=== PATIENT | female | born 1945 | race Caucasian/White ===

== ENCOUNTER 2021-03-09 03:18 | Outpatient (CLI) | payer MEDICARE, SELFPAY ==
[2021-03-09 13:32] LABS: Anion Gap 11.3 mmol/L (3-11); BUN 24 mg/dL (7-18); CO2 25.7 mmol/L (21.0-32.0); CREATININE 0.9 mg/dL (0.55-1.02); Calcium 9.3 mg/dL (8.5-10.1); Calculated LDL 80 mg/dL (<100); Chloride 107 mmol/L (98-107); Cholesterol 152 mg/dL (<200); Glucose 101 mg/dL (74-106); HDL Cholesterol 59 mg/dL (40-60); Potassium 4.2 mmol/L (3.5-5.1); Sodium 144 mmol/L (136-145); Triglyceride 65 mg/dL (<150)
[2021-03-09 14:51] LABS: Hemoglobin A1C 6.1 % (<5.7)
== END 2021-03-09 03:19 | disposition home or self-care (01) ==
PROVIDERS: PCP Nurse Practitioner; Visit Provider Nurse Practitioner
DX: R73.03 Prediabetes (principal); E78.5 Hyperlipidemia, unspecified; Z13.6 Encounter for screening for cardiovascular disorders
CPT/HCPCS: 36415; 80048; 80061; 83036

== ENCOUNTER 2021-05-20 02:17 | Outpatient (CLI) | payer MEDICARE, SELFPAY ==
[2021-05-22 15:24] LABS: 1,25-Dihydroxyvitamin D 37 pg/mL (18-78)
== END 2021-05-20 02:18 | disposition home or self-care (01) ==
PROVIDERS: PCP Nurse Practitioner; Visit Provider Nurse Practitioner
DX: E55.9 Vitamin D deficiency, unspecified (principal)
CPT/HCPCS: 36415; 82652

== ENCOUNTER 2021-09-22 00:16 | Outpatient (CLI) | payer MEDICARE, SELFPAY ==
--- NOTE | 2021-09-22 07:15 | DI.RAD_ITS ---
Exam(s) XR HIP LT COMPLETE AP PELVIS EXAM: XR HIP LT COMPLETE AP PELVIS INDICATION: left hip and groin and llq pain,r10.32. COMPARISON: No exams were available for comparison TECHNIQUE: 2D digital imaging was performed. Two views FINDINGS: Mild bilateral hip joint space narrowing, symmetric. Prominent acetabular spurring and spurring at t he margins of the femoral heads. Moderate spurring at the SI joints and pubic symphysis. IMPRESSION: Moderate degenerative changes of both hips. DATA REPOSITORY: RADIATION DOSE DELIVERED:
== END 2021-09-22 00:36 ==
PROVIDERS: PCP Nurse Practitioner; Visit Provider Nurse Practitioner
DX: M25.552 Pain in left hip (principal); M53.3 Sacrococcygeal disorders, not elsewhere classified; R10.32 Left lower quadrant pain
CPT/HCPCS: 73502

== ENCOUNTER 2021-10-13 01:52 | Outpatient (CLI) | payer MEDICARE, SELFPAY ==
--- NOTE | 2021-10-13 07:30 | DI.MAMMO_ITS ---
Exam(s) MAMMO SCREENING EXAM: MAMMO SCREENING CLINICAL HISTORY: screening,z12.39 TECHNIQUE: Mammograms were interpreted according to the usual protocol including computer analysis w [employer] CAD system, tomosynthesis and C-view imaging. COMPARISON: FINDINGS: The breasts are of moderate density with fairly symmetrical distribution of fibroglandular tissue. N o dominant mass or clumped microcalcification is identified in either breast. No prior examinations available for comparison. There is a focal area of asymmetric density projected in the central portion of the right breast on C C view. Additional mammographic views of this area are requested to include a CC spot compression vi ew to exclude a small mass. IMPRESSION: Additional mammographic views of the right breast requested as described above. Breast ultrasound ma y be indicated as well depending on the results additional mammographic views. BI-RADS Category 0 - Assessment Incomplete: Need additional imaging evaluation Breast Density - Category B - Scattered areas of fibroglandular density
== END 2021-10-13 02:12 ==
PROVIDERS: PCP Nurse Practitioner; Visit Provider Nurse Practitioner
DX: Z12.31 Encounter for screening mammogram for malignant neoplasm of breast (principal); R92.8 Other abnormal and inconclusive findings on diagnostic imaging of breast
CPT/HCPCS: 77063; 77067

== ENCOUNTER → 2021-11-26 08:34 | Outpatient (BNVA) | payer MEDICARE, SELFPAY | PROVIDERS: PCP Nurse Practitioner; Referring Provider Nurse Practitioner; Visit Provider Student in an Organized Health Care Education/Training Program | DX: M16.12 Unilateral primary osteoarthritis, left hip (principal); M16.11 Unilateral primary osteoarthritis, right hip | CPT/HCPCS: 99203 ==

== ENCOUNTER 2021-12-16 13:44 | Outpatient (CLI) | payer MEDICARE, SELFPAY ==
--- NOTE | 2021-12-16 13:30 | DI.RAD_ITS ---
Exam(s) XR PELVIS AP EXAM: XR PELVIS AP CLINICAL HISTORY: LEFT HIP F/U. TECHNIQUE: 2D digital imaging was performed. COMPARISON: CR XR HIP LT COMPLETE AP PELVIS from 09/22/2021 FINDINGS: Single view No evidence of pelvic nor hip fracture. Significant degenerative changes both hips again noted, guille lar to previous. There is mild joint space narrowing bilaterally as well as marginal osteophytes bot h femoral heads and degenerative subarticular cysts bilaterally. IMPRESSION: Degenerative bilateral hip changes. Minimal change from 09/22/2021. DATA REPOSITORY: RADIATION DOSE DELIVERED:
== END 2021-12-16 13:45 | disposition home or self-care (01) ==
LOC: DIORS 13:45
PROVIDERS: PCP Nurse Practitioner; Referring Provider Nurse Practitioner; Visit Provider Physician Assistant
DX: M16.12 Unilateral primary osteoarthritis, left hip (principal)
CPT/HCPCS: 72170

== ENCOUNTER 2021-12-21 03:52 | Outpatient (CLI) | payer MEDICARE, SELFPAY | END 2021-12-21 03:53 | disposition home or self-care (01) | PROVIDERS: PCP Nurse Practitioner; Visit Provider Student in an Organized Health Care Education/Training Program ==

== ENCOUNTER 2021-12-21 04:01 | Outpatient (CLI) | payer MEDICARE, SELFPAY ==
[2021-12-21 09:09] LABS: HCT 39.6 % (36.0-46.0); HGB 13.4 g/dL (11.2-15.7); MCHC 33.8 % (32.0-36.0); MCV 92 fL (80-95); MPV 9.2 fL (8.0-11.0); Platelet Count 232 10^3/uL (130-400); RBC 4.32 10^6/uL (3.93-5.22); RDW 12.3 % (11.7-14.6); RDW-SD 41.4 fL; WBC 5.11 10^3/uL (4.4-10.8)
[2021-12-21 10:07] LABS: Anion Gap 11.2 mmol/L (3-11); BUN 28 mg/dL (7-18); CO2 24.8 mmol/L (21.0-32.0); Calcium 9.3 mg/dL (8.5-10.1); Chloride 105 mmol/L (98-107); Estimated GFR 53.76 (mL/min/1.73m2); Glucose 152 mg/dL (74-106); Potassium 3.7 mmol/L (3.5-5.1); Sodium 141 mmol/L (136-145)
[2021-12-21 11:58] LABS: Source Nasal/Nares
[2021-12-21 16:19] LABS: COVID-19 PCR Negative (Negative)
== END 2021-12-21 04:02 | disposition home or self-care (01) ==
LOC: LBO 04:01
PROVIDERS: PCP Nurse Practitioner; Visit Provider Student in an Organized Health Care Education/Training Program
DX: M25.552 Pain in left hip (principal); M16.12 Unilateral primary osteoarthritis, left hip; Z20.822 Contact with and (suspected) exposure to COVID-19; Z01.818 Encounter for other preprocedural examination; Z01.812 Encounter for preprocedural laboratory examination
CPT/HCPCS: 36415; 80048; 85027; 87635

== ENCOUNTER 2021-12-22 06:04 | Day surgery (SDC) | payer MEDICARE, SELFPAY ==
[2021-12-22] VITALS (10 sets, daily range): BP systolic 92–141; BP diastolic 29–90; PULSE 50–69; RESP 15–21; TEMP 36.2–36.6; O2SAT 94–100; BMI 28.8
--- NOTE | 2021-12-22 06:26 | W.ANESPRE ---
General Info Date of Service Date Performed: 12/22/21 Height: 5 ft 3 in Weight: 73.7 kg Body Mass Index (BMI): 28.8 Surgical Procedure: Operation Date: 12/22/21 07:50 Proposed Procedure Side Surgeon p Hip Total Hip Anterior Left Reyes Lo MD Meds Allergies and Home Medications Allergies Allergy/AdvReac Type Severity Reaction Status Date / Time meperidine [From Demerol] AdvReac Unknown Nausea, Verified 12/22/21 06:12 vomiting Home Medication Medication Instructions Recorded calcium carbonate 600 mg calcium 600 mg PO DAILY 12/29/20 (1,500 mg) tablet cholecalciferol (vitamin D3) 25 25 mcg PO DAILY 12/29/20 mcg (1,000 unit) tablet melatonin 3 mg tablet 3 mg PO HS PRN 12/29/20 rosuvastatin 20 mg tablet 20 mg PO DAILY 12/29/20 ljpldznslcpr-emhdvrck-pkbezfn-folic 1 tab PO DAILY 01/20/21 acid 400 mcg-vit K1 20 mcg tablet (One-A-Day Women's 50 Plus) pramipexole 0.125 mg tablet 0.125 mg PO QHS 01/20/21 Current Visit Medications: Current Medications Generic Name Dose Route Start Last Admin Trade Name Freq PRN Reason Stop Dose Admin Acetaminophen 1,000 mg 12/22/21 06:00 Acetaminophen 500 Mg Tab PO 12/22/21 16:00 PREOP LUISA Celecoxib 400 mg 12/22/21 06:00 Celecoxib 200 Mg Cap PO 12/22/21 16:00 PREOP LUISA Tranexamic Acid 1,000 mg/ 60 mls @ 360 mls/hr 12/22/21 06:00 Sodium Chloride IV 12/22/21 16:00 PREOP LUISA Ringer's Solution 1,000 mls @ 80 mls/hr 12/22/21 06:00 IV 01/20/22 23:59 INFUSION LUISA Cefazolin Sodium/Dextrose 2 gm in 50 mls @ 100 mls/hr 12/22/21 06:00 Ancef Duplex IVPB 12/22/21 16:00 PREOP LUISA IV Miscellaneous Supplies 1 each 12/22/21 06:00 Iv Access IV 01/20/22 23:59 DIRECTED LUISA Sodium Chloride 0 ml 12/22/21 06:00 Normal Saline Flush 10 Ml Syr IV 01/20/22 23:59 PRN PRN Sodium Chloride 0 ml 12/22/21 06:00 Normal Saline 10 Ml Vial IJ 01/20/22 23:59 DIRECTED PRN Sterile Water 0 ml 12/22/21 06:00 Water,Injection,Sterile 10 Ml Vial IJ 01/20/22 23:59 DIRECTED PRN PFSH Active Problems Active Problems: Problem Status Onset Code Vitamin D deficiency E55.9 Osteopenia M85.80 Low back pain M54.5 Pre-diabetes R73.03 Hyperlipidemia E78.5 Restless leg G25.81 Left groin pain R10.32 Osteoarthritis M19.90 Nocturia R35.1 Snoring R06.83 Osteoarthritis of right hip M16.11 Degenerative joint disease of left hip M16.12 Medical History Medical History COVID-19 11/11/21 Knee fracture, left Left anterior fascicular block Reactive depression 2017 Uterine polyp Medical History Comments:: Pt. states she is a light weight with anesthesia Surgical History Surgical History H/O dilation and curettage uterus History of carpal tunnel repair (~1996) B/L History of hammertoe correction (~2010) left foot History of phacoemulsification of cataract of right eye with intraocular lens implantation S/P breast biopsy, right (~1972) BENIGN S/P lumpectomy, right breast (~1972) Status post bilateral cataract extraction Status post tonsillectomy and adenoidectomy (~1947) Status post trigger finger release right 3rd Tobacco Smoking/Tobacco Use Status: Never Passive smoking exposure: Yes Second hand exposure: Yes Alcohol Alcohol Intake: current Alcohol intake frequency: holidays/special occasions only Alcohol type: wine Substance Use Substance use: Never Substance use type: does not use Vital Signs and Lab Results Vital Signs Most Recent Vital Signs in EMR: Most Recent Vital Signs Temp Pulse Resp BP Pulse Ox 36.6 C 69 16 141/70 H 97 12/22/21 06:15 12/22/21 06:15 12/22/21 06:15 12/22/21 06:15 12/22/21 06:15 Lab Results Blood Type / Crossmatch: No Data to Display Complete Blood Count: White Blood Count 5.11 10^3/uL (4.4-10.8) 12/21/21 08:52 Red Blood Count 4.32 10^6/uL (3.93-5.22) 12/21/21 08:52 Hemoglobin 13.4 g/dL (11.2-15.7) 12/21/21 08:52 Hematocrit 39.6 % (36.0-46.0) 12/21/21 08:52 Platelet Count 232 10^3/uL (130-400) 12/21/21 08:52 Complete Metabolic Panel: Sodium Level 141 mmol/L (136-145) 12/21/21 08:52 Potassium Level 3.7 mmol/L (3.5-5.1) 12/21/21 08:52 Chloride Level 105 mmol/L (98-107) 12/21/21 08:52 Carbon Dioxide Level 24.8 mmol/L (21.0-32.0) 12/21/21 08:52 Blood Urea Nitrogen 28 mg/dL (7-18) H 12/21/21 08:52 Creatinine 1.0 mg/dL (0.55-1.02) 12/21/21 08:52 Estimated GFR/1.73 m2 53.76 (mL/min/1.73m2) 12/21/21 08:52 Calcium Level 9.3 mg/dL (8.5-10.1) 12/21/21 08:52 Glucose Level 152 mg/dL (74-106) H 12/21/21 08:52 Liver Function Panel: No Data to Display Coagulation Panel: No Data to Display Cardiac Panel: No Data to Display Arterial Blood Gas: No Data to Display Venous Blood Gas: No Data to Display Pancreas Panel: No Data to Display Thyroid Panel: No Data to Display Infectious Disease: Coronavirus (COVID-19)(PCR) Negative (Negative) 12/21/21 09:06 Coronavirus 2019 Source Nasal/Nares 12/21/21 09:06 Blood Cultures: No Data to Display Toxicology Panel: No Data to Display Anesthesia Assessment and Plan Anesthesia History Personal History: No History of Anesthesia Complications Family History: No Family History of Anesthesia Complications Exercise Tolerance Exercise Tolerance: Metabolic Equivalents>4 Cardiac & Pulmonary Exam Cardiac Exam: Normal S1/S2 Heart Sounds Pulmonary Exam: Clear Bilateral Breath Sounds Implantable Cardiac Device Does patient have a Pacemaker or an ICD?: No Airway Exam Known Difficult Airway: No Mallampati Class: 3 Mouth Opening: Normal (> 3cm) Thyromental Distance: Greater than 3 cm Neck Range of Motion: Full ROM Neck Circumference: Normal Teeth Condition: Normal Dentition ASA Classification ASA Score: ASA 2 Emergency Case?: No NPO Status NPO Status: NPO Clears >2 hours, Solids >8 hours Anesthesia Plan Resuscitation Status: Full Code Anesthesia Technique: General Anesthesia Airway Planned: Endotracheal Tube Monitors Used: Standard Monitors Preoperative Comments:: 76 yo female for left hip arthroplasty. Requesting GA. Sig PMHx: RLS, snoring, DJD, pre DM (last a1c 6.1). recent COVID ~ 5 weeks ago, no issues.
[2021-12-22] MEDS: Acetaminophen 500 MG TAB 1000 MG PO (06:57)
[2021-12-22] MEDS: Lactated Ringers 1,000 ML 80 ML IV (06:57)
[2021-12-22] MEDS: Celecoxib 200 MG CAP 400 MG PO (06:57)
[2021-12-22] MEDS: ceFAZolin 2 GM/50 ML BAG IVPB (07:42)
--- NOTE | 2021-12-22 08:45 | DI.RAD_ITS ---
Exam(s) XR HIP LT IN OR EXAM: XR HIP LT IN OR CLINICAL HISTORY: Degenerative joint disease of left hip. TECHNIQUE: 2D digital imaging was performed. COMPARISON: No exams were available for comparison FINDINGS: Fluoroscopy was provided during left hip arthroplasty. See procedure report for details. Total fluoroscopy time 27 seconds Cumulative dose 3.8093mGy IMPRESSION: DATA REPOSITORY: RADIATION DOSE DELIVERED:
--- NOTE | 2021-12-22 09:11 | ROE_ITS ---
Date of service: 12/22/21 Time of Service: 09:11 Operative Note Operative Note DATE OF PROCEDURE: 12/22/21 PRE-OP DIAGNOSIS: Left Hip Osteoarthritis POST-OP DIAGNOSIS: same PROCEDURE: Left Anterior Total Hip Arthroplasty with Intraoperative Navigation SURGEON: Reyes Lo ANESTHESIA TYPE: Spinal Refer to Anesthesia Record PATHOLOGY: none sent TOURNIQUET TIME: 0 COMPLICATIONS: None Patient was transported to: PACU Patient's condition: stable Implants: 1. Depuy Bimentum Acetabular Component, 47mm 2. Depuy Bimentum Liner, [id number] 3. Depuy Corail Coxa Vara Collared Femoral Stem, Size 9 4. Depuy Altrx Ceramic Femoral Head, Size 28+1mm Indications: I have seen Fidelina in clinic for symptoms of hip arthritis, confirmed with radiographic findings. She has exhausted nonoperative methods and was having significant limitations in daily function and desired better function and less pain. I discussed the technical details of a hip replacement. I explained the risks of the procedure to include, but not limited to, bleeding, infection, pain, stiffness, fracture, damage to nerves and vessels, damage to muscles and tendons, loosening, instability, leg length inequality, need for repeat procedure, blood clot and cardiopulmonary demise. Despite these risks, Fidelina elected to proceed. Findings: There was significant signs of arthritis throughout the hip with complete loss of cartilage from the superior femoral head. A dual mobility acetabular component was utilized given her long-standing spinal history. Procedure Description: Fidelina was greeted in the preoperative holding area where the correct side was identified and marked. The consent was reviewed with the patient and signed. The history and physical was updated. All questions were answered. SHe was taken back to the operating room. A general anesthetic was administered. The feet were wrapped with cast padding and Coban and then placed into the boot liners and then into the boots. Care was taken to protect the skin and make sure the heels were fully down and the boots were stable. The patient was then positioned onto the HANA table. Both legs were held in a neutral position. SCDs were applied. The patient was then slid down onto a peroneal post. Prophylactic antibiotics in the form of Cefazolin were administered. 1g of Tranxemic Acid was given intravenously within 30 minutes of incision. The left leg was then prepped with Chloraprep and draped in a standard fashion. A second prep with Chloraprep was performed prior to placement of a shower-curtain type drape with Iodine impregnated skin protection . A timeout to confirm correct identity, side and site, procedure, allergies, anesthesia, and medical concerns was performed. An obliquely oriented incision was made starting lateral to the ASIS and running distal over the Tensor Fascia Dipti (TFL) muscle belly toward the fibular head, approximately 10cm. The skin and soft tissue was dissected sharply, through Dylan?s fascia, and to the fascia of the TFL. With the fascia and superior border of the IT band identified, the fascia was incised with a new knife just above any perforators from the IT band. The TFL muscle belly was bluntly disse cted away from the fascia and moved laterally. The fat between TFL and rectus was identified to ensure the dissection was not within the TFL. Blunt dissection created space between abductors and the capsule and retractor was placed over the lateral femoral neck. The fibers of the rectus femoris tendon were identified and these were freed from the anterior capsule. A second cobra retractor was placed around the medial femoral neck. The TFL was further retracted laterally to show the deep fascia. Careful dissection through this layer identified three main crossing vessels of the lateral femoral circumflex. These were cauterized in multiple locations and then cut without any noticeable bleeding. The TFL was further released bluntly from the deep fascia to expose anterior hip capsule and fat The Kwame orthopaedic retractor was then placed beneath the TFL and against sartorius and medial soft tissues to protect and retract the soft tissues. A T-capsulotomy was then performed starting at the superior lateral acetabulum and moving distally to the intertrochanteric ridge. These capsular flaps were tagged with a No. 1 Ethibond and elevated from within. The capsular flaps were released to the shoulder of the lateral neck and to the lesser trochanter to give excellent visualization of the proximal femur. A neck osteotomy was performed using an oscillating saw based on preoperative templates. This cut started in the shoulder and of the lateral neck and exited medially. The saw was at all times directed medially to avoid injury to the greater trochanter. Gross traction was applied to the leg and the osteotomy opened. The femoral head was removed with a corkscrew, making sure to protect the TFL on its exit. Traction was released after head removal. This was matthieu ured on the back table to determine the starting reamer size. Portions of the rectus obscuring visualization were minimally elevated off the superior acetabulum. An anterior retractor was placed over the anterior wall between capsule and labrum and attached to the Gripper retraction system. The femur was rotated to 90 degrees and medial capsule was fully released until the lesser trochanter was palpable and visible; the femur was returned to 30 degrees. A posterior retractor was placed similarly between capsule and labrum. This provided excellent visualization. The contents of the cotyloid fossa were removed with electrocautery and the labrum was removed with a knife. There was significant chondromalacia of the superior acetabulum. Acetabular reaming began with a 43mm reamer. This first reaming was directed anterior to posterior and medial to get down to the true floor. This was inspected and reamed until the true floor was reached. The anterior retractor was then released and entry and exit was provided by traction on the capsular flaps. I then reamed sequentially up to a 47mm reamer where good fit was obtained. The larger reamers were oriented based on anatomical reference of the anterior and lateral perea to ensure proper abduction and anteversion. Positioning and size was confirmed with the fluoroscopy. A 47mm Bimentum acetabular component was selected. The deep tissues were irrigated. The acetabular component was then impacted in a position of about 40-45 degrees of abduction and 15-20 degrees of anteversion, using the patient?s anatomy as the ultimate landmark. Fluoroscopy was used to confirm this. There was excellent vending machine filler of the acetabular component and the inserting handle was removed. A portion of the rodrick-articular cocktail was then injected around the acetabulum into the capsule and periosteum. This cocktail consisted of 123mg of Ropivacaine, 0.25mg of Epinephrine, 0.04mg of Clonidine, and 15mg of Ketorolac, diluted to 50cc. The leg was rotated to 120 degrees. Any remaining medial capsule was released until the lesser trochanter was easily palpable. A retractor was placed medially. The lateral capsule was further released into the shoulder to allow access to the greater trochanter. A Tong retractor was placed over the greater trochanter which allowed the trochanter to flip in front of the capsule for excellent exposure. The leg was brought down into maximal extension and 20 degrees of adduction while ensuring there was no impingement on the acetabulum. Any remnant capsule within the trochanter was released. Piriformis and obturator externis were identified and protected. There was excellent access to the proximal femur. The lateral neck remnant was removed with a rongeur. A blunt canal probe was used to identify the canal and trajectory for later broaching. A box osteotome initiated the broach course. A small curved rasp and a curved curette were used to work laterally. Broaching then began with a size 8 Corail broach. This was inserted manually around the trochanter and into the canal before mallet blows. The broach was seated to a few millimeters below the cut level based on the neck cut and the preoperative template. Sequential broaching was continued with the [employer] pneumatic broaching device until a tight fit was obtained with good rotational control of the femur. A trial coxa vara neck was inserted along with a +1 trial head. The leg was brought out of extension and adduction and then reduced with traction and internal rotation. The leg was stable anteriorly in a position of 30 degrees of extension and 90 degrees of external rotation. Fluoroscopy was used to ensure there was no fracture and the stem was seated well. Leg lengths were checked with an AP pelvis and pelvic reference points. Azima navigation system was used to confirm appropriate positioning and leg length and offset. This over-corrected the leg length and thus I would advance the broach 4-5mm. Once content with the desired offset and leg lengths, the leg was brought back into extension, external rotation and adduction. The periosteum and surrounding tissue was injected with remaining portion of the rodrick-articular cocktail. The proximal femur was irrigated as well as the deep tissues. The Depuy Corail Coxa Vara collared stem, size 9, was then manually inserted into the proximal femur making sure to control rotation. It was then malleted into position with light blows, giving breaks to allow bone expansion and decrease risk of fracture. The selected Depuy Altrx Ceramic Head, size 28+1mm, was inserted into the Bimentum liner ([id number]). This was then placed onto the clean and dry trunnion and secured with impaction onto the tapered fit. The leg was brought back out of extension and adduction and reduced with traction and internal rotation. Stability was confirmed with no shuck at 90 degrees of external rotation and 30 degrees of extension. No impingement thro [facility] range of motion arc. Final x-ray images were obtained with fluoroscopy to confirm adequate positioning and no unstable intraoperative fracture. There was asome mild comminution of the proximal edge of the posterior femoral neck at the junction of the trochanter which was not full thickness and not associated with any fracture line. The deep tissues were thoroughly irrigated with Surgiphor, betadine solution. This was allowed to sit in the wound for 3 minutes before being thoroughly irrigated out with normal saline. The capsule was then reapproximated with the previously placed Ethibond sutures. The TFL fascia was finally closed with a No. 2 Stratafix, barbed suture. Deep tissues were then reapproximated with 0 Vicryl and a running 2-0 Vicryl. The skin was closed with a running 4-0 Monocryl in a subcuticular fashion. This was reinforced with skin glue. A Mepilex silver dressing was applied. At the end of the case, all counts were correct. Fidelina was transferred [facility] the [facility] bed without difficulty and suffering no apparent complication. Fidelina has a good prognosis. Physical therapy will start today and without restrictions, weight-bearing as tolerated. Aspirin 81mg BID will be used for DVT prophylaxis.
[2021-12-22] MEDS: fentaNYL 100 MCG/2 ML VIAL IVP ×2 (09:46→10:00)
[2021-12-22] MEDS: ePHEDrine 25 MG/5 ML Syringe IVP ×2 (10:20→10:25)
[2021-12-22] MEDS: traMADol 50 MG TAB PO (10:58)
--- NOTE | 2021-12-22 12:36 | W.ANESPOSTOP ---
Postoperative Evaluation Date, Time and Location Date Performed: 12/22/21 Time Performed: 12:36 Patient Location: Day Surgery Unit Vital Signs Most Recent Imported Vital Signs: Most Recent Vital Signs Temp Pulse Resp BP Pulse Ox 36.4 C L 55 L 16 129/51 L 100 12/22/21 11:06 12/22/21 11:06 12/22/21 11:06 12/22/21 11:06 12/22/21 11:06 Pain Score Most Recent Pain Score: Most Recent Pain Score Pain Level 8 12/22/21 10:41 Assessment Mental Status: Awake (Alert & Oriented to Patient Baseline) Airway and Respiratory Function: Patent airway with normal (patient baseline) respiratory exam Cardiovascular Function: Hemodynamically Stable Hydration Status: Adequately Hydrated Nausea & Vomiting: No Nausea or Vomiting Pain: Pain is tolerable per patient Peripheral Nerve Block: Patient did not receive a nerve block
--- NOTE | 2021-12-22 13:24 | W.PM.DSUDISC ---
Discharge Plan Disposition Patient Disposition: HOME Condition: Good Discharge Details Reason For Visit: Left Hip DJD Attending Provider: Reyes Lo Primary Care Provider: Crystal Benavides Home Meds and New Rx's Prescriptions: New celecoxib 200 mg capsule 200 mg PO BID PRN (Reason: pain) Qty: 60 1RF aspirin 81 mg tablet,delayed release (DR/EC) 81 mg PO BID Qty: 60 0RF acetaminophen 500 mg tablet 1,000 mg PO Q8H PRN (Reason: pain) Qty: 90 3RF tramadol 50 mg tablet 50 mg PO Q4H PRN PRNQty: 14 0RF pantoprazole 40 mg tablet,delayed release (DR/EC) 40 mg PO DAILY Qty: 30 0RF Continued pramipexole 0.125 mg tablet 0.125 mg PO QHS One-A-Day Women's 50 Plus 400-20 mcg tablet 1 tab PO DAILY calcium carbonate 600 mg calcium (1,500 mg) tablet 600 mg PO DAILY cholecalciferol (vitamin D3) 25 mcg (1,000 unit) tablet 25 mcg PO DAILY rosuvastatin 20 mg tablet 20 mg PO DAILY melatonin 3 mg tablet 3 mg PO HS PRN Discharge Instructions Additional Instructions: Total Hip Discharge Instructions Activity: The most important activity is to walk. You should try to take short walks a few times a day. You have no restrictions on movement or positioning, but do not try to force what you do. You will find some stiffness and weakness with hip flexion (lifting your knee). Do not try to strengthen this too early, continue to practice walking and stairs and this will come. - Outpatient physical therapy can be helpful to help return you to a normal gait and improve your flexibility and strength. This can start around 2 weeks. For some patients, it?s not necessary. Usually this is determined at the time of discharge or at the first post-operative visit. - You should wear the RAJANI hose on both legs for 2 weeks. Dressing: Keep the surgical dressing in place for at least one week. After the first week it may be removed and replace with light gauze and tape or nothing. It may get wet after 3 days but avoid soaking the dressing. If it gets wet, just lightly pat dry. It is important to always keep some gauze between skin folds, especially when you are sitting. Spend some time with the wound exposed when you are lying flat as the incision does wrinkle onto itself. Medications: - You should take Tylenol and an anti-inflammatory Celebrex as your primary pain control medications. If the Celebrex is too expensive or not covered, please call the office for another alternative (Advil/Ibuprofen or Naproxen/Aleve). - You have been prescribed a stronger pain medication Tramadol for breakthrough pain, take as needed as prescribed. - You have also been prescribed a stomach acid reduction agent Pantoprozole to help reduce stomach acid and reflux. - You will be taking Aspirin 81mg twice a day for DVT prevention unless instructed otherwise. - If you have constipation you should take Colace or Miralax (both [id number]). It takes most people 3-4 days to have a bowel movement. Follow-up: 2 weeks If you have any acute concerns or questions, please do not hesitate to contact the office at [phone]. You may contact Dr. Lo with any questions after hours through the hospital at [phone] or on his cell phone at [phone]. Stand Alone Forms: Anesthesia Discharge Inst., Yoshi Thrasher (DSU) Equipment/Supplies: Walker Activity:: Activity as Tolerated Remove Dressings/Wound Care:: Do Not Remove Shower/Bathe:: 72 hours Diet:: As Tolerated Discharge Orders Discharge Orders: Discharge Order (Routine); Ordered 12/22/21 Ordered By: Reyes Lo
== END 2021-12-22 13:50 | disposition home or self-care (01) ==
PROVIDERS: PCP Nurse Practitioner; Visit Provider Student in an Organized Health Care Education/Training Program
PROC: (CPT 27130; principal; 2021-12-22 07:30)
DX: M16.12 Unilateral primary osteoarthritis, left hip (principal); E55.9 Vitamin D deficiency, unspecified; R73.03 Prediabetes; Z86.16 Personal history of COVID-19; E78.5 Hyperlipidemia, unspecified
CPT/HCPCS: 20985; 27130; C1776; 97161; 73501; J0690; J1100; J2405; J2704; J3010

== ENCOUNTER 2021-12-31 18:26 | Outpatient (REF) | payer MEDICARE, SELFPAY ==
[2021-12-31 22:13] LABS: Bilirubin Negative (Negative); Blood Small (Negative); Clarity Clear (Clear); Glucose Negative (Negative); Ketones Negative (Negative); Leukocyte Esterase Moderate (Negative); Nitrite Negative (Negative); Specific Gravity 1.015 (1.005-1.025); Urobilinogen 0.2 EU/dL (Up TO 0.2)
[2021-12-31 22:19] LABS: Bacteria Moderate HPF (Negative); C & S Indicated? Yes; Casts Negative LPF (Negative); Crystals Negative HPF (Negative); Epithelial Cells Negative HPF (Negative); Mucus Negative (Negative); WBC 20-50 HPF (0-5)
== END 2021-12-31 18:27 | disposition home or self-care (01) ==
LOC: LBN 18:26
PROVIDERS: PCP Nurse Practitioner; Visit Provider Physician Assistant
DX: R39.89 Other symptoms and signs involving the genitourinary system (principal)
CPT/HCPCS: 87077; 81003; 81015; 87086; 87186

== ENCOUNTER 2022-01-04 15:06 | Outpatient (CLI) | payer MEDICARE, SELFPAY ==
--- NOTE | 2022-01-04 11:45 | DI.RAD_ITS ---
Exam(s) XR HIP LT COMPLETE AP PELVIS EXAM: XR HIP LT COMPLETE AP PELVIS CLINICAL HISTORY: 1ST POST OP L MAIRA. TECHNIQUE: 2D digital imaging was performed. COMPARISON: CR XR PELVIS AP from 12/16/2021 FINDINGS: Two views There has been interval placement of a left hip prosthesis. Components are in satisfactory position alignment. No fracture or loosening evident. Moderate degenerative changes are noted in the opposit e-right hip, unchanged. IMPRESSION: DATA REPOSITORY: RADIATION DOSE DELIVERED:
--- OUTSIDE RECORDS SUMMARY | 2022-01-04 15:07 | XMS_ITS | Encounter Summary ---
:1945 Author Organization [facility] Address [address] [place] [id number] Care Team Providers Name Role Phone Chino Hargrove MD Primary Care Provider Encounter Details Date Type Department Care Team Description 11/14/2020 Audio Visit Internal Medicine - Chino Hargrove Enc ounter for annual Lara Hernandez MD wellness exam in [address] Medicare patient Building 2 [facility] 2 (Primary Dx) [facility] [address] [phone] [place] [address] (Wo rk) Social History Tobacco Use Types Packs/Day Years Used Date Never Smoker Smokeless Tobacco: Never Used Alcohol Use Standard Drinks/Week Comments Yes 0 (1 standard drink = 0.6 oz pure alcoho l) Rarely Alcohol Habits Answer Date Recorded How often do you have a drink containing alcohol? Not asked How many drinks containing alcohol do you have on a typical Not asked day when you are drinking? How often do you have six or more drinks on one occasion? No t asked Comment: Rarely 09/13/2016 Sex Assigned at Date Recorded Female 03/28/2019 8:22 AM EDT Job Start Date Occupation Industry Not on file Not on file Not on file COVID-19 Exposure Response Date Recorded In the last month, have you been in contact with No / Unsure 11/14/2020 9:09 AM EDT someone who was confirmed or suspected to have Coronavirus / COVID-19? documented as of this encounter Progress Notes Chino Hargrove MD - 11/14/2020 9:00 AM EDT MEDICARE ANNUAL WELLNESS VISIT Fidelina Hanson is a 75 y.o. female who presents today for her Annual Wellness Visit. Allergies Allergen Reactions ??? Demerol [Meperidine] Nausea And Vomiting and Rash Current Outpatient Medications Medication Sig Dispense Refill ??? aspirin EC 81 MG tablet Take 81 mg by mouth daily. ??? Calcium Carbonate (CALCIUM 600 PO) Take by mouth. ??? cholecalciferol (VITAMIN D3) 1000 UNITS tablet Take 1,000 Units by mouth daily. ??? Flaxseed, Linseed, (FLAXSEED OIL PO) Take by mouth. ??? melatonin 3 MG TABS tablet melatonin 3 mg tablet TAKE BY ORAL ROUTE ??? Multiple Vitamin (MULTI VITAMIN DAILY PO) Take by mouth. ??? pramipexole (Mirapex) 0.125 MG tablet Take 1 tablet (0.125 mg total) by mouth every night at bedtime. 90 tablet 3 ??? rosuvastatin (CRESTOR) tablet 20 mg Take 1 tablet (20 mg total) by mouth daily. 90 tablet 3 No current facility-administered medications for this visit. Past Medical History: Diagnosis Date ??? High cholesterol ??? Left anterior fascicular block ??? Low back pain ??? Metabolic syndrome X ??? Osteopenia ??? Vitamin D deficiency Past Surgical History: Procedure Laterality Date ??? BREAST BIOPSY Right 1973 ??? BREAST LUMPECTOMY Right 1973 ??? CORRECTION HAMMER TOE Both feet ??? DILATION AND CURETTAGE OF UTERUS ??? OTHER SURGICAL HISTORY Uterine polyp ??? TRIGGER FINGER RELEASE Right Family History Problem Relation Age of Onset ??? Dementia Mother ??? Hypertension Mother ??? Cancer Father colon ??? Hypertension Father ??? Cancer Sister skin ??? Migraines Daughter Social History Tobacco Use ??? Smoking status: Never Smoker ??? Smokeless tobacco: Never Used Substance Use Topics ??? Alcohol use: Yes Comment: Rarely CURRENT PROVIDER(s) Patient Care Team: Chino Hargrove MD as PCP - General (Internal Medicine) OTHER PROVIDER(s) None DURABLE MEDICAL EQUIPMENT DME includes: none AWV SCREENING FALL RISK SCREENING Medicare Screening Date: 11/14/20 Has the patient fallen in the last 6 months?: No Does patient have difficulty with walking or balance?: No Does the patient use any assistive devices with ambulation?: No Future fall risk status: negative DEPRESSION SCREEN Does the patient have a clinical diagnosis of depression?: No Medicare Screening Date: 11/14/20 Depression screening performed today?: yes Little interest or pleasure in doing things: 0 Feeling down, depressed or hopeless: 0 Initial Depression Screening Score: 0 Trouble falling or staying asleep, or sleeping too much: 1 Feeling tired or having little energy: 0 Poor appetite or overeatin Feeling bad about yourself - or that you are a failure or have let yourself or your family down: 0 Trouble concentrating on things, such as reading the newspaper or watching television: 0 Thoughts that you would be better off , or of hurting yourself in some way: 0 Total Score Depression Severity: 1 If you checked off any problems, how difficult have these problems made it for you to do your work, take care of things at home, or get along with other people?: Not difficult at all Total Score Depression Severity: 1 ADL ASSESSMENT Medicare Screening Date: 11/14/20 Bathin Dressin Toiletin Transferrin Continence: 1 Feedin ADL Total Score: 6 IADL ASSESSMENT Medicare Screening Date: 11/14/20 Ability to Use Telephone : 1 Shoppin Food Preparation: 1 Housekeepin Laundry: 1 Mode of Transportation: 1 Responsibility for Own Medications: 1 Ability to Handle Finances: 1 IADL Total Score:: 8 HOME SAFETY ASSESSMENT Medicare Screening Date: 11/14/20 When you walk through a room, do you have to walk around furniture?: No Do you have throw rugs on the floor?: (!) Yes Do you have to walk over or around cords or wires (like cords from lamps, telephones or extension cords)?: No Are papers, shoes, books or other objects on the stairs or are some steps broken or uneven?: No Are you missing a light over the stairway or is it burned out?: No If you have handrails, are the handrails loose or broken?: No If the steps are carpeted, is the carpet loose or torn?: No In your kitchen, are the things you use often on high shelves?: No If you have a step stool, is your step stool unsteady?: No In the bedroom, is the light near the bed hard to reach?: No Is the path from your bed to the bathroom dark?: No In the bathroom, is the tub or floor slippery?: No Do you need some support when you get in and out of the tub or up from the toilet (grab bars, etc.)?: No Do you have working smoke detectors in your home or apartment?: Yes Do you regularly change batteries in your smoke detectors?: Yes If you have space heaters, are they far away from flammable objects?: Yes Is there a phone in your bedroom?: Yes Is there a fire exit plan?: Yes HEALTH RISK ASSESSMENT Medicare Screening Date: 11/14/20 During the past 4 weeks has your physical/emotional health limited your social activities?: No During the past 4 weeks was someone available to help you if you needed/wanted help?: Yes During the past 4 weeks, how would you rate your health in general?: Very Good Do you always fasten your seatbelt when you are in the car?: Yes Do you exercise for about 20 minutes three or more days per week?: (!) No Have you been given any information to help you to keep track of your medications?: Yes Are you confident that you can control/manage most of your health problems?: Yes PAIN ASSESSMENT Medicare Screening Date: 11/14/20 Pain Assessment: 0 - No Pain - I have no pain. MEMORY IMPAIRMENT SCREENING Medicare Screening Date: 11/14/20 5-8 - No cognitive impairment 4 or less - Possible cognitive impairment MINI-COG ASSESSMENT Medicare Screening Date: 11/14/20 MiniCog Completed?: Yes Patient recalls:: 3 VITALS / PAIN ASSESSMENT/ BMI There were no vitals filed for this visit. There is no height or weight on file to calculate BMI. HEARING: normal VISUAL ACUITY: normal Review of Systems Physical Exam PERSONALIZED PREVENTION PLAN During the course of the visit the patient was educated and counseled about appropriate screening and preventive services including: Health Maintenance Topic Date Due ??? Influenza Vaccine (Season Ended) 2021 ??? Depression Screening 11/14/2021 ??? Fall Risk Assessment 11/14/2021 ??? Preventative Health Evaluation 11/14/2021 ??? Osteoporosis Screening (DEXA Scan) 09/26/2022 ??? DTap / TDap / Td (2 - Td) 05/10/2027 ??? Hepatitis C Screening Completed ??? Shingrix-Zoster Vaccine Completed ??? COVID-19 Vaccine Completed ??? Pneumococcal Vaccine Addressed ??? Hepatitis B Vaccines Aged Out BMI SCREENING REVIEWED: BMI Screening: patient's BMI was abnormal. Follow up plan includes: counseled on proper nutrition. DEPRESSION SCREENING REVIEWED: Clinical Depression Screening was performed and patient is negative for depression. FUNCTIONAL ASSESSMENT (ADL/I-ADL) SCREENING REVIEWED: Functional Assessment: functional ability has remained stable. FALL RISK SCREENING REVIEWED: Future Fall Risk Screening: patient is NEGATIVE for future fall risk (no falls in the past 6 months) HOME SAFETY REVIEWED: Home Safety screen unremarkable. COGNITIVE SCREENING REVIEWED: No evidence of significant cognitive impairment PAIN ASSESSMENT REVIEWED: No reported pain. ADVANCE DIRECTIVES REVIEWED: discussion with patient PATIENT INSTRUCTIONS: continue current health lifestyle patterns Chino Hargrove MD documented in this encounter Plan of Treatment Not on filedocumented as of this encounter Visit Diagnoses Diagnosis Encounter for annual wellness exam in [facility] patient - Primary documented in this encounter Care Teams Clinical Biochemist Relationship Specialty Start Date End Date Chino Hargrove MD PCP - General Internal Medicine 05/04/16 11/18/21 2 Monica Felipe [address] [address] documented as of this encounter
--- OUTSIDE RECORDS SUMMARY | 2022-01-04 15:07 | XMS_ITS | Encounter Summary ---
:1945 Author Organization [facility] Address [address] [place] [id number] Care Team Providers Name Role Phone Chino Hargrove MD Primary Care Provider Encounter Details Date Type Department Care Team Description 11/14/2020 Travel Social History Tobacco Use Types Packs/Day Years [...] / COVID-19? documented as of this encounter Plan of Treatment Not on filedocumented as of this encounter Visit Diagnoses Not on filedocumented in this encounter Care Teams Telephoto Engineer Relationship Specialty Start Date End Date Chino Hargrove MD PCP - General Internal Medicine 05/04/16 11/18/21 2 Monica Felipe [facility] [address] [place] [address] documented as of this encounter
--- OUTSIDE RECORDS SUMMARY | 2022-01-04 15:08 | XMS_ITS | Encounter Summary ---
:1945 Author Organization [facility] Address [address] [place] [address] Care Team Providers Name Role Phone Chino Hargrove MD Primary Care Provider Encounter Details Date Type Department Care Team Description 03/28/2019 Office Visit Internal Medicine - Chino Hargrove, Rickie h cholesterol (Primary Dx); Lara Hernandez MD BMI 27.0-27.9,adult; [address] Hyperglycemia; Building 2 [facility] 2 Osteopenia, unspecified location; Lara Hernandez [facility] Emergency Department Vitamin D deficiency [id number] Medical [facility] [phone] [place] [address] (Wo rk) Social History Tobacco Use Types [...] file Not on file Not on file documented as of this encounter Last Filed Vital Signs Vital Sign Reading Time Taken Comments Blood Pressure 138/80 03/28/2019 8:17 AM EDT Pulse 64 03/28/2019 8:17 AM EDT Temperature 36.6 ??C (97.8 ??F) 03/28/2019 8:17 AM EDT Respiratory Rate 16 03/28/2019 8:17 AM EDT Oxygen Saturation 97% 03/28/2019 8:17 AM EDT Inhaled Oxygen Concentration - - Weight 69.4 kg (153 lb) 03/28/2019 8:17 AM EDT Height 160 cm (5' 3) 03/28/2019 8:17 AM EDT Body Mass Index 27.1 03/28/2019 8:17 AM EDT documented in this encounter Progress Notes Chino Hargrove MD - 03/28/2019 8:20 AM EDT Chief Complaint: No chief complaint on file. Office visit, fasting blood work, 4-month follow-up HPI: Fidelina Hanson is a 73 y.o. female with PMHx of hypercholesterolemia and metabolic syndrome X presents for an office visit. Six month follow up fasting blood work. Previous visit was 08/09/18 for a physical exam. Patient compliant with medications, is not experiencing any side effects. She does not report any new medical issues, recent hospitalizations, medication changes or surgeries. Patient reports recently starting a low carb diet. Health maintenance: Patient received both shingles vaccinations. Patient had venipuncture done in the office. Vitals: Vitals: 03/28/19 0817 BP: 138/80 Pulse: 64 Resp: 16 Temp: 97.8 ??F (36.6 ??C) TempSrc: Tympanic SpO2: 97% Weight: 69.4 kg (153 lb) Height: 5' 3 (1.6 m) Body mass index is 27.1 kg/m??. Body surface area is 1.76 meters squared. Allergies: Allergies Allergen Reactions ??? Demerol [Meperidine] Nausea And Vomiting and Rash Medications: Current Outpatient Prescriptions Medication Sig Dispense Refill ??? aspirin EC [...] VITAMIN DAILY PO) Take by mouth. ??? [place]-3 Fatty Acids (FISH OIL PO) Take by mouth. ??? rosuvastatin (CRESTOR) tablet 20 mg Take 1 tablet (20 mg total) by mouth daily. 90 tablet 3 No current facility-administered medications for this visit. Vaccines: Immunization History Administered Date(s) Administered ??? IIV QUADRIVALENT, STANDARD-DOSE, PRESERVATIVE FREE (SD-IIV4) 05/04/2017 ??? INFLUENZA TRIVALENT INACTIVATED VACCINE, ADJUVANTED (IIV3) 05/01/2018 ??? Influenza TIV (IM) 05/15/2010, 03/26/2011, 04/18/2012 ??? Pneumococcal Conjugate PCV13 08/12/2016 ??? Pneumococcal Conjugate PCV7 06/08/2010 ??? Shingrix Vaccine (Zoster Recombinant) 01/02/2019 ??? TdaP 05/10/2017 Problems: Patient Active Problem List Diagnosis SNOMED CT(R) ??? Vitamin D deficiency VITAMIN D DEFICIENCY ??? High cholesterol HYPERCHOLESTEROLEMIA ??? Metabolic syndrome X METABOLIC SYNDROME X ??? Osteopenia OSTEOPENIA ??? Low back pain LOW BACK PAIN ??? 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 Hyperglycemia HYPERGLYCEMIA ??? Reactive depression REACTIVE DEPRESSION (SITUATIONAL) Past Medical History: Active Ambulatory Problems Diagnosis Date Noted ??? Vitamin D deficiency ??? High cholesterol ??? Metabolic syndrome X ??? Osteopenia ??? Low back pain ??? Left anterior fascicular block ??? Hyperglycemia 09/13/2016 ??? Reactive depression 12/15/2017 Resolved Ambulatory Problems Diagnosis Date Noted ??? No Resolved Ambulatory Problems Past Medical History: Diagnosis Date ??? High cholesterol ??? Left anterior fascicular block ??? Low back pain ??? Metabolic syndrome X ??? Osteopenia ??? Vitamin D deficiency Surgical History: Past Surgical History: Procedure Laterality Date ??? BREAST BIOPSY Right 1973 ??? BREAST LUMPECTOMY Right 1973 ??? CORRECTION HAMMER TOE Both feet ??? DILATION AND CURETTAGE OF UTERUS ??? OTHER SURGICAL HISTORY Uterine polyp ??? TRIGGER FINGER RELEASE Right Family History: Family History Problem Relation Age of Onset ??? Dementia Mother ??? Hypertension Mother ??? Cancer Father colon ??? Hypertension Father ??? Cancer Sister skin ??? Migraines Daughter Social History: Social History Social History ??? Marital status: Spouse name: N/A ??? Number of children: N/A ??? Years of education: N/A Occupational History ??? Not on file. Social History Main Topics ??? Smoking status: Never Smoker ??? Smokeless tobacco: Never Used ??? Alcohol use Yes Comment: Rarely ??? Drug use: No ??? Sexual activity: Not on file Other Topics Concern ??? Not on file Social History Narrative ??? No narrative on file Orders Placed This Encounter: Orders Placed This Encounter Procedures ??? 25-Hydroxy Vitamin D Standing Status: Future Standing Expiration Date: 03/28/2020 ??? Comprehensive Metabolic Panel/Fasting Standing Status: Future Standing Expiration Date: 03/28/2020 ??? Lipid Profile Standing Status: Future Standing Expiration Date: 03/28/2020 ??? Glycohemoglobin A1C Standing Status: Future Standing Expiration Date: 03/28/2020 Screening: The following Quality Measures are up to date for Fidelina Hanson: BMI Screening: patient's BMI was normal. FALL RISK: DEPRESSION SCREENING: No flowsheet data found. ROS: Review of Systems Constitutional: Negative for activity change, appetite change, chills, diaphoresis, fatigue, fever and unexpected weight change. HENT: Negative for congestion, dental problem, drooling, ear discharge, ear pain, facial swelling, hearing loss, mouth sores, nosebleeds, postnasal drip, rhinorrhea, sinus pain, sinus pressure, sneezing, sore throat, tinnitus, trouble swallowing and voice change. Eyes: Negative for photophobia, pain, discharge, redness, itching and visual disturbance. Respiratory: Negative for apnea, cough, choking, chest tightness, shortness of breath, wheezing and stridor. Cardiovascular: Negative for chest pain, palpitations and leg swelling. PMHx: Hypercholesterolemia, left anterior hemiblock Gastrointestinal: Negative for abdominal distention, abdominal pain, anal bleeding, blood in stool, constipation, diarrhea, nausea, rectal pain and vomiting. Endocrine: Negative for cold intolerance, heat intolerance, polydipsia, polyphagia and polyuria. , Vitamin D deficiency PMHx: Metabolic syndrome X, hyperglycemia, hypercholesterolemia Genitourinary: Negative for decreased urine volume, difficulty urinating, dyspareunia, dysuria, enuresis, flank pain, frequency, genital sores, hematuria, menstrual problem, pelvic pain, urgency, vaginal bleeding, vaginal discharge and vaginal pain. Musculoskeletal: Positive for back pain (lower). Negative for arthralgias, gait problem, joint swelling, myalgias, neck pain and neck stiffness. Skin: Negative for color change, pallor, rash and wound. Allergic/Immunologic: Negative for environmental allergies, food allergies and immunocompromised state. Neurological: Negative for dizziness, tremors, seizures, syncope, facial asymmetry, speech difficulty, weakness, light-headedness, numbness and headaches. Hematological: Negative for adenopathy. Does not bruise/bleed easily. Psychiatric/Behavioral: Positive for dysphoric mood. Physical Exam: Physical Exam Constitutional: She is oriented to person, place, and time. She appears well- developed and well-nourished. No distress. HENT: Head: Normocephalic and atraumatic. Right Ear: External ear normal. Left Ear: External ear normal. Nose: Nose normal. Mouth/Throat: Oropharynx is clear and moist. No oropharyngeal exudate. Eyes: Pupils are equal, round, and reactive to light. Conjunctivae and EOM are normal. Right eye exhibits no discharge. Left eye exhibits no discharge. No scleral icterus. Neck: Normal range of motion. Neck supple. No JVD present. Carotid bruit is not present. No trachealdeviation present. No thyromegaly present. Cardiovascular: Normal rate, regular rhythm, normal heart sounds and intact distal pulses. Exam reveals no gallop and no friction rub. No murmur heard. Pulses: Carotid pulses are 2+ on the right side, and 2+ on the left side. Pulmonary/Chest: Effort normal and breath sounds normal. No stridor. No respiratory distress. She has no wheezes. She has no rales. She exhibits no tenderness. Abdominal: Soft. Bowel sounds are normal. She exhibits no distension and no mass. There is no tenderness. There is no rebound and no guarding. Musculoskeletal: Normal range of motion. She exhibits no edema, tenderness or deformity. Lymphadenopathy: She has no cervical adenopathy. Neurological: She is alert and oriented to person, place, and time. She has normal reflexes. She displays normal reflexes. She exhibits normal muscle tone. Coordination normal. Skin: Skin is warm and dry. No rash noted. She is not diaphoretic. No erythema. No pallor. Psychiatric: She has a normal mood and affect. Her behavior is normal. Judgment and thought content normal. Vitals reviewed. Labs: No visits with results within 1 Week(s) from this visit. Latest known visit with results is: Hospital Outpatient Visit on 08/14/2018 Component Date Value Ref Range Status ??? VITAMIN D, 25-HYDROXY 08/14/2018 35 Final Comment: Reference range: 30 to 100 Unit: ng/mL <<NOTE>> Vitamin D deficiency <10 ng/mL Vitamin D insufficiency 10-30 ng/mL Vitamin D sufficiency 30-100 ng/mL Vitamin D toxicity >100 ng/mL Test performed at [facility], [facility] [place] [id number] Boyd Campoverde MD - Government Instructor ? ? Hemoglobin A1C 08/14/2018 6.1* <5.7 % Final Comment: <<NOTE>> The [place] Diabetes Association guidelines indicate that an individual is at increased risk for diabetes when Hemoglobin A1C levels are 5.7-6.4% or fasting glucose is 100-125 mg/dL, and considered diabetic when Hemoglobin A1C is greater than or equal to 6.5% or fasting glucose is greater than or equal to 126 mg/dL[place] [address] Hawk Landeros Jr, MD Director [facility] [id number] [place] [address] ??? TSH, Ultrasensitive 08/14/2018 1.77 0.35 - 5.50 uIU/mL Final Comment: [place] [address] Hawk Landeros Jr, MD Director [facility] [id number] ??? WBC 08/14/2018 5.1 4.0 - 10.5 K/uL Final ??? RBC 08/14/2018 4.83 4.2 - 5.4 M/uL Final ??? Hemoglobin 08/14/2018 15.0 12.5 - 16.0 g/dL Final ??? Hematocrit 08/14/2018 46.0 37 - 47 % Final ??? MCV 08/14/2018 95.2 78 - 100 fL Final ??? MCH 08/14/2018 31.0 25 - 33 pg Final ??? MCHC 08/14/2018 32.5 32 - 36 g/dL Final ??? RDW 08/14/2018 13.2 12.1 - 16.2 % Final ??? Platelets 08/14/2018 242 150 - 450 K/uL Final ??? MPV 08/14/2018 7.9 7.4 - 11.4 fL Final ??? Differential Type 08/14/2018 AUTOMATED Final ??? Neutrophils 08/14/2018 59.4 44 - 74 % Final ??? Lymphocytes 08/14/2018 29.4 20 - 48 % Final ??? Monocytes 08/14/2018 8.3 2 - 12 % Final ??? Eosinophils 08/14/2018 1.9 0 - 6 % Final ??? Basophils 08/14/2018 1.0 0 - 2 % Final ??? Neutrophils, Absolute 08/14/2018 3.1 1.8 - 7.8 K/uL Final ??? Lymphocytes Absolute 08/14/2018 1.5 1.0 - 3.2 K/uL Final ??? Monocytes Absolute 08/14/2018 0.4 0.0 - 0.8 K/uL Final ??? Eosinophils, Absolute 08/14/2018 0.1 0.0 - 0.5 K/uL Final ??? Basophils Absolute 08/14/2018 0.1 0.0 - 0.2 K/uL Final Comment: [place] [address] Hawk Landeros Jr, MD Director [facility] [id number] [place] [address] ? ? Triglycerides 08/14/2018 93 <150 mg/dL Final ??? Cholesterol 08/14/2018 154 0 - 200 mg/dL Final ??? HDL 08/14/2018 56 33 - 92 mg/dL Final ??? LDL (Calculated) 08/14/2018 79 50 - 130 mg/dL Final Comment: [place] [address] Hawk Landeros Jr, MD Director [facility] [id number] [place] [address] ??? BUN 08/14/2018 24* 7 - 17 mg/dL Final ??? Creatinine, Blood 08/14/2018 0.9 0.5 - 1.0 mg/dL Final ? ? Glomerular Filtration Rate, Estima* 08/14/2018 >60.0 >60.0 Final MDRD in mL/min/1.73 sq meters. For Americans, multiply by 1.21. ??? Sodium 08/14/2018 143 135 - 145 mmol/L Final ??? Potassium 08/14/2018 4.3 3.5 - 5.1 mmol/L Final ??? Chloride 08/14/2018 107 98 - 107 mmol/L Final ??? Carbon dioxide 08/14/2018 27 24 - 32 mmol/L Final ??? Glucose, Fasting 08/14/2018 108* 70 - 99 mg/dL Final ??? Calcium 08/14/2018 10.1 8.4 - 10.2 mg/dL Final ??? Total Protein 08/14/2018 7.0 6.4 - 8.5 g/dL Final ??? Albumin 08/14/2018 4.5 3.5 - 5.0 g/dL Final ??? Alkaline Phosphatase 08/14/2018 54 34 - 104 U/L Final ??? AST (SGOT) 08/14/2018 20 5 - 40 U/L Final ??? ALT (SGPT) 08/14/2018 18 7 - 52 U/L Final ??? Total Bilirubin 08/14/2018 0.5 0.3 - 1.0 mg/dL Final Comment: [place] [address] Hawk Landeros Jr, MD Director [facility] [id number] [id number] No results found for this or any previous visit (from the past 336 hour(s)). Assessment/Plan: ICD-10-CM 1. High cholesterol, currently on Crestor 20 mg a day we will check fasting lipid panel as well as liver function test. E78.00 25-Hydroxy Vitamin D Comprehensive Metabolic Panel/Fasting Lipid Profile Glycohemoglobin A1C 2. BMI 27.0-27.9,adult Z68.27 25-Hydroxy Vitamin D Comprehensive Metabolic Panel/Fasting Lipid Profile Glycohemoglobin A1C 3. Hyperglycemia, history of elevated blood sugar in the past patient is advised to continue with diet exercise weight reduction restriction of carbohydrates. Will check fasting blood sugar as well as hemoglobin A1c. R73.9 25-Hydroxy Vitamin D Comprehensive Metabolic Panel/Fasting Lipid Profile Glycohemoglobin A1C 4. Osteopenia, unspecified location, she is on vitamin D and calcium supplementation she is up-to-date with her bone density. She is advised to continue with weightbearing exercises. M85.80 25-Hydroxy Vitamin D Comprehensive Metabolic Panel/Fasting Lipid Profile Glycohemoglobin A1C 5. Vitamin D deficiency, will check a vitamin D level. E55.9 25-Hydroxy Vitamin D Comprehensive Metabolic Panel/Fasting Lipid Profile Glycohemoglobin A1C Deanagurdeep Mcconnell By signing my name below, I, Deana Jayesh, attest that this documentation has been prepared under the direction and in the presence of Chino Hargrove MD. Electronically Signed: Deana Mcconnell. 03/28/2019. 7:55 AM. documented in this encounter Plan of Treatment Not on filedocumented as of this encounter Results (ABNORMAL) Glycohemoglobin A1C (03/28/2019 9:24 PM EDT) Pathologist [facility] Hemoglobin A1C 6.0 (H) <5.7 % [facility] Comment: LABORATORY SERVICES <<NOTE>> The [place] Diabetes Association guidelines indicate that an individual is at increased risk for diabetes when Hemo globin A1C levels are 5.7-6.4% or fasting glucose is 100-125 mg/d L, and considered diabetic when Hemoglobin A1C is greater michelle n or equal to 6.5% or fasting glucose is greater than or equal to 12 6 mg/dL[place] [address] Hawk Landeros Jr, MD Director [facility] [id number] ??CL 0623 Specimen Performing Organization Address City/State/ZIP Code Phon e Number [facility] [address] [place] [address] SERVICES (CLIA #[id number]) ([id number]) Lipid Profile (03/28/2019 9:24 PM EDT) Pathologist [facility] Triglycerides 53 <150 mg/dL [facility] Cholesterol 136 0 - 200 [facility] mg/dL LAB[facility]ORY SERVICES HDL 53 33 - 92 [facility] mg/dL LAB[facility]ORY [facility] LDL (Calculated) 72 50 - 130 [facility] Comment: mg/dL LABORATORY SERVICES [place] [address] Hawk Landeros Jr, MD Director [facility] [id number] ??CL 0623 Specimen Performing Organization Address [facility] Phon e Number [facility] [address] [place] [address] SERVICES (CLIA #[id number]) ([id number]) (ABNORMAL) Comprehensive Metabolic Panel/Fasting (03/28/2019 9:24 PM EDT) Pathologist [facility] BUN 28 (H) 7 - 17 mg/dL [facility] Creatinine, Blood 0.7 0.5 - 1.0 [facility] mg/dL [facility] Glomerular >60.0Comment: MDRD >60.0 [facility] Filtration Rate, in mL/min/1.73 sq LABORATORY SERVICES Estimated meters. For Americans, multiply by 1.21. Sodium 139 135 - 145 [facility] mmol/L [facility] Potassium 4.0 3.5 - 5.1 [facility] mmol/L [facility] Chloride 106 98 - 107 [facility] mmol/L [facility] Carbon dioxide 25 24 - 32 [facility] mmol/L [facility] Glucose, Fasting 106 (H) 70 - 99 [facility] mg/dL [facility] Calcium 9.9 8.4 - 10.2 [facility] mg/dL [facility] Total Protein 7.1 6.4 - 8.5 [facility] g/dL [facility] Albumin 4.5 3.5 - 5.0 [facility] g/dL [facility] Alkaline 47 34 - 104 U/L [facility] Phosphatase LABORATORY [facility] AST (SGOT) 20 5 - 40 U/L [facility] ALT (SGPT) 18 7 - 52 U/L [facility] Total Bilirubin 0.6 0.3 - 1.0 [facility] Comment: mg/dL LABORATORY SERVICES [place] [address] Hawk Landeros Jr, MD Director [place] [id number] ??CL 0623 Specimen Performing Organization Address [facility] Phon e Number [facility] [address] [place] [address] SERVICES (CLIA #[id number]) ([id number]) 25-Hydroxy Vitamin D (03/28/2019 9:24 PM EDT) Pathologist [facility] VITAMIN D, 38 [facility] 25-HYDROXY Comment: LABORATORY SERVICES Reference range: 30 ??to ??100 Unit: ng/mL <<NOTE>> Vitamin D deficiency ?<10 ? ng/mL Vitamin D insufficiency ? 10-30 ?? ng/mL Vitamin D sufficiency ? 30-100 ??ng/mL Vitamin D toxicity ?>100 ?ng/mL Test performed at [facility], [address] [place], [place] ??[address] ? Boyd Campoverde MD ??- Government Instructor Specimen Performing Organization Address City/State/ZIP Code Phon e Number [facility] [address] [place] [address] SERVICES (CLIA #[id number]) ([id number]) documented in this encounter Visit Diagnoses Diagnosis High cholesterol - Primary Pure hypercholesterolemia BMI 27.0-27.9,adult Hyperglycemia Other abnormal glucose Osteopenia, unspecified location Vitamin D deficiency documented in this encounter Care Teams Benzene Worker Relationship Specialty Start Date End Date Chino Hargrove MD PCP - General Internal Medicine 05/04/16 11/18/21 2 Monica Felipe [facility] [address] [place] [address] documented as of this encounter
--- OUTSIDE RECORDS SUMMARY | 2022-01-04 15:08 | XMS_ITS | Encounter Summary ---
:1945 Author Organization [facility] Address [address] [place] [address] Care Team Providers Name Role Phone Chino Hargrove MD Primary Care Provider Reason for Referral Preauthorization (Routine) - Closed Specialty Diagnoses / Procedures Referred By Contact Refer red To Contact Diagnoses Asymptomatic menopausal state Screening for osteoporosis Tianna Mart DO [facility] Procedures Bone Density Study [address] [address] Phone: Referral ID Status Reason Start Date Expiration Date Visits Requ ested Visits Authorized [id number] Closed 06/23/2020 06/23/2021 1 1 Reason for Visit Preauthorization (Routine) - Closed Specialty Diagnoses / Procedures Referred By Contact Refer red To Contact Diagnoses Asymptomatic menopausal state Screening for osteoporosis Tianna Mart DO [facility] Procedures Bone Density Study [address] [address] Phone: Referral ID Status Reason Start Date Expiration Date Visits Requ ested Visits Authorized [id number] Closed 06/23/2020 06/23/2021 1 1 Encounter Details Date Type Department Care Team Description 09/26/2020 Hospital Encounter [facility] Mammogram ENF Asymptomatic menopausal stat e ; [address] [place] [address] Social History Tobacco Use Types Packs/Day Years [...] been in contact with No / Unsure 09/26/2020 10:05 AM EDT someone who was confirmed or suspected to have Coronavirus / COVID-19? documented as of this encounter Medications at Time of Discharge Medication Sig Dispensed Refills Start Date End Date aspirin EC 81 MG tablet Take 81 mg by mouth 0 daily. Calcium Carbonate (CALCIUM Take by mouth. 0 600 PO) cholecalciferol (VITAMIN Take 1,000 Units by 0 D3) 1000 UNITS tablet mouth daily. Flaxseed, Linseed, Take by mouth. 0 (FLAXSEED OIL PO) melatonin 3 MG TABS tablet melatonin 3 mg tablet 0 11/24/2012 TAKE BY ORAL ROUTE Multiple Vitamin (MULTI Take by mouth. 0 VITAMIN DAILY PO) [place]-3 Fatty Acids (FISH Take by mouth. 0 11/14/2020 OIL PO) pramipexole (Mirapex) Take 1 tablet 90 tablet 3 08/14/2020 12/09/2020 0.125 MG tablet (0.125 mg total) by mouth every night at bedtime. rosuvastatin (CRESTOR) TAKE 1 TABLET BY 90 tablet 3 020 09/29/2020 tablet 20 mg MOUTH DAILY documented as of this encounter Plan of Treatment Not on filedocumented as of this encounter Procedures Procedure Name Priority Date/Time Associated Diagnosis Comme nts BONE DENSITY STUDY Routine 09/26/2020 10:39 Asymptomatic Resul ts for this AM EDT menopausal state procedure are in Screening for the results osteoporosis section. documented in this encounter Results Bone Density Study (09/26/2020 10:39 AM EDT) Anatomical Region Laterality Modality Hip, Spine, Pelvis Radiographic Imaging Specimen Narrative ORTIZ ROD - 09/29/2020 8:13 AM EDT Bone density study Indication and risk factors: Postmenopau jojo female. ??Screening for osteoporosis. Study acquired on a [employer] ance densitometer. Imaging of the lumbar spine and hip was completed. FINDINGS: Averaged L1 through L4: Bone density: 1.11 g/cm2 Z score: 0.9 T score: -0.6 Left femoral neck: Bone density: 0.95 g/cm2 Z score: 1.2 T score: -0.6 CONCLUSION: 1. ??Bone density is within normal limit s. FRAX 10 year probability of fracture: Th ere is a 8% chance of a major osteoporotic fracture and a 1% chance of a hip fracture. SESSION: Not applicable World Health Organization Definitions of Osteoporosis: T score -0.9 and above: Normal BMD T score between -1.0 and -2.4: Low BMD ( Osteopenia) T score -2.5 and below: Osteoporosis Report reviewed and signed by : Dr. Soniya Zuniga on 09/29/2020 8:13 AM. Workstation Name - [facility] Procedure Note Soniya Zuniga MD - 09/29/2020 Bone density study Indication and risk factors: [place]men[place] jojo female. Screening for osteoporosis. Study acquired on a [employer] ance densitometer. Imaging of the lumbar spine and hip was completed. FINDINGS: Averaged L1 through L4: Bone density: 1.11 g/cm2 Z score: 0.9 T score: -0.6 Left femoral neck: Bone density: 0.95 g/cm2 Z score: 1.2 T score: -0.6 CONCLUSION: 1. Bone density is within normal limits. FRAX 10 year probability of fracture: Th ere is a 8% chance of a major osteoporotic fracture and a 1% chance of a hip fracture. SESSION: Not applicable World Health Organization Definitions of Osteoporosis: T score -0.9 and above: Normal BMD T score between -1.0 and -2.4: Low BMD ( Osteopenia) T score -2.5 and below: Osteoporosis Report reviewed and signed by : Dr. Soniya Zuniga on 09/29/2020 8:13 AM. Workstation Name - [facility] Performing Organization Address City/State/ZIP Code Phon e Number FUJI SYNAPSE documented in this encounter Visit Diagnoses Diagnosis Asymptomatic menopausal state Screening for osteoporosis Special screening for osteoporosis documented in this encounter Care Teams Silica Dry Press Helper Relationship Specialty Start Date End Date Chino Hargrove MD PCP - General Internal Medicine 05/04/16 11/18/21 2 Monica Felipe [address] [address] documented as of this encounter
--- OUTSIDE RECORDS SUMMARY | 2022-01-04 15:08 | XMS_ITS | Encounter Summary ---
:1945 Author Organization [facility] Address [address] [place] [id number] Care Team Providers Name Role Phone Chino Hargrove MD Primary Care Provider Reason for Referral Preauthorization (Routine) - Closed Specialty Diagnoses / Procedures Referred By Contact Refer red To Contact Diagnoses Osteoporosis screening Claudette Read MD [facility] Procedures Bone Density Study [address] [place] [address] Referral ID Status Reason Start Date Expiration Date Visits Requ ested Visits Authorized [id number] Closed 05/09/2018 11/05/2018 1 1 Reason for Visit Preauthorization (Routine) - Closed Specialty Diagnoses / Procedures Referred By Contact Refer red To Contact Diagnoses Osteoporosis screening Claudette Read MD [facility] Procedures Bone Density Study [address] [place] [address] Referral ID Status Reason Start Date Expiration Date Visits Requ ested Visits Authorized [id number] Closed 05/09/2018 11/05/2018 1 1 Encounter Details Date Type Department Care Team Description 05/16/2018 Hospital Encounter [facility] Mammogram ENF Osteoporosis screening [address] [place] [address] Social History Tobacco Use Types Packs/Day Years [...] on file documented as of this encounter Medications at [...] Take by mouth. 0 VITAMIN DAILY PO) BOOSTRIX 5-2.5-18.5 0 05/10/201703/28 injection [place]-3 Fatty Acids (FISH Take by mouth. 0 11/14/2020 OIL PO) rosuvastatin (CRESTOR) TAKE 1 TABLET DAILY 90 tablet 3 03/1203/23/2019 tablet 20 mg sertraline (ZOLOFT) 25 MG Take 1 tablet (25 90 tablet 2 08/09/2018 tablet mg total) by mouth daily. documented as of this encounter Plan of Treatment Not on filedocumented as of this encounter Procedures Procedure Name Priority Date/Time Associated Diagnosis Comme nts BONE DENSITY STUDY Routine 05/16/2018 10:03 Osteoporosis Resul ts for this AM EST screening procedure are i n the results section. documented in this encounter Results Bone Density Study (05/16/2018 10:03 AM EST) Anatomical Region Laterality Modality Hip, Spine, Pelvis Radiographic Imaging Specimen Narrative BRODYMireya SYNAPSE - 05/17/2018 9:49 AM EST EXAM PERFORMED: Bone density study DEXA EXAM HISTORY: Postmenopausal screening. TECHNIQUE: [employer] system utilized for DEXA images Findings: LUMBAR SPINE: ?? Bone mineral density (BMD) measured from L1-L2 is 0.973 g/cm2. This correlates with a Z-score of -0.1 a nd a T-score of -1.6. LEFT HIP: Bone mineral density (BMD) measured in t he femoral neck is 0.921 g/cm2. This correlates with a Z-score of 0.9 an d a T-score of -0.8. IMPRESSION: 1. ??Lumbar spine: ??Osteopenia. 2. ??Hip: ??Normal bone density. Apparent increase in bone density at the lumbar spine compared to the prior study from 2016 however this may be falsely elevated due to vertebral endplate sclerosis. No change in bone density at the left hip. PLEASE NOTE: ?? 1) ??The World Health Organization defin es low BMD as follows: ?T-score ? Normal ? > -1 Osteopenia ? < -1 and ??> -2.5 Osteoporosis ? < -2.5 without fractures Established osteoporosis ? < -2.5 with fractures 2) ??In general, you may wish to conside r: ? Diagnosis ?Treatment ?Follow-up DEXA ?Normal BMD ?Prevention ?2-3 years ?Osteopenia ?Prevention/therapy ?1-2 years ?Osteoporosis ?Therapy ? Yearly 3) ??Fracture risk estimated from the T- score is more accurate for vertebral fractures (often spontaneous) than for hip fractures. ?? 4) ??The next DEXA scan of this patient should include the following sites: Lumbar spine, hip. Session: Separate Report reviewed and signed by : Dr. David Burkett MD on 05/17/2018 9:49 AM. Workstation Name - [id number] Procedure Note Marilin Burkett MD - 05/17/2018 EXAM PERFORMED: Bone density study DEXA EXAM HISTORY: Postmenopausal screening. TECHNIQUE: [employer] system utilized for DEXA images Findings: LUMBAR SPINE: Bone mineral density (BMD) measured from L1-L2 is 0.973 g/cm2. This correlates with a Z-score of -0.1 a nd a T-score of -1.6. LEFT HIP: Bone mineral density (BMD) measured in t he femoral neck is 0.921 g/cm2. This correlates with a Z-score of 0.9 an d a T-score of -0.8. IMPRESSION: 1. Lumbar spine: Osteopenia. 2. Hip: Normal bone density. Apparent increase in bone density at the lumbar spine compared to the prior study from 2016 however this may be falsely elevated due to vertebral endplate sclerosis. No change in bone density at the left hip. PLEASE NOTE: 1) The World Health Organization defines low BMD as follows: T-score Normal > -1 Osteopenia < -1 and > -2.5 Osteoporosis < -2.5 without fractures Established osteoporosis < -2.5 with fra ctures 2) In general, you may wish to consider: Diagnosis Treatment Follow-up DEXA Normal BMD Prevention 2-3 years Osteopenia Prevention/therapy 1-2 years Osteoporosis Therapy Yearly 3) Fracture risk estimated from the T-sc ore is more accurate for vertebral fractures (often spontaneous) than for hip fractures. 4) The next DEXA scan of this patient sh ould include the following sites: Lumbar spine, hip. Session: Separate Report reviewed and signed by : Dr. David Burkett MD on 05/17/2018 9:49 AM. Workstation Name - [id number] Performing Organization Address City/State/ZIP Code Phon e Number FUJI SYNAPSE documented in this encounter Visit Diagnoses Diagnosis Osteoporosis screening Special screening for osteoporosis documented in this encounter Care Teams Drafting Layout Worker Relationship Specialty Start Date End Date Chino Hargrove MD PCP - General Internal Medicine 05/04/16 11/18/21 2 Monica Felipe [facility] [address] [place] [address] documented as of this encounter
--- OUTSIDE RECORDS SUMMARY | 2022-01-04 15:08 | XMS_ITS | Encounter Summary ---
:1945 Author Organization [facility] Address [address] [place] [id number] Care Team Providers Name Role Phone Chino Hargrove MD Primary Care Provider Reason for Referral Preauthorization (Routine) - Closed Specialty Diagnoses / Procedures Referred By Contact Refer red To Contact Radiology Diagnoses Encounter for screening mammogram for malignant neoplasm of breast Tianna Mart DO [facility] Procedures Mammogram Screening Bilateral 3D Srinivas with CAD [address] [address] Phone: Referral ID Status Reason Start Date Expiration Date Visits Requ ested Visits Authorized [id number] Closed 06/23/2020 06/23/2021 1 1 Reason for Visit Preauthorization (Routine) - Closed Specialty Diagnoses / Procedures Referred By Contact Refer red To Contact Radiology Diagnoses Encounter for screening mammogram for malignant neoplasm of breast Tianna Mart DO [facility] Procedures Mammogram Screening Bilateral 3D Srinivas with CAD [address] [address] Phone: Referral ID Status Reason Start Date Expiration Date Visits Requ ested Visits Authorized [id number] Closed 06/23/2020 06/23/2021 1 1 Encounter Details Date Type Department Care Team Description 09/26/2020 Hospital Encounter [facility] Mammogram ENF Encounter for screening [address] [place] [address] neopl asm of breast Social History Tobacco Use Types Packs/Day Years [...] Take by mouth. 0 VITAMIN DAILY PO) [place]-3 Fatty Acids (FISH Take by mouth. 0 [...] Procedure Name Priority Date/Time Associated Diagnosis Comme [facility] MAMMOGRAM SCREENING Routine 09/26/2020 10:33 AM Encounter for Results for this BILATERAL 3D SRINIVAS EDT screening mammogram pro cedure are in WITH CAD for malignant the results neoplasm of breast section. documented in this encounter Results Mammogram Screening Bilateral 3D Srinivas with CAD (09/26/2020 10:33 AM EDT) Anatomical Region Laterality Modality Breast Bilateral Mammography Specimen Narrative ORTIZ ROD - 09/26/2020 1:44 PM EDT SESSION: Separate. EXAMINATION: Bilateral digital mammogram s with CAD and Tomosynthesis. TECHNIQUE: Bilateral full field digital mammography with synthesized (2D) the and Tomosynthesis (3-D) was performed using standard cc and MLO projections. Mammogram was interpreted in correlation with CAD and Tomosynthesis. INDICATION: Yearly screening. FINDINGS: Compared to 05/17/2019, 2017 and 05/11/2017. There are scattered areas of fibroglandu lar density. (Density B, 25% to less than 50%). There is no significant change in the appearance and distribution of benign fibroglandular as well as fibronodular densities in the both breasts. A few typically benign scattered calcifi cations as well as benign-appearing axillary lymph nodes are stable. No suspicious microcalcifications or masses are seen. ?? CONCLUSION: 1. ??Stable mammographic findings with n o evidence of malignancy. 2. ??Patient should continue with yearly screening mammography. NOTE: Patient has been informed about re sults of this screening mammogram, by a patient letter with 'plain language report'. BI-RADS Category 2: Benign findings. PQRI: [id number]. Report reviewed and signed by : Dr. Monica Marie MD on 09/26/2020 1:44 PM. Workstation Name - [id number] Performing Organization Address City/State/ZIP Code Phon e Number ORTIZ ROD documented in this encounter Visit Diagnoses Diagnosis Encounter for screening mammogram for ma lignant neoplasm of breast documented in this encounter Care Teams Digital Project Coordinator Relationship Specialty Start Date End Date Chino Hargrove MD PCP - General Internal Medicine 05/04/16 11/18/21 2 Monica Felipe [facility] [address] [place] [address] documented as of this encounter
--- OUTSIDE RECORDS SUMMARY | 2022-01-04 15:08 | XMS_ITS | Encounter Summary ---
:1945 Author Organization [facility] Address [address] [place] [id number] Care Team Providers Name Role Phone Chino Hargrove MD Primary Care Provider Reason for Visit Reason Comments Hyperlipidemia Hypertension Encounter Details Date Type Department Care Team Description 08/05/2020 Office Visit Internal Medicine - Chino Hargrove, Akua rubio D deficiency (Primary Dx); Lara Hernandez MD BMI 29.0-29.9,adult; [address] High cholesterol; Building 2 [address] 2 Osteopenia, unspecified location; Lara Hernandez [facility] [place] [address] Medical [address] [phone] [place] [id number] Social History Tobacco Use Types Packs/Day Years [...] been in contact with No / Unsure 08/05/2020 8:08 AM EST someone who was confirmed or suspected to have Coronavirus / COVID-19? documented as of this encounter Last Filed Vital Signs Vital Sign Reading Time Taken Comments Blood Pressure 124/80 08/05/2020 8:12 AM EST Pulse 82 08/05/2020 8:12 AM EST Temperature 35.7 ??C (96.3 ??F) 08/05/2020 8:12 AM EST Respiratory Rate 16 08/05/2020 8:12 AM EST Oxygen Saturation 98% 08/05/2020 8:12 AM EST Inhaled Oxygen Concentration - - Weight 73.5 kg (162 lb 1.6 oz) 08/05/2020 8:12 AM EST Height 158.8 cm (5' 2.5) 08/05/2020 8:12 AM EST Body Mass Index 29.18 08/05/2020 8:12 AM EST documented in this encounter Progress Notes Chino Hargrove MD - 08/05/2020 8:20 AM EST Chief Complaint: Chief Complaint Patient presents with ??? Hyperlipidemia ??? Hypertension HPI: Fidelina Hanson is a 75 y.o. female. Office visit, fasting blood work, 4-month follow-up. Patient generally feeling well no specific complaints. She is compliant with her medication, she is not experiencing any side effects from medications. I have encouraged her to get her COVID-19 vaccination. Vitals: Vitals: 08/05/20 0812 BP: 124/80 Pulse: 82 Resp: 16 Temp: 96.3 ??F (35.7 ??C) TempSrc: Temporal SpO2: 98% Weight: 73.5 kg (162 lb 1.6 oz) Height: 5' 2.5 (1.588 m) Body mass index is 29.18 kg/m??. Body surface area is 1.8 meters squared. Allergies: Allergies Allergen Reactions ??? Demerol [Meperidine] Nausea And Vomiting and Rash Medications: Current Outpatient Medications Medication Sig Dispense Refill [...] DAILY PO) Take by mouth. ??? pramipexole (MIRAPEX) 0.125 MG tablet Take 1 tablet (0.125 mg total) by mouth every night at bedtime. 90 tablet 3 ??? rosuvastatin (CRESTOR) tablet 20 mg TAKE 1 TABLET BY MOUTH DAILY 90 tablet 3 ??? Coronado-3 Fatty Acids (FISH OIL PO) Take by mouth. No current facility-administered medications for this visit. [...] Procedure Laterality Date ??? BREAST BIOPSY Right 1972 ??? BREAST LUMPECTOMY Right 1973 ??? CORRECTION HAMMER TOE Both feet ??? DILATION AND CURETTAGE OF UTERUS ??? OTHER SURGICAL HISTORY Uterine polyp ??? TRIGGER FINGER RELEASE Right Family History: Family History Problem Relation Age of Onset ??? Dementia Mother ??? Hypertension Mother ??? Cancer Father colon ??? Hypertension Father ??? Cancer Sister skin ??? Migraines Daughter Social History: Social History Socioeconomic History ??? Marital status: Spouse name: Not on file ??? Number of children: Not on file ??? Years of education: Not on file ??? Highest education level: Not on file Occupational History ??? Not on file Social Needs ??? Financial resource strain: Not on file ??? Food insecurity: Worry: Not on file Inability: Not on file ??? Transportation needs: Medical: Not on file Non-medical: Not on file Tobacco Use ??? Smoking status: Never Smoker ??? Smokeless tobacco: Never Used Substance and Sexual Activity ??? Alcohol use: Yes Comment: Rarely ??? Drug use: No ??? Sexual activity: Not on file Lifestyle ??? Physical activity: Days per week: Not on file Minutes per session: Not on file ??? Stress: Not on file Relationships ??? Social connections: Talks on phone: Not on file Gets together: Not on file Attends adventist service: Not on file Active member of club or organization: Not on file Attends meetings of clubs or organizations: Not on file Relationship status: Not on file ??? Intimate partner violence: Fear of current or ex partner: Not on file Emotionally abused: Not on file Physically abused: Not on file Forced sexual activity: Not on file Other Topics Concern ??? Not on file Social History Narrative ??? Not on file Orders Placed This Encounter: Orders Placed This Encounter Procedures ??? 25-Hydroxy Vitamin D Standing Status: Future Number of Occurrences: 1 Standing Expiration Date: 08/05/2021 ??? CBC W/Auto Differential Standing Status: Future Number of Occurrences: 1 Standing Expiration Date: 08/05/2021 ??? Lipid Panel with Reflex to Direct LDL Standing Status: Future Number of Occurrences: 1 Standing Expiration Date: 08/05/2021 ??? COMPREHENSIVE METABOLIC PANEL RANDOM/FASTING Standing Status: Future Number of Occurrences: 1 Standing Expiration Date: 08/05/2021 ??? Glycohemoglobin A1C Standing Status: Future Number of Occurrences: 1 Standing Expiration Date: 08/05/2021 Screening: The following Quality Measures are up to date for Fidelina Hanson: BMI Screening: patient's BMI was abnormal. Follow up plan includes: counseled on proper nutrition. FALL RISK: DEPRESSION SCREENING: No flowsheet data found. ROS: Review of Systems Constitutional: Negative for activity change, appetite change, chills, diaphoresis, fatigue, fever and unexpected weight change. HENT: Positive for postnasal drip. Negative for congestion, dental problem, drooling, ear discharge,ear pain, facial swelling, hearing loss, mouth sores, nosebleeds, rhinorrhea, sinus pressure, sneezing, sore throat, tinnitus, trouble swallowing and voice change. Eyes: Negative for photophobia, pain, discharge, redness, itching and visual disturbance. Respiratory: Negative for apnea, cough, choking, chest tightness, shortness of breath, wheezing and stridor. Cardiovascular: Negative for chest pain, palpitations and leg swelling. Hypercholesterolemia, left anterior hemiblock Gastrointestinal: Negative for abdominal distention, abdominal pain, anal bleeding, blood in stool, constipation, diarrhea, nausea, rectal pain and vomiting. Endocrine: Negative for cold intolerance, heat intolerance, polydipsia, polyphagia and polyuria. Vitamin D deficiency, hyperglycemia Genitourinary: Negative for decreased urine volume, difficulty urinating, dyspareunia, dysuria, enuresis, flank pain, frequency, genital sores, hematuria, menstrual problem, pelvic pain, urgency, vaginal bleeding, vaginal discharge and vaginal pain. Musculoskeletal: Negative for arthralgias, back pain, gait problem, joint swelling, myalgias, neck pain and neck stiffness. Skin: Negative for color change, pallor, rash and wound. Allergic/Immunologic: Negative for environmental allergies, food allergies and immunocompromised state. Neurological: Negative for dizziness, tremors, seizures, syncope, facial asymmetry, speech difficulty, weakness, light-headedness, numbness and headaches. Hematological: Negative for adenopathy. Does not bruise/bleed easily. Psychiatric/Behavioral: Positive for dysphoric mood and sleep disturbance. Negative for agitation, behavioral problems, confusion, decreased concentration, hallucinations, self-injury and suicidal ideas. The patient is not nervous/anxious and is not hyperactive. Physical Exam: Physical Exam Constitutional: She is oriented to person, place, and time. She appears well- developed and well-nourished. No distress. HENT: Head: Normocephalic and atraumatic. Right Ear: External ear normal. Left Ear: External ear normal. Nose: Nose normal. Mouth/Throat: Oropharynx is clear and moist. No oropharyngeal exudate. Eyes: Conjunctivae and EOM are normal. Pupils are equal, round, and reactive to light. Right eye exhibits no discharge. Left eye exhibits no discharge. No scleral icterus. Neck: Normal range of motion. Neck supple. No JVD present. No tracheal deviation present. No thyromegaly present. Cardiovascular: Normal rate, regular rhythm, normal heart sounds and intact distal pulses. Exam reveals no gallop and no friction rub. No murmur heard. Pulmonary/Chest: Effort normal and breath sounds normal. No stridor. No respiratory distress. She has no wheezes. She has no rales. She exhibits no tenderness. Abdominal: Soft. Bowel sounds are normal. She exhibits no distension and no mass. There is no tenderness. There is no rebound and no guarding. Musculoskeletal: Normal range of motion. She exhibits edema. She exhibits no tenderness or deformity. Trace peripheral edema Lymphadenopathy: She has no cervical adenopathy. Neurological: She is alert and oriented to person, place, and time. She has normal reflexes. Skin: Skin is warm and dry. No rash noted. She is not diaphoretic. No erythema. No pallor. Nursing note and vitals reviewed. Labs: No visits with results within 1 Week(s) from this visit. Latest known visit with results is: Office Visit on 04/03/2020 Component Date Value Ref Range Status ??? White Blood Cell Count 04/03/2020 5.6 3.8 - 10.8 Thousand/uL Final ??? Red Blood Cell Count 04/03/2020 4.48 3.80 - 5.10 Million/uL Final ??? Hemoglobin 04/03/2020 13.7 11.7 - 15.5 g/dL Final ??? Hematocrit 04/03/2020 42.0 35.0 - 45.0 % Final ??? MCV 04/03/2020 93.8 80.0 - 100.0 fL Final ??? MCH 04/03/2020 30.6 27.0 - 33.0 pg Final ??? MCHC 04/03/2020 32.6 32.0 - 36.0 g/dL Final ??? RDW 04/03/2020 12.3 11.0 - 15.0 % Final ??? Platelet Count 04/03/2020 244 140 - 400 Thousand/uL Final ??? MPV 04/03/2020 9.2 7.5 - 12.5 fL Final ??? Absolute Neutrophils 04/03/2020 2,783 1,500 - 7,800 cells/uL Final ??? Absolute Band Neutrophils 04/03/2020 CANCELED 0 - 750 cells/uL Final Result canceled by the ancillary. ??? Absolute Metamyelocytes 04/03/2020 CANCELED 0 cells/uL Final Result canceled by the ancillary. ??? Absolute Myeloctytes 04/03/2020 CANCELED 0 cells/uL Final Result canceled by the ancillary. ??? Absolute Promyelocytes 04/03/2020 CANCELED 0 cells/uL Final Result canceled by the ancillary. ??? Absolute Lymphocytes 04/03/2020 2,089 850 - 3,900 cells/uL Final ??? Absolute Monocytes 04/03/2020 554 200 - 950 cells/uL Final ??? Absolute Eosinophils 04/03/2020 123 15 - 500 cells/uL Final ??? Absolute Basophils 04/03/2020 50 0 - 200 cells/uL Final ??? Absolute Blasts 04/03/2020 CANCELED 0 cells/uL Final Result canceled by the ancillary. ??? Absolute Nucleated RBC 04/03/2020 CANCELED 0 cells/uL Final Result canceled by the ancillary. ??? Neutrophils 04/03/2020 49.7 % Final ??? Band Neutrophils 04/03/2020 CANCELED % Final Result canceled by the ancillary. ??? Metamyelocytes 04/03/2020 CANCELED % Final Result canceled by the ancillary. ??? Myelocytes 04/03/2020 CANCELED % Final Result canceled by the ancillary. ??? Promyelocytes 04/03/2020 CANCELED % Final Result canceled by the ancillary. ??? Lymphocytes 04/03/2020 37.3 % Final ??? Reactive Lymphocytes 04/03/2020 CANCELED 0 - 10 % Final Result canceled by the ancillary. ??? Monocytes 04/03/2020 9.9 % Final ??? Eosinophils 04/03/2020 2.2 % Final ??? Basophils 04/03/2020 0.9 % Final ??? Blasts 04/03/2020 CANCELED % Final Result canceled by the ancillary. ??? Nucleated RBC 04/03/2020 CANCELED 0 /100 WBC Final Result canceled by the ancillary. ??? Comment(s) 04/03/2020 CANCELED Final Result canceled by the ancillary. ? ? Cholesterol, Total 04/03/2020 150 <200 mg/dL Final ? ? HDL Cholesterol 04/03/2020 58 > OR = 50 mg/dL Final ? ? Triglycerides 04/03/2020 90 <150 mg/dL Final ??? LDL-Cholesterol 04/03/2020 75 mg/dL (calc) Final Comment: Reference range: <100 Desirable range <100 mg/dL for primary prevention; <70 mg/dL for patients with CHD or diabetic patients with > or = 2 CHD risk factors. LDL-C is now calculated using the Efrain-Prince calculation, which is a validated novel method providing better accuracy than the Friedewald equation in the estimation of LDL-C. Efrain NICOLE et al. GEN. 2013;310(19): 7608-5368 (http://education.Kili.InExchange/faq/CIP811) ? ? Chol/HDLC Ratio 04/03/2020 2.6 <5.0 (calc) Final ? ? Non HDL Cholesterol 04/03/2020 92 <130 mg/dL (calc) Final Comment: For patients with diabetes plus 1 major ASCVD risk factor, treating to a non-HDL-C goal of <100 mg/dL (LDL-C of <70 mg/dL) is considered a therapeutic option. ??? Glucose 04/03/2020 96 65 - 99 mg/dL Final Comment: Fasting reference interval ??? Urea Nitrogen (BUN) 04/03/2020 25 7 - 25 mg/dL Final ??? Creatinine, Serum 04/03/2020 0.79 0.60 - 0.93 mg/dL Final Comment: For patients >49 years of age, the reference limit for Creatinine is approximately 13% higher for people identified as -Uzbek. ? ? eGFR Non-Afr. Uzbek 04/03/2020 73 > OR = 60 mL/min/1.73m2 Final ? ? eGFR 04/03/2020 85 > OR = 60 mL/min/1.73m2 Final ??? BUN/Creatinine Ratio 04/03/2020 NOT APPLICABLE 6 - 22 (calc) Final ??? Sodium 04/03/2020 140 135 - 146 mmol/L Final ??? POTASSIUM 04/03/2020 4.7 3.5 - 5.3 mmol/L Final ??? Chloride 04/03/2020 104 98 - 110 mmol/L Final ??? Carbon Dioxide 04/03/2020 26 20 - 32 mmol/L Final ??? Calcium 04/03/2020 10.0 8.6 - 10.4 mg/dL Final ??? PROTEIN, TOTAL 04/03/2020 7.2 6.1 - 8.1 g/dL Final ??? ALBUMIN 04/03/2020 4.3 3.6 - 5.1 g/dL Final ??? GLOBULIN 04/03/2020 2.9 1.9 - 3.7 g/dL (calc) Final ??? Albumin/Globulin Ratio 04/03/2020 1.5 1.0 - 2.5 (calc) Final ??? Bilirubin, Total 04/03/2020 0.6 0.2 - 1.2 mg/dL Final ??? ALKALINE PHOSPHATASE 04/03/2020 52 37 - 153 U/L Final ??? AST 04/03/2020 19 10 - 35 U/L Final ??? ALT 04/03/2020 18 6 - 29 U/L Final ? ? Hemoglobin A1c 04/03/2020 6.2* <5.7 % of total Hgb Final Comment: For someone without known diabetes, a hemoglobin A1c value between 5.7% and 6.4% is consistent with prediabetes and should be confirmed with a follow-up test. For someone with known diabetes, a value <7% indicates that their diabetes is well controlled. A1c targets should be individualized based on duration of diabetes, age, comorbid conditions, and other considerations. This assay result is consistent with an increased risk of diabetes. Currently, no consensus exists regarding use of hemoglobin A1c for diagnosis of diabetes for children. ??? Test Method 04/03/2020 Visual Urine Dipstick Testing Final ??? POCT Color, Urine 04/03/2020 Dark Yellow Final ??? POCT Clarity, Urine 04/03/2020 Clear Final ??? POCT Glucose, Urine 04/03/2020 Negative Negative Final ??? POCT Urine Bilirubin 04/03/2020 Negative Final ??? POCT Ketones, Urine 04/03/2020 Negative Negative Final ??? POCT Specfic Colby, Urine 04/03/2020 1.025 1.005 - 1.030 Final ??? POCT Blood, Urine 04/03/2020 Negative Negative Final ??? POCT Urine pH 04/03/2020 5.0 4.5 - 8.0 Final ? ? POCT Protein, Urine 04/03/2020 Negative Negative, Trace, 15 mg/dL, 30 mg/dL, 100 mg/dL, >=300mg/dL, >=2000 mg/dL Final ??? POCT Urine Urobilinogen 04/03/2020 Normal Final ??? POCT Nitrite, Urine 04/03/2020 Negative Negative, Unable to obtain valid result Final ??? POCT Leukocytes, Urine 04/03/2020 Negative Negative Final No results found for this or any previous visit (from the past 336 hour(s)). Assessment/Plan: ICD-10-CM 1. Vitamin D deficiency, on vitamin D supplementation we will check a vitamin D level. E55.9 25-Hydroxy Vitamin D CBC W/Auto Differential Lipid Panel with Reflex to Direct LDL COMPREHENSIVE METABOLIC PANEL RANDOM/FASTING Glycohemoglobin A1C 25-Hydroxy Vitamin D CBC W/Auto Differential Lipid Panel with Reflex to Direct LDL COMPREHENSIVE METABOLIC PANEL RANDOM/FASTING Glycohemoglobin A1C 2. BMI 29.0-29.9,adult, encouraged to diet exercise and lose weight. She understands increased weight increases blood pressure, blood sugar as well as cholesterol values. This puts her at high risk foratherosclerotic heart disease including heart attack, stroke, vascular disease, type 2 diabetes, cancer and premature . Z68.29 25-Hydroxy Vitamin D CBC W/Auto Differential Lipid Panel with Reflex to Direct LDL COMPREHENSIVE METABOLIC PANEL RANDOM/FASTING Glycohemoglobin A1C 25-Hydroxy Vitamin D CBC W/Auto Differential Lipid Panel with Reflex to Direct LDL COMPREHENSIVE METABOLIC PANEL RANDOM/FASTING Glycohemoglobin A1C 3. High cholesterol will continue on Crestor 20 mg a day we will check fasting lipid panel as well as liver function test. E78.00 25-Hydroxy Vitamin D CBC W/Auto Differential Lipid Panel with Reflex to Direct LDL COMPREHENSIVE METABOLIC PANEL RANDOM/FASTING Glycohemoglobin A1C 25-Hydroxy Vitamin D CBC W/Auto Differential Lipid Panel with Reflex to Direct LDL COMPREHENSIVE METABOLIC PANEL RANDOM/FASTING Glycohemoglobin A1C 4. Osteopenia, unspecified, on vitamin D supplementation we will check a vitamin D level M85.80 25-Hydroxy Vitamin D CBC W/Auto Differential Lipid Panel with Reflex to Direct LDL COMPREHENSIVE METABOLIC PANEL RANDOM/FASTING Glycohemoglobin A1C 25-Hydroxy Vitamin D CBC W/Auto Differential Lipid Panel with Reflex to Direct LDL COMPREHENSIVE METABOLIC PANEL RANDOM/FASTING Glycohemoglobin A1C 5. Hyperglycemia, encouraged to diet exercise lose weight restrict carbohydrates. Will check fastingblood sugar as well as hemoglobin A1c. R73.9 25-Hydroxy Vitamin D CBC W/Auto Differential Lipid Panel with Reflex to Direct LDL COMPREHENSIVE METABOLIC PANEL RANDOM/FASTING Glycohemoglobin A1C 25-Hydroxy Vitamin D CBC W/Auto Differential Lipid Panel with Reflex to Direct LDL COMPREHENSIVE METABOLIC PANEL RANDOM/FASTING Glycohemoglobin A1C Chino Hargrove MD documented in this encounter Plan of Treatment Not on filedocumented as of this encounter Procedures Procedure Name Priority Date/Time Associated Comments Diagnosis COMPREHENSIVE METABOLIC Routine 08/05/2020 8:39 Vitamin D R esults for this PANEL RANDOM/FASTING AM EST deficiency procedure are in BMI 29.0-29.9,ad ult the results High cholesterol section. Osteopenia, unspecified location Hyperglycemia CBC W/AUTO DIFFERENTIAL Routine 08/05/2020 8:39 Vitamin D R esults for this AM EST deficiency procedure are in BMI 29.0-29.9,ad ult the results High cholesterol section. Osteopenia, unspecified location Hyperglycemia GLYCOHEMOGLOBIN A1C Routine 08/05/2020 8:39 Vitamin D Resul ts for this AM EST deficiency procedure are in BMI 29.0-29.9,ad ult the results High cholesterol section. Osteopenia, unspecified location Hyperglycemia 25-HYDROXY VITAMIN D Routine 08/05/2020 8:39 Vitamin D Resu lts for this AM EST deficiency procedure are in BMI 29.0-29.9,ad ult the results High cholesterol section. Osteopenia, unspecified location Hyperglycemia LIPID PANEL WITH REFLEX Routine 08/05/2020 8:39 Vitamin D R esults for this TO DIRECT LDL AM EST deficiency procedure are in BMI 29.0-29.9,ad ult the results High cholesterol section. Osteopenia, unspecified location Hyperglycemia documented in this encounter Results (ABNORMAL) Glycohemoglobin A1C (08/05/2020 8:39 AM EST) Hemoglobin A1c 5.8 (H) <5.7 % of [email or web address] Comment: total Hgb [facility] For someone without known diabetes, a hemoglobin A1c value between 5.7% and 6.4% is consistent with prediabetes and should be confirmed with a follow-up test. For someone with known diabetes, a value <7% indicates that their diabetes is well controlled. A1c targets should be individualized based on duration of diabetes, age, comorbid conditions, and other considerations. This assay result is consistent with an increased risk of diabetes. Currently, no consensus exists regarding use of hemoglobin A1c for diagnosis of diabetes for children. Specimen Resulting Agency Comment Performing Organization Information: ?Site ID: [id number] ?Name: [facility] ?Address: [address] [place] [address], [place] [address] ?Director: Colin Belcher Performing Organization Address City/State/ZIP Code Phon e Number [facility] (ABNORMAL) COMPREHENSIVE METABOLIC PANEL RANDOM/FASTING (08/05/2020 8:39 AM EST) Glucose 100 (H) 65 - 99 [facility] Comment: mg/dL [facility] ? Fasting reference interval For someone without known diabetes, a glucose value between 100 and 125 mg/dL is consistent with prediabetes and should be confirmed with a follow-up test. Urea Nitrogen 27 (H) 7 - 25 mg/dL [email or web address] (BUN) [facility] Creatinine, Serum 0.79 0.60 - 0.93 [facility] Comment: mg/dL [facility] For patients >49 years of age, the reference limit for Creatinine is approximately 13% higher for people identified as -Uzbek. eGFR Non-Afr. 73 > OR = 60 [facility] [place] mL/min/1.73m [facility] 2 eGFR 84 > OR = 60 [facility] [place]bek mL/min/1.73m [facility] 2 BUN/Creatinine 34 (H) 6 - 22 [facility] Ratio (calc) [facility] Sodium 139 135 - 146 [facility] mmol/L [facility] POTASSIUM 4.1 3.5 - 5.3 [facility] mmol/L [facility] Chloride 104 98 - 110 [facility] mmol/L [facility] Carbon Dioxide 25 20 - 32 [facility] mmol/L [facility] Calcium 9.6 8.6 - 10.4 [facility] mg/dL [facility] PROTEIN, TOTAL 7.3 6.1 - 8.1 [facility] g/dL [facility] ALBUMIN 4.4 3.6 - 5.1 [facility] g/dL [facility] GLOBULIN 2.9 1.9 - 3.7 [facility] g/dL (calc) [facility] Albumin/Globulin 1.5 1.0 - 2.5 [facility] Ratio (calc) [facility] Bilirubin, Total 0.5 0.2 - 1.2 [facility] mg/dL [facility] ALKALINE 53 37 - 153 U/L [facility] PHOSPHATASE [facility] AST 20 10 - 35 U/L [facility] ALT 18 6 - 29 U/L [email or web address] Specimen Resulting Agency Comment Performing Organization Information: ?Site ID: [id number] ?Name: [facility] ?Address: [address] [place] [address], [place] [address] ?Director: Colin Belcher Performing Organization Address City/State/ZIP Code Phon e Number [facility] Lipid Panel with Reflex to Direct LDL (08/05/2020 8:39 AM EST) Cholesterol, Total 156 <200 mg/dL [facility] HDL Cholesterol 59 > OR = 50 [email or web address] mg/dL [facility] Triglycerides 69 <150 mg/dL [facility] LDL-Cholesterol 82 mg/dL (calc) [facility] Comment: [facility] Reference range: <100 Desirable range <100 mg/dL for primary prevention; ?? <70 mg/dL for patients with CHD or diabetic patients with > or = 2 CHD risk factors. LDL-C is now calculated using the Celestino calculation, which is a validated novel method providi ng better accuracy than the Friedewald equation in the estimation of LDL-C. Efrain NICOLE et al. GEN. 2013;310(19): 4752-9634 (http://education.Kili.InExchange/faq/RKE284) Chol/HDLC Ratio 2.6 <5.0 (calc) [facility] Non HDL Cholesterol 97 <130 mg/dL [facility] Comment: (calc) [facility] For patients with diabetes plus 1 major ASCVD risk factor, treating to a non-HDL-C goal of <100 mg/dL (LDL-C of <70 mg/dL) is considered a therapeutic option. Specimen Resulting Agency Comment Performing Organization Information: ?Site ID: [id number] ?Name: [facility] ?Address: [address] [place] [address], [place] [address] ?Director: Colin Belcher Performing Organization Address City/State/ZIP Code Phon e Number [email or web address] (ABNORMAL) CBC W/Auto Differential (08/05/2020 8:39 AM EST) White Blood Cell Count 4.8 3.8 - 10.8 [facility] Thousand/uL [facility] Red Blood Cell Count 4.34 3.80 - 5.10 [facility] Million/uL [facility] Hemoglobin 14.4 11.7 - 15.5 [facility] g/dL [facility] Hematocrit 40.3 35.0 - 45.0 [facility] % LLC MCV 92.9 80.0 - 100.0 [facility] fL [facility] MCH 33.2 (H) 27.0 - 33.0 [facility] pg [facility] MCHC 35.7 32.0 - 36.0 [facility] g/dL [facility] RDW 12.0 11.0 - 15.0 [facility] % [facility] Platelet Count 225 140 - 400 [facility] Thousand/uL [facility] MPV 9.7 7.5 - 12.5 [facility] fL [facility] Absolute Neutrophils 2,640 1,500 - [facility] 7,800 [facility] cells/uL Absolute Band CANCELEDComment 0 - 750 [facility] Neutrophils : Result cells/uL [facility] canceled by the ancillary. Absolute CANCELEDComment 0 cells/uL [facility] Metamyelocytes : Result LLC canceled by the ancillary. Absolute Myeloctytes CANCELEDComment 0 cells/uL [facility] : Result [facility] canceled by the ancillary. Absolute Promyelocytes CANCELEDComment 0 cells/uL [facility] CS : Result [facility] canceled by the ancillary. Absolute Lymphocytes 1,555 850 - 3,900 [facility] cells/uL [facility] Absolute Monocytes 398 200 - 950 [facility] cells/uL [facility] Absolute Eosinophils 158 15 - 500 [facility] cells/uL [facility] Absolute Basophils 48 0 - 200 [facility] cells/uL [facility] Absolute Blasts CANCELEDComment 0 cells/uL [facility] : [facility] canceled by the ancillary. Absolute Nucleated RBC CANCELEDComment 0 cells/uL [facility] : [facility] canceled by the ancillary. Neutrophils 55 % [facility] Band Neutrophils CANCELEDComment % [facility] : [facility] canceled by the ancillary. Metamyelocytes CANCELEDComment % [facility] : [facility] canceled by the ancillary. Myelocytes CANCELEDComment % [facility] : [facility] canceled by the ancillary. Promyelocytes CANCELEDComment % [facility] : [facility] canceled by the ancillary. Lymphocytes 32.4 % [facility] Reactive Lymphocytes CANCELEDComment 0 - 10 % [facility] : [facility] canceled by the ancillary. Monocytes 8.3 % [facility] Eosinophils 3.3 % [facility] Basophils 1.0 % [facility] Blasts CANCELEDComment % [facility] : [facility] canceled by the ancillary. Nucleated RBC CANCELEDComment 0 /100 WBC [facility] : [facility] canceled by the ancillary. Comment(s) CANCELEDComment [facility] : [facility] canceled by the ancillary. Specimen Resulting Agency Comment Performing Organization Information: ?Site ID: [id number] ?Name: [facility] ?Address: [address] [place] [address], [place] [address] ?Director: Colin Belcher Performing Organization Address City/State/ZIP Code Phon e Number [facility] 25-Hydroxy Vitamin D (08/05/2020 8:39 AM EST) Vitamin D,25-OH, 39 30 - 100 [facility] Total Comment: ng/mL [facility] Vitamin D Status ? 25-OH Vitamin D: Deficiency: ?<20 ng/mL Insufficiency: ? 20 - 29 ng/mL Optimal: ? > or = 30 ng/mL For 25-OH Vitamin D testing on patients on D2-supplementation and patients for whom quantitation of D2 and D3 fractions is required, the [facility](T M) 25-OH VIT D, (D2,D3), LC/MS/MS is recommended: order code 54413 (patients >2yrs). See Note 1 Note 1 For additional information, please refer to http://education.Kili.InExchange/faq/EAZ743 (This link is being provided for informational/ educational purposes only.) Specimen Resulting Agency Comment Performing Organization Information: ?Site ID: [id number] ?Name: [facility] ?Address: [address] [place] [address], [place] [address] ?Director: Colin Belcher Performing Organization Address City/State/ZIP Code Phon e Number [facility] documented in this encounter Visit Diagnoses Diagnosis Vitamin D deficiency - Primary BMI 29.0-29.9,adult High cholesterol Pure hypercholesterolemia Osteopenia, unspecified location Hyperglycemia Other abnormal glucose documented in this encounter Care Teams Manual Qa Tester Relationship Specialty Start Date End Date Chino Hargrove MD PCP - General Internal Medicine 05/04/16 11/18/21 2 Monica Felipe [address] [address] documented as of this encounter
--- OUTSIDE RECORDS SUMMARY | 2022-01-04 15:08 | XMS_ITS | Encounter Summary ---
:1945 Author Organization [facility] Address [address] [place] [id number] Care Team Providers Name Role Phone Chino Hargrove MD Primary Care Provider Reason for Referral Preauthorization (Routine) - Closed Specialty Diagnoses / Procedures Referred By Contact Refer red To Contact Diagnoses Visit for screening mammogram Claudette Read MD [facility] Procedures Mammogram Screening Digital with CAD [facility] [facility] Location [facility] [address] [address] Phone: Referral ID Status Reason Start Date Expiration Date Visits Requ ested Visits Authorized [id number] Closed 04/19/2019 04/18/2020 1 1 Reason for Visit Preauthorization (Routine) - Closed Specialty Diagnoses / Procedures Referred By Contact Refer red To Contact Diagnoses Visit for screening mammogram Claudette Read MD [facility] Procedures Mammogram Screening Digital with CAD [facility] Location [facility] [address] [address] Phone: Referral ID Status Reason Start Date Expiration Date Visits Requ ested Visits Authorized [id number] Closed 04/19/2019 04/18/2020 1 1 Encounter Details Date Type Department Care Team Description 05/17/2019 Hospital Encounter [facility] Mammogram ENF Visit for screening [address] [place] [place] [address] Social History Tobacco Use Types Packs/Day Years [...] Take by mouth. 0 VITAMIN DAILY PO) [place]-3 Fatty Acids (FISH Take by mouth. 0 11/14/2020 OIL PO) rosuvastatin (CRESTOR) Take 1 tablet (20 90 tablet 3 201802/28/2020 tablet 20 mg mg total) by mouth daily. documented as of this encounter Plan of Treatment Not on filedocumented as of this encounter Procedures Procedure Name Priority Date/Time Associated Diagnosis Comme nts MAMMOGRAM SCREENING Routine 05/17/2019 9:53 AM Visit for mayuri ramirez Results for this DIGITAL WITH CAD - EST mammogram procedure are in BILATERAL the results section. documented in this encounter Results Mammogram Screening Digital with CAD (05/17/2019 9:53 AM EST) Anatomical Region Laterality Modality Breast Bilateral Mammography Specimen Narrative ORTIZ ROD - 05/17/2019 9:38 AM EST Bilateral screening mammogram with CAD History: ??yearly screening Comparison: 05/16/2018 and 05/11/2017 Bilateral low-dose mammography was perfo rmed in the craniocaudal and mediolateral oblique projection with CAD There are no dominant mass lesions, skin thickening, or nipple retraction. No cluster of suspicious microcalcifications is seen. ??Several scattered benign- appearing calcifications are seen as before. ? ?Minimal parenchymal asymmetry is also n oted as before. Density: Category A - Almost entirely fa tty (<25%) Impression: No radiographic evidence of malignancy. Followup is recommended in one year. The results of this examination have bee n communicated to the patient through a lay letter in accordance with the Mammography Quality Standards Act BI-RADS Category 2: Benign 3342F Session: not applicable Report reviewed and signed by : Dr. Carlos Owens MD on 05/17/2019 9:38 AM. Workstation Name - [id number] Performing Organization Address City/State/ZIP Code [facility] e Number [facility]NAP[facility] documented in this encounter Visit Diagnoses Diagnosis Visit for screening mammogram documented in this encounter Care Teams [employer] Ramp Supervisor Relationship Specialty Start Date End Date Chino Hargrove MD PCP - General Internal Medicine 05/04/16 11/18/21 2 Monica Felipe [address] [address] documented as of this encounter
--- OUTSIDE RECORDS SUMMARY | 2022-01-04 15:08 | XMS_ITS | Encounter Summary ---
:1945 Author Organization [facility] Address [address] [place] [id number] Care Team Providers Name Role Phone Chino Hargrove MD Primary Care Provider Reason for Visit Reason Comments Hyperlipidemia Encounter Details Date Type Department Care Team Description 04/03/2020 Office Visit Internal Medicine - Chino Hargrove, Hig h cholesterol (Primary Dx); Lara Hernandez MD BMI 28.0-28.9,adult; [address] Hyperglycemia; Building 2 Bldg 2 Left anterior fascicular block; Lara Hernandez, [facility] Osteopeni a, unspecified location; [id number] [address] Vitamin D deficiency; [phone] Lara Hernandez [place] Reactive d epression [id number] (Wo rk) Social History Tobacco Use Types [...] been in contact with No / Unsure 04/03/2020 8:08 AM EDT someone who was confirmed or suspected to have Coronavirus / COVID-19? documented as of this encounter Last Filed Vital Signs Vital Sign Reading Time Taken Comments Blood Pressure 130/80 04/03/2020 8:08 AM EDT Pulse 79 04/03/2020 8:08 AM EDT Temperature 36.3 ??C (97.3 ??F) 04/03/2020 8:08 AM EDT Respiratory Rate 16 04/03/2020 8:08 AM EDT Oxygen Saturation 97% 04/03/2020 8:08 AM EDT Inhaled Oxygen Concentration - - Weight 71.5 kg (157 lb 11.2 oz) 04/03/2020 8:08 AM EDT Height 158.8 cm (5' 2.5) 04/03/2020 8:08 AM EDT Body Mass Index 28.38 04/03/2020 8:08 AM EDT documented in this encounter Progress Notes Chino Hargrove MD - 04/03/2020 8:20 AM EDT Chief Complaint: Chief Complaint Patient presents with ??? Hyperlipidemia HPI: Fidelina Hanson is a 74 y.o. female. Visit, fasting blood work, 4-month follow-up. Patient generally feeling well no specific complaints patient states that the Mirapex is helping her restless leg syndrome. She denies any chest pain shortness of breath or palpitations. She is compliant with her medication, she is not experiencing any side effects from medications. She is currently on Crestor 20 mg a day and tolerating the medication well. Vitals: Vitals: 04/03/20 0808 BP: 130/80 Pulse: 79 Resp: 16 Temp: 97.3 ??F (36.3 ??C) TempSrc: Temporal SpO2: 97% Weight: 71.5 kg (157 lb 11.2 oz) Height: 5' 2.5 (1.588 m) Body mass index is 28.38 kg/m??. Body surface area is 1.78 meters squared. Allergies: Allergies Allergen Reactions ??? [...] BY MOUTH DAILY 90 tablet 3 ??? Garrett-3 Fatty Acids (FISH OIL PO) Take by [...] file Gets together: Not on file Attends baptism service: Not on file Active member of [...] Not on file Orders Placed This Encounter: No orders of the defined types were placed in this encounter. Screening: The following Quality Measures are up [...] mouth sores, nosebleeds, postnasal drip, rhinorrhea, sinus pressure, sinus pain, sneezing, sore throat, tinnitus, trouble swallowing and voice change. Eyes: Negative for photophobia, pain, discharge, redness, itching and visual disturbance. Respiratory: Negative for apnea, cough, choking, chest tightness, shortness of breath, wheezing and stridor. Cardiovascular: Negative for chest pain, palpitations and leg swelling. Left anterior hemiblock, hypercholesterolemia Gastrointestinal: Negative for abdominal distention, abdominal pain, anal bleeding, blood in stool, constipation, diarrhea, nausea, rectal pain and vomiting. Endocrine: Negative for cold intolerance, heat intolerance, polydipsia, polyphagia and polyuria. Vitamin D deficiency, osteopenia, hyperglycemia Genitourinary: Negative for decreased urine volume, [...] speech difficulty, weakness, light-headedness, numbness and headaches. Restless leg syndrome Hematological: Negative for adenopathy. Does not bruise/bleed easily. Psychiatric/Behavioral: Positive for dysphoric mood. Negative for agitation, behavioral problems, confusion, decreased concentration, hallucinations, self- injury, sleep disturbance and suicidal ideas. The patient is not [...] visit with results is: Office Visit on 11/14/2019 Component Date Value Ref Range Status ??? Test Method 11/14/2019 Visual Urine Dipstick Testing Final ??? POCT Color, Urine 11/14/2019 Dark Yellow Final ??? POCT Clarity, Urine 11/14/2019 Clear Final ??? POCT Glucose, Urine 11/14/2019 Negative Negative Final ??? POCT Urine Bilirubin 11/14/2019 Negative Final ??? POCT Ketones, Urine 11/14/2019 Negative Negative Final ??? POCT Specfic [place], Urine 11/14/2019 1.025 1.005 - 1.030 Final ??? POCT Blood, Urine 11/14/2019 Negative Negative Final ??? POCT Urine pH 11/14/2019 5.0 4.5 - 8.0 Final ? ? POCT Protein, Urine 11/14/2019 Negative Negative, Trace, 15 mg/dL, 30 mg/dL, 100 mg/dL, >=300mg/dL, >=2000 mg/dL Final ??? POCT Urine Urobilinogen 11/14/2019 Normal Final ??? POCT Nitrite, Urine 11/14/2019 Negative Negative, Unable to obtain valid result Final ??? POCT Leukocytes, Urine 11/14/2019 Negative Negative Final ??? Vitamin D,25-OH, Total 11/14/2019 36 30 - 100 ng/mL Final Comment: Vitamin D Status 25-OH Vitamin D: Deficiency: <20 ng/mL Insufficiency: 20 - 29 ng/mL Optimal: > or = 30 ng/mL For 25-OH Vitamin D testing on patients on D2-supplementation and patients for whom quantitation of D2 and D3 fractions is required, the QuestAssureD(TM) 25-OH VIT D, (D2,D3), LC/MS/MS is recommended: order code 51876 (patients >2yrs). See Note 1 Note 1 For additional information, please refer to http://education.[employer]/faq/UEL447 (This link is being provided for informational/ educational purposes only.) ??? White Blood Cell Count 11/14/2019 5.3 3.8 - 10.8 Thousand/uL Final ??? Red Blood Cell Count 11/14/2019 4.41 3.80 - 5.10 Million/uL Final ??? Hemoglobin 11/14/2019 13.6 11.7 - 15.5 g/dL Final ??? Hematocrit 11/14/2019 42.1 35.0 - 45.0 % Final ??? MCV 11/14/2019 95.5 80.0 - 100.0 fL Final ??? MCH 11/14/2019 30.8 27.0 - 33.0 pg Final ??? MCHC 11/14/2019 32.3 32.0 - 36.0 g/dL Final ??? RDW 11/14/2019 12.2 11.0 - 15.0 % Final ??? Platelet Count 11/14/2019 257 140 - 400 Thousand/uL Final ??? MPV 11/14/2019 9.8 7.5 - 12.5 fL Final ??? Absolute Neutrophils 11/14/2019 2,544 1,500 - 7,800 cells/uL Final ??? Absolute Band Neutrophils 11/14/2019 CANCELED 0 - 750 cells/uL Final Result canceled by the ancillary. ??? Absolute Metamyelocytes 11/14/2019 CANCELED 0 cells/uL Final Result canceled by the ancillary. ??? Absolute Myeloctytes 11/14/2019 CANCELED 0 cells/uL Final Result canceled by the ancillary. ??? Absolute Promyelocytes 11/14/2019 CANCELED 0 cells/uL Final Result canceled by the ancillary. ??? Absolute Lymphocytes 11/14/2019 2,094 850 - 3,900 cells/uL Final ??? Absolute Monocytes 11/14/2019 509 200 - 950 cells/uL Final ??? Absolute Eosinophils 11/14/2019 111 15 - 500 cells/uL Final ??? Absolute Basophils 11/14/2019 42 0 - 200 cells/uL Final ??? Absolute Blasts 11/14/2019 CANCELED 0 cells/uL Final Result canceled by the ancillary. ??? Absolute Nucleated RBC 11/14/2019 CANCELED 0 cells/uL Final Result canceled by the ancillary. ??? Neutrophils 11/14/2019 48 % Final ??? Band Neutrophils 11/14/2019 CANCELED % Final Result canceled by the ancillary. ??? Metamyelocytes 11/14/2019 CANCELED % Final Result canceled by the ancillary. ??? Myelocytes 11/14/2019 CANCELED % Final Result canceled by the ancillary. ??? Promyelocytes 11/14/2019 CANCELED % Final Result canceled by the ancillary. ??? Lymphocytes 11/14/2019 39.5 % Final ??? Reactive Lymphocytes 11/14/2019 CANCELED 0 - 10 % Final Result canceled by the ancillary. ??? Monocytes 11/14/2019 9.6 % Final ??? Eosinophils 11/14/2019 2.1 % Final ??? Basophils 11/14/2019 0.8 % Final ??? Blasts 11/14/2019 CANCELED % Final Result canceled by the ancillary. ??? Nucleated RBC 11/14/2019 CANCELED 0 /100 WBC Final Result canceled by the ancillary. ??? Comment(s) 11/14/2019 CANCELED Final Result canceled by the ancillary. ? ? HEMOGLOBIN A1c 11/14/2019 5.9* <5.7 % of total Hgb Final Comment: [...] for diagnosis of diabetes for children. ??? Glucose 11/14/2019 97 65 - 99 mg/dL Final Comment: Fasting reference interval ??? Urea Nitrogen (BUN) 11/14/2019 25 7 - 25 mg/dL Final ??? Creatinine, Serum 11/14/2019 0.84 0.60 - 0.93 mg/dL Final Comment: For patients >49 years of age, the reference limit for Creatinine is approximately 13% higher for people identified as -Tunisian. ? ? eGFR Non-Afr. Tunisian 11/14/2019 68 > OR = 60 mL/min/1.73m2 Final ? ? eGFR 11/14/2019 79 > OR = 60 mL/min/1.73m2 Final ??? BUN/Creatinine Ratio 11/14/2019 NOT APPLICABLE 6 - 22 (calc) Final ??? Sodium 11/14/2019 141 135 - 146 mmol/L Final ??? POTASSIUM 11/14/2019 4.2 3.5 - 5.3 mmol/L Final ??? Chloride 11/14/2019 105 98 - 110 mmol/L Final ??? Carbon Dioxide 11/14/2019 26 20 - 32 mmol/L Final ??? Calcium 11/14/2019 9.9 8.6 - 10.4 mg/dL Final ??? PROTEIN, TOTAL 11/14/2019 7.1 6.1 - 8.1 g/dL Final ??? ALBUMIN 11/14/2019 4.4 3.6 - 5.1 g/dL Final ??? GLOBULIN 11/14/2019 2.7 1.9 - 3.7 g/dL (calc) Final ??? Albumin/Globulin Ratio 11/14/2019 1.6 1.0 - 2.5 (calc) Final ??? Bilirubin, Total 11/14/2019 0.6 0.2 - 1.2 mg/dL Final ??? ALKALINE PHOSPHATASE 11/14/2019 48 37 - 153 U/L Final ??? AST 11/14/2019 22 10 - 35 U/L Final ??? ALT 11/14/2019 19 6 - 29 U/L Final ??? TSH 11/14/2019 1.11 0.40 - 4.50 mIU/L Final ? ? Cholesterol, Total 11/14/2019 151 <200 mg/dL Final ? ? HDL Cholesterol 11/14/2019 62 > OR = 50 mg/dL Final ? ? Triglycerides 11/14/2019 82 <150 mg/dL Final ??? LDL-Cholesterol 11/14/2019 73 mg/dL (calc) Final Comment: Reference range: <100 Desirable range <100 mg/dL for primary prevention; <70 mg/dL for patients with CHD or diabetic patients with > or = 2 CHD risk factors. LDL-C is now calculated using the Efrain-Morrison calculation, which is a validated novel method providing better accuracy than the Friedewald equation in the estimation of LDL-C. Efrain NICOLE et al. GEN. 2013;310(19): 0860-8181 (http://education.[employer]/faq/PAY636) ? ? Chol/HDLC Ratio 11/14/2019 2.4 <5.0 (calc) Final ? ? Non HDL Cholesterol 11/14/2019 89 <130 mg/dL (calc) Final Comment: For patients with diabetes plus 1 major ASCVD risk factor, treating to a non-HDL-C goal of <100 mg/dL (LDL-C of <70 mg/dL) is considered a therapeutic option. No results found for this or any previous visit (from the past 336 hour(s)). Assessment/Plan: ICD-10-CM 1. High cholesterol, will continue on Crestor 20 mg a day we will check fasting lipid panel as well as liver function test. She is advised to continue with diet exercise weight reduction. E78.00 2. BMI 28.0-28.9,adult, patient strongly advised to diet exercise and lose weight. Z68.28 3. Hyperglycemia, check fasting blood sugar as well as hemoglobin A1c. R73.9 4. Left anterior fascicular block I44.4 5. Osteopenia, unspecified location, check vitamin D level she is on vitamin D supplementation M85.80 6. Vitamin D deficiency E55.9 7. Reactive depression, doing well off medication. F32.9 Chino Hargrove MD documented in this encounter Miscellaneous Notes Addendum Note - Sam Sullivan MA - 04/03/2020 8:20 AM EDT Addended by: SAM SULLIVAN on: 04/03/2020 08:53 AM Modules accepted: Orders documented in this encounter Plan of Treatment Not on filedocumented as of this encounter Procedures Procedure Name Priority Date/Time Associated Diagnosis Comme nts COMPREHENSIVE METABOLIC Routine 04/03/2020 8:46 High cho lesterol Results for this PANEL RANDOM/FASTING AM EDT BMI 28.0-28 .9,adult procedure are in Hyperglycemia the results Left anterior section. fascicular block Osteopenia, unspecified loca tion Vitamin D defici ency Reactive depression CBC W/AUTO DIFFERENTIAL Routine 04/03/2020 8:46 High cho lesterol Results for this AM EDT BMI 28.0-28.9,ad ult procedure are in Hyperglycemia the results Left anterior section. fascicular block Osteopenia, unspecified loca tion Vitamin D defici ency Reactive depression GLYCOHEMOGLOBIN A1C Routine 04/03/2020 8:46 High cholest alejandro Results for this AM EDT BMI 28.0-28.9,ad ult procedure are in Hyperglycemia the results Left anterior section. fascicular block Osteopenia, unspecified loca tion Vitamin D defici ency Reactive depression LIPID PANEL WITH REFLEX Routine 04/03/2020 8:46 High cho lesterol Results for this TO DIRECT LDL AM EDT BMI 28.0-28.9,ad ult procedure are in Hyperglycemia the results Left anterior section. fascicular block Osteopenia, unspecified loca tion Vitamin D defici ency Reactive depression POCT URINALYSIS (02892) Routine 04/03/2020 Hyperglycemia Res ults for this procedure are i n the results section. documented in this encounter Results (ABNORMAL) Glycohemoglobin A1C (04/03/2020 8:46 AM EDT) Hemoglobin A1c 6.2 (H) <5.7 % of [facility] Comment: total Hgb [facility] For someone [...] Performing Organization Information: ?Site ID: [id number] ?Name: [facility] ?Address: [address] [place] [address], [place] [address] ?Director: Colin Belcher MD Performing Organization Address City/State/ZIP Code Phon e Number [facility] COMPREHENSIVE METABOLIC PANEL RANDOM/FASTING (04/03/2020 8:46 AM EDT) [facility] Glucose 96 65 - 99 [facility] Comment: mg/dL [facility] ? Fasting reference interval Urea Nitrogen 25 7 - 25 mg/dL [facility] (BUN) [facility] Creatinine, Serum 0.79 0.60 - 0.93 [facility] Comment: mg/dL [facility] For patients >49 years of age, the reference limit for Creatinine is approximately 13% higher for people identified as -Tunisian. eGFR Non-Afr. 73 > OR = 60 [facility] Tunisian mL/min/1.73m [facility] 2 eGFR 85 > OR = 60 [facility] Tun[place]ian mL/min/1.73m [facility] 2 BUN/Creatinine NOT APPLICABLE 6 - 22 [facility] Ratio (calc) [facility] Sodium 140 135 - 146 [facility] mmol/L [facility] POTASSIUM 4.7 3.5 - 5.3 [facility] mmol/L [facility] Chloride 104 98 - 110 [facility] mmol/L [facility] Carbon Dioxide 26 20 - 32 [facility] mmol/L [facility] Calcium 10.0 8.6 - 10.4 [facility] mg/dL [facility] PROTEIN, TOTAL 7.2 6.1 - 8.1 [facility] g/dL [facility] ALBUMIN 4.3 3.6 - 5.1 [facility] g/dL [facility] GLOBULIN 2.9 1.9 - 3.7 [facility] g/dL (calc) [facility] Albumin/Globulin 1.5 1.0 - 2.5 [facility] Ratio (calc) [facility] Bilirubin, Total 0.6 0.2 - 1.2 [facility] mg/dL [facility] ALKALINE 52 37 - 153 U/L [facility] AST 19 10 - 35 U/L [facility] ALT 18 6 - 29 U/L [facility] Specimen Resulting Agency Comment Performing Organization Information: ?Site ID: [id number] ?Name: [facility] ?Address: [address] [place] [phone] ?Director: Colin Belcher MD Performing Organization Address City/State/ZIP Code Phon e Number [facility] Lipid Panel with Reflex to Direct LDL (04/03/2020 8:46 AM EDT) Cholesterol, Total 150 <200 mg/dL [facility] HDL Cholesterol 58 > OR = 50 [facility] mg/dL [facility] Triglycerides 90 <150 mg/dL [facility] LDL-Cholesterol 75 mg/dL (calc) [facility] Comment: LLC Reference range: <100 Desirable range <100 mg/dL for primary prevention; ?? <70 mg/dL for patients with CHD or diabetic patients with > or = 2 CHD risk factors. LDL-C is now calculated using the Efrain-Prince calculation, which is a validated novel method providi ng better accuracy than the Friedewald equation in the estimation of LDL-C. Efrain NICOLE et al. GEN. 2013;310(19): 1080-8639 (http://education.[employer]/faq/YHO452) Chol/HDLC Ratio 2.6 <5.0 (calc) [facility] Non HDL Cholesterol 92 <130 mg/dL [facility] Comment: (calc) LLC For patients with diabetes plus 1 major ASCVD risk factor, treating to a non-HDL-C goal of <100 mg/dL (LDL-C of <70 mg/dL) is considered a therapeutic option. Specimen Resulting Agency Comment Performing Organization Information: ?Site ID: [id number] ?Name: [facility] ?Address: [address] [place] [phone] ?Director: Colin Belcher MD Performing Organization Address City/State/ZIP Code Phon e Number [facility] CBC W/Auto Differential (04/03/2020 8:46 AM EDT) White Blood Cell Count 5.6 3.8 - 10.8 [facility] Thousand/uL [facility] Red Blood Cell Count 4.48 3.80 - 5.10 [facility] Million/uL [facility] Hemoglobin 13.7 11.7 - 15.5 [facility] g/dL [facility] Hematocrit 42.0 35.0 - 45.0 [facility] % LLC MCV 93.8 80.0 - 100.0 [facility] fL [facility] MCH 30.6 27.0 - 33.0 [facility] pg [facility] MCHC 32.6 32.0 - 36.0 [facility] g/dL [facility] RDW 12.3 11.0 - 15.0 [facility] % [facility] Platelet Count 244 140 - 400 [facility] Thousand/uL [facility] MPV 9.2 7.5 - 12.5 [facility] fL [facility] Absolute Neutrophils 2,783 1,500 - [facility] 7,800 LLC cells/uL [...] LLC canceled by the ancillary. Absolute Lymphocytes 2,089 850 - 3,900 [facility] cells/uL [facility] Absolute Monocytes 554 200 - 950 [facility] cells/uL [facility] Absolute Eosinophils 123 15 - 500 [facility] cells/uL [facility] Absolute Basophils 50 0 - 200 [facility] cells/uL [facility] Absolute Blasts CANCELEDComment 0 cells/uL [facility] : Result LLC canceled by the ancillary. Absolute Nucleated RBC CANCELEDComment 0 cells/uL [facility] : Result LLC canceled by the ancillary. Neutrophils 49.7 % [facility] LLC Band Neutrophils CANCELEDComment % [facility] : Result [facility] canceled by the ancillary. Metamyelocytes CANCELEDComment % [facility] : Result [facility] canceled by the ancillary. Myelocytes CANCELEDComment % [facility] : Result [facility] canceled by the ancillary. Promyelocytes CANCELEDComment % [facility] : Result [facility] canceled by the ancillary. Lymphocytes 37.3 % [facility] LLC Reactive Lymphocytes CANCELEDComment 0 - 10 % [facility] : Result [facility] canceled by the ancillary. Monocytes 9.9 % [facility] LLC Eosinophils 2.2 % [facility] LLC Basophils 0.9 % [facility] LLC Blasts CANCELEDComment % [facility] : Result LLC canceled by the ancillary. Nucleated RBC CANCELEDComment 0 /100 WBC [facility] : Result [facility] canceled by the ancillary. Comment(s) CANCELEDComment [facility] : Result LLC canceled by the ancillary. Specimen Resulting Agency Comment Performing Organization Information: ?Site ID: [id number] ?Name: [facility] ?Address: [address] [place] [address], [place] [address] ?Director: Colin Belcher MD Performing Organization Address City/State/[facility] Code Phon e Number [facility] POCT Urinalysis (04/03/2020) Visual Urine Dipstick Testing POCT Color, Urine Dark Yellow POCT Clarity, Urine Clear POCT Glucose, Urine Negative Negative POCT Urine Bilirubin Negative POCT Ketones, Urine Negative Negative POCT Specfic [place], 1.025 1.005 - 1.030 Urine POCT Blood, Urine Negative Negative POCT Urine pH 5.0 4.5 - 8.0 POCT Protein, Urine Negative Negative, Trace, 15 mg/dL, 30 mg/dL, 100 mg/dL, >=300 mg/dL, >=2000 mg/dL POCT Urine Normal Urobilinogen POCT Nitrite, Urine Negative Negative, Unable to obtain valid result POCT Leukocytes, Negative Negative Urine QC IN LAST 24H? MULTISTIX 8 SG LOT# MULTISTIX 8 SG EXP DATE Specimen documented in this encounter Visit Diagnoses Diagnosis High cholesterol - Primary Pure hypercholesterolemia BMI 28.0-28.9,adult Hyperglycemia Other abnormal glucose Left anterior fascicular block Left bundle branch hemiblock Osteopenia, unspecified location Vitamin D deficiency Reactive depression documented in this encounter Care Teams Medical Insurance Biller Relationship Specialty Start Date End Date Chino Hargrove MD PCP - General Internal Medicine 05/04/16 11/18/21 [address] [place] [address] documented as of this encounter
--- OUTSIDE RECORDS SUMMARY | 2022-01-04 15:08 | XMS_ITS | Encounter Summary ---
:1945 Author Organization [facility] Address [address] [place] [address] Care Team Providers Name Role Phone Chino Hargrove MD Primary Care Provider Reason for Visit Reason Comments Annual Exam Phy Exam 73 y.o. Female thumb pain 2 mnths possle trigger finge r Encounter Details Date Type Department Care Team Description 08/09/2018 Office Visit Internal Medicine - Chino Hargrove, Mk ferro for annual physical exam (Primary Dx); Lara Hernandez MD BMI 28.0-28.9,adult; [address] Vitamin D deficiency; Building 2 Bld[address] 2 Osteopenia of spine; Lara Hernandez, [place] [facility] emia; [id number] [address] High cholesterol; [phone] [place] Left anter ior fascicular block [address] (Wo rk) Social History Tobacco Use Types [...] Sign Reading Time Taken Comments Blood Pressure 124/84 08/09/2018 8:52 AM EST Pulse 75 08/09/2018 8:52 AM EST Temperature 36.6 ??C (97.9 ??F) 08/09/2018 8:52 AM EST Respiratory Rate 16 08/09/2018 8:52 AM EST Oxygen Saturation 98% 08/09/2018 8:52 AM EST Inhaled Oxygen Concentration - - Weight 72.6 kg (160 lb) 08/09/2018 8:52 AM EST Height 160 cm (5' 3) 08/09/2018 8:52 AM EST Body Mass Index 28.34 08/09/2018 8:52 AM EST documented in this encounter Progress Notes Cihno Hargrove MD - 08/09/2018 9:20 AM EST INTERNAL MEDICINE OFFICE NOTE CHIEF COMPLAINT: Chief Complaint Patient presents with ??? Annual Exam Phy Exam 73 y.o. Female ??? thumb pain 2 mnths possle trigger finger ?? HISTORY OF PRESENT ILLNESS: Fidelina Hanson is a 73 y.o. female here today PAST MEDICAL HISTORY: Past Medical History: Diagnosis Date ??? High cholesterol ??? Left anterior fascicular block ??? Low back pain ??? Metabolic syndrome X ??? Osteopenia ??? Vitamin D deficiency ? SURGICAL HISTORY: Past Surgical History: Procedure Laterality Date ??? BREAST BIOPSY Right 1972 ??? BREAST LUMPECTOMY Right 1972 ??? CORRECTION HAMMER TOE Both feet ??? DILATION AND CURETTAGE OF UTERUS ??? OTHER SURGICAL HISTORY Uterine polyp ??? TRIGGER FINGER RELEASE Right ? SOCIAL HISTORY: Social History Substance Use Topics ??? Smoking status: Never Smoker ??? Smokeless tobacco: Never Used ??? Alcohol use Yes Comment: Rarely ? FAMILY HISTORY: Family History Problem Relation Age of Onset ??? Dementia Mother ??? Hypertension Mother ??? Cancer Father colon ??? Hypertension Father ??? Cancer Sister skin ??? Migraines Daughter ? MEDICATIONS: Current Outpatient Prescriptions Medication Sig Dispense Refill ??? aspirin EC 81 MG tablet Take 81 mg by mouth daily. ??? BOOSTRIX 5-2.5-18.5 injection ??? Calcium Carbonate (CALCIUM 600 PO) Take by mouth. ??? cholecalciferol (VITAMIN D3) 1000 UNITS tablet Take 1,000 Units by mouth daily. ??? Flaxseed, Linseed, (FLAXSEED OIL PO) Take by mouth. ??? melatonin 3 MG TABS tablet melatonin 3 mg tablet TAKE BY ORAL ROUTE ??? Multiple Vitamin (MULTI VITAMIN DAILY PO) Take by mouth. ??? [place]-3 Fatty Acids (FISH OIL PO) Take by mouth. ??? rosuvastatin (CRESTOR) tablet 20 mg TAKE 1 TABLET DAILY 90 tablet 3 No current facility-administered medications for this visit. ? ALLERGIES: Allergies Allergen Reactions ??? Demerol [Meperidine] Nausea And Vomiting and Rash REVIEW OF SYMTOMS: Review of Systems Constitutional: Negative for activity change, appetite change, chills, diaphoresis, fatigue, fever and unexpected weight change. HENT: Positive for postnasal drip. Negative for congestion, dental problem, drooling, ear discharge,ear pain, facial swelling, hearing loss, mouth sores, nosebleeds, rhinorrhea, sinus pain, sinus pressure, sneezing, sore throat, tinnitus, trouble swallowing and voice change. Eyes: Negative for photophobia, pain, discharge, redness, itching and visual disturbance. Wears glasses Respiratory: Negative for apnea, cough, choking, chest tightness, shortness of breath, wheezing and stridor. Cardiovascular: Negative for chest pain, palpitations and leg swelling. Varicose veins both lower extremities Gastrointestinal: Negative for abdominal distention, abdominal pain, anal bleeding, blood in stool, constipation, diarrhea, nausea, rectal pain and vomiting. Endocrine: Negative for cold intolerance, heat intolerance, polydipsia, polyphagia and polyuria. History of hyperglycemia Genitourinary: Negative for decreased urine volume, difficulty urinating, dyspareunia, dysuria, enuresis, flank pain, frequency, genital sores, hematuria, menstrual problem, pelvic pain, urgency, vaginal bleeding, vaginal discharge and vaginal pain. Musculoskeletal: Positive for back pain. Negative for arthralgias, gait problem, joint swelling, myalgias, neck pain and neck stiffness. History of osteopenia Skin: Negative for color change, pallor, rash [...] is not nervous/anxious and is not hyperactive. History of depression, she has had a lot of her friends recently . She was on Zoloft however she is no longer taking this medication. FALL RISK: Fall Risk Assessment Future fall risk screening performed at today's visit?: yes Has patient fallen 2 or more times in the past 12 months?: no Does patient present with acute fall?: no Does patient have difficulty with walking or balance?: yes Future fall risk status: positive DEPRESSION SCREENING: Clinical Depression Screening 08/09/2018 Depression screening performed today? yes Little interest or pleasure in doing things 1 Feeling down, depressed or hopeless 1 Initial Depression Screening Score 2 Positive or Negative for depression? positive Trouble falling or staying asleep, or sleeping too much 1 Feeling tired or having little energy 0 Poor appetite or overeating 0 Feeling bad about yourself - or that you are a failure or have let yourself or your family down 0 Trouble concentrating on things, such as reading the newspaper or watching television 1 Moving or speaking so slowly that other people could have noticed. Or the opposite - being so fidgety or restless that you have been moving around a lot more than usual 0 Thoughts that you would be better off , or of hurting yourself in some way 0 Total Score Depression Severity 4 Depression severity level minimal symptoms of depression If you checked off any problems, how difficult have these problems made it for you to do your work, take care of things at home, or get along with other people? Not difficult at all Attempting or threatening suicide/self harm? No VITALS SIGNS: Vitals: 08/09/18 0852 BP: 124/84 Pulse: 75 Resp: 16 Temp: 97.9 ??F (36.6 ??C) TempSrc: Oral SpO2: 98% Weight: 72.6 kg (160 lb) Height: 5' 3 (1.6 m) Body mass index is 28.34 kg/m??. ? Physical Exam Constitutional: She is oriented to [...] eye exhibits no discharge. No scleral icterus. Wears glasses Neck: Normal range of motion. Neck supple. [...] has no rales. She exhibits no tenderness. Right breast exhibits no inverted nipple,no mass, no nipple discharge, no skin change and no tenderness. Left breast exhibits no inverted nipple, no mass, no nipple discharge, no skin change and no tenderness. Breasts are symmetrical. Abdominal: Soft. Bowel sounds are normal. She exhibits no distension and no mass. There is no tenderness. There is no rebound and no guarding. Musculoskeletal: Normal range of motion. She exhibits no edema, tenderness or deformity. Varicose veins both lower extremities, 1+ edema both lower extremities which is chronic. Osteoarthritis changes both knees. Right thumb with decreased extension most likely tendon rupture. Patient is contemplating going to orthopedic surgery for second opinion. Lymphadenopathy: She has no cervical adenopathy. Neurological: She is alert and oriented to person, place, and time. She has normal reflexes. She displays normal reflexes. No cranial nerve deficit. She exhibits normal muscle tone. Coordination normal. Skin: Skin is warm and dry. No rash noted. She is not diaphoretic. No erythema. No pallor. Psychiatric: She has a normal mood and affect. Her behavior is normal. Judgment and thought content normal. Vitals reviewed. ? LABS: Office Visit on 08/09/2018 Component Date Value Ref Range Status ??? Test Method 08/09/2018 Visual Urine Dipstick Testing Final ??? POCT Color, Urine 08/09/2018 Pale/Straw Color Final ??? POCT Clarity, Urine 08/09/2018 Clear Final ??? POCT Glucose, Urine 08/09/2018 Negative Negative Final ??? POCT Urine Bilirubin 08/09/2018 Negative Final ??? POCT Ketones, Urine 08/09/2018 Negative Negative Final ??? POCT Specfic Ullin, Urine 08/09/2018 1.025 1.005 - 1.030 Final ??? POCT Blood, Urine 08/09/2018 Negative Negative Final ??? POCT Urine pH 08/09/2018 5.0 4.5 - 8.0 Final ? ? POCT Protein, Urine 08/09/2018 Negative Negative, Trace, 15 mg/dL, 30 mg/dL, 100 mg/dL, >=300mg/dL, >=2000 mg/dL Final ??? POCT Urine Urobilinogen 08/09/2018 Normal Final ??? POCT Nitrite, Urine 08/09/2018 Negative Negative Final ??? POCT Leukocytes, Urine 08/09/2018 Negative Negative Final ? ASSESSMENT/PLAN: Encounter Diagnosis: SNOMED CT(R) 1. Encounter for annual physical exam, she will return for fasting blood work we will follow-up onceresults return. She is up-to-date with mammogram and bone density. PATIENT ENCOUNTER STATUS 2. BMI 28.0-28.9,adult BODY MASS INDEX 25-29 - OVERWEIGHT 3. Vitamin D deficiency, she is on vitamin D supplementation we will check a vitamin D level. VITAMIN D DEFICIENCY 4. Osteopenia of spine OSTEOPENIA 5. Hyperglycemia we will check fasting blood sugar as well as a hemoglobin A1c HYPERGLYCEMIA 6. High cholesterol, will check fasting lipid panel as well as liver function test. She will continue on her Crestor 20 mg a day. HYPERCHOLESTEROLEMIA 7. Left anterior fascicular block LEFT ANTERIOR FASCICULAR BLOCK 8. She was advised to have the Shingrix vaccination ?? 9. Left thumb with probable tendon tear. She was given the name of Dr. Warren Plunkett Orders Placed This Encounter Procedures ??? 25-Hydroxy Vitamin D ??? Glycohemoglobin A1C ??? LIPID PANEL WITH REFLEX TO DIRECT LDL ??? TSH, Ultrasensitive ??? Comprehensive Metabolic Panel/Fasting ??? CBC W/Auto Differential ??? POCT Urinalysis ??? ECG 12 lead ? There are no Patient Instructions on file for this visit. ?? I spent 60 minutes with the patient today, greater than 50% counseling. Chino Hargrove MD documented in this encounter Plan of Treatment Not on filedocumented as of this encounter Procedures Procedure Name Priority Date/Time Associated Diagnosis Comme nts POCT URINALYSIS Routine 08/09/2018 Encounter for annual Resu lts for this (04267) physical exam procedure are in the results section . ECG 12-LEAD Routine 08/09/2018 Encounter for annual Results for this physical exam procedure are in the results section . documented in this encounter Results CBC W/Auto Differential (08/14/2018 7:58 PM EST) WBC 5.1 4.0 - 10.5 [facility] RBC 4.83 4.2 - 5.4 [facility] M[facility]uL [facility] Hemoglobin 15.0 12.5 - 16.0 [facility] g/dL [facility] Hematocrit 46.0 37 - 47 % [facility] MCV 95.2 78 - 100 fL [facility] MCH 31.0 25 - 33 pg [facility] MCHC 32.5 32 - 36 g/dL [facility] RDW 13.2 12.1 - 16.2 [facility] % [facility] Platelets 242 150 - 450 [facility] K[facility]uL [facility] MPV 7.9 7.4 - 11.4 [facility] fL [facility] Differential Type AUTOMATED [facility] Neutrophils 59.4 44 - 74 % [facility] Lymphocytes 29.4 20 - 48 % [facility] Monocytes 8.3 2 - 12 % [facility] Eosinophils 1.9 0 - 6 % [facility] Basophils 1.0 0 - 2 % [facility] Neutrophils, 3.1 1.8 - 7.8 [facility] Absolute K/uL [facility] Lymphocytes 1.5 1.0 - 3.2 [facility] Absolute [facility] Monocytes Absolute 0.4 0.0 - 0.8 [facility] Eosinophils, 0.1 0.0 - 0.5 [facility] Absolute K[facility]uL [facility] Basophils Absolute 0.1 0.0 - 0.2 [facility] Comment: K/uL [facility] Performed at [address] [address] Hawk Landeros Jr, MD Director [facility] [id number] ??CL 0623 Specimen Performing Organization Address [facility] Phon e Number [facility] [address] [place] [address] SERVICES (CLIA #[id number]) (CL-0623) (ABNORMAL) Comprehensive Metabolic Panel/Fasting (08/14/2018 7:58 PM EST) Pathologist [facility] BUN 24 (H) 7 - 17 mg/dL [facility] Creatinine, Blood 0.9 0.5 - 1.0 [facility] mg/dL [facility] Glomerular >60.0Comment: MDRD >60.0 [facility] Filtration Rate, in mL/min/1.73 sq [facility] Estimated meters. For Americans, multiply by 1.21. Sodium 143 135 - 145 [facility] mmol/L [facility] Potassium 4.3 3.5 - 5.1 [facility] mmol/L [facility] Chloride 107 98 - 107 [facility] mmol/L [facility] Carbon dioxide 27 24 - 32 [facility] mmol/L [facility] Glucose, Fasting 108 (H) 70 - 99 [facility] mg/dL [facility] Calcium 10.1 8.4 - 10.2 [facility] mg/dL [facility] Total Protein 7.0 6.4 - 8.5 [facility] g/dL [facility] Albumin 4.5 3.5 - 5.0 [facility] g/dL [facility] Alkaline 54 34 - 104 U/L [facility] Phosphatase [facility] AST (SGOT) 20 5 - 40 U/L [facility] ALT (SGPT) 18 7 - 52 U/L [facility] Total Bilirubin 0.5 0.3 - 1.0 [facility] Comment: mg/dL [facility] SERVICES [place] [address] Hawk Landeros Jr, MD Director DASIA [id number] ??CL 0623 Specimen Performing Organization Address [facility] Phon e Number [facility] [address] [place] [address] SERVICES (CLIA #[id number]) (CL-0623) TSH, Ultrasensitive (08/14/2018 7:58 PM EST) Pathologist [facility] TSH, Ultrasensitive 1.77 0.35 - 5.50 [facility] Comment: uIU/mL [facility] SERVICES [place] [address] Hawk Landeros Jr, MD Director CLDASIA [id number] ??CL 0623 Specimen Performing Organization Address [facility] Phon e Number [facility] [address] [place] [address] SERVICES (CLIA #[id number]) (CL-0623) LIPID PANEL WITH REFLEX TO DIRECT LDL (08/14/2018 7:58 PM EST) [facility] Triglycerides 93 <150 mg/dL [facility] Cholesterol 154 0 - 200 [facility] mg/dL [facility] HDL 56 33 - 92 [facility] mg/dL [facility] LDL (Calculated) 79 50 - 130 [facility] Comment: mg/dL [facility] SERVICES [place] [address] Hawk aLnderos Jr, MD Director SULMAIA [id number] ??CL 0623 Specimen Performing Organization Address [facility] Phon e Number [facility] [address] [place] [address] SERVICES (CLIA #[id number]) (CL-0623) (ABNORMAL) Glycohemoglobin A1C (08/14/2018 7:58 PM EST) [facility] Hemoglobin A1C 6.1 (H) <5.7 % [facility] Comment: LABORATORY SERVICES <<NOTE>> [place] Diabetes Association guidelines indicate that an individual is at increased risk for diabetes when Hemo globin A1C levels are 5.7-6.4% or fasting glucose is 100-125 mg/d L, and considered diabetic when Hemoglobin A1C is greater michelle n or equal to 6.5% or fasting glucose is greater than or equal to 12 6 mg/dL[place] [address] Hawk Landeros Jr, MD Director SULMAIA [id number] ??CL 0623 Specimen Performing Organization Address [facility] Phon e Number [facility] [address] [place] [address] SERVICES (CLIA #[id number]) (CL-0623) 25-Hydroxy Vitamin D (08/14/2018 7:58 PM EST) Pathologist [facility] VITAMIN D, 35 [facility] 25-HYDROXY Comment: LABORATORY SERVICES Reference range: 30 ??to ??100 Unit: ng/mL <<NOTE>> Vitamin D deficiency ?<10 ? ng/mL Vitamin D insufficiency ? 10-30 ?? ng/mL Vitamin D sufficiency ? 30-100 ??ng/mL Vitamin D toxicity ?>100 ?ng/mL Test performed at [facility], [address], [place] ??[address] ? Boyd Campoverde MD ??- Plate And Weld Inspector Specimen Performing Organization Address City/State/[facility] Code Phon e Number [facility] [address] [place] [address] SERVICES (CLIA #[id number]) (CL-0623) POCT Urinalysis (08/09/2018) Visual Urine Dipstick Testing POCT Color, Urine Pale/Straw Color POCT Clarity, Urine Clear POCT Glucose, Urine Negative Negative POCT Urine Bilirubin Negative POCT Ketones, Urine Negative Negative POCT Specfic Ullin, 1.025 1.005 - 1.030 Urine POCT Blood, Urine Negative Negative POCT Urine pH 5.0 4.5 - 8.0 POCT Protein, Urine Negative Negative, Trace, 15 mg/dL, 30 mg/dL, 100 mg/dL, >=300 mg/dL, >=2000 mg/dL POCT Urine Normal Urobilinogen POCT Nitrite, Urine Negative Negative POCT Leukocytes, Negative Negative Urine QC IN LAST 24H? MULTISTIX 8 SG LOT# MULTISTIX 8 SG EXP DATE Specimen ECG 12 lead (08/09/2018) Specimen Impressions Chino Hargrove MD - 08/09/2018 9:46 A M EST Sinus rhythm 70 beats a minute, [place] inter sabi 178 ms, QRS 100 ms, QT interval 425 ms, 27 degree axis, left axis deviation, lef t anterior hemiblock. ??No acute changes noted. 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
--- OUTSIDE RECORDS SUMMARY | 2022-01-04 15:08 | XMS_ITS | Encounter Summary ---
:1945 Author Organization [facility] Address [address] [place] [address] Care Team Providers Name Role Phone Chino Hargrove MD Primary Care Provider Reason for Visit Reason Comments Follow-up Fasting Blood Work Encounter Details Date Type Department Care Team Description 05/01/2018 Office Visit Internal Medicine - Chino Hargrove, Vit rubio D deficiency (Primary Dx); Lara Hernandez MD BMI 28.0-28.9,adult; [address] Reactive depression; Building 2 [address]ld[address] 2 Osteopenia of spine; [place] [facility] [facility] emia; [address] High cholesterol; [phone] [place] Need for p rophylactic vaccination and inoculation against influenza 68[address] Social History Tobacco Use Types Packs/Day Years [...] Sign Reading Time Taken Comments Blood Pressure 128/82 05/01/2018 7:55 AM EDT Pulse 67 05/01/2018 7:55 AM EDT Temperature 36.2 ??C (97.2 ??F) 05/01/2018 7:55 AM EDT Respiratory Rate 16 05/01/2018 7:55 AM EDT Oxygen Saturation 98% 05/01/2018 7:55 AM EDT Inhaled Oxygen Concentration - - Weight 72.6 kg (160 lb) 05/01/2018 7:55 AM EDT Height 160 cm (5' 3) 05/01/2018 7:55 AM EDT Body Mass Index 28.34 05/01/2018 7:55 AM EDT documented in this encounter Progress Notes Chino Hargrove MD - 05/01/2018 8:00 AM EDT Chief Complaint: Chief Complaint Patient presents with ??? Follow-up office visit, 4-month follow-up. HPI: Fidelina Hanson is a 72 y.o. female. Office visit, fasting blood work, 4-month follow-up. Patient generally feeling well no specific complaints, she is compliant with her medication, she is not experiencing any side effects from medications. Has occasional nocturnal postnasal drip with cough. She is afeb rile, she is not producing any sputum. Vitals: Vitals: 05/01/18 0755 BP: 128/82 Pulse: 67 Resp: 16 Temp: 97.2 ??F (36.2 ??C) TempSrc: Tympanic SpO2: 98% Weight: 72.6 kg (160 lb) Height: 5' 3 (1.6 m) Body mass index is 28.34 kg/m??. Body surface area is 1.8 meters [...] VITAMIN DAILY PO) Take by mouth. ??? rosuvastatin (CRESTOR) tablet 20 mg TAKE 1 TABLET DAILY 90 tablet 3 ??? sertraline (ZOLOFT) 25 MG tablet Take 1 tablet (25 mg total) by mouth daily. 90 tablet 2 ??? BOOSTRIX 5-2.5-18.5 injection ??? [place]-3 Fatty Acids (FISH OIL PO) Take by mouth. No current facility-administered medications for this visit. Vaccines: Immunization History Administered Date(s) Administered ??? IIV QUADRIVALENT, STANDARD-DOSE, PRESERVATIVE FREE (SD-IIV4) 05/04/2017 ??? Influenza TIV (IM) 05/15/2010, 03/26/2011, 04/18/2012 ??? Pneumococcal Conjugate 06/08/2010 ??? Pneumococcal Conjugate 13-Valent 08/12/2016 ??? TDAP 05/10/2017 Problems: Patient Active Problem List Diagnosis [...] Encounter: Orders Placed This Encounter Procedures ??? CBC W/Auto Differential Standing Status: Future Standing Expiration Date: 05/01/2019 ??? Glycohemoglobin A1C Standing Status: Future Standing Expiration Date: 05/01/2019 ??? LIPID PANEL WITH REFLEX TO DIRECT LDL Standing Status: Future Standing Expiration Date: 05/01/2019 ??? Comprehensive Metabolic Panel/Fasting Standing Status: Future Standing Expiration Date: 05/01/2019 Screening: The following Quality Measures are up to date for Fidelina Hanson: BMI Screening: patient's BMI was normal. FALL RISK: DEPRESSION SCREENING: No flowsheet data found. ROS: Review of Systems Constitutional: Negative. HENT: Positive for postnasal drip. Respiratory: Positive for cough. Negative for apnea, choking, chest tightness, shortness of breath and wheezing. Cardiovascular: Negative for chest pain, palpitations and leg swelling. Gastrointestinal: Negative. Neurological: Negative. Psychiatric/Behavioral: Positive for dysphoric mood. Physical Exam: Physical Exam Constitutional: She is oriented to person, place, and time. She appears well-developed. HENT: Head: Normocephalic and atraumatic. Right Ear: External ear normal. Left Ear: External ear normal. Mouth/Throat: Oropharynx is clear and moist. Eyes: Pupils are equal, round, and reactive to light. Conjunctivae and EOM are normal. Neck: Normal range of motion. Neck supple. Cardiovascular: Normal rate, regular rhythm, normal heart sounds and intact distal pulses. Pulmonary/Chest: Effort normal and breath sounds normal. Abdominal: Soft. Musculoskeletal: Normal range of motion. She exhibits no edema or tenderness. Neurological: She is alert and oriented to person, place, and time. Vitals reviewed. Labs: No visits with results within 1 Week(s) from this visit. Latest known visit with results is: Hospital Outpatient Visit on 12/15/2017 Component Date Value Ref Range Status ??? WBC 12/15/2017 5.0 4.0 - 10.5 K/uL Final ??? RBC 12/15/2017 4.59 4.2 - 5.4 M/uL Final ??? Hemoglobin 12/15/2017 14.7 12.5 - 16.0 g/dL Final ??? Hematocrit 12/15/2017 42.7 37 - 47 % Final ??? MCV 12/15/2017 93.1 78 - 100 fL Final ??? MCH 12/15/2017 31.9 25 - 33 pg Final ??? MCHC 12/15/2017 34.3 32 - 36 g/dL Final ??? RDW 12/15/2017 12.7 12.1 - 16.2 % Final ??? Platelets 12/15/2017 256 150 - 450 K/uL Final ??? MPV 12/15/2017 7.8 7.4 - 11.4 fL Final ??? Differential Type 12/15/2017 AUTOMATED Final ??? Neutrophils 12/15/2017 51.8 44 - 74 % Final ??? Lymphocytes 12/15/2017 34.7 20 - 48 % Final ??? Monocytes 12/15/2017 10.4 2 - 12 % Final ??? Eosinophils 12/15/2017 2.1 0 - 6 % Final ??? Basophils 12/15/2017 1.0 0 - 2 % Final ??? Neutrophils, Absolute 12/15/2017 2.6 1.8 - 7.8 K/uL Final ??? Lymphocytes Absolute 12/15/2017 1.7 1.0 - 3.2 K/uL Final ??? Monocytes Absolute 12/15/2017 0.5 0.0 - 0.8 K/uL Final ??? Eosinophils, Absolute 12/15/2017 0.1 0.0 - 0.5 K/uL Final ??? Basophils Absolute 12/15/2017 0.1 0.0 - 0.2 K/uL Final ??? VITAMIN D, 25-HYDROXY 12/15/2017 37 Final Comment: Reference range: 30 to 100 Unit: ng/mL <<NOTE>> Vitamin D deficiency <10 ng/mL Vitamin D insufficiency 10-30 ng/mL Vitamin D sufficiency 30-100 ng/mL Vitamin D toxicity >100 ng/mL Test performed at [facility], [address], [place] [id number] Boyd Campoverde MD - [employer] ? ? Hemoglobin A1C 12/15/2017 6.0* <5.7 % Final Comment: <<NOTE>> The [place] Diabetes Association guidelines indicate that an individual is at increased risk for diabetes when Hemoglobin A1C levels are 5.7-6.4% or fasting glucose is 100-125 mg/dL, and considered diabetic when Hemoglobin A1C is greater than or equal to 6.5% or fasting glucose is greater than or equal to 126 mg/dL. ? ? Triglycerides 12/15/2017 67 <150 mg/dL Final ??? Cholesterol 12/15/2017 157 0 - 200 mg/dL Final ??? HDL 12/15/2017 66 33 - 92 mg/dL Final ??? LDL (Calculated) 12/15/2017 78 50 - 130 mg/dL Final ??? BUN 12/15/2017 20* 7 - 17 mg/dL Final ??? Creatinine 12/15/2017 0.9 0.5 - 1.0 mg/dL Final ? ? Glomerular Filtration Rate, Estima* 12/15/2017 >60.0 >60.0 Final MDRD in mL/min/1.73 sq meters. For Americans, multiply by 1.21. ??? Sodium 12/15/2017 140 135 - 145 mmol/L Final ??? Potassium 12/15/2017 4.4 3.5 - 5.1 mmol/L Final ??? Chloride 12/15/2017 104 98 - 107 mmol/L Final ??? Carbon dioxide 12/15/2017 28 24 - 32 mmol/L Final ??? Glucose, Fasting 12/15/2017 97 70 - 99 mg/dL Final ??? Calcium 12/15/2017 10.0 8.4 - 10.2 mg/dL Final ??? Total Protein 12/15/2017 7.1 6.4 - 8.5 g/dL Final ??? Albumin 12/15/2017 4.6 3.5 - 5.0 g/dL Final ??? Alkaline Phosphatase 12/15/2017 51 34 - 104 U/L Final ??? AST (SGOT) 12/15/2017 22 5 - 40 U/L Final ??? ALT (SGPT) 12/15/2017 19 7 - 52 U/L Final ??? Total Bilirubin 12/15/2017 0.6 0.3 - 1.0 mg/dL Final No results found for this or any previous visit (from the past 336 hour(s)). Assessment/Plan: ICD-10-CM 1. Vitamin D deficiency, currently on vitamin D supplementation we will check a vitamin D level. E55.9 CBC W/Auto Differential Glycohemoglobin A1C LIPID PANEL WITH REFLEX TO DIRECT LDL Comprehensive Metabolic Panel/Fasting 2. BMI 28.0-28.9,adult, she is advised to continue with diet exercise and weight reduction. Z68.28 CBC W/Auto Differential Glycohemoglobin A1C LIPID PANEL WITH REFLEX TO DIRECT LDL Comprehensive Metabolic Panel/Fasting 3. Reactive depression patient is currently on Zoloft 25 mg at bedtime she would like to stop this medication feels like she is oversedated. We will have a decrease the medication to 25 mg every other day for 3-4 weeks and then discontinue. F32.9 CBC W/Auto Differential Glycohemoglobin A1C LIPID PANEL WITH REFLEX TO DIRECT LDL Comprehensive Metabolic Panel/Fasting 4. Osteopenia of spine M85.88 CBC W/Auto Differential Glycohemoglobin A1C LIPID PANEL WITH REFLEX TO DIRECT LDL Comprehensive Metabolic Panel/Fasting 5. Hyperglycemia we will check fasting blood sugar as well as hemoglobin A1c R73.9 CBC W/Auto Differential Glycohemoglobin A1C LIPID PANEL WITH REFLEX TO DIRECT LDL Comprehensive Metabolic Panel/Fasting 6. High cholesterol, currently on Crestor 20 mg a day we will check fasting lipid panel as well as liver function test. E78.00 CBC W/Auto Differential Glycohemoglobin A1C LIPID PANEL WITH REFLEX TO DIRECT LDL , Influenza vaccination given left deltoid Comprehensive Metabolic Panel/Fasting Chino Hargrove MD documented in this encounter Plan of Treatment Not on filedocumented as of this encounter Results (ABNORMAL) Comprehensive Metabolic Panel/Fasting (05/01/2018 9:27 PM EDT) BUN 29 (H) 7 - 17 mg/dL [facility] Creatinine, Blood 0.8 0.5 - 1.0 [facility] mg/dL [facility] Glomerular >60.0Comment: >60.0 [facility] Filtration Rate, MDRD in [facility] Estimated mL/min/1.73 sq meters. For Americans, multiply by 1.21. Sodium 141 135 - 145 [facility] mmol/L [facility] Potassium 4.2 3.5 - 5.1 [facility] mmol/L [facility] Chloride 106 98 - 107 [facility] mmol/L [facility] Carbon dioxide 27 24 - 32 [facility] mmol/L [facility] Glucose, Fasting 102 (H) 70 - 99 [facility] mg/dL [facility] Calcium 9.6 8.4 - 10.2 [facility] mg/dL [facility] Total Protein 6.7 6.4 - 8.5 [facility] g/dL [facility] Albumin 4.3 3.5 - 5.0 [facility] g/dL [facility] Alkaline 57 34 - 104 U/L [facility] Phosphatase [facility] AST (SGOT) 19 5 - 40 U/L [facility] ALT (SGPT) 19 7 - 52 U/L [facility] Total Bilirubin 0.5 0.3 - 1.0 [facility] mg/dL [facility] Specimen Performing Organization Address [facility] Phon e Number [facility] [address] [place] [address] SERVICES (CLIA #[id number]) ([id number]) LIPID PANEL WITH REFLEX TO DIRECT LDL (05/01/2018 9:27 PM EDT) Pathologist Sig nature Triglycerides 64 <150 mg/dL [facility] Cholesterol 144 0 - 200 mg/dL [facility] HDL 61 33 - 92 mg/dL [facility] LDL (Calculated) 70 50 - 130 mg/dL [facility] RY SERVICES Specimen Performing Organization Address [facility] Phon e Number [facility] [address] [place] [address] SERVICES (CLIA #[id number]) (CL-[id number]) (ABNORMAL) Glycohemoglobin A1C (05/01/2018 9:27 PM EDT) Hemoglobin A1C 6.1 (H) <5.7 % [facility] Comment: [facility] <<NOTE>> The [place] Diabetes Association guidelines indicate that an individual is at increased risk for diabetes when Hemo globin A1C levels are 5.7-6.4% or fasting glucose is 100-125 mg/d L, and considered diabetic when Hemoglobin A1C is greater michelle n or equal to 6.5% or fasting glucose is greater than or equal to 12 6 mg/dL. Specimen Performing Organization Address [facility] Phon e Number [facility] [address] [place] [address] SERVICES (CLIA #[id number]) ([id number]) CBC W/Auto Differential (05/01/2018 9:27 PM EDT) WBC 4.2 4.0 - 10.5 [facility] K/uL [facility] RBC 4.45 4.2 - 5.4 M/uL [facility] Hemoglobin 13.6 12.5 - 16.0 [facility] g/dL [facility] Hematocrit 42.0 37 - 47 % [facility] MCV 94.6 78 - 100 fL [facility] MCH 30.6 25 - 33 pg [facility] MCHC 32.3 32 - 36 g/dL [facility] RDW 13.4 12.1 - 16.2 % [facility] Platelets 260 150 - 450 K/uL [facility] MPV 7.7 7.4 - 11.4 fL [facility] Differential Type AUTOMATED [facility] Neutrophils 54.0 44 - 74 % [facility] Lymphocytes 33.1 20 - 48 % [facility] Monocytes 9.6 2 - 12 % [facility] Eosinophils 2.5 0 - 6 % [facility] Basophils 0.8 0 - 2 % [facility] Neutrophils, Absolute 2.3 1.8 - 7.8 K/uL [facility] Lymphocytes Absolute 1.4 1.0 - 3.2 K/uL [facility] Monocytes Absolute 0.4 0.0 - 0.8 K/uL [facility] Eosinophils, Absolute 0.1 0.0 - 0.5 K/uL [facility] Basophils Absolute 0.0 0.0 - 0.2 K/uL [facility] Specimen Performing Organization Address [facility] Phon e Number [facility] [address] [place] [address] SERVICES (CLIA #[id number]) ([id number]) documented in this encounter Visit Diagnoses Diagnosis Vitamin D deficiency - Primary BMI 28.0-28.9,adult Reactive depression Osteopenia of spine Hyperglycemia Other abnormal glucose High cholesterol Pure hypercholesterolemia Need for prophylactic vaccination and in oculation against influenza documented in this encounter Care Teams Building Maintenance Supervisor Relationship Specialty Start Date End Date Chino Hargrove MD PCP - General Internal Medicine 05/04/16 11/18/21 2 Monica Felipe [facility] [address] [place] [address] documented as of this encounter
--- OUTSIDE RECORDS SUMMARY | 2022-01-04 15:08 | XMS_ITS | Encounter Summary ---
:1945 Author Organization [facility] Address [address] [place] [address] Care Team Providers Name Role Phone Chino Hargrove MD Primary Care Provider Encounter Details Date Type Department Care Team Description 04/03/2020 Travel Social History Tobacco Use Types Packs/Day [...] on filedocumented in this encounter Care Teams Clinical Nursing Professor Relationship Specialty Start Date End Date Chino Hargrove MD PCP - General Internal Medicine 05/04/16 11/18/21 2 Monica Felipe [facility] [address] [place] [address] documented as of this encounter
--- OUTSIDE RECORDS SUMMARY | 2022-01-04 15:08 | XMS_ITS | Encounter Summary ---
:1945 Author Organization [facility] Address [address] [place] [address] Care Team Providers Name Role Phone Chino Hargrove MD Primary Care Provider Encounter Details Date Type Department Care Team Description 03/28/2019 Hospital Encounter Lab Jail Chino Hargrove, High cholesterol; Services BMI 27.0-27.9,adult; [address] [facility] [address] Hyperglycemia; [place] [address] [address] 2 Osteopenia, unspecified location; [phone] [place] [facility] [place] [address] Social History Tobacco Use Types Packs/Day Years [...] Take by mouth. 0 VITAMIN DAILY PO) [place]-3 Fatty Acids (FISH Take by mouth. 0 11/14/2020 OIL PO) rosuvastatin (CRESTOR) Take 1 tablet (20 90 tablet 3 201802/28/2020 tablet 20 mg mg total) by mouth daily. documented as of this encounter Plan of Treatment Not on filedocumented as of this encounter Procedures Procedure Name Priority Date/Time Associated Comments Diagnosis COMPREHENSIVE METABOLIC Routine 03/28/2019 9:24 High cho lesterol Results for this PANEL/FASTING PM EDT BMI 27.0-27.9,ad ult procedure are in Hyperglycemia the results Osteopenia, section. unspecified location Vitamin D deficiency LIPID PROFILE (PREP L2) Routine 03/28/2019 9:24 High cho lesterol Results for this PM EDT BMI 27.0-27.9,ad ult procedure are in Hyperglycemia the results Osteopenia, section. unspecified location Vitamin D deficiency GLYCOHEMOGLOBIN A1C Routine 03/28/2019 9:24 High cholest alejandro Results for this PM EDT BMI 27.0-27.9,ad ult procedure are in Hyperglycemia the results Osteopenia, section. unspecified location Vitamin D deficiency 25-HYDROXY VITAMIN D Routine 03/28/2019 9:24 High choles terol Results for this PM EDT BMI 27.0-27.9,ad ult procedure are in Hyperglycemia the results Osteopenia, section. unspecified location Vitamin D deficiency documented in this encounter Results (ABNORMAL) Glycohemoglobin A1C (03/28/2019 9:24 PM EDT) [facility] Hemoglobin A1C 6.0 (H) <5.7 % [facility] Comment: [facility] <<NOTE>> The [place] Diabetes Association guidelines indicate that an individual is at increased risk for diabetes when Hemo globin A1C levels are 5.7-6.4% or fasting glucose is 100-125 mg/d L, and considered diabetic when Hemoglobin A1C is greater michelle n or equal to 6.5% or fasting glucose is greater than or equal to 12 6 mg/dL. Performed at [address] [address] Hawk Landeros Jr, MD Director [place] [id number] ??CL 0623 Specimen Performing Organization Address City/[facility]/ZIP [facility] Phon e Number [facility] [address] [place] [address] SERVICES (CLIA #[id number]) (CL-[id number]) Lipid Profile (03/28/2019 9:24 PM EDT) Triglycerides 53 <150 mg/dL [facility] Cholesterol 136 0 - 200 [facility] mg/dL [facility] HDL 53 33 - 92 [facility] mg/dL [facility] LDL (Calculated) 72 50 - 130 [facility] Comment: mg/dL [facility] Performed at [facility] [address] [place] [address] Hawk Landeros Jr, MD Director [place] [id number] ??CL 0623 Specimen Performing Organization Address [facility] Phon e Number [facility] [address] [place] [address] SERVICES (CLIA #[id number]) (CL-[id number]) (ABNORMAL) Comprehensive Metabolic Panel/Fasting (03/28/2019 9:24 PM EDT) BUN 28 (H) 7 - 17 mg/dL [...] [facility] Comment: mg/dL [facility] Performed at [facility] [address] [place] [address] Hawk Landeros Jr, MD Director [facility] [id number] ??CL 0623 Specimen Performing Organization Address [facility] Phon e Number [facility] [address] [place] [address] SERVICES (CLIA #[id number]) (CL-[id number]) 25-Hydroxy Vitamin D (03/28/2019 9:24 PM EDT) [facility] VITAMIN D, [address] [place] [address] 25-HYDROXY Comment: LAB[facility]ORY SERVICES Reference range: 30 ??to ??100 Unit: ng/mL <<NOTE>> Vitamin D deficiency ?<10 ? ng/mL Vitamin D insufficiency ? 10-30 ?? ng/mL Vitamin D sufficiency ? 30-100 ??ng/mL Vitamin D toxicity ?>100 ?ng/mL Test performed at [facility], [facility] [place] ??[address] ? Boyd Campoverde MD ??- Trial Examiner Specimen Performing Organization Address [facility] Phon e Number [facility] [address] [place] [id number] SERVICES (CLIA #[id number]) (CL-[id number]) documented in this encounter Visit Diagnoses Diagnosis High cholesterol Pure hypercholesterolemia BMI 27.0-27.9,adult Hyperglycemia Other abnormal glucose Osteopenia, unspecified location Vitamin D deficiency documented in this encounter Care Teams Gear Hobber Operator Relationship Specialty Start Date End Date Chino Hargrove MD PCP - General Internal Medicine 05/04/16 11/18/21 2 Monica [facility] [address] [place] [address] documented as of this encounter
--- OUTSIDE RECORDS SUMMARY | 2022-01-04 15:08 | XMS_ITS | Encounter Summary ---
:1945 Author Organization [facility] Address [address] [place] [address] Care Team Providers Name Role Phone Chino Hargrove MD Primary Care Provider Encounter Details Date Type Department Care Team Description 09/26/2020 Travel Social History Tobacco Use Types Packs/Day [...] on filedocumented in this encounter Care Teams Scallop Cutter Relationship Specialty Start Date End Date Chino Hargrove MD PCP - General Internal Medicine 05/04/16 11/18/21 2 Monica Felipe [facility] [address] [place] [address] documented as of this encounter
--- OUTSIDE RECORDS SUMMARY | 2022-01-04 15:08 | XMS_ITS | Encounter Summary ---
:1945 Author Organization [facility] [employer] [facility] Address [address] [place] [address] Care Team Providers Name Role Phone Chino Hargrove MD Primary Care Provider Encounter Details Date Type Department Care Team Description 05/01/2018 Hospital Encounter [facility] Chino Hargrove, Vitamin D deficiency; Services BMI 28.0-28.9,adult; [address] [facility] [address] Reactive depression; [place] [address] Bldg 2 Osteopenia of spine; [phone] [place] Hyperglycemia; [place] [address] Social History Tobacco Use Types Packs/Day Years [...] DAILY PO) BOOSTRIX 5-2.5-18.5 0 05/10/201703/28 injection Edison-3 Fatty Acids (FISH Take by mouth. 0 [...] Procedure Name Priority Date/Time Associated Comments Diagnosis CBC W/AUTO DIFFERENTIAL Routine 05/01/2018 9:27 Vitamin D R esults for this PM EDT deficiency procedure are in BMI 28.0-28.9,ad ult the results Reactive depress ion section. Osteopenia of sp ine Hyperglycemia High cholesterol COMPREHENSIVE METABOLIC Routine 05/01/2018 9:27 Vitamin D R esults for this PANEL/FASTING PM EDT deficiency procedure are in BMI 28.0-28.9,ad ult the results Reactive depress ion section. Osteopenia of sp ine Hyperglycemia High cholesterol GLYCOHEMOGLOBIN A1C Routine 05/01/2018 9:27 Vitamin D Resul ts for this PM EDT deficiency procedure are in BMI 28.0-28.9,ad ult the results Reactive depress ion section. Osteopenia of sp ine Hyperglycemia High cholesterol LIPID PANEL WITH REFLEX Routine 05/01/2018 9:27 Vitamin D R esults for this TO DIRECT LDL PM EDT deficiency procedure are in BMI 28.0-28.9,ad ult the results Reactive depress ion section. Osteopenia of sp ine Hyperglycemia High cholesterol documented in this encounter Results (ABNORMAL) Glycohemoglobin A1C (05/01/2018 9:27 PM EDT) Hemoglobin A1C 6.1 (H) <5.7 % [facility] Comment: LABORATORY SERVICES <<NOTE>> The [place] [employer] guidelines indicate that an individual is at increased risk for diabetes when Hemo globin A1C levels are 5.7-6.4% or fasting glucose is 100-125 mg/d L, and considered diabetic when Hemoglobin A1C is greater michelle n or equal to 6.5% or fasting glucose is greater than or equal to 12 6 mg/dL. Specimen Performing Organization Address [facility] Phon e Number [facility] [address] [place] [address] SERVICES (CLIA #[id number]) ([id number]) CBC W/Auto Differential (05/01/2018 9:27 PM [...] [facility] Specimen Performing Organization Address City/[facility] Phon e Number [facility] [address] [place] [address] SERVICES (CLIA #[id number]) ([id number]) (ABNORMAL) Comprehensive Metabolic Panel/Fasting (05/01/2018 9:27 PM [...] mg/dL LABORATORY SERVICES Specimen Performing Organization Address City/[facility] Phon e Number [facility] [address] [place] [address] SERVICES (CLIA #[id number]) ([id number]) LIPID PANEL WITH REFLEX TO DIRECT LDL (05/01/2018 9:27 PM EDT) Pathologist Sig nature Triglycerides 64 <150 mg/dL [facility] Cholesterol 144 0 - 200 mg/dL [facility] HDL 61 33 - 92 mg/dL [facility] LDL (Calculated) 70 50 - 130 mg/dL [facility] Specimen Performing Organization Address [facility] Phon e Number [facility] [address] [place] [address] SERVICES (CLIA #[id number]) ([id number]) documented in this encounter Visit Diagnoses Diagnosis Vitamin D deficiency BMI 28.0-28.9,adult Reactive depression Osteopenia of spine Hyperglycemia Other abnormal glucose High cholesterol Pure hypercholesterolemia documented in this encounter Care Teams Professional Services Manager Relationship Specialty Start Date End Date Chino Hargrove MD PCP - General Internal Medicine 05/04/16 11/18/21 2 Monica Felipe [facility] [address] [place] [address] documented as of this encounter
--- OUTSIDE RECORDS SUMMARY | 2022-01-04 15:08 | XMS_ITS | Encounter Summary ---
:1945 Author Organization [facility] Address [address] [place] [id number] Care Team Providers Name Role Phone Chino Hargrove MD Primary Care Provider Reason for Visit Reason Comments Subsequent Preventive Visit Medicare Encounter Details Date Type Department Care Team Description 11/14/2019 Office Visit Internal Medicine - Chino Hargrove, Hyp erglycemia (Primary Dx); Lara Hernandez MD BMI 27.0-27.9,adult; [address] High cholesterol; Building 2 Bldg 2 Left anterior fascicular block; [place] [facility] Vitamin D deficiency; [id number] [address] Nocturnal leg cramps [phone] [place] [address] Social History Tobacco Use Types Packs/Day Years [...] Reading Time Taken Comments Blood Pressure 130/80 11/14/2019 8:36 AM EDT Pulse 71 11/14/2019 8:36 AM EDT Temperature 35.7 ??C (96.2 ??F) 11/14/2019 8:36 AM EDT Respiratory Rate 16 11/14/2019 8:36 AM EDT Oxygen Saturation 98% 11/14/2019 8:36 AM EDT Inhaled Oxygen Concentration - - Weight 70.2 kg (154 lb 12.8 oz) 11/14/2019 8:36 AM EDT Height 158.8 cm (5' 2.5) 11/14/2019 8:36 AM EDT Body Mass Index 27.86 11/14/2019 8:36 AM EDT documented in this encounter Progress Notes Chino Hargrove MD - 11/14/2019 8:40 AM EDT Chief Complaint: Chief Complaint Patient presents with ??? Subsequent Preventive Visit Medicare, office visit, fasting blood work Medicare wellness exam part 2 HPI: Fidelina Hanson is a 74 y.o. female. Office visit, fasting blood work, Medicare exam part 2. Patient generally feeling well, complaining of nocturnal leg cramps.. She is compliant with her medication, she is not experiencing any side effects from medications. She has enough medication ordered. Vitals: Vitals: 11/14/19 0836 BP: 130/80 Pulse: 71 Resp: 16 Temp: 96.2 ??F (35.7 ??C) TempSrc: Tympanic SpO2: 98% Weight: 70.2 kg (154 lb 12.8 oz) Height: 5' 2.5 (1.588 m) Body mass index is 27.86 kg/m??. Body surface area is 1.76 meters [...] total) by mouth daily. 90 tablet 3 ??? [place]-3 Fatty Acids (FISH OIL PO) Take by [...] file Gets together: Not on file Attends judaism service: Not on file Active member of [...] Encounter: Orders Placed This Encounter Procedures ??? POCT Urinalysis ??? ECG 12 lead Screening: The following Quality Measures are up to date for Fidelina Hanson: BMI Screening: patient's BMI was normal. FALL RISK: Fall Risk Assessment Medicare Screening Date: 11/14/19 Has the patient fallen in the last 6 months?: No Does patient have difficulty with walking or balance?: No Does the patient use any assistive devices with ambulation?: No Future fall risk status: negative DEPRESSION SCREENING: No flowsheet data found. ROS: [...] pain, discharge, redness, itching and visual disturbance. Bilateral iridectomies Respiratory: Negative for apnea, cough, choking, chest tightness, shortness of breath, wheezing and stridor. Cardiovascular: Negative for chest pain, palpitations and leg swelling. Hypercholesterolemia, left anterior hemiblock Gastrointestinal: Negative for abdominal distention, abdominal pain, anal bleeding, blood in stool, constipation, diarrhea, nausea, rectal pain and vomiting. Endocrine: Negative for cold intolerance, heat intolerance, polydipsia, polyphagia and polyuria. Hyperglycemia, low vitamin D level Genitourinary: Negative for decreased urine volume, difficulty [...] speech difficulty, weakness, light-headedness, numbness and headaches. Nocturnal leg cramps Hematological: Negative for adenopathy. Does not bruise/bleed easily. Psychiatric/Behavioral: Negative for agitation, behavioral problems, confusion, decreased concentration, dysphoric mood, hallucinations, self-injury, sleep disturbance and suicidal ideas. The patient [...] exudate. Eyes: Conjunctivae and EOM are normal. Right eye exhibits no discharge. Left eye exhibits no discharge. No scleral icterus. Bilateral iridectomies Neck: Normal range of motion. Neck supple. [...] tenderness or deformity. Varicose veins both lower extremities Lymphadenopathy: She has no cervical adenopathy. Neurological: [...] and thought content normal. Vitals reviewed. Labs: Office Visit on 11/14/2019 Component Date Value Ref Range Status ??? Test Method 11/14/2019 Visual Urine Dipstick Testing Final ??? POCT Color, Urine 11/14/2019 Dark Yellow Final ??? POCT Clarity, Urine 11/14/2019 Clear Final ??? POCT Glucose, Urine 11/14/2019 Negative Negative Final ??? POCT Urine Bilirubin 11/14/2019 Negative Final ??? POCT Ketones, Urine 11/14/2019 Negative Negative Final ??? POCT Specfic [place], Urine 11/14/2019 1.025 1.005 - 1.030 Final [...] POCT Leukocytes, Urine 11/14/2019 Negative Negative Final Recent Results (from the past 336 hour(s)) POCT Urinalysis Collection Time: 11/14/19 12:00 AM Result Value Ref Range Test Method Visual Urine Dipstick Testing POCT Color, Urine Dark Yellow POCT Clarity, Urine Clear POCT Glucose, Urine Negative Negative POCT Urine Bilirubin Negative POCT Ketones, Urine Negative Negative POCT Specfic [place], Urine 1.025 1.005 - 1.030 POCT Blood, Urine Negative Negative POCT Urine pH 5.0 4.5 - 8.0 POCT Protein, Urine Negative Negative, Trace, 15 mg/dL, 30 mg/dL, 100 mg/dL, >=300 mg/dL, >=2000 mg/dL POCT Urine Urobilinogen Normal POCT Nitrite, Urine Negative Negative, Unable to obtain valid result POCT Leukocytes, Urine Negative Negative QC IN LAST 24H? MULTISTIX 8 SG LOT# MULTISTIX 8 SG EXP DATE Assessment/Plan: ICD-10-CM 1. Hyperglycemia, will check fasting blood sugar as well as hemoglobin A1c R73.9 POCT Urinalysis 2. BMI 27.0-27.9,adult, advised continue with diet exercise weight reduction Z68.27 3. High cholesterol, to continue with Crestor 20 mg a day we will check fasting lipid panel as well as liver function. E78.00 4. Left anterior fascicular block, asymptomatic I44.4 ECG 12 lead 5. Vitamin D deficiency, on vitamin D supplementation we will check a vitamin D level E55.9 6. Nocturnal leg cramps, we will screen her electrolytes BUN and creatinine as well as TSH level. Charline start her on Mirapex 0.125 mg at at bedtime. She will call back in 10 days to let me know how she is doing. G47.62 7. Currently up-to-date with mammogram scheduled for bone density this year. Chino Hargrove MD Chino frazier MD - 11/14/2019 8:40 AM EDT MEDICARE ANNUAL WELLNESS VISIT Fidelina Hanson is a 74 y.o. female who presents today for her [...] total) by mouth daily. 90 tablet 3 ??? [place]-3 Fatty Acids (FISH OIL PO) Take by [...] SCREENING FALL RISK SCREENING Medicare Screening Date: 11/14/19 Has the patient fallen in the last 6 months?: No Does patient have difficulty with walking or balance?: No Does the patient use any assistive devices with ambulation?: No Future fall risk status: negative DEPRESSION SCREEN Medicare Screening Date: 11/14/19 Depression screening performed today?: yes Little interest or pleasure in doing things: 0 Feeling down, depressed or hopeless: 0 Initial Depression Screening Score: 0 Total Score Depression Severity: 0 ADL ASSESSMENT Medicare Screening Date: 11/14/19 Bathin Dressin Toiletin Transferrin Continence: 1 Feedin ADL Total Score: 6 IADL ASSESSMENT Medicare Screening Date: 11/14/19 Ability to Use Telephone : 1 Shoppin Food Preparation: 1 Housekeepin Laundry: 1 Mode of Transportation: 1 Responsibility for Own Medications: 1 Ability to Handle Finances: 1 IADL Total Score:: 8 HOME SAFETY ASSESSMENT Medicare Screening Date: 11/14/19 When you walk through a room, do [...] Yes HEALTH RISK ASSESSMENT Medicare Screening Date: 11/14/19 During the past 4 weeks has your [...] minutes three or more days per week?: Yes Have you been given any information to help you to keep track of your medications?: Yes Are you confident that you can control/manage most of your health problems?: Yes PAIN ASSESSMENT Medicare Screening Date: 11/14/19 Pain Assessment: 0 - No Pain - I have no pain. MINI-COG ASSESSMENT Medicare Screening Date: 11/14/19 MiniCog Completed?: Yes Patient recalls:: 3 Clock Drawin MiniCog Score: 5 VITALS / PAIN ASSESSMENT/ BMI Vitals: 11/14/19 0836 Pulse: 71 Resp: 16 Temp: 96.2 ??F (35.7 ??C) TempSrc: Tympanic SpO2: 98% Weight: 70.2 kg (154 lb 12.8 oz) Height: 5' 2.5 (1.588 m) Body mass index is 27.86 kg/m??. HEARING: normal VISUAL ACUITY: normal Review of Systems Physical Exam PERSONALIZED PREVENTION PLAN During the course of the visit the patient was educated and counseled about appropriate screening and preventive services including: Health Maintenance Topic Date Due ??? Shingrix-Zoster Vaccine (2 of 2) 02/27/2019 ??? Influenza Vaccine 03/11/2020 ??? Osteoporosis Screening (DEXA Scan) 05/16/2020 ??? Depression Screening 11/13/2020 ??? Fall Risk Assessment 11/13/2020 ??? Preventative Health Evaluation 11/13/2020 ??? Colon Cancer Screening (Colonoscopy) 06/06/2022 ??? DTap / TDap / Td (2 - Td) 05/10/2027 ??? Hepatitis C Screening Completed ??? Pneumococcal Vaccine Completed ??? Hepatitis B Vaccines Aged Out BMI SCREENING REVIEWED: BMI Screening: patient's BMI was normal. DEPRESSION SCREENING REVIEWED: Clinical Depression Screening was [...] documented in this encounter Plan of Treatment Scheduled Orders Name Type Priority Associated Diagnoses Order S chedule ECG 12 lead ECG Routine Left anterior fascicular blo ck Ordered: 11/14/2019 documented as of this encounter Procedures Procedure Name Priority Date/Time Associated Diagnosis Comme nts COMPREHENSIVE METABOLIC Routine 11/14/2019 9:25 Hypergly cemia Results for this PANEL RANDOM/FASTING AM EDT BMI 27.0-27 .9,adult procedure are in High cholesterol the results Left anterior section. fascicular block Vitamin D defici ency Nocturnal leg cramps CBC W/AUTO DIFFERENTIAL Routine 11/14/2019 9:25 Hypergly cemia Results for this AM EDT BMI 27.0-27.9,ad ult procedure are in High cholesterol the results Left anterior section. fascicular block Vitamin D defici ency Nocturnal leg cramps TSH, ULTRASENSITIVE Routine 11/14/2019 9:25 Hyperglycemi a Results for this AM EDT BMI 27.0-27.9,ad ult procedure are in High cholesterol the results Left anterior section. fascicular block Vitamin D defici ency Nocturnal leg cramps GLYCOHEMOGLOBIN A1C Routine 11/14/2019 9:25 Hyperglycemi a Results for this AM EDT BMI 27.0-27.9,ad ult procedure are in High cholesterol the results Left anterior section. fascicular block Vitamin D defici ency Nocturnal leg cramps 25-HYDROXY VITAMIN D Routine 11/14/2019 9:25 Hyperglycem ia Results for this AM EDT BMI 27.0-27.9,ad ult procedure are in High cholesterol the results Left anterior section. fascicular block Vitamin D defici ency Nocturnal leg cramps LIPID PANEL WITH REFLEX Routine 11/14/2019 9:25 Hypergly cemia Results for this TO DIRECT LDL AM EDT BMI 27.0-27.9,ad ult procedure are in High cholesterol the results Left anterior section. fascicular block Vitamin D defici ency Nocturnal leg cramps POCT URINALYSIS (21403) Routine 11/14/2019 Hyperglycemia Res ults for this procedure are i n the results section. documented in this encounter Results Lipid Panel with Reflex to Direct LDL (11/14/2019 9:25 AM EDT) Cholesterol, Total 151 <200 mg/dL [facility] HDL Cholesterol 62 > OR = 50 [facility] mg/dL [facility] Triglycerides 82 <150 mg/dL [facility] LDL-Cholesterol 73 mg/dL (calc) [facility] Comment: LLC Reference range: <100 Desirable range <100 mg/dL for primary prevention; ?? <70 mg/dL for patients with CHD or diabetic patients with > or = 2 CHD risk factors. LDL-C is now calculated using the Celestino calculation, which is a validated novel method providi ng better accuracy than the Friedewald equation in the estimation of LDL-C. Efrain SS et al. GEN. 2013;310(19): 1197-3544 (http://education.Training Intelligence/faq/QZA192) Chol/HDLC Ratio 2.4 <5.0 (calc) [facility] Non HDL Cholesterol 89 <130 mg/dL [facility] Comment: (calc) LLC For patients with diabetes plus 1 major ASCVD risk factor, treating to a non-HDL-C goal of <100 mg/dL (LDL-C of <70 mg/dL) is considered a therapeutic option. Specimen Resulting Agency Comment Performing Organization Information: ?Site ID: [id number] ?Name: [facility] ?Address: [address] [place] [phone] ?Director: Colin Belcher MD Performing Organization Address [facility] Phon e Number [facility] TSH, Ultrasensitive (11/14/2019 9:25 AM EDT) Pathologist Sig nature TSH 1.11 0.40 - 4.50 mIU/L [facility] Specimen Resulting Agency Comment Performing Organization Information: ?Site ID: [id number] ?Name: [employer] ?Address: [address] [place] [phone] ?Director: Colin Belcher MD Performing Organization Address [facility] Phon e Number [facility] COMPREHENSIVE METABOLIC PANEL RANDOM/FASTING (11/14/2019 9:25 AM EDT) Glucose 97 65 - 99 [facility] Comment: mg/dL LLC ? Fasting reference interval Urea Nitrogen 25 7 - 25 mg/dL [facility] (BUN) [facility] Creatinine, Serum 0.84 0.60 - 0.93 [facility] Comment: mg/dL [facility] For patients >49 years of age, the reference limit for Creatinine is approximately 13% higher for people identified as -[place]. eGFR Non-Afr. 68 > OR = 60 [facility] [place] mL/min/1.73m LLC 2 eGFR 79 > OR = 60 [facility] [place] mL/min/1.73m LLC 2 BUN/Creatinine NOT APPLICABLE 6 - 22 [facility] Ratio (calc) LLC Sodium 141 135 - 146 [facility] mmol/L LLC POTASSIUM 4.2 3.5 - 5.3 [facility] mmol/L LLC Chloride 105 98 - 110 [facility] mmol/L LLC Carbon Dioxide 26 20 - 32 [facility] mmol/L LLC Calcium 9.9 8.6 - 10.4 [facility] mg/dL [facility] PROTEIN, TOTAL 7.1 6.1 - 8.1 [facility] g/dL [facility] ALBUMIN 4.4 3.6 - 5.1 [facility] g/dL [facility] GLOBULIN 2.7 1.9 - 3.7 [facility] g/dL (calc) LLC Albumin/Globulin 1.6 1.0 - 2.5 [facility] Ratio (calc) LLC Bilirubin, Total 0.6 0.2 - 1.2 [facility] mg/dL [facility] ALKALINE 48 37 - 153 U/L [facility] PHOSPHATASE [facility] AST 22 10 - 35 U/L [facility] ALT 19 6 - 29 U/L [facility] Specimen Resulting Agency Comment Performing Organization Information: ?Site ID: [id number] ?Name: [facility] [facility] ?Address: [address] [place] [address], [place] [address] ?Director: Colin Belcher MD Performing Organization Address City/State/ZIP Code Phon e Number [facility] (ABNORMAL) Glycohemoglobin A1C (11/14/2019 9:25 AM EDT) Hemoglobin A1c 5.9 (H) <5.7 % of [facility] Comment: [...] Performing Organization Information: ?Site ID: [id number] ?Name: [facility] ?Address: [address] [place] [address], [place] [address] ?Director: Colin Belcher MD Performing Organization Address City/State/ZIP Code Phon e Number [facility] CBC W/Auto Differential (11/14/2019 9:25 AM EDT) White Blood Cell Count 5.3 3.8 - 10.8 [facility] Thousand/uL LLC Red Blood Cell Count 4.41 3.80 - 5.10 [facility] Million/uL LLC Hemoglobin 13.6 11.7 - 15.5 [facility] g/dL [facility] Hematocrit 42.1 35.0 - 45.0 [facility] % LLC MCV 95.5 80.0 - 100.0 [facility] fL LLC MCH 30.8 27.0 - 33.0 [facility] pg LLC MCHC 32.3 32.0 - 36.0 [facility] g/dL LLC RDW 12.2 11.0 - 15.0 [facility] % LLC Platelet Count 257 140 - 400 [facility] Thousand/uL LLC MPV 9.8 7.5 - 12.5 [facility] fL LLC Absolute Neutrophils 2,544 1,500 - [facility] 7,800 LLC cells/uL [...] LLC canceled by the ancillary. Absolute Lymphocytes 2,094 850 - 3,900 [facility] cells/uL LLC Absolute Monocytes 509 200 - 950 [facility] cells/uL LLC Absolute Eosinophils 111 15 - 500 [facility] cells/uL LLC Absolute Basophils 42 0 - 200 [facility] cells/uL LLC Absolute Blasts CANCELEDComment 0 cells/uL [facility] : Result LLC canceled by the ancillary. Absolute Nucleated RBC CANCELEDComment 0 cells/uL [facility] CS : Result LLC canceled by the ancillary. Neutrophils 48 % [facility] LLC Band Neutrophils CANCELEDComment % [facility] : Result LLC canceled by the ancillary. Metamyelocytes CANCELEDComment % [facility] : Result LLC canceled by the ancillary. Myelocytes CANCELEDComment % [facility] : Result LLC canceled by the ancillary. Promyelocytes CANCELEDComment % [facility] : Result LLC canceled by the ancillary. Lymphocytes 39.5 % [facility] LLC Reactive Lymphocytes CANCELEDComment 0 - 10 % [facility] : Result LLC canceled by the ancillary. Monocytes 9.6 % [facility] LLC Eosinophils 2.1 % [facility] LLC Basophils 0.8 % [facility] LLC Blasts CANCELEDComment % [facility] : Result LLC canceled by the ancillary. Nucleated RBC CANCELEDComment 0 /100 WBC [facility] : Result LLC canceled by the ancillary. Comment(s) CANCELEDComment [facility] : Result LLC canceled by the ancillary. Specimen Resulting Agency Comment Performing Organization Information: ?Site ID: [id number] ?Name: [email or web address] ?Address: [address] [place] [address], [place] [address] ?Director: Colin Belcher MD Performing Organization Address City/State/ZIP Code Phon e Number [facility] 25-Hydroxy Vitamin D (11/14/2019 9:25 AM EDT) Vitamin D,25-OH, 36 30 - 100 [facility] Total Comment: [...] D, (D2,D3), LC/MS/MS is recommended: order code 90511 (patients >2yrs). See Note 1 Note 1 For additional information, please refer to http://education.Training Intelligence/faq/HMO049 (This link is being provided for informational/ educational purposes only.) Specimen Resulting Agency Comment Performing Organization Information: ?Site ID: [id number] ?Name: [employer] [facility] ?Address: [address] [place] [address], [place] [address] ?Director: Colin Belcher MD Performing Organization Address City/State/ZIP Code Phon e Number [facility] POCT Urinalysis (11/14/2019) Visual Urine Dipstick Testing POCT Color, Urine Dark Yellow POCT Clarity, Urine Clear POCT Glucose, Urine Negative Negative POCT Urine Bilirubin Negative POCT Ketones, Urine Negative Negative POCT Specfic [place], 1.025 1.005 - 1.030 Urine POCT Blood, [...] documented in this encounter Visit Diagnoses Diagnosis Hyperglycemia - Primary Other abnormal glucose BMI 27.0-27.9,adult High cholesterol Pure hypercholesterolemia Left anterior fascicular block Left bundle branch hemiblock Vitamin D deficiency Nocturnal leg cramps documented in this encounter Care Teams Metal Finish Inspector Relationship Specialty Start Date End Date Chino Hargrove MD PCP - General Internal Medicine 05/04/16 11/18/21 2 Monica Felipe [facility] [address] [place] [address] documented as of this encounter
--- OUTSIDE RECORDS SUMMARY | 2022-01-04 15:08 | XMS_ITS | Encounter Summary ---
:1945 Author Organization [facility] Address [address] [place] [id number] Care Team Providers Name Role Phone Chino Hargrove MD Primary Care Provider Encounter Details Date Type Department Care Team Description 12/15/2017 Hospital Encounter Lab [facility] Chino Hargrove, Osteopenia of spine; Services BMI 27.0-27.9,adult; [address] Vitamin D deficiency; [place] [address] [address] Hyperglycemia; [phone] [facility] [place] [address] Social History Tobacco Use Types Packs/Day Years [...] 0 D3) 1000 UNITS tablet mouth daily. melatonin 3 MG TABS tablet melatonin 3 mg tablet 0 11/24/2012 TAKE BY ORAL ROUTE Multiple Vitamin (MULTI Take by mouth. 0 VITAMIN DAILY PO) BOOSTRIX 5-2.5-18.5 0 05/10/201703/28 injection [place]-3 Fatty Acids (FISH Take by mouth. 0 11/14/2020 OIL PO) rosuvastatin (CRESTOR) TAKE 1 TABLET DAILY 90 tablet 3 03/1203/31/2018 tablet 20 mg documented as of this encounter Plan of Treatment Not on filedocumented as of this encounter Procedures Procedure Name Priority Date/Time Associated Comments Diagnosis CBC W/AUTO DIFFERENTIAL Routine 12/15/2017 7:37 Osteopen ia of spine Results for this PM EDT BMI 27.0-27.9,ad ult procedure are in Vitamin D the results deficiency section. Hyperglycemia High cholesterol COMPREHENSIVE METABOLIC Routine 12/15/2017 7:37 Osteopen ia of spine Results for this PANEL/FASTING PM EDT BMI 27.0-27.9,ad ult procedure are in Vitamin D the results deficiency section. Hyperglycemia High cholesterol GLYCOHEMOGLOBIN A1C Routine 12/15/2017 7:37 Osteopenia o f spine Results for this PM EDT BMI 27.0-27.9,ad ult procedure are in Vitamin D the results deficiency section. Hyperglycemia High cholesterol 25-HYDROXY VITAMIN D Routine 12/15/2017 7:37 Osteopenia of spine Results for this PM EDT BMI 27.0-27.9,ad ult procedure are in Vitamin D the results deficiency section. Hyperglycemia High cholesterol LIPID PANEL WITH REFLEX Routine 12/15/2017 7:37 Osteopen ia of spine Results for this TO DIRECT LDL PM EDT BMI 27.0-27.9,ad ult procedure are in Vitamin D the results deficiency section. Hyperglycemia High cholesterol documented in this encounter Results (ABNORMAL) Comprehensive Metabolic Panel/Fasting (12/15/2017 7:37 PM EDT) BUN 20 (H) 7 - 17 mg/dL [facility] Creatinine, Blood 0.9 0.5 - 1.0 [facility] mg/dL [facility] Glomerular >60.0Comment: >60.0 [facility] Filtration Rate, MDRD in [facility] Estimated mL/min/1.73 sq meters. For Americans, multiply by 1.21. Sodium 140 135 - 145 [facility] mmol/L [facility] Potassium 4.4 3.5 - 5.1 [facility] mmol/L [facility] Chloride 104 98 - 107 [facility] mmol/L [facility] Carbon dioxide 28 24 - 32 [facility] mmol/L [facility] Glucose, Fasting 97 70 - 99 [facility] mg/dL [facility] Calcium 10.0 8.4 - 10.2 [facility] mg/dL [facility] Total Protein 7.1 6.4 - 8.5 [facility] g/dL [facility] Albumin 4.6 3.5 - 5.0 [facility] g/dL [facility] Alkaline 51 34 - 104 U/L [facility] Phosphatase [facility] AST (SGOT) 22 5 - 40 U/L [facility] ALT (SGPT) 19 7 - 52 U/L [facility] Total Bilirubin 0.6 0.3 - 1.0 [facility] mg/dL [facility] Specimen Performing Organization Address [facility] Code Phon e Number [facility] [address] [place] [phone] SERVICES (CLIA #[id number]) ([id number]) LIPID PANEL WITH REFLEX TO DIRECT LDL (12/15/2017 7:37 PM EDT) Pathologist Sig nature Triglycerides 67 <150 mg/dL [facility] Cholesterol 157 0 - 200 mg/dL [facility] HDL 66 33 - 92 mg/dL [facility] LDL (Calculated) 78 50 - 130 mg/dL [facility] Specimen Performing Organization Address [facility] Phon e Number [facility] [address] [place] [phone] SERVICES (CLIA #[id number]) ([id number]) (ABNORMAL) Glycohemoglobin A1C (12/15/2017 7:37 PM EDT) Hemoglobin A1C 6.0 (H) <5.7 % [facility] Comment: [facility] <<NOTE>> The [place] [employer] guidelines indicate that an individual is at increased risk for diabetes when Hemo globin A1C levels are 5.7-6.4% or fasting glucose is 100-125 mg/d L, and considered diabetic when Hemoglobin A1C is greater michelle n or equal to 6.5% or fasting glucose is greater than or equal to 12 6 mg/dL. Specimen Performing Organization Address [facility] Phon e Number [facility] [address] [place] [phone] SERVICES (CLIA #[id number]) ([id number]) 25-Hydroxy Vitamin D (12/15/2017 7:37 PM EDT) Pathologist [facility] VITAMIN D, [address] [facility] 25-HYDROXY Comment: [facility] Reference range: 30 ??to ??100 Unit: ng/mL <<NOTE>> Vitamin D deficiency ?<10 ? ng/mL Vitamin D insufficiency ? 10-30 ?? ng/mL Vitamin D sufficiency ? 30-100 ??ng/mL Vitamin D toxicity ?>100 ?ng/mL Test performed at [facility], [address] [place], [place] ??[address] ? [phone] Boyd Campoverde MD ??- Rig Builder Specimen Performing Organization Address City/State/[facility] Code Phon e Number [facility] [address] [place] [address] SERVICES (CLIA #[id number]) ([id number]) CBC W/Auto Differential (12/15/2017 7:37 PM EDT) Pathologist [facility] WBC 5.0 4.0 - 10.5 [facility] K/uL [facility] RBC 4.59 4.2 - 5.4 M/uL [facility] Hemoglobin 14.7 12.5 - 16.0 [facility] g/dL [facility] Hematocrit 42.7 37 - 47 % [facility] MCV 93.1 78 - 100 fL [facility] MCH 31.9 25 - 33 pg [facility] MCHC 34.3 32 - 36 g/dL [facility] RDW 12.7 12.1 - 16.2 % [facility] Platelets 256 150 - 450 K/uL [facility] MPV 7.8 7.4 - 11.4 fL [facility] Differential Type AUTOMATED [facility] Neutrophils 51.8 44 - 74 % [facility] Lymphocytes 34.7 20 - 48 % [facility] Monocytes 10.4 2 - 12 % [facility] Eosinophils 2.1 0 - 6 % [facility] Basophils 1.0 0 - 2 % [facility] Neutrophils, Absolute 2.6 1.8 - 7.8 K/uL [facility] Lymphocytes Absolute 1.7 1.0 - 3.2 K/uL [facility] Monocytes Absolute 0.5 0.0 - 0.8 K/uL [facility] Eosinophils, Absolute 0.1 0.0 - 0.5 K/uL [facility] Basophils Absolute 0.1 0.0 - 0.2 K/uL [facility] Specimen Performing Organization Address City/State/ZIP Code Phon e Number [facility] [address] [place] [address] SERVICES (CLIA #[id number]) ([id number]) documented in this encounter Visit Diagnoses Diagnosis Osteopenia of spine BMI 27.0-27.9,adult Vitamin D deficiency Hyperglycemia Other abnormal glucose High cholesterol Pure hypercholesterolemia documented in this encounter Care Teams Music Educator Relationship Specialty Start Date End Date Chino Hargrove MD PCP - General Internal Medicine 05/04/16 11/18/21 2 Monica Felipe [address] [address] documented as of this encounter
--- OUTSIDE RECORDS SUMMARY | 2022-01-04 15:08 | XMS_ITS | Encounter Summary ---
:1945 Author Organization [facility] Address [address] [place] [address] Care Team Providers Name Role Phone Chino Hargrove MD Primary Care Provider Reason for Referral Preauthorization (Routine) - Closed Specialty Diagnoses / Procedures Referred By Contact Refer red To Contact Diagnoses Visit for screening mammogram Claudette Read MD [facility] Procedures Mammogram Screening Digital with CAD [address] [address] Referral ID Status Reason Start Date Expiration Date Visits Requ ested Visits Authorized [id number] Closed 05/09/2018 11/05/2018 1 1 Reason for Visit Preauthorization (Routine) - Closed Specialty Diagnoses / Procedures Referred By Contact Refer red To Contact Diagnoses Visit for screening mammogram Claudette Read MD [facility] Procedures Mammogram Screening Digital with CAD [address] [address] Referral ID Status Reason Start Date Expiration Date Visits Requ ested Visits Authorized [id number] Closed 05/09/2018 11/05/2018 1 1 Encounter Details Date Type Department Care Team Description 05/16/2018 Hospital Encounter [facility] Mammogram EN Visit for screening [address] [place] [address] Social History Tobacco Use Types Packs/Day Years [...] DAILY PO) BOOSTRIX 5-2.5-18.5 0 05/10/201703/28 injection [place]-3 Fatty Acids (FISH Take by mouth. 0 [...] Associated Diagnosis Comme nts MAMMOGRAM SCREENING Routine 05/16/2018 10:00 AM Visit for scre ening Results for this DIGITAL WITH CAD - EST mammogram procedure are in BILATERAL the results section. documented in this encounter Results Mammogram Screening Digital with CAD (05/16/2018 10:00 AM EST) Anatomical Region Laterality Modality Breast Bilateral Mammography Specimen Narrative ORTIZ ROD - 05/16/2018 10:11 AM EST EXAM PERFORMED: ??MAMMOGRAM SCREENING DIGITAL WITH CAD - BILATERAL EXAM HISTORY: Screening COMPARISON: 2016, 2015, 2014 TECHNIQUE: Bilateral full field 2-D mamm ography was performed using standard CC and MLO projections. Mammographic interpretation was performed in correlation with computer-aided detection (CAD). BREAST DENSITY: The breast is almost ent irely fat (<25% glandular, A) FINDINGS: No suspicious masses, grouped microcalcifications, or architectural distortion are identified. Stable parenchymal pattern with typically benign asymmetries. No axillary lymphadenopathy. IMPRESSION: 1. No mammographic evidence of malignanc y 2. Fatty breast parenchyma BIRADS category 2: Benign finding [id number] RECOMMENDATION: Routine annual mammograp hy screening. SESSION: Separate The results of this examination have bee n communicated to the patient through a lay letter in accordance with the Mammography Quality Standards Act. Report reviewed and signed by : Dr. Stephon Pond MD on 05/16/2018 10:11 AM. Workstation Name - [id number] Performing Organization Address City/State/ZIP Code Phon e Number [facility] documented in this encounter Visit Diagnoses Diagnosis Visit for screening mammogram documented in this encounter Care Teams Planning And Analysis Manager Relationship Specialty Start Date End Date Chino Hargrove MD PCP - General Internal Medicine 05/04/16 11/18/21 2 Monica Felipe [facility] [address] [place] [address] documented as of this encounter
--- OUTSIDE RECORDS SUMMARY | 2022-01-04 15:08 | XMS_ITS | Encounter Summary ---
:1945 Author Organization [facility] Address [address] [place] [id number] Care Team Providers Name Role Phone Chino Hargrove MD Primary Care Provider Reason for Visit Reason Comments Hyperlipidemia Encounter Details Date Type Department Care Team Description 07/31/2019 Office Visit Internal Medicine - Chino Hargrove, BMI 26.0- 26.9,adult (Primary Dx); Lara Hernandez MD Hyperglycemia; [address] High cholesterol; Building 2 [facility] 2 Osteopenia, unspecified location; Lara Hernandez [facility] Vitamin D deficiency [address] [facility] [phone] [place] [address] (Wo rk) Social History Tobacco Use Types [...] Sign Reading Time Taken Comments Blood Pressure 136/78 07/31/2019 9:08 AM EST Pulse 63 07/31/2019 9:08 AM EST Temperature 36.4 ??C (97.5 ??F) 07/31/2019 9:08 AM EST Respiratory Rate 16 07/31/2019 9:08 AM EST Oxygen Saturation 98% 07/31/2019 9:08 AM EST Inhaled Oxygen Concentration - - Weight 69.6 kg (153 lb 8 oz) 07/31/2019 9:08 AM EST Height 161.3 cm (5' 3.5) 07/31/2019 9:08 AM EST Body Mass Index 26.76 07/31/2019 9:08 AM EST documented in this encounter Progress Notes Chino Hargrove MD - 07/31/2019 8:40 AM EST Chief Complaint: Chief Complaint Patient presents with ??? Hyperlipidemia, hyperglycemia, 4-month follow-up with fasting blood work. HPI: Fidelina Hanson is a 74 y.o. female with PMHx of hypercholesterolemia and hyperglycemia presents for an office visit 4 month follow up fasting blood work. Pt is generally well. She is still having some blurry vision and requires a YAG laser procedure post cataract extraction surgery. Pt is up to date with her flu shot. She is compliant and tolerating medications well, not experiencing any side effects.Pt is concerned about bladder cancer due [facility] where she lived in the past. She stated her partner at the time who lived there was diagnosed with bladder cancer.Patient had venipuncture in the office. Vitals: Vitals: 07/31/19 0908 BP: 136/78 Pulse: 63 Resp: 16 Temp: 97.5 ??F (36.4 ??C) TempSrc: Oral SpO2: 98% Weight: 69.6 kg (153 lb 8 oz) Height: 5' 3.5 (1.613 m) Body mass index is 26.76 kg/m??. Body surface area is 1.77 meters squared. Allergies: Allergies Allergen Reactions ??? [...] by mouth daily. 90 tablet 3 ??? Mead-3 Fatty Acids (FISH OIL PO) Take by [...] file Gets together: Not on file Attends hindu service: Not on file Active member of [...] Measures are up to date for Fidelina Lombardi Valentin: BMI Screening: patient's BMI was abnormal. Follow up plan includes: counseled on proper nutrition, counseled on physical exercise and weight monitoring . FALL RISK: DEPRESSION SCREENING: No flowsheet data found. ROS: Review of Systems Constitutional: Negative for activity change, appetite change, chills, diaphoresis, fatigue, fever and unexpected weight change. PMHx: Vitamin D deficiency HENT: Negative for congestion, dental problem, drooling, [...] and leg swelling. PMHx: Hypercholesterolemia, left anterior fascicular block Gastrointestinal: Negative for abdominal distention, abdominal pain, anal bleeding, blood in stool, constipation, diarrhea, nausea, rectal pain and vomiting. Endocrine: PMhx: Metabolic syndrome X, hyperglycemia Genitourinary: Negative for frequency and urgency. Musculoskeletal: Positive for back pain. PMHx: Osteopenia Skin: Negative for color change, pallor, rash and wound. Neurological: Negative for dizziness, tremors, seizures, syncope, facial asymmetry, speech difficulty, weakness, light-headedness, numbness and headaches. Hematological: Negative for adenopathy. Does not bruise/bleed easily. Psychiatric/Behavioral: PMHx: Reactive depression Physical Exam: Physical Exam Constitutional: She is oriented to person, place, and time. She appears well- developed and well-nourished. No distress. HENT: Head: Normocephalic and atraumatic. Right Ear: Tympanic membrane and external ear normal. Left Ear: Tympanic membrane and external ear normal. Nose: Nose normal. Mouth/Throat: Oropharynx is clear and moist. No oropharyngeal exudate. Eyes: Conjunctivae and EOM are normal. Pupils are equal, round, and reactive to light. Right eye exhibits no discharge. Left eye exhibits no discharge. No scleral icterus. Status post bilateral cataract extractions Neck: Normal range of motion. Neck supple. No JVD present. Carotid bruit is not present. No trachealdeviation present. No thyromegaly present. Cardiovascular: Normal rate, regular rhythm, normal heart sounds and intact distal pulses. Exam reveals no gallop, no S3, no S4 and no friction rub. No murmur heard. Pulses: Carotid pulses are 2+ on the right side, and 2+ on the left side. Radial pulses are 2+ on the right side, and 2+ on the left side. Femoral pulses are 2+ on the right side, and 2+ on the left side. Popliteal pulses are 2+ on the right side, and 2+ on the left side. Dorsalis pedis pulses are 2+ on the right side, and 2+ on the left side. Posterior tibial pulses are 2+ on the right side, and 2+ on the left side. Pulmonary/Chest: Effort normal and breath sounds normal. No stridor. No respiratory distress. She has no wheezes. She has no rales. She exhibits no tenderness. Abdominal: Soft. Bowel sounds are normal. She exhibits no distension and no mass. There is no tenderness. There is no rebound and no guarding. Musculoskeletal: She exhibits no edema, tenderness or deformity. Lymphadenopathy: She has no cervical adenopathy. Neurological: She is alert and oriented to person, place, and time. She has normal reflexes. Skin: Skin is warm and dry. She is not diaphoretic. Nursing note and vitals reviewed. Labs: No visits with results within 1 Week(s) from this visit. Latest known visit with results is: Hospital Outpatient Visit on 03/28/2019 Component Date Value Ref Range Status ??? VITAMIN D, 25-HYDROXY 03/28/2019 38 Final Comment: Reference range: 30 to 100 Unit: ng/mL <<NOTE>> Vitamin D deficiency <10 ng/mL Vitamin D insufficiency 10-30 ng/mL Vitamin D sufficiency 30-100 ng/mL Vitamin D toxicity >100 ng/mL Test performed at [facility], [address] [id number] Boyd Campoverde MD - [employer] ??? BUN 03/28/2019 28* 7 - 17 mg/dL Final ??? Creatinine, Blood 03/28/2019 0.7 0.5 - 1.0 mg/dL Final ? ? Glomerular Filtration Rate, Estima* 03/28/2019 >60.0 >60.0 Final MDRD in mL/min/1.73 sq meters. For Americans, multiply by 1.21. ??? Sodium 03/28/2019 139 135 - 145 mmol/L Final ??? Potassium 03/28/2019 4.0 3.5 - 5.1 mmol/L Final ??? Chloride 03/28/2019 106 98 - 107 mmol/L Final ??? Carbon dioxide 03/28/2019 25 24 - 32 mmol/L Final ??? Glucose, Fasting 03/28/2019 106* 70 - 99 mg/dL Final ??? Calcium 03/28/2019 9.9 8.4 - 10.2 mg/dL Final ??? Total Protein 03/28/2019 7.1 6.4 - 8.5 g/dL Final ??? Albumin 03/28/2019 4.5 3.5 - 5.0 g/dL Final ??? Alkaline Phosphatase 03/28/2019 47 34 - 104 U/L Final ??? AST (SGOT) 03/28/2019 20 5 - 40 U/L Final ??? ALT (SGPT) 03/28/2019 18 7 - 52 U/L Final ??? Total Bilirubin 03/28/2019 0.6 0.3 - 1.0 mg/dL Final Comment: [place] [address] Hawk Landeros Jr, MD Director [facility] [id number] [facility]23 ? ? Triglycerides 03/28/2019 53 <150 mg/dL Final ??? Cholesterol 03/28/2019 136 0 - 200 mg/dL Final ??? HDL 03/28/2019 53 33 - 92 mg/dL Final ??? LDL (Calculated) 03/28/2019 72 50 - 130 mg/dL Final Comment: [place] [address] Hawk Landeros Jr, MD Director [facility] [id number] [facility]23 ? ? Hemoglobin A1C 03/28/2019 6.0* <5.7 % Final Comment: <<NOTE>> The [place] Diabetes Association guidelines indicate that an individual is at increased risk for diabetes when Hemoglobin A1C levels are 5.7-6.4% or fasting glucose is 100-125 mg/dL, and considered diabetic when Hemoglobin A1C is greater than or equal to 6.5% or fasting glucose is greater than or equal to 126 mg/dL[place] [address] Hawk Landeros Jr, MD Director [facility] [id number] [facility]23 No results found for this or any previous visit (from the past 336 hour(s)). Assessment/Plan: ICD-10-CM 1. High cholesterol patient is currently on Crestor 20 mg a day tolerating the medication well. [facility] fasting lipid panel as well as liver function test. E78.00 2. BMI 26.0-26.9,adult Z68.26 3. Hyperglycemia she is advised to diet exercise lose weight restrict carbohydrates. Will check fasting blood sugar as well as a hemoglobin A1c. R73.9 4. Osteopenia, unspecified location M85.80 5. Vitamin D deficiency E55.9 Deana Mcconnell By signing my name below, I, Deana Jayesh, attest that this documentation has been prepared under the direction and in the presence of Chino Hargrove MD. Electronically Signed: Deana Mcconnell. 07/30/2019. 10:43 AM. documented in this encounter Miscellaneous Notes Addendum Note - Sam Sullivan MA - 07/31/2019 8:40 AM EST Addended by: SAM SULLIVAN on: 07/31/2019 09:56 AM Modules accepted: Orders documented in this encounter Plan of Treatment Not on filedocumented as of this encounter Procedures Procedure Name Priority Date/Time Associated Comments Diagnosis COMPREHENSIVE METABOLIC Routine 07/31/2019 9:32 BMI 26.0 -26.9,adult Results for this PANEL RANDOM/FASTING AM EST High choles terol procedure are in Hyperglycemia the results Osteopenia, section. unspecified location Vitamin D deficiency LIPID PROFILE (PREP L2) Routine 07/31/2019 9:32 BMI 26.0 -26.9,adult Results for this AM EST High cholesterol procedure are in Hyperglycemia the results Osteopenia, section. unspecified location Vitamin D deficiency GLYCOHEMOGLOBIN A1C Routine 07/31/2019 9:32 BMI 26.0-26. 9,adult Results for this AM EST High cholesterol procedure are in Hyperglycemia the results Osteopenia, section. unspecified location Vitamin D deficiency POCT URINALYSIS (15163) Routine 07/31/2019 High cholesterol Results for this procedure are i n the results section. documented in this encounter Results (ABNORMAL) Glycohemoglobin A1C (07/31/2019 9:32 AM EST) Hemoglobin A1c 5.9 (H) <5.7 % of [...] Performing Organization Information: ?Site ID: [id number] ?Name: [employer] ?Address: [address] [place] [address], [place] [address] ?Director: Colin Belcher MD Performing Organization Address City/State/ZIP Code Phon e Number [facility] Lipid Profile (07/31/2019 9:32 AM EST) [facility] Cholesterol, Total 158 <200 mg/dL [facility] HDL Cholesterol 58 >50 mg/dL [facility] Triglycerides 103 <150 mg/dL [employer] [facility] LDL-Cholesterol 80 mg/dL (calc) [facility] Comment: LLC Reference range: <100 Desirable range <100 mg/dL for primary prevention; ?? <70 mg/dL for patients with CHD or diabetic patients with > or = 2 CHD risk factors. LDL-C is now calculated using the Efrain-Prince calculation, which is a validated novel method providi ng better accuracy than the Friedewald equation in the estimation of LDL-C. Efrain NICOLE et al. GEN. 2013;310(19): 8021-1425 (http://education.[employer]/faq/YPM518) Chol/HDLC Ratio 2.7 <5.0 (calc) [facility] Non HDL Cholesterol 100 <130 mg/dL [facility] Comment: (calc) [facility] For patients with diabetes plus 1 major ASCVD risk factor, treating to a non-HDL-C goal of <100 mg/dL (LDL-C of <70 mg/dL) is considered a therapeutic option. Specimen Resulting Agency Comment Performing Organization Information: ?Site ID: [id number] ?Name: [employer] ?Address: [address] [place] [address], [place] [address] ?Director: Colin Belcher MD Performing Organization Address [facility] Phon e Number [facility] COMPREHENSIVE METABOLIC PANEL RANDOM/FASTING (07/31/2019 9:32 AM EST) Glucose 93 65 - 99 [facility] Comment: mg/dL [facility] ? Fasting reference interval Urea Nitrogen 22 7 - 25 mg/dL [facility] (BUN) [facility] Creatinine, Serum 0.82 0.60 - 0.93 [facility] Comment: mg/dL [facility] For patients >49 years of age, the reference limit for Creatinine is approximately 13% higher for people identified as -[place]. eGFR Non-Afr. 70 > OR = 60 [facility] Venezuelan mL/min/1.73m [facility] 2 eGFR 81 > OR = 60 [facility] [place]an mL/min/1.73m [facility] 2 BUN/Creatinine NOT APPLICABLE 6 - 22 [facility] Ratio (calc) [facility] Sodium 141 135 - 146 [facility] mmol/L [facility] POTASSIUM 4.7 3.5 - 5.3 [facility] mmol/L [facility] Chloride 106 98 - 110 [facility] mmol/L [facility] Carbon Dioxide 27 20 - 32 [facility] mmol/L [facility] Calcium 9.9 8.6 - 10.4 [facility] mg/dL [facility] PROTEIN, TOTAL 7.1 6.1 - 8.1 [facility] g/dL [facility] ALBUMIN 4.5 3.6 - 5.1 [facility] g/dL [facility] GLOBULIN 2.6 1.9 - 3.7 [facility] g/dL (calc) [facility] Albumin/Globulin 1.7 1.0 - 2.5 [facility] Ratio (calc) [facility] Bilirubin, Total 0.4 0.2 - 1.2 [facility] mg/dL [facility] ALKALINE 52 33 - 130 U/L [facility] PHOSPHATASE [facility] AST 18 10 - 35 U/L [facility] ALT 15 6 - 29 U/L [facility] Specimen Resulting Agency Comment Performing Organization Information: ?Site ID: [id number] ?Name: [facility] ?Address: [address] [place] [address], [place] [address] ?Director: Colin Belcher MD Performing Organization Address City/State/ZIP Code Phon e Number [employer] [facility] POCT Urinalysis (07/31/2019) Visual Urine Dipstick Testing POCT Color, Urine Transparent Yellow POCT Clarity, Urine Clear POCT Glucose, Urine Negative Negative POCT Urine Bilirubin Negative POCT Ketones, Urine Negative Negative POCT Specfic 1.025 1.005 - 1.030 Lisman, Urine POCT Blood, Urine Negative Negative POCT Urine pH 6.5 4.5 - 8.0 POCT Protein, Urine Negative Negative, Trace, 15 mg/dL, 30 mg/dL, 100 mg/dL, >=300 mg/dL, >=2000 mg/dL POCT Urine Normal Urobilinogen POCT Nitrite, Urine Negative Negative, Unable to obtain valid result POCT Leukocytes, Negative Negative Urine QC IN LAST 24H? MULTISTIX 8 SG LOT# MULTISTIX 8 SG EXP DATE Specimen documented in this encounter Visit Diagnoses Diagnosis BMI 26.0-26.9,adult - Primary Hyperglycemia Other abnormal glucose High cholesterol Pure hypercholesterolemia Osteopenia, unspecified location Vitamin D deficiency documented in this encounter Care Teams Rug Cleaner Helper Relationship Specialty Start Date End Date Chino Hargrove MD PCP - General Internal Medicine 05/04/16 11/18/21 2 Monica Felipe [address] [id number] documented as of this encounter
--- OUTSIDE RECORDS SUMMARY | 2022-01-04 15:08 | XMS_ITS | Encounter Summary ---
:1945 Author Organization [facility] Address [address] [place] [address] Care Team Providers Name Role Phone Chino Hargrove MD Primary Care Provider Reason for Visit Reason Comments Follow-up Encounter Details Date Type Department Care Team Description 12/15/2017 Office Visit Internal Medicine - Chino Hargrove, Ost eopenia of spine (Primary Dx); Lara Hernandez MD BMI 27.0-27.9,adult; [address] Vitamin D deficiency; Building 2 Bldg 2 Hyperglycemia; [place] High chol esterol; [address] [facility] Reactive depression [phone] [place] [address] (Wo rk) Social History Tobacco Use Types [...] Sign Reading Time Taken Comments Blood Pressure 120/70 12/15/2017 7:58 AM EDT Pulse 71 12/15/2017 7:58 AM EDT Temperature 36.4 ??C (97.6 ??F) 12/15/2017 7:58 AM EDT Respiratory Rate 16 12/15/2017 7:58 AM EDT Oxygen Saturation 97% 12/15/2017 7:58 AM EDT Inhaled Oxygen Concentration - - Weight 70.8 kg (156 lb) 12/15/2017 7:58 AM EDT Height 160 cm (5' 3) 12/15/2017 7:58 AM EDT Body Mass Index 27.63 12/15/2017 7:58 AM EDT documented in this encounter Progress Notes Chino Hargrove MD - 12/15/2017 8:00 AM EDT Chief Complaint: Chief Complaint Patient presents with ??? Follow-up office visit and fasting blood work. HPI: Jameson Lucas is a 72 y.o. female patient with a history of osteopenia, vitamin D deficiency, hyperglycemia, hypercholesterolemia. Patient states she is having a difficult time she has lost 5 friends in the past 1 year. She is not sleeping well, she feels stressed she is snapping at her .. Vitals: Vitals: 12/15/17 0758 BP: 120/70 Pulse: 71 Resp: 16 Temp: 97.6 ??F (36.4 ??C) TempSrc: Tympanic SpO2: 97% Weight: 70.8 kg (156 lb) Height: 5' 3 (1.6 m) Body mass index is 27.63 kg/m??. Body surface area is 1.77 meters squared. Allergies: Allergies Allergen Reactions ??? Demerol [Meperidine] Nausea And Vomiting and Rash Medications: Current Outpatient Prescriptions Medication Sig Dispense Refill ??? aspirin EC 81 MG tablet Take 81 mg by mouth daily. ??? Calcium Carbonate (CALCIUM 600 PO) Take by mouth. ??? cholecalciferol (VITAMIN D3) 1000 UNITS tablet Take 1,000 Units by mouth daily. ??? melatonin 3 MG TABS tablet melatonin 3 mg tablet TAKE BY ORAL ROUTE ??? Multiple Vitamin (MULTI VITAMIN DAILY PO) Take by mouth. ??? [place]-3 Fatty Acids (FISH OIL PO) Take by mouth. ??? rosuvastatin (CRESTOR) tablet 20 mg TAKE 1 TABLET DAILY 90 tablet 3 ??? BOOSTRIX 5-2.5-18.5 injection No current facility-administered medications for this visit. Vaccines: Immunization History Administered Date(s) Administered ??? IIV QUADRIVALENT, STANDARD-DOSE, PRESERVATIVE FREE (SD-IIV4) 05/04/2017 ??? Influenza TIV (IM) 05/15/2010, 03/26/2011, 04/18/2012 ??? Pneumococcal Conjugate 06/08/2010 ??? Pneumococcal Conjugate 13-Valent 08/12/2016 Problems: Patient Active Problem List Diagnosis SNOMED [...] Differential Standing Status: Future Standing Expiration Date: 12/15/2018 ??? 25-Hydroxy Vitamin D Standing Status: Future Standing Expiration Date: 12/15/2018 ??? Glycohemoglobin A1C Standing Status: Future Standing Expiration Date: 12/15/2018 ??? LIPID PANEL WITH REFLEX TO DIRECT LDL Standing Status: Future Standing Expiration Date: 12/15/2018 ??? Comprehensive Metabolic Panel/Fasting Standing Status: Future Standing Expiration Date: 12/15/2018 Screening: The following Quality Measures are up to date for Jameson Lucas: BMI Screening: patient's BMI was normal. FALL RISK: DEPRESSION SCREENING: No flowsheet data found. ROS: Review of Systems Constitutional: Negative. Eyes: Negative. Respiratory: Negative. Cardiovascular: Negative. Gastrointestinal: Negative. Genitourinary: Negative. Musculoskeletal: Negative. Neurological: Negative. Psychiatric/Behavioral: Positive for dysphoric mood and sleep disturbance. The patient is nervous/anxious. Physical Exam: Physical Exam Constitutional: She is [...] eye exhibits no discharge. No scleral icterus. Glasses Neck: Normal range of motion. Neck supple. [...] with results is: Hospital Outpatient Visit on 08/02/2017 Component Date Value Ref Range Status ??? Pathology Report 08/02/2017 Patient Name: JAMESON LUCAS Final Comment: MR#: [id number] Collected Date: 08/02/2017 Reported Date: 08/04/2017 Specimen #[id number] Final Diagnosis Colon, Transverse Colon Polyp, Biopsy: Fragments of Sessile Serrated Polyp/Adenoma. Source: 1: Colon,polyp Macroscopic Description Received in formalin labeled transverse polyp are five irregular, teixeira soft tissues ranging from less than 0.1 cm to 0.3 x 0.2 x 0.1 cm. The specimen is submitted in its entirety in 1A. FRANCOIS:greg 08/03/17 Microscopic Description Slides reviewed Electronically Signed Out Olya Machado M.D. Test Performed by: [address] [address] Robinson Peter M.D. Director No results found for this or any previous visit (from the past 336 hour(s)). Assessment/Plan: ICD-10-CM 1. Osteopenia of spine currently taking vitamin D supplementation 1000 international units a day we will check a vitamin D level M85.88 CBC W/Auto Differential 25-Hydroxy Vitamin D Glycohemoglobin A1C LIPID PANEL WITH REFLEX TO DIRECT LDL Comprehensive Metabolic Panel/Fasting 2. BMI 27.0-27.9,adult Z68.27 CBC W/Auto Differential 25-Hydroxy Vitamin D Glycohemoglobin A1C LIPID PANEL WITH REFLEX TO DIRECT LDL Comprehensive Metabolic Panel/Fasting 3. Vitamin D deficiency will check a vitamin D level E55.9 CBC W/Auto Differential 25-Hydroxy Vitamin D Glycohemoglobin A1C LIPID PANEL WITH REFLEX TO DIRECT LDL Comprehensive Metabolic Panel/Fasting 4. Hyperglycemia past history of hyperglycemia we will check fasting blood sugar as well as hemoglobin A1c. She is advised to diet exercise lose weight restrict carbohydrates. R73.9 CBC W/Auto Differential 25-Hydroxy Vitamin D Glycohemoglobin A1C LIPID PANEL WITH REFLEX TO DIRECT LDL Comprehensive Metabolic Panel/Fasting 5. High cholesterol, currently taking Crestor 20 mg a day, she is tolerating the medication well we will check a fasting lipid panel as well as liver function test. E78.00 CBC W/Auto Differential 25-Hydroxy Vitamin D Glycohemoglobin A1C Reactive depression, she was given a prescription for Lexapro 10 mg a day #90 with 3 refills she is advised to take 1 pill a day follow-up in 2 weeks let me know how she is doing. LIPID PANEL WITH REFLEX TO DIRECT LDL Comprehensive Metabolic Panel/Fasting Chino Hargrove MD documented [...] mg/dL LABORATORY SERVICES Specimen Performing Organization Address [facility] Phon e Number [facility] [address] [place] [address] SERVICES (CLIA #[id number]) (CL-[id number]) LIPID PANEL WITH REFLEX TO DIRECT LDL (12/15/2017 7:37 PM EDT) Pathologist Sig nature Triglycerides 67 <150 mg/dL [facility] Cholesterol 157 0 - 200 mg/dL [facility] HDL 66 33 - 92 mg/dL [facility] LDL (Calculated) 78 50 - 130 mg/dL [facility] LABORAT[facility] RY SERVICES Specimen Performing Organization Address [facility] Phon e Number [facility] [address] [place] [address] SERVICES (CLIA #[id number]) (CL-[id number]) (ABNORMAL) Glycohemoglobin A1C (12/15/2017 7:37 PM EDT) Hemoglobin A1C 6.0 (H) <5.7 % [facility] Comment: LABORATORY SERVICES <<NOTE>> The [place] Diabetes Association guidelines indicate that an individual is at increased risk for diabetes when Hemo globin A1C levels are 5.7-6.4% or fasting glucose is 100-125 mg/d L, and considered diabetic when Hemoglobin A1C is greater michelle n or equal to 6.5% or fasting glucose is greater than or equal to 12 6 mg/dL. Specimen Performing Organization Address [facility] Phon e Number [facility] [address] [place] [address] SERVICES (CLIA #[id number]) ([id number]) 25-Hydroxy Vitamin D (12/15/2017 7:37 PM EDT) VITAMIN D, 37 [facility] 25-HYDROXY Comment: LABORATORY SERVICES Reference range: 30 ??to ??100 Unit: ng/mL <<NOTE>> Vitamin D deficiency ?<10 ? ng/mL Vitamin D insufficiency ? 10-30 ?? ng/mL Vitamin D sufficiency ? 30-100 ??ng/mL Vitamin D toxicity ?>100 ?ng/mL Test performed at [facility], [address] , [place], [place] ??[address] ? Boyd Campoverde MD ??- Process Plant Operator Specimen Performing Organization Address [facility] Phon e Number [facility] [address] [place] [address] SERVICES (CLIA #[id number]) ([id number]) CBC W/Auto Differential (12/15/2017 7:37 PM EDT) WBC 5.0 4.0 - 10.5 [facility] K/uL [...] [facility] LABORATORY SERVICES Specimen Performing Organization Address [facility] Phon e Number [facility] [address] [place] [address] SERVICES (CLIA #[id number]) (CL-[id number]) documented in this encounter Visit Diagnoses Diagnosis Osteopenia of spine - Primary BMI 27.0-27.9,adult Vitamin D deficiency Hyperglycemia Other abnormal glucose High cholesterol Pure hypercholesterolemia Reactive depression documented in this encounter Care Teams Creative Services Designer Relationship Specialty Start Date End Date Chino Hargrove MD PCP - General Internal Medicine 05/04/16 11/18/21 2 [facility] Fel[facility] [address] [place] [address] documented as of this encounter
--- OUTSIDE RECORDS SUMMARY | 2022-01-04 15:08 | XMS_ITS | Encounter Summary ---
:1945 Author Organization [facility] Address [address] [place] [address] Care Team Providers Name Role Phone Chino Hargrove MD Primary Care Provider Encounter Details Date Type Department Care Team Description 08/14/2018 Hospital Encounter Lab Group Home Chino Hargrove, Encounter for annual physical exam; Services BMI 28.0-28.9,adult; [facility] [address] Vitamin D deficiency; [place] [address] B[address] 2 Osteopenia of spine; [phone] [place] Hyperglycemia; [facility] High cholesterol; [place], [place] Left anter ior fascicular block [id number] Social History Tobacco Use Types Packs/Day Years [...] DAILY PO) BOOSTRIX 5-2.5-18.5 0 05/10/201703/28 injection [place]-3 Fatty Acids (FISH Take by mouth. 0 11/14/2020 OIL PO) rosuvastatin (CRESTOR) TAKE 1 TABLET DAILY 90 tablet 3 03/1203/23/2019 tablet 20 mg documented as of this encounter Plan of Treatment Not on filedocumented as of this encounter Procedures Procedure Name Priority Date/Time Associated Comments Diagnosis CBC W/AUTO DIFFERENTIAL Routine 08/14/2018 7:58 Encounter for Results for this PM EST annual physical procedure ar e in exam the results BMI section. 28.0-28.9,adult Vitamin D deficiency Osteopenia of spine Hyperglycemia High cholesterol Left anterior fascicular block TSH, ULTRASENSITIVE Routine 08/14/2018 7:58 Encounter for Resu lts for this PM EST annual physical procedure ar e in exam the results BMI section. 28.0-28.9,adult Vitamin D deficiency Osteopenia of spine Hyperglycemia High cholesterol Left anterior fascicular block COMPREHENSIVE METABOLIC Routine 08/14/2018 7:58 Encounter for Results for this PANEL/FASTING PM EST annual physical procedure a re in exam the results BMI section. 28.0-28.9,adult Vitamin D deficiency Osteopenia of spine Hyperglycemia High cholesterol Left anterior fascicular block GLYCOHEMOGLOBIN A1C Routine 08/14/2018 7:58 Encounter for Resu lts for this PM EST annual physical procedure ar e in exam the results BMI section. 28.0-28.9,adult Vitamin D deficiency Osteopenia of spine Hyperglycemia High cholesterol Left anterior fascicular block 25-HYDROXY VITAMIN D Routine 08/14/2018 7:58 Encounter for Res ults for this PM EST annual physical procedure ar e in exam the results BMI section. 28.0-28.9,adult Vitamin D deficiency Osteopenia of spine Hyperglycemia High cholesterol Left anterior fascicular block LIPID PANEL WITH REFLEX Routine 08/14/2018 7:58 Encounter for Results for this TO DIRECT LDL PM EST annual physical procedure a re in exam the results BMI section. 28.0-28.9,adult Vitamin D deficiency Osteopenia of spine Hyperglycemia High cholesterol Left anterior fascicular block documented in this encounter Results (ABNORMAL) Comprehensive Metabolic Panel/Fasting (08/14/2018 7:58 PM EST) BUN 24 (H) 7 - 17 mg/dL [...] [facility] Comment: mg/dL LABORATORY SERVICES [place] [address] Hawk Landeros Jr, MD Director AVE [id number] ??CL 0623 Specimen Performing Organization Address City/State/[facility] Code Phon e Number [facility] [address] [place] [address] SERVICES (CLIA #[id number]) (CL-[id number]) LIPID PANEL WITH REFLEX TO DIRECT LDL (08/14/2018 7:58 PM EST) Triglycerides 93 <150 mg/dL [facility] Cholesterol 154 0 - 200 [facility] mg/dL LABORATORY SERVICES HDL 56 33 - 92 [facility] mg/dL LABORATORY SERVICES LDL (Calculated) 79 50 - 130 [facility] Comment: mg/dL LABORATORY SERVICES [place] [address] Hawk Landeros Jr, MD Director AVE [id number] ??CL 0623 Specimen Performing Organization Address City/[facility] Phon e Number [facility] [address] [place] [address] SERVICES (CLIA #[id number]) (CL-[id number]) CBC W/Auto Differential (08/14/2018 7:58 PM EST) [facility] WBC 5.1 4.0 - 10.5 [facility] K/uL [...] [facility]LL[facility]ATIVE Comment: K/uL LABORATORY SERVICES Performed at [facility] [address] [place] [address] Hawk Landeros Jr, MD Director CLIA [id number] ??CL 0623 Specimen Performing Organization Address City/[facility] Phon e Number [facility] [address] [place] [address] SERVICES (CLIA #[id number]) (CL-[id number]) TSH, Ultrasensitive (08/14/2018 7:58 PM EST) [facility] TSH, Ultrasensitive 1.77 0.35 - 5.50 [facility] Comment: uIU/mL LABORATORY SERVICES [place] [address] Hawk Landeros Jr, MD Director SULMAIA [id number] ??CL 0623 Specimen Performing Organization Address [facility] Phon e Number [facility] [address] [place] [address] SERVICES (CLIA #[id number]) (CL-[id number]) (ABNORMAL) Glycohemoglobin A1C (08/14/2018 7:58 PM EST) [facility] Hemoglobin A1C 6.1 (H) <5.7 % [facility] Comment: LABORATORY SERVICES <<NOTE>> The [place] Diabetes Association guidelines indicate that an individual is at increased risk for diabetes when Hemo globin A1C levels are 5.7-6.4% or fasting glucose is 100-125 mg/d L, and considered diabetic when Hemoglobin A1C is greater michelle n or equal to 6.5% or fasting glucose is greater than or equal to 12 6 mg/dL. [place] [address] Hawk Landeros Jr, MD Director CLIA [id number] ??CL 0623 Specimen Performing Organization Address [facility] Phon e Number [facility] [address] [place] [address] SERVICES (CLIA #[id number]) (CL-0623) 25-Hydroxy Vitamin D (08/14/2018 7:58 PM EST) [facility] VITAMIN D, 35 [facility] 25-HYDROXY Comment: LABORATORY SERVICES Reference range: 30 ??to ??100 Unit: ng/mL <<NOTE>> Vitamin D deficiency ?<10 ? ng/mL Vitamin D insufficiency ? 10-30 ?? ng/mL Vitamin D sufficiency ? 30-100 ??ng/mL Vitamin D toxicity ?>100 ?ng/mL Test performed at [facility], [facility] [place], [place] ??[address] ? 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
--- OUTSIDE RECORDS SUMMARY | 2022-01-04 15:08 | XMS_ITS | Encounter Summary ---
:1945 Author Organization [facility] Address [address] [place] [address] Care Team Providers Name Role Phone Chino Hargrove MD Primary Care Provider Reason for Visit Reason Comments Pre-op Exam Encounter Details Date Type Department Care Team Description 05/02/2019 Office Visit Internal Medicine - Chino Hargrove, Oth er specified pre-operative examination (Primary Dx); Lara Hernandez MD Age-related cataract of both eyes, unspe cified age-related cataract type; [address] High cholesterol; Building 2 Bldg 2 Hyperglycemia; [place] BMI 27.0- 27.9,adult [address] [facility] [phone] [place] [address] (Wo rk) Social History Tobacco Use Types [...] Sign Reading Time Taken Comments Blood Pressure 130/72 05/02/2019 3:24 PM EDT Pulse 62 05/02/2019 3:24 PM EDT Temperature 36.6 ??C (97.8 ??F) 05/02/2019 3:24 PM EDT Respiratory Rate 16 05/02/2019 3:24 PM EDT Oxygen Saturation 97% 05/02/2019 3:24 PM EDT Inhaled Oxygen Concentration - - Weight 70.3 kg (155 lb) 05/02/2019 3:24 PM EDT Height 161.3 cm (5' 3.5) 05/02/2019 3:24 PM EDT Body Mass Index 27.03 05/02/2019 3:24 PM EDT documented in this encounter Progress Notes Chino Hargrove MD - 05/02/2019 3:20 PM EDT PREOPERATIVE EVALUATION: HPI: Fidelina Hanson is a 73 y.o. patient who presents to the office for a pre-op exam. Patient would like a flu shot today. ECG was reviewed and discussed with patient. She is generally feeling well, no specific medical complaints. Patient denies any recent hospitalizations, surgeries, medication changes, or new allergies. She had a flu shot [facility] at [facility]. She will discontinue ASA one week prior to surgery. As requested by Dr.Richard Shaista MD PRE-OP DX: Cataract extraction right eye PROPOSED PROCEDURE: Phacoemulsification of the intraocular lens right eye SURGEON: Chino Noonan MD [facility] [place] DATE OF SURGERY: 05/09/19 Past Medical History: Diagnosis Date ??? High cholesterol ??? Left anterior fascicular block ??? Low back pain ??? Metabolic syndrome X ??? Osteopenia ??? Vitamin D deficiency Current Outpatient Medications on File Prior to Visit Medication Sig Dispense Refill ??? aspirin EC [...] VITAMIN DAILY PO) Take by mouth. ??? [place]-3 Fatty Acids (FISH OIL PO) Take by mouth. ??? rosuvastatin (CRESTOR) tablet 20 mg Take 1 tablet (20 mg total) by mouth daily. 90 tablet 3 No current facility-administered medications on file prior to visit. Allergies Allergen Reactions ??? Demerol [Meperidine] Nausea And Vomiting and Rash Medications and allergies reviewed. Review of Systems Constitution: Negative for chills, fever, weight gain and weight loss. PMHx: Vitamin D deficiency Eyes: Positive for blurred vision. Negative for double vision, vision loss in left eye and vision loss in right eye. Bilateral cataracts present Cardiovascular: Negative for chest pain, claudication, dyspnea on exertion, irregular heartbeat, legswelling, near-syncope, orthopnea, palpitations, paroxysmal nocturnal dyspnea and syncope. PMHx: Hypercholesterolemia, Metabolic syndrome X Respiratory: Negative for cough, hemoptysis, shortness of breath and wheezing. Hematologic/Lymphatic: Negative for bleeding problem. Does not bruise/bleed easily. Skin: Negative for rash. Musculoskeletal: Negative for muscle cramps, muscle weakness and myalgias. Gastrointestinal: Negative for abdominal pain, constipation, diarrhea, heartburn, nausea and vomiting. Genitourinary: Negative for frequency and hematuria. Neurological: Negative for aphonia, dizziness, headaches, light-headedness and loss of balance. Psychiatric/Behavioral: Negative for depression and memory loss. Physical Examination: Physical Exam Constitutional: She is oriented to person, place, and time and well-developed, well-nourished, and in no distress. No distress. HENT: Head: Normocephalic and atraumatic. Right Ear: External ear normal. Left Ear: External ear normal. Nose: Nose normal. Mouth/Throat: Oropharynx is clear and moist. No oropharyngeal exudate. Eyes: Conjunctivae and EOM are normal. Pupils are equal, round, and reactive to light. Right eye exhibits no discharge. Left eye exhibits no discharge. No scleral icterus. Cataracts bilaterally Neck: Normal range of motion. Neck supple. [...] nerve deficit. She exhibits normal muscle tone. Gait normal. Coordination normal. Skin: Skin is warm and dry. No rash noted. She is not diaphoretic. No erythema. No pallor. Vitals reviewed. ASSESSMENT: SNOMED CT(R) 1. Other specified pre-operative examination PATIENT ENCOUNTER STATUS ECG 12 lead 2. Age-related cataract of both eyes, unspecified age-related cataract type, patient scheduled for right cataract extraction followed by left cataract extraction. There is no contraindication to surgery. Patient's been told to stop her aspirin 1 week before surgery. BILATERAL AGE-RELATED CATARACT 3. High cholesterol HYPERCHOLESTEROLEMIA 4. Hyperglycemia HYPERGLYCEMIA 5. BMI 27.0-27.9,adult BODY MASS INDEX 25-29 - OVERWEIGHT PLANS: There are no Patient Instructions on file for this visit. Reviewed and/or ordered needed laboratories for surgery. The patient was instructed to stop all medications OTC one week before surgery. ECG was completely normal See preop form for details under media. Deana Mcconnell This office note has been dictated.This dictation was performed using voice recognition software. Word substitution may have occurred and may have gone unnoticed and uncorrected. By signing my name below, I, Deana Mcconnell, attest that this documentation has been prepared under the direction and in the presence of Chino Hargrove MD. Electronically Signed: Deana Mcconnell. 05/02/2019. 9:12 AM. documented in this encounter Plan of Treatment Not on filedocumented as of this encounter Procedures Procedure Name Priority Date/Time Associated Diagnosis Comme nts ECG 12-LEAD Routine 05/02/2019 Other specified Results for this pre-operative examination pr ocedure are in the results section . documented in this encounter Results ECG 12 lead (05/02/2019) Specimen Impressions Chino Hargrove MD - 05/02/2019 4:17 P M EDT Normal sinus rhythm 61 beats a minute, P R interval 182 ms, QRS 100 ms, QT interval 393 ms, 49 degree axis. ??Left axis sandeep ation. ??No acute changes noted. documented in this encounter Visit Diagnoses Diagnosis Other specified pre-operative examinatio n - Primary Age-related cataract of both eyes, unspe cified age-related cataract type High cholesterol Pure hypercholesterolemia Hyperglycemia Other abnormal glucose BMI 27.0-27.9,adult documented in this encounter Care Teams Shed Workers Supervisor Relationship Specialty Start Date End Date Chino Hargrove MD PCP - General Internal Medicine 05/04/16 11/18/21 2 Monica Felipe [address] [address] documented as of this encounter
--- OUTSIDE RECORDS SUMMARY | 2022-01-04 15:08 | XMS_ITS | Encounter Summary ---
:1945 Author Organization Formerly [facility] Address [address] [place] [address] Care Team Providers Name Role Phone Chino Hargrove MD Primary Care Provider Encounter Details Date Type Department Care Team Description 08/05/2020 Travel Social History Tobacco Use Types Packs/Day [...] on filedocumented in this encounter Care Teams Tire Mounter Relationship Specialty Start Date End Date Chino Hargrove MD PCP - General Internal Medicine 05/04/16 11/18/21 2 Monica Felipe [facility] [address] [place] [address] documented as of this encounter
--- OUTSIDE RECORDS SUMMARY | 2022-01-04 15:08 | XMS_ITS | Encounter Summary ---
:1945 Author Organization [facility] Address [address] [place] [address] Care Team Providers Name Role Phone Chino Hargrove MD Primary Care Provider Encounter Details Date Type Department Care Team Description 08/02/2017 Hospital Encounter Lab Pathology Ilianaky, Colon po lyps Services MD Jalen (Primary Dx) [address] [place] [address] [place] [address] [place] [address] Social History Tobacco Use Types Packs/Day Years [...] DAILY PO) BOOSTRIX 5-2.5-18.5 0 05/10/201703/28 injection Canvas-3 Fatty Acids (FISH Take by mouth. 0 11/14/2020 OIL PO) rosuvastatin (CRESTOR) TAKE 1 TABLET DAILY 90 tablet 3 03/1203/31/2018 tablet 20 mg documented as of this encounter Plan of Treatment Not on filedocumented as of this encounter Procedures Procedure Name Priority Date/Time Associated Diagnosis Comme nts SURGICAL PATHOLOGY Routine 08/02/2017 10:47 AM Colon polyps Re sults for this EST procedure are i n the results section. documented in this encounter Results Surgical Pathology (08/02/2017 10:47 AM EST) Pathology Report Patient Name: JAMESON LUCAS RATIVE Comment: LABORATORY SERVICES MR#: [id number] Collected Date: 08/02/2017 Reported Date: 08/04/2017 Specimen #[id number] Final Diagnosis Colon, Transverse Colon Polyp, Biopsy: Fragments of Sessile Serrated Polyp/Adenoma. ?? Source: 1: Colon,polyp Macroscopic Description ?Received in formalin labeled transverse p olyp are five irregular, teixeira soft tissues ranging from le ss than 0.1 cm to 0.3 x 0.2 x 0.1 cm. ??The specimen is submitted in its entirety in 1A. RennyJ:greg 08/03/17 Microscopic Description Slides reviewed Electronically Signed Out Olya Machado M.D. Test Performed by: [address] ??[id number] Robinson Peter M.D. Director Specimen Performing Organization Address City/State/ZIP Code Phon e Number [facility] [address] [place] [id number] SERVICES (CLIA #[id number]) ([id number]) documented in this encounter Visit Diagnoses Diagnosis Colon polyps - Primary Benign neoplasm of colon documented in this encounter Care Teams Helicopter Engineer Relationship Specialty Start Date End Date Chino Hargrove MD PCP - General Internal Medicine 05/04/16 11/18/21 2 Monica Felipe [facility] [address] [place] [address] documented as of this encounter
--- OUTSIDE RECORDS SUMMARY | 2022-01-04 15:09 | XMS_ITS | Encounter Summary ---
:1945 Author Organization [facility] Address [address] [place] [address] Care Team Providers Name Role Phone Chino Hargrove MD Primary Care Provider Reason for Visit Reason Comments Annual Exam Leg Swelling Encounter Details Date Type Department Care Team Description 07/27/2017 Office Visit Internal Medicine - Chino Hargrove, Phy sical exam, annual (Primary Dx); Lara Hernandez MD BMI 27.0-27.9,adult; [address] High cholesterol; Building 2 Bld[address] 2 Hyperglycemia; Lara Hernandez, [place] Left ante rior fascicular block; [address] [address] Metabolic syndrome X; [phone] Osteopenia of spine; [address] Vitamin D deficiency [phone] (Wo rk) Social History Tobacco Use Types [...] Sign Reading Time Taken Comments Blood Pressure 134/78 07/27/2017 8:30 AM EST Pulse 76 07/27/2017 8:30 AM EST Temperature 36.9 ??C (98.4 ??F) 07/27/2017 8:30 AM EST Respiratory Rate 16 07/27/2017 8:30 AM EST Oxygen Saturation 99% 07/27/2017 8:30 AM EST Inhaled Oxygen Concentration - - Weight 70.3 kg (155 lb) 07/27/2017 8:30 AM EST Height 160 cm (5' 3) 07/27/2017 8:30 AM EST Body Mass Index 27.46 07/27/2017 8:30 AM EST documented in this encounter Progress Notes Chino Hargrove MD - 07/27/2017 8:15 AM EST INTERNAL MEDICINE OFFICE NOTE CHIEF COMPLAINT: Chief Complaint Patient presents with ??? Annual Exam ??? Leg Swelling ?? HISTORY OF PRESENT ILLNESS: Fidelina Hanson is a 72 y.o. female here today complete physical examination PAST MEDICAL HISTORY: Past Medical History: Diagnosis [...] Take 1,000 Units by mouth daily. ??? Multiple Vitamin (MULTI VITAMIN DAILY PO) Take by mouth. ??? Dublin-3 Fatty Acids (FISH OIL PO) Take by [...] sores, nosebleeds, postnasal drip, rhinorrhea, sinus pressure, sneezing, sore throat, tinnitus, trouble swallowing and voice change. Eyes: Negative for pain, discharge, redness, itching and visual disturbance. Glasses Respiratory: Negative for apnea, cough, choking, chest tightness, shortness of breath, wheezing and stridor. Cardiovascular: Positive for leg swelling. Negative for chest pain and palpitations. Gastrointestinal: Negative for abdominal distention, abdominal pain, anal bleeding, blood in stool, constipation, diarrhea, nausea, rectal pain and vomiting. Endocrine: Negative for cold intolerance, heat intolerance, polydipsia, polyphagia and polyuria. Genitourinary: Negative for decreased urine volume, difficulty urinating, dyspareunia, dysuria, enuresis, flank pain, frequency, genital sores, hematuria, menstrual problem, pelvic pain, urgency, vaginal bleeding, vaginal discharge and vaginal pain. Musculoskeletal: Positive for arthralgias. Negative for back pain, gait problem, joint swelling, myalgias, [...] is not nervous/anxious and is not hyperactive. FALL RISK: DEPRESSION SCREENING: Clinical Depression Screening 03/16/2017 Depression screening performed today? - Little interest or pleasure in doing things 0 Feeling down, depressed or hopeless 1 Initial Depression Screening Score 1 Positive or Negative for depression? negative Total Score Depression Severity 1 VITALS SIGNS: Vitals: 07/27/17 0830 BP: 134/78 Pulse: 76 Resp: 16 Temp: 98.4 ??F (36.9 ??C) TempSrc: Oral SpO2: 99% Weight: 70.3 kg (155 lb) Height: 5' 3 (1.6 m) Body mass index is 27.46 kg/(m^2). ? Physical Exam Constitutional: She is oriented [...] Musculoskeletal: Normal range of motion. She exhibits edema (1+ edema both lower extremities). She exhibits no tenderness or deformity. Changes of osteoarthritis both knees and hands, varicose veins both lower extremities Lymphadenopathy: She has [...] is normal. Judgment and thought content normal. Nursing note and vitals reviewed. ? LABS: Office Visit on 07/27/2017 Component Date Value Ref Range Status ??? POCT Color, Urine 07/27/2017 Dark Yellow Final ??? POCT Clarity, Urine 07/27/2017 Clear Final ??? POCT Glucose, Urine 07/27/2017 Negative Negative Final ??? POCT Urine Bilirubin 07/27/2017 Negative Final ??? POCT Ketones, Urine 07/27/2017 Negative Negative Final ??? POCT Specfic [place], Urine 07/27/2017 1.015 1.005 - 1.030 Final ??? POCT Blood, Urine 07/27/2017 Negative Negative Final ??? POCT Urine pH 07/27/2017 5.0 4.5 - 8.0 Final ? ? POCT Protein, Urine 07/27/2017 Negative Negative, Trace, 15 mg/dL, 30 mg/dL, 100 mg/dL, >=300mg/dL, >=2000 mg/dL Final ??? POCT Urine Urobilinogen 07/27/2017 Normal Final ??? POCT Nitrite, Urine 07/27/2017 Negative Negative Final ??? POCT Leukocytes, Urine 07/27/2017 Negative Negative Final ? ASSESSMENT/PLAN: Encounter Diagnosis: SNOMED CT(R) 1. Physical exam, annual fasting blood work performed today we will follow-up once results return. Patient is scheduled for a colonoscopy next week, she is up-to-date with her mammogram. PATIENT ENCOUNTER STATUS 2. BMI 27.0-27.9,adult BODY MASS INDEX 25-29 - OVERWEIGHT 3. High cholesterol currently on Crestor 20 mg a day, tolerating the medication well without any side effects. Will check a fasting lipid panel as well as liver function test. HYPERCHOLESTEROLEMIA 4. Hyperglycemia past history of elevated blood sugar she is advised to diet exercise lose weight restrict carbohydrates. We will check a hemoglobin A1c as well as fasting blood sugar. HYPERGLYCEMIA 5. Left anterior fascicular block LEFT ANTERIOR FASCICULAR BLOCK 6. Metabolic syndrome X METABOLIC SYNDROME X 7. Osteopenia of spine and on vitamin D supplementation we will check a vitamin D level OSTEOPENIA 8. Vitamin D deficiency VITAMIN D DEFICIENCY ?? Orders Placed This Encounter Procedures ??? TSH, Ultrasensitive ??? COMPREHENSIVE METABOLIC PANEL RANDOM/FASTING ??? LIPID PANEL WITH REFLEX TO DIRECT LDL ??? CBC W/Auto Differential ??? 25-Hydroxy Vitamin D ??? HEMOGLOBIN A1c WITH eAG ??? Hepatitis C Virus Antibody/Screen ??? POCT Urinalysis ??? ECG 12 lead ? There are no Patient Instructions on file for this visit. ?? I spent 60 minutes with the patient today, greater than 50% counseling. Chino Hargrove MD documented in this encounter Plan of Treatment Not on filedocumented as of this encounter Procedures Procedure Name Priority Date/Time Associated Comments Diagnosis HEPATITIS C VIRUS Routine 07/27/2017 9:02 AM Physical exam, Re sults for this ANTIBODY/SCREEN EST annual procedure are in BMI the results 27.0-27.9,adult section. High cholesterol Hyperglycemia Left anterior fascicular block Metabolic syndrome X Osteopenia of spine Vitamin D deficiency COMPREHENSIVE METABOLIC Routine 07/27/2017 9:02 AM Physical ex am, Results for this PANEL RANDOM/FASTING EST annual procedure are in BMI the results 27.0-27.9,adult section. High cholesterol Hyperglycemia Left anterior fascicular block Metabolic syndrome X Osteopenia of spine Vitamin D deficiency CBC W/AUTO DIFFERENTIAL Routine 07/27/2017 9:02 AM Physical ex am, Results for this EST annual procedure are in BMI the results 27.0-27.9,adult section. High cholesterol Hyperglycemia Left anterior fascicular block Metabolic syndrome X Osteopenia of spine Vitamin D deficiency TSH, ULTRASENSITIVE Routine 07/27/2017 9:02 AM Physical exam, Results for this EST annual procedure are in BMI the results 27.0-27.9,adult section. High cholesterol Hyperglycemia Left anterior fascicular block Metabolic syndrome X Osteopenia of spine Vitamin D deficiency 25-HYDROXY VITAMIN D Routine 07/27/2017 9:02 AM Physical exam, Results for this EST annual procedure are in BMI the results 27.0-27.9,adult section. High cholesterol Hyperglycemia Left anterior fascicular block Metabolic syndrome X Osteopenia of spine Vitamin D deficiency LIPID PANEL WITH REFLEX Routine 07/27/2017 9:02 AM Physical ex am, Results for this TO DIRECT LDL EST annual procedure are in BMI the results 27.0-27.9,adult section. High cholesterol Hyperglycemia Left anterior fascicular block Metabolic syndrome X Osteopenia of spine Vitamin D deficiency HEMOGLOBIN A1C WITH EAG Routine 07/27/2017 9:02 AM Physical ex am, Results for this EST annual procedure are in BMI the results 27.0-27.9,adult section. High cholesterol Hyperglycemia Left anterior fascicular block Metabolic syndrome X Osteopenia of spine Vitamin D deficiency POCT URINALYSIS (99409) Routine 07/27/2017 Physical exam, Re sults for this annual procedure are i n the results section. ECG 12-LEAD Routine 07/27/2017 Physical exam, Results for t his annual procedure are i n the results section. documented in this encounter Results Hepatitis C Virus Antibody/Screen (07/27/2017 9:02 AM EST) HEPATITIS C NON-REACTIVE NON-REACTIVE [facility] Signal to Cutoff 0.01 <1.00 [employer] Specimen Resulting Agency Comment Performing Organization Information: ?Site ID: [id number] ?Name: [facility] ?Address: [address] [place] [address], [place] [address] ?Director: Colin Belcher MD Performing Organization Address City/State/ZIP Code Phon e Number [employer] Private (ABNORMAL) HEMOGLOBIN A1c WITH eAG (07/27/2017 9:02 AM EST) Hemoglobin A1c 5.7 (H) <5.7 % of [facility] Comment: total Hgb [facility] For someone [...] A1c for diagnosis of diabetes for children. eAG (mg/dL) 117 (calc) [employer] eAG (mmol/L) 6.5 (calc) [employer] Specimen Resulting Agency Comment Performing Organization Information: ?Site ID: [id number] ?Name: [facility] ?Address: [address] [place] [address], [place] [address] ?Director: Colin Belcher MD Performing Organization Address [facility] Phon e Number [facility] 25-Hydroxy Vitamin D (07/27/2017 9:02 AM EST) Pathologist [facility] Vitamin D,25-OH, 33 30 - 100 [facility] Total Comment: [...] D, (D2,D3), LC/MS/MS is recommended: order code 05885 (patients >2yrs). For more information on this test, go to: http://education.Vendormate/faq/ETI220 (This link is being provided for informational/educational purposes only.) Specimen Resulting Agency Comment Performing Organization Information: ?Site ID: [id number] ?Name: [facility] [employer] ?Address: [address] [place] [address] [place] [address] ?Director: Colin Belcher MD Performing Organization Address [facility] Phon e Number [facility] CBC W/Auto Differential (07/27/2017 9:02 AM EST) White Blood Cell 5.3 3.8 - 10.8 [facility] Count Thousand/[facility]L [facility] Red Blood Cell Count 4.66 3.80 - 5.10 [facility] Million/uL [facility] Hemoglobin 14.4 11.7 - 15.5 [facility] g/dL LLC Hematocrit 43.4 35.0 - 45.0 [facility] % LLC MCV 93.3 80.0 - 100.0 [facility] fL LLC MCH 30.9 27.0 - 33.0 [facility] pg LLC MCHC 33.2 32.0 - 36.0 [facility] g/dL LLC RDW 12.8 11.0 - 15.0 [facility] % LLC Platelet Count 236 140 - 400 [facility] Thousand/uL LLC MPV 8.2 7.5 - 12.5 [facility] fL LLC Absolute Neutrophils 2,989 1,500 - [facility] 7,800 LLC cells/uL Absolute Band CANCELEDComment: 0 - 750 [facility] Neutrophils Result canceled cells/uL LLC by the ancillary Absolute CANCELEDComment: 0 cells/uL [facility] Metamyelocytes Result canceled LLC by the ancillary Absolute Myeloctytes CANCELEDComment: 0 cells/uL [facility] S Result canceled LLC by the ancillary Absolute CANCELEDComment: 0 cells/uL [facility] Promyelocytes Result canceled LLC by the ancillary Absolute Lymphocytes 1,723 850 - 3,900 [facility] cells/uL LLC Absolute Monocytes 429 200 - 950 [facility] cells/uL LLC Absolute Eosinophils 106 15 - 500 [facility] cells/uL LLC Absolute Basophils 53 0 - 200 [facility] cells/uL LLC Absolute Blasts CANCELEDComment: 0 cells/uL [facility] Result canceled LLC by the ancillary Absolute Nucleated CANCELEDComment: 0 cells/uL [facility] RBC Result canceled LLC by the ancillary Neutrophils 56.4 % [facility] LLC Band Neutrophils CANCELEDComment: % [facility] Result canceled LLC by the ancillary Metamyelocytes CANCELEDComment: % [facility] Result canceled LLC by the ancillary Myelocytes CANCELEDComment: % [facility] Result canceled LLC by the ancillary Promyelocytes CANCELEDComment: % [facility] Result canceled LLC by the ancillary Lymphocytes 32.5 % [facility] LLC Reactive Lymphocytes CANCELEDComment: 0 - 10 % [facility] Result canceled LLC by the ancillary Monocytes 8.1 % [facility] LLC Eosinophils 2.0 % [facility] Basophils 1.0 % [facility] LLC Blasts CANCELEDComment: % [facility] Result canceled LLC by the ancillary Nucleated RBC CANCELEDComment: 0 /100 WBC [facility] Result canceled LLC by the ancillary Comment(s) CANCELEDComment: [facility] Result canceled LLC by the ancillary Specimen Resulting Agency Comment Performing Organization Information: ?Site ID: [id number] ?Name: [facility] ?Address: [address] [place] [id number] ?Director: Colin Belcher MD Performing Organization Address [facility] Phon e Number [employer] LIPID PANEL WITH REFLEX TO DIRECT LDL (07/27/2017 9:02 AM EST) Cholesterol, Total 168 <200 mg/dL [employer] HDL Cholesterol 67 >50 mg/dL [facility] Triglycerides 79 <150 mg/dL [employer] LDL-Cholesterol 84 mg/dL (calc) [facility] Comment: LLC Reference range: <100 Desirable range <100 mg/dL for patients with CHD or diabetes and <70 mg/dL for diabetic patients with known heart disease. LDL-C is now calculated using the Efrain-Prince calculation, which is a validated novel method providi ng better accuracy than the Friedewald equation in the estimation of LDL-C. Efrain NICOLE et al. GEN. 2013;310(19): 8740-4267 (http://education.KelDoc.ev3, Inc/faq/CLP272) Chol/HDLC Ratio 2.5 <5.0 (calc) [employer] Non HDL Cholesterol 101 <130 mg/dL [facility] Comment: (calc) LLC For patients with diabetes plus 1 major ASCVD risk factor, treating to a non-HDL-C goal of <100 mg/dL (LDL-C of <70 mg/dL) is considered a therapeutic option. Specimen Resulting Agency Comment Performing Organization Information: ?Site ID: [id number] ?Name: [facility] ?Address: [address] [place] [phone] ?Director: Colin Belcher MD Performing Organization Address [facility] Phon e Number [employer] COMPREHENSIVE METABOLIC PANEL RANDOM/FASTING (07/27/2017 9:02 AM EST) Glucose 97 65 - 99 [facility] Comment: mg/dL LLC ? Fasting reference interval Urea Nitrogen 23 7 - 25 mg/dL [facility] (BUN[facility] Creatinine, Serum 0.81 0.60 - 0.93 [facility] Comment: mg/dL LLC For patients >49 years of age, the reference limit for Creatinine is approximately 13% higher for people identified as -Iranian. eGFR Non-Afr. 72 > OR = 60 [facility] Iranian mL/min/1.73m LLC 2 eGFR 84 > OR = 60 [facility] Iranian mL/min/1.73m LLC 2 BUN/Creatinine NOT APPLICABLE 6 - 22 [facility] Ratio (calc) LLC Sodium 141 135 - 146 [facility] mmol/L LLC POTASSIUM 4.0 3.5 - 5.3 [facility] mmol/L LLC Chloride 105 98 - 110 [facility] mmol/L LLC Carbon Dioxide 23 20 - 31 [facility] mmol/L LLC Calcium 10.0 8.6 - 10.4 [facility] mg/dL LLC PROTEIN, TOTAL 7.5 6.1 - 8.1 [facility] g/dL LLC ALBUMIN 4.6 3.6 - 5.1 [facility] g/dL LLC GLOBULIN 2.9 1.9 - 3.7 [facility] g/dL (calc) LLC Albumin/Globulin 1.6 1.0 - 2.5 [facility] Ratio (calc) LLC Bilirubin, Total 0.7 0.2 - 1.2 [facility] mg/dL LLC ALKALINE 50 33 - 130 U/L [facility] PHOSPHATASE [facility] AST 22 10 - 35 U/L [facility] ALT 20 6 - 29 U/L [facility] Specimen Resulting Agency Comment Performing Organization Information: ?Site ID: [id number] ?Name: [facility] [employer] ?Address: [address] [place] [phone] ?Director: Colin Belcher MD Performing Organization Address City/State/ZIP Code Phon e Number [employer] [facility] TSH, Ultrasensitive (07/27/2017 9:02 AM EST) Pathologist [facility] TSH 1.01 0.40 - 4.50 mIU/L [employer] Specimen Resulting Agency Comment Performing Organization Information: ?Site ID: [id number] ?Name: [facility] ?Address: [address] [place] [address] [place] [phone] ?Director: Colin Belcher MD Performing Organization Address City/State/ZIP Code Phon e Number [employer] POCT Urinalysis (07/27/2017) POCT Color, Urine Dark Yellow POCT Clarity, Urine Clear POCT Glucose, Urine Negative Negative POCT Urine Bilirubin Negative POCT Ketones, Urine Negative Negative POCT Specfic [place], 1.015 1.005 - 1.030 Urine POCT Blood, Urine Negative Negative POCT Urine pH 5.0 4.5 - 8.0 POCT Protein, Urine Negative Negative, Trace, 15 mg/dL, 30 mg/dL, 100 mg/dL, >=300 mg/dL, >=2000 mg/dL POCT Urine Normal Urobilinogen POCT Nitrite, Urine Negative Negative POCT Leukocytes, Urine Negative Negative QC IN LAST 24H? MULTISTIX 8 SG LOT# MULTISTIX 8 SG EXP DATE Specimen ECG 12 lead (07/27/2017) Specimen Impressions Chino Hargrove MD - 07/27/2017 10:05 AM EST Normal sinus rhythm 68 beats a minute, P R interval 168 ms, QRS 98 ms, QT interval 419 ms, left axis deviation, left anterior h emiblock, no acute changes noted on EKG. documented in this encounter Visit Diagnoses Diagnosis Physical exam, annual - Primary BMI 27.0-27.9,adult High cholesterol Pure hypercholesterolemia Hyperglycemia Other abnormal glucose Left anterior fascicular block Left bundle branch hemiblock Metabolic syndrome X Dysmetabolic Syndrome X Osteopenia of spine Vitamin D deficiency documented in this encounter Care Teams Skin Installer Relationship Specialty Start Date End Date Chino Hargrove MD PCP - General Internal Medicine 05/04/16 11/18/21 2 Monica Felipe [facility] 2 [place] [address] documented as of this encounter
--- OUTSIDE RECORDS SUMMARY | 2022-01-04 15:09 | XMS_ITS | Encounter Summary ---
:1945 Author Organization [employer] [facility] Address [address] [place] [address] Care Team Providers Name Role Phone Chino Hargrove MD Primary Care Provider Encounter Details Date Type Department Care Team Description 03/16/2017 Office Visit Internal Medicine - Chino Hargrove, Met abolic syndrome X (Primary Dx); Lara Hernandez MD High cholesterol; [address] Hyperglycemia; Building 2 Bldg 2 Osteopenia; [place] Vitamin D deficiency [id number] [facility] [phone] [place] [address] (Wo rk) Social History Tobacco Use Types Packs/Day Years Used Date Never Smoker Alcohol Use Standard Drinks/Week Comments Yes 0 [...] Sign Reading Time Taken Comments Blood Pressure 122/70 03/16/2017 7:59 AM EDT Pulse 74 03/16/2017 7:59 AM EDT Temperature 36.8 ??C (98.2 ??F) 03/16/2017 7:59 AM EDT Respiratory Rate 16 03/16/2017 7:59 AM EDT Oxygen Saturation - - Inhaled Oxygen Concentration - - Weight 69.4 kg (153 lb) 03/16/2017 7:59 AM EDT Height 157.5 cm (5' 2) 03/16/2017 7:59 AM EDT Body Mass Index 27.98 03/16/2017 7:59 AM EDT documented in this encounter Progress Notes Chino Hargrove MD - 03/16/2017 8:00 AM EDT Subjective: Patient ID: Fidelina Hanson is a 71 y.o. female. Office visit and fasting blood work 4 month follow-up HPI patient is a 71-year-old female with a history of metabolic syndrome, hypercholesterolemia, hyperglycemia, osteopenia, vitamin D deficiency. Patient generally feeling well no specific complaints. She is compliant with the medication, she is not experiencing any side effects from medications. Review of Systems Constitutional: Negative. HENT: Negative. Eyes: Negative. Respiratory: Negative. Cardiovascular: Negative. Gastrointestinal: Negative. Genitourinary: Negative. Musculoskeletal: Negative. Neurological: Negative. Objective: Vitals: 03/16/17 0759 BP: 122/70 BP Location: Right arm Patient Position: Sitting Cuff Size: Adult Regular Pulse: 74 Resp: 16 Temp: 98.2 ??F (36.8 ??C) TempSrc: Tympanic Weight: 69.4 kg (153 lb) Height: 5' 2 (1.575 m) Body mass index is 27.98 kg/(m^2). Body surface area is 1.74 meters squared. Physical Exam Constitutional: She is oriented to [...] She exhibits no edema, tenderness or deformity. Superficial varicose veins both lower extremities Lymphadenopathy: She has no cervical adenopathy. Neurological: She is alert and oriented to person, place, and time. She has normal reflexes. She displays normal reflexes. She exhibits normal muscle tone. Coordination normal. Skin: Skin is warm and dry. She is not diaphoretic. Vitals reviewed. Assessment/Plan: Problem List Items Addressed This Visit Vitamin D deficiency currently on vitamin D supplementation we will check a vitamin D level Relevant Orders COMPREHENSIVE METABOLIC PANEL RANDOM/FASTING LIPID PANEL WITH REFLEX TO DIRECT LDL CBC W/Auto Differential 25-Hydroxy Vitamin D HEMOGLOBIN A1c WITH eAG High cholesterol she is on Crestor 20 mg a day, tolerating the medication well. Will check fasting lipid panel as well as liver function test. She is advised to continue with diet exercise weight reduction. Relevant Orders COMPREHENSIVE METABOLIC PANEL RANDOM/FASTING LIPID PANEL WITH REFLEX TO DIRECT LDL CBC W/Auto Differential 25-Hydroxy Vitamin D HEMOGLOBIN A1c WITH eAG Metabolic syndrome X - Primary patient is advised to diet exercise lose weight restrict carbohydrates. Suggested weight watchers. We will check hemoglobin A1c, fasting blood sugar Relevant Orders POCT Urinalysis (Completed) COMPREHENSIVE METABOLIC PANEL RANDOM/FASTING LIPID PANEL WITH REFLEX TO DIRECT LDL CBC W/Auto Differential 25-Hydroxy Vitamin D HEMOGLOBIN A1c WITH eAG Osteopenia check a vitamin D level currently on vitamin D supplementation Relevant Orders COMPREHENSIVE METABOLIC PANEL RANDOM/FASTING LIPID PANEL WITH REFLEX TO DIRECT LDL CBC W/Auto Differential 25-Hydroxy Vitamin D HEMOGLOBIN A1c WITH eAG Hyperglycemia Relevant Orders COMPREHENSIVE METABOLIC PANEL RANDOM/FASTING LIPID PANEL WITH REFLEX TO DIRECT LDL CBC W/Auto Differential 25-Hydroxy Vitamin D HEMOGLOBIN A1c WITH eAG Chino Hargrove MD documented in this encounter Plan of Treatment Not on filedocumented as of this encounter Procedures Procedure Name Priority Date/Time Associated Comments Diagnosis COMPREHENSIVE Routine 03/16/2017 8:18 AM Metabolic syndrome Re sults for this METABOLIC PANEL EDT X procedure are in RANDOM/FASTING High cholesterol the results Hyperglycemia section. Osteopenia Vitamin D deficiency CBC W/AUTO Routine 03/16/2017 8:18 AM Metabolic syndrome Res ults for this DIFFERENTIAL EDT X procedure are in High cholesterol the results Hyperglycemia section. Osteopenia Vitamin D deficiency 25-HYDROXY VITAMIN D Routine 03/16/2017 8:18 AM Metabolic synd kj Results for this EDT X procedure are in High cholesterol the results Hyperglycemia section. Osteopenia Vitamin D deficiency LIPID PANEL WITH Routine 03/16/2017 8:18 AM Metabolic syndrome Results for this REFLEX TO DIRECT LDL EDT X procedure are in High cholesterol the results Hyperglycemia section. Osteopenia Vitamin D deficiency HEMOGLOBIN A1C WITH Routine 03/16/2017 8:18 AM Metabolic syndr ome Results for this EAG EDT X procedure are in High cholesterol the results Hyperglycemia section. Osteopenia Vitamin D deficiency POCT URINALYSIS Routine 03/16/2017 Metabolic syndrome Result s for this (17915) X procedure are i n the results section. documented in this encounter Results (ABNORMAL) HEMOGLOBIN A1c WITH eAG (03/16/2017 8:18 AM EDT) Hemoglobin A1c 5.8 (H) <5.7 % of [facility] Comment: total [facility] For someone without [...] diagnosis of diabetes for children. eAG (mg/dL) 120 (calc) [employer] eAG (mmol/L) 6.6 (calc) [employer] Specimen Resulting Agency Comment Performing Organization Information: ?Site ID: [id number] ?Name: [facility] ?Address: [address] [place] [address], [place] [address] ?Director: Colin Belcher MD Performing Organization Address City/State/ZIP Code Phon e Number [facility] 25-Hydroxy Vitamin D (03/16/2017 8:18 AM EDT) Vitamin D,25-OH, 37 30 - 100 [facility] Total Comment: [...] D, (D2,D3), LC/MS/MS is recommended: order code 87648 (patients >2yrs). For more information on this test, go to: http://education.Crashlytics/faq/ZKN293 (This link is being provided for informational/educational purposes only.) Specimen Resulting Agency Comment Performing Organization Information: ?Site ID: [id number] ?Name: [facility] ?Address: [address] [place] [address], [place] [address] ?Director: Colin Belcher MD Performing Organization Address City/State/ZIP Code Phon e Number [employer] [facility] CBC W/Auto Differential (03/16/2017 8:18 AM EDT) White Blood Cell 5.0 3.8 - 10.8 [facility] Count Thousand[facility] Red Blood Cell Count 4.41 3.80 - 5.10 [facility] Million/[facility]L [facility] Hemoglobin 13.6 11.7 - 15.5 [facility] g/dL LLC Hematocrit 41.5 35.0 - 45.0 [facility] % LLC MCV 94.0 80.0 - 100.0 [facility] fL LLC MCH 30.8 27.0 - 33.0 [facility] pg LLC MCHC 32.7 32.0 - 36.0 [facility] g/dL LLC RDW 13.0 11.0 - 15.0 [facility] % LLC Platelet Count 227 140 - 400 [facility] Thousand/[facility]L [facility] MPV 8.0 7.5 - 12.5 [facility] fL LLC Absolute Neutrophils 2,770 1,500 - [facility] 7,800 LLC cells/uL [...] canceled LLC by the ancillary Absolute Lymphocytes 1,555 850 - 3,900 [facility] cells/uL [facility] Absolute Monocytes 450 200 - 950 [facility] cells/uL [facility] Absolute Eosinophils 180 15 - 500 [facility] cells/uL [facility] Absolute Basophils 45 0 - 200 [facility] cells/uL [facility] Absolute Blasts CANCELEDComment: 0 cells/uL [facility] Result canceled LLC by the ancillary Absolute Nucleated CANCELEDComment: 0 cells/uL [facility] RBC Result canceled LLC by the ancillary Neutrophils 55.4 % [facility] LLC Band Neutrophils CANCELEDComment: % [facility] Result canceled LLC by the ancillary Metamyelocytes CANCELEDComment: % [facility] Result canceled LLC by the ancillary Myelocytes CANCELEDComment: % [facility] Result canceled LLC by the ancillary Promyelocytes CANCELEDComment: % [facility] Result canceled LLC by the ancillary Lymphocytes 31.1 % [facility] LLC Reactive Lymphocytes CANCELEDComment: 0 - 10 % [facility] S Result canceled LLC by the ancillary Monocytes 9.0 % [facility] LLC Eosinophils 3.6 % [facility] LLC Basophils 0.9 % [facility] LLC Blasts CANCELEDComment: % [facility] Result canceled LLC by the ancillary Nucleated RBC CANCELEDComment: 0 /100 WBC [facility] Result canceled LLC by the ancillary Comment(s) CANCELEDComment: [facility] Result canceled LLC by the ancillary Specimen Resulting Agency Comment Performing Organization Information: ?Site ID: [id number] ?Name: [facility] ?Address: [address] [place] [address], [place] [address] ?Director: Colin Belcher MD Performing Organization Address [facility] Phon e Number [facility] LIPID PANEL WITH REFLEX TO DIRECT LDL (03/16/2017 8:18 AM EDT) Cholesterol, Total 159 <200 mg/dL [facility] HDL Cholesterol 61 >50 mg/dL [facility] Triglycerides 57 <150 mg/dL [facility] LDL-Cholesterol 85 mg/dL (calc) [facility] Comment: LLC Reference range: <100 Desirable range <100 mg/dL for patients with CHD or diabetes and <70 mg/dL for diabetic patients with known heart disease. The [facility] calculation is a validated novel method that provides better accuracy than the Friedewald equation in the estimation of LDL-C, particularly when TG levels are 150-400 mg/dL and LDL-C levels are lower than 70 mg/dL. Reference: ??Efrain NICOLE et al. Comparison of a Novel Method vs the Friedewald Equation for Estimating Low-Density Lipoprotein Cholesterol Levels From the Standard Lipid Profile. GEN. 2013;310(19): 4479-1410. For additional information, please refer to http://education.Quantapore/faq/IAD095 (This link is being provided for informational/ educational purposes only.) Chol/HDLC Ratio 2.6 <5.0 (calc) [employer] Non HDL Cholesterol 98 <130 mg/dL [facility] Comment: (calc) LLC For patients with diabetes plus 1 major ASCVD risk factor, treating to a non-HDL-C goal of <100 mg/dL (LDL-C of <70 mg/dL) is considered a therapeutic option. Specimen Resulting Agency Comment Performing Organization Information: ?Site ID: [id number] ?Name: [email or web address] ?Address: [address] [place] [address], [place] [address] ?Director: Colin Belcher MD Performing Organization Address City/[facility] Phon e Number [facility] (ABNORMAL) COMPREHENSIVE METABOLIC PANEL RANDOM/FASTING (03/16/2017 8:18 AM EDT) Glucose 109 (H) 65 - 99 [facility] Comment: mg/dL LLC ? Fasting reference interval For someone without known diabetes, a glucose value between 100 and 125 mg/dL is consistent with prediabetes and should be confirmed with a follow-up test. Urea Nitrogen 27 (H) 7 - 25 mg/dL [facility] (BUN[facility] Creatinine, Serum 0.82 0.60 - 0.93 [facility] Comment: mg/dL LLC For patients >49 years of age, the reference limit for Creatinine is approximately 13% higher for people identified as -[place]. eGFR Non-Afr. 71 > OR = 60 [facility] [place] mL/min/1.73m LLC 2 eGFR 83 > OR = 60 [facility] [place] mL/min/1.73m LLC 2 BUN/Creatinine 33 (H) 6 - 22 [facility] Ratio (calc) LLC Sodium 140 135 - 146 [facility] mmol/L LLC POTASSIUM 4.1 3.5 - 5.3 [facility] mmol/L LLC Chloride 106 98 - 110 [facility] mmol/L LLC Carbon Dioxide 25 20 - 31 [facility] mmol/L LLC Calcium 9.4 8.6 - 10.4 [facility] mg/dL LLC PROTEIN, TOTAL 6.8 6.1 - 8.1 [facility] g/dL LLC ALBUMIN 4.2 3.6 - 5.1 [facility] g/dL LLC GLOBULIN 2.6 1.9 - 3.7 [facility] g/dL (calc) LLC Albumin/Globulin 1.6 1.0 - 2.5 [facility] Ratio (calc) LLC Bilirubin, Total 0.6 0.2 - 1.2 [facility] mg/dL LLC ALKALINE 55 33 - 130 U/L [facility] PHOSPHATASE LLC AST 19 10 - 35 U/L [facility] ALT 18 6 - 29 U/L [facility] Specimen Resulting Agency Comment Performing Organization Information: ?Site ID: [id number] ?Name: [email or web address] ?Address: [address] [place] [address], [place] [address] ?Director: Colin Belcher MD Performing Organization Address City/State/ZIP Code Phon e Number [facility] (ABNORMAL) POCT Urinalysis (03/16/2017) POCT Color, Urine Other (comment)Comment : yellow POCT Clarity, Urine Clear POCT Glucose, Urine Negative Negative POCT Urine Bilirubin Negative POCT Ketones, Urine Negative Negative POCT Specfic [place], >= 1.030 (A) 1.005 - 1.030 Urine POCT Blood, Urine Negative Negative POCT Urine pH 6.0 4.5 - 8.0 POCT Protein, Urine Negative Negative, Trace, 15 mg/dL, 30 mg/dL, 100 mg/dL, >=300 mg/dL, >=2000 mg/dL POCT Urine Normal Urobilinogen POCT Nitrite, Urine Negative Negative POCT Leukocytes, Negative Negative Urine QC IN LAST 24H? MULTISTIX 8 SG LOT# MULTISTIX 8 SG EXP DATE Specimen documented in this encounter Visit Diagnoses Diagnosis Metabolic syndrome X - Primary Dysmetabolic Syndrome X High cholesterol Pure hypercholesterolemia Hyperglycemia Other abnormal glucose Osteopenia Disorder of bone and cartilage, unspecif ied Vitamin D deficiency documented in this encounter Care Teams Health And Wellness Sales Consultant Relationship Specialty Start Date End Date Chino Hargrove MD PCP - General Internal Medicine 05/04/16 11/18/21 2 Monica Felipe [address] [address] documented as of this encounter
--- OUTSIDE RECORDS SUMMARY | 2022-01-04 15:09 | XMS_ITS | Encounter Summary ---
:1945 Author Organization [facility] Address [address] [place] [address] Care Team Providers Name Role Phone Chino Hargrove MD Primary Care Provider Reason for Referral Preauthorization (Routine) - Closed Specialty Diagnoses / Procedures Referred By Contact Refer red To Contact Diagnoses Menopause Claudette Read MD [facility] Procedures Bone Density Study [address] [place] [address] Referral ID Status Reason Start Date Expiration Date Visits Requ ested Visits Authorized [id number] Closed 05/03/2016 10/30/2016 1 1 Reason for Visit Preauthorization (Routine) - Closed Specialty Diagnoses / Procedures Referred By Contact Refer red To Contact Diagnoses Menopause Claudette Read MD [facility] Procedures Bone Density Study [address] [place] [address] Referral ID Status Reason Start Date Expiration Date Visits Requ ested Visits Authorized [id number] Closed 05/03/2016 10/30/2016 1 1 Encounter Details Date Type Department Care Team Description 05/05/2016 Hospital Encounter [facility] Mammogram ENF Menopause [address] [place] [address] Social History Tobacco Use Types Packs/Day Years Used Date Never Assessed Sex Assigned at Date Recorded Female 03/28/2019 8:22 AM EDT Job Start Date Occupation Industry Not on file Not on file Not on file documented as of this encounter Medications at Time of Discharge Medication Sig Dispensed Refills Start Date End Date melatonin 3 MG TABS melatonin 3 mg tablet 0 11/24 tablet TAKE BY ORAL ROUTE documented as of this encounter Plan of Treatment Not on filedocumented as of this encounter Procedures Procedure Name Priority Date/Time Associated Diagnosis Comme nts BONE DENSITY STUDY Routine 05/05/2016 9:36 AM Menopause Res ults for this EDT procedure are i n the results section. documented in this encounter Results Bone Density Study (05/05/2016 9:36 AM EDT) Anatomical Region Laterality Modality Hip, Spine, Pelvis Radiographic Imaging Specimen Narrative ORTIZ SYNAPSE - 05/05/2016 5:05 PM EDT Bone density study History: 70 year old postmenopausal fema le with history of osteopenia Bone mineral density was measured using the [employer] DPX DXA system. Comparison: ??12/07/2013 Bone mineral density in the spine, from L1 through L4, ??is 1.029 gm/cm2 which is 87% of the reference population for a T-score of -1.3. There is significant variability from T-scores of -0.4 to T-scores of -2.6. In the neck of the left femur bone appeals examiner al density is 0.925 gm/cm2 which is 89% of the reference population for a T-score of -0.8. Impression: ??Osteopenia is again demons trated. There is very slight decrease since the prior study. The WHO international reference standard criteria for osteoporosis is a T-score of -2.5 or less in the femoral neck , lumbar spine or total hip. Medical evaluation for secondary causes of low BMD may be appropriate. Session: Separate Report reviewed and signed by : Dr. Carlos Owens MD on 05/05/2016 5:05 PM. Workstation Name - [id number] Procedure Note Carlos Owens MD - 05/05/2016 Bone density study History: 70 year old postmenopausal fema le with history of osteopenia Bone mineral density was measured using the [employer] DPX DXA system. Comparison: 12/07/2013 Bone mineral density in the spine, from L1 through L4, is 1.029 gm/cm2 which is 87% of the reference population for a T-score of -1.3. There is significant variability from T-scores of -0.4 to T-scores of -2.6. In the neck of the left femur bone appeals examiner al density is 0.925 gm/cm2 which is 89% of the reference population for a T-score of -0.8. Impression: Osteopenia is again demonstr ated. There is very slight decrease since the prior study. The WHO international reference standard criteria for osteoporosis is a T-score of -2.5 or less in the femoral neck , lumbar spine or total hip. Medical evaluation for secondary causes of low BMD may be appropriate. Session: Separate Report reviewed and signed by : Dr. Carlos Owens MD on 05/05/2016 5:05 PM. Workstation Name - [id number] Performing Organization Address City/State/ZIP Code Phon e Number FUJI SYNAPSE documented in this encounter Visit Diagnoses Diagnosis Menopause Symptomatic menopausal or female [place] documented in this encounter Care Teams Hvac Journeyman Relationship Specialty Start Date End Date Chino Hargrove MD PCP - General Internal Medicine 05/04/16 11/18/21 2 Monica Felipe [address] [address] documented as of this encounter
--- OUTSIDE RECORDS SUMMARY | 2022-01-04 15:09 | XMS_ITS | Encounter Summary ---
:1945 Author Organization [facility] Address [address] [place] [address] Care Team Providers Name Role Phone Chino Hargrove MD Primary Care Provider Reason for Referral Preauthorization (Routine) - Closed Specialty Diagnoses / Procedures Referred By Contact Refer red To Contact Diagnoses Visit for screening mammogram Claudette Read MD [facility] Procedures Mammogram Screening Digital with CAD [address] [facility] Location [place] [address] [address] Phone: Referral ID Status Reason Start Date Expiration Date Visits Requ ested Visits Authorized [id number] Closed 04/11/2017 10/08/2017 1 1 Reason for Visit Preauthorization (Routine) - Closed Specialty Diagnoses / Procedures Referred By Contact Refer red To Contact Diagnoses Visit for screening mammogram Claudette Read MD [facility] Procedures Mammogram Screening Digital with CAD [address] [facility] Location [place] [address] [address] Phone: Referral ID Status Reason Start Date Expiration Date Visits Requ ested Visits Authorized [id number] Closed 04/11/2017 10/08/2017 1 1 Encounter Details Date Type Department Care Team Description 05/11/2017 Hospital Encounter [facility] Mammogram ENF Visit for screening [address] [place] [address] Social History Tobacco Use Types Packs/Day Years [...] DAILY PO) BOOSTRIX 5-2.5-18.5 0 05/10/201703/28 injection Hope-3 Fatty Acids (FISH Take by mouth. 0 11/14/2020 OIL PO) rosuvastatin (CRESTOR) TAKE 1 TABLET DAILY 90 tablet 3 03/1203/31/2018 tablet 20 mg documented as of this encounter Plan of Treatment Not on filedocumented as of this encounter Procedures Procedure Name Priority Date/Time Associated Diagnosis Comme [facility] MAMMOGRAM SCREENING Routine 05/11/2017 8:44 AM Visit for mayuri ramirez Results for this DIGITAL WITH CAD - EDT mammogram procedure are in BILATERAL the results section. documented in this encounter Results Mammogram Screening Digital with CAD (05/11/2017 8:44 AM EDT) Anatomical Region Laterality Modality Breast Bilateral Mammography Specimen Narrative ORTIZ VIOLA - 05/11/2017 2:49 PM EDT BILATERAL DIGITAL 2D SCREENING MAMMOGRAPHY HISTORY: Routine screening. No current b reast complaints. Personal history of right breast biopsy and right breast lumpectomy. COMPARISON: Multiple priors dating back to 2010 Technique: Bilateral full field digital mammography (2D) was performed using standard CC and MLO projections CAD ??was used to evaluate this mammogra m. FINDINGS: No suspicious masses, groups of microcal cification or areas of architectural distortion identified. A few bilateral typically benign scattered calcifications. DENSITY: There are scattered areas of fi broglandular density (25-50% fibroglandular tissue). IMPRESSION: 1. No mammographic evidence of malignanc y. Stable exam 2. Scattered fibroglandular tissue The results of this examination have bee n communicated to the patient through a lay letter in accordance with the Mammography Quality Standards Act. BIRADS category 2 - Benign findings RECOMMENDATION: Routine annual screening mammography is recommended [id number] Session: Separate Report reviewed and signed by : Dr. Parvin Ocampo MD on 05/11/2017 2:49 PM. Workstation Name - [id number] Performing Organization Address City/State/ZIP Code Phon e Number FUJI SYNAPSE documented in this encounter Visit Diagnoses Diagnosis Visit for screening mammogram documented in this encounter Care Teams Automation Lead Relationship Specialty Start Date End Date Chino Hargrove MD PCP - General Internal Medicine 05/04/16 11/18/21 2 Monica Felipe [facility] [address] [place] [address] documented as of this encounter
--- OUTSIDE RECORDS SUMMARY | 2022-01-04 15:09 | XMS_ITS | Encounter Summary ---
:1945 Author Organization [facility] Address [address] [place] [address] Care Team Providers Name Role Phone Chino Hargrove MD Primary Care Provider Reason for Visit Reason Comments Flu Vaccine Encounter Details Date Type Department Care Team Description 05/04/2017 Office Visit Internal Medicine - Chino Hargrove, Inf luenza vaccine Lara Hernandez MD administered (Primary [address] Dx) [facility] [address] [address] Medical [facility] [phone] [place] [address] Social History Tobacco Use Types Packs/Day Years [...] Sign Reading Time Taken Comments Blood Pressure - - Pulse - - Temperature 36.6 ??C (97.8 ??F) 05/04/2017 9:26 AM EDT Respiratory Rate - - Oxygen Saturation - - Inhaled Oxygen Concentration - - Weight - - Height - - Body Mass Index - - documented in this encounter Progress Notes Chino Hargrove MD - 05/04/2017 9:30 AM EDT Subjective: Patient ID: Fidelina Hanson is a 71 y.o. female. Influenza vaccination given in left deltoid HPI Review of Systems Objective: Vitals: 05/04/17 0926 Temp: 97.8 ??F (36.6 ??C) TempSrc: Tympanic There is no height or weight on file to calculate BMI. There is no height or weight on file to calculate BSA. Physical Exam Assessment/Plan: Problem List Items Addressed This Visit None Visit Diagnoses Influenza vaccine administered - Primary Relevant Orders INFLUENZA QUADRIVALENT INACTIVATED (AFLURIA 0.5ML) (> 18YRS) (15[address]) Chino Hargrove MD documented in this encounter Plan of Treatment Not on filedocumented as of this encounter Visit Diagnoses Diagnosis Influenza vaccine administered - Primary documented in this encounter Care Teams Do All Operator Relationship Specialty Start Date End Date Chino Hargrove MD PCP - General Internal Medicine 05/04/16 11/18/21 2 Monica Felipe [facility] 2 [place] [address] documented as of this encounter
--- OUTSIDE RECORDS SUMMARY | 2022-01-04 15:09 | XMS_ITS | Encounter Summary ---
:1945 Author Organization [facility] Address [address] [place] [address] Care Team Providers Name Role Phone Unavailable Primary Care Provider Unavailable Encounter Details Date Type Department Care Team Description 12/18/2001 Hospital Encounter [facility] Bora Ervin, [address] [place] [id number] [facility] [phone] [place], [place] [address] (Wo rk) Social History Tobacco Use Types Packs/Day Years Used Date Never Assessed Sex Assigned at Date Recorded Female 03/28/2019 8:22 AM EDT Job Start Date Occupation Industry Not on file Not on file Not on file documented as of this encounter Plan of Treatment Not on filedocumented as of this encounter Visit Diagnoses Not on filedocumented in this encounter
--- OUTSIDE RECORDS SUMMARY | 2022-01-04 15:09 | XMS_ITS | Encounter Summary ---
:1945 Author Organization [employer] [facility] Address [address] [place] [address] Care Team Providers Name Role Phone Chino Hargrove MD Primary Care Provider Encounter Details Date Type Department Care Team Description 09/13/2016 Office Visit Internal Medicine - Chino Hargrove, Met abolic syndrome X (Primary Dx); Lara Hernandez MD Vitamin D deficiency; [address] High cholesterol; Building [address] [address] Medical [facility] [phone] [place] [address] Social History Tobacco Use Types Packs/Day Years [...] Sign Reading Time Taken Comments Blood Pressure 120/80 09/13/2016 9:02 AM EST Pulse 78 09/13/2016 9:02 AM EST Temperature 36.4 ??C (97.6 ??F) 09/13/2016 9:02 AM EST Respiratory Rate 16 09/13/2016 9:02 AM EST Oxygen Saturation - - Inhaled Oxygen Concentration - - Weight 69.9 kg (154 lb) 09/13/2016 9:02 AM EST Height 157.5 cm (5' 2) 09/13/2016 9:02 AM EST Body Mass Index 28.17 09/13/2016 9:02 AM EST documented in this encounter Progress Notes Chino Hargrove MD - 09/13/2016 9:14 AM EST Patient ID: Fidelina Hanson is a 71 y.o. female. Chief Complaint: No chief complaint on file. office visit, fasting blood work. Patient with a history of hypercholesterolemia, vitamin D deficiency, hyperglycemia, osteopenia. Patient generally feeling well specific complaints. She is compliant with her medication. She is not expressing any side effects from medications. Patient's Pharmacy: No Pharmacies Listed Vitals: Filed Vitals: 09/13/16 0902 BP: 120/80 Pulse: 78 Temp: 97.6 ??F (36.4 ??C) TempSrc: Tympanic Resp: 16 Height: 5' 2 (1.575 m) Weight: 69.854 kg (154 lb) Body mass index is 28.16 kg/(m^2). Body surface area is 1.75 meters squared. Measurements: Allergies: Allergies Allergen Reactions ??? Demerol [Meperidine] [...] VITAMIN DAILY PO) Take by mouth. ??? [place]-3 Fatty Acids (FISH OIL PO) Take by mouth. ??? rosuvastatin (CRESTOR) tablet 20 mg No current facility-administered medications for this visit. Vaccines: There is no immunization history on file for this patient. Problems: Patient Active Problem List Diagnosis SNOMED CT(R) ??? Vitamin D deficiency VITAMIN D DEFICIENCY ??? High cholesterol HYPERCHOLESTEROLEMIA ??? Metabolic syndrome X METABOLIC SYNDROME X ??? Osteopenia OSTEOPENIA ??? Low back pain LOW BACK PAIN ??? 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 Hyperglycemia HYPERGLYCEMIA Family History: Family History Problem Relation Age of Onset ??? Dementia Mother ??? Hypertension Mother ??? Cancer Father colon ??? Hypertension Father ??? Cancer Sister skin ??? Migraines Daughter Social History: Social History Social History ??? Marital Status: Spouse Name: N/A ??? Number of Children: N/A ??? Years of Education: N/A Occupational History ??? Not on file. Social History Main Topics ??? Smoking status: Never Smoker ??? Smokeless tobacco: Not on file ??? Alcohol Use: Yes Comment: Rarely ??? Drug Use: No ??? Sexual Activity: Not on file Other Topics Concern ??? Not on file Social History Narrative Surigical History: Past Surgical History Procedure Laterality Date ??? Breast biopsy Right 1973 ??? Breast lumpectomy Right 1973 ??? Dilation and curettage of uterus ??? Trigger finger release Right ??? Correction hammer toe Both feet ??? Other surgical history Uterine polyp Past Medical History: Active Ambulatory Problems Diagnosis Date Noted ??? Vitamin D deficiency ??? High cholesterol ??? Metabolic syndrome X ??? Osteopenia ??? Low back pain ??? Left anterior fascicular block ??? Hyperglycemia 09/13/2016 Resolved Ambulatory Problems Diagnosis Date Noted ??? No Resolved Ambulatory Problems No Additional Past Medical History Orders Placed This Encounter: Orders Placed This Encounter Procedures ??? COMPREHENSIVE METABOLIC PANEL RANDOM/FASTING Standing Status: Future Number of Occurrences: 1 Standing Expiration Date: 09/13/2017 ??? LIPID PANEL WITH REFLEX TO DIRECT LDL Standing Status: Future Number of Occurrences: 1 Standing Expiration Date: 09/13/2017 ??? CBC W/Auto Differential Standing Status: Future Number of Occurrences: 1 Standing Expiration Date: 09/13/2017 ??? 25-Hydroxy Vitamin D Standing Status: Future Number of Occurrences: 1 Standing Expiration Date: 09/13/2017 ??? HEMOGLOBIN A1c WITH eAG Standing Status: Future Number of Occurrences: 1 Standing Expiration Date: 09/13/2017 ??? POCT Urinalysis Screening: HPI: HPI ROS: Review of Systems Constitutional: Negative. HENT: Negative. Eyes: Negative. Eyes glasses Respiratory: Negative. Cardiovascular: Negative. Gastrointestinal: Negative. Genitourinary: Negative. Musculoskeletal: Negative. Neurological: Negative. Physical Exam: Physical Exam Constitutional: She is oriented to person, place, and time. She appears well- developed. No distress. HENT: Head: Normocephalic and atraumatic. Right Ear: External ear normal. Left Ear: External ear normal. Nose: Nose normal. Mouth/Throat: Oropharynx is clear and moist. Eyes: Conjunctivae and EOM are normal. Pupils [...] tenderness. Abdominal: Soft. Bowel sounds are normal. Musculoskeletal: Normal range of motion. She exhibits no edema or tenderness. Lymphadenopathy: She has no cervical adenopathy. Neurological: She is alert and oriented to person, place, and time. Skin: She is not diaphoretic. Vitals reviewed. Labs: Office Visit on 09/13/2016 Component Date Value Ref Range Status ??? POCT Color, Urine 09/13/2016 Other (comment) Final yellow ??? POCT Clarity, Urine 09/13/2016 Clear Final ??? POCT Glucose, Urine 09/13/2016 Negative Negative Final ??? POCT Urine Bilirubin 09/13/2016 Negative Final ??? POCT Ketones, Urine 09/13/2016 Negative Negative Final ? ? POCT Specfic Boron, Urine 09/13/2016 >= 1.030* 1.005-1.030 Final ??? POCT Blood, Urine 09/13/2016 Negative Negative Final ??? POCT Urine pH 09/13/2016 6.0 4.5-8.0 Final ? ? POCT Protein, Urine 09/13/2016 Negative Negative, Trace, 15 mg/dL, 30 mg/dL, 100 mg/dL, >=300mg/dL, >=2000 mg/dL Final ??? POCT Urine Urobilinogen 09/13/2016 Normal Final ??? POCT Nitrite, Urine 09/13/2016 Negative Negative Final ??? POCT Leukocytes, Urine 09/13/2016 Trace* Negative Final Assessment/Plan: ICD-10-CM 1. Metabolic syndrome X with a history of metabolic syndrome, we will check a fasting blood sugar aswell as a hemoglobin A1c. She is advised to diet, exercise, lose weight, restrict carbohydrates. E88.81 POCT Urinalysis COMPREHENSIVE METABOLIC PANEL RANDOM/FASTING CBC W/Auto Differential HEMOGLOBIN A1c WITH eAG COMPREHENSIVE METABOLIC PANEL RANDOM/FASTING CBC W/Auto Differential HEMOGLOBIN A1c WITH eAG 2. Vitamin D deficiency, history of vitamin D deficiency, currently on vitamin D supplementation. Wewill check a vitamin D level. E55.9 25-Hydroxy Vitamin D 25-Hydroxy Vitamin D 3. High cholesterol, history of elevated cholesterol, currently on Crestor 20 mg a day, will check afasting lipid panel as well as liver function tests. She is advised to continue to diet, exercise, lose weight. E78.00 COMPREHENSIVE METABOLIC PANEL RANDOM/FASTING LIPID PANEL WITH REFLEX TO DIRECT LDL CBC W/Auto Differential COMPREHENSIVE METABOLIC PANEL RANDOM/FASTING LIPID PANEL WITH REFLEX TO DIRECT LDL CBC W/Auto Differential 4. Hyperglycemia, advised to diet, exercise, lose weight. R73.9 COMPREHENSIVE METABOLIC PANEL RANDOM/FASTING HEMOGLOBIN A1c WITH eAG COMPREHENSIVE METABOLIC PANEL RANDOM/FASTING HEMOGLOBIN A1c WITH eAG Chino Hargrove MD documented in this encounter Plan of Treatment Not on filedocumented as of this encounter Procedures Procedure Name Priority Date/Time Associated Comments Diagnosis COMPREHENSIVE Routine 09/13/2016 9:14 AM Metabolic syndrome Re sults for this METABOLIC PANEL EST X procedure are in RANDOM/FASTING High cholesterol the results Hyperglycemia section. CBC W/AUTO Routine 09/13/2016 9:14 AM Metabolic syndrome Res ults for this DIFFERENTIAL EST X procedure are in High cholesterol the results section. 25-HYDROXY VITAMIN D Routine 09/13/2016 9:14 AM Vitamin D R esults for this EST deficiency procedure are i n the results section. LIPID PANEL WITH Routine 09/13/2016 9:14 AM High cholesterol R esults for this REFLEX TO DIRECT LDL EST procedu re are in the results section. HEMOGLOBIN A1C WITH Routine 09/13/2016 9:14 AM Metabolic syndr ome Results for this EAG EST X procedure are in Hyperglycemia the results section. POCT URINALYSIS Routine 09/13/2016 Metabolic syndrome Result s for this (20062) X procedure are i n the results section. documented in this encounter Results (ABNORMAL) HEMOGLOBIN A1c WITH eAG (09/13/2016 9:14 AM EST) Hemoglobin A1c 6.0 (H) <5.7 % of Molecule [facility]th Comment: total [facility]gb [facility] According to ADA guidelines, hemoglobin A1c <7.0% represents optimal control in non- diabetic patients. Different metrics may apply to specific patient populations. Standards of Medical Care in Diabetes-2013. Diabetes Care. 2013;36:s11-s66 For the purpose of screening for the presence of diabetes <5.7% ? Consistent with the absence of diabetes 5.7-6.4% ?Consistent with increased risk for diabe kinga ?(prediabetes) >or=6.5% ?Consistent with diabetes This assay result is consistent with an increased risk of diabetes. Currently, no consensus exists for use of hemoglobin A1c for diagnosis of diabetes for children. eAG (mg/dL) 126 (calc) Ring eAG (mmol/L) 7.0 (calc) Ring Specimen Resulting Agency Comment Performing Organization Information: ?Site ID: [id number] ?Name: [employer] ?Address: [address] [place] [address], [place] [address] ?Director: Colin Belcher MD Performing Organization Address City/State/ZIP Code Phon e Number [facility] 25-Hydroxy Vitamin D (09/13/2016 9:14 AM EST) Vitamin D,25-OH, 31 30 - 100 500 [facility] Total Comment: ng/mL LLC Vitamin D Status ? 25-OH Vitamin D: Deficiency: ?<20 ng/mL Insufficiency: ? 20 - 29 ng/mL Optimal: ? > or = 30 ng/mL For 25-OH Vitamin D testing on patients on D2-supplementation and patients for whom quantitation of D2 and D3 fractions is required, the [facility](T M) 25-OH VIT D, (D2,D3), LC/MS/MS is recommended: order code 75379 (patients >2yrs). For more information on this test, go to: http://education.BiteHunter/faq/TVU523 (This link is being provided for informational/educational purposes only.) Specimen Resulting Agency Comment Performing Organization Information: ?Site ID: [id number] ?Name: [facility] ?Address: [address] [place] [address], [place] [address] ?Director: Colin Belcher MD Performing Organization Address City/State/ZIP Code Phon e Number [facility] CBC W/Auto Differential (09/13/2016 9:14 AM EST) White Blood Cell 5.4 3.8 - 10.8 [facility] Count Thousand/uL [facility] Red Blood Cell Count 4.63 3.80 - 5.10 [facility] Million/uL LLC Hemoglobin 14.3 11.7 - 15.5 [facility] g/dL LLC Hematocrit 42.6 35.0 - 45.0 [facility] % LLC MCV 92.1 80.0 - 100.0 [facility] fL LLC MCH 30.8 27.0 - 33.0 [facility] pg LLC MCHC 33.4 32.0 - 36.0 [facility] g/dL LLC RDW 13.1 11.0 - 15.0 [facility] % LLC Platelet Count 236 140 - 400 [facility] Thousand/uL LLC MPV 8.2 7.5 - 12.5 [facility] fL LLC Absolute Neutrophils 3,116 1,500 - [facility] 7,800 LLC cells/uL [...] canceled LLC by the ancillary Absolute Lymphocytes 1,690 850 - 3,900 [facility] cells/uL [facility] Absolute Monocytes 437 200 - 950 [facility] cells/uL LLC Absolute Eosinophils 92 15 - 500 [facility] cells/uL LLC Absolute Basophils 65 0 - 200 [facility] cells/uL LLC Absolute Blasts CANCELEDComment: 0 cells/uL [facility] Result canceled LLC by the ancillary Absolute Nucleated CANCELEDComment: 0 cells/uL [facility] RBC Result canceled LLC by the ancillary Neutrophils 57.7 % [facility] LLC Band Neutrophils CANCELEDComment: % [facility] Result canceled LLC by the ancillary Metamyelocytes CANCELEDComment: % [facility] Result canceled LLC by the ancillary Myelocytes CANCELEDComment: % [facility] Result canceled LLC by the ancillary Promyelocytes CANCELEDComment: % [facility] Result canceled LLC by the ancillary Lymphocytes 31.3 % [facility] LLC Reactive Lymphocytes CANCELEDComment: 0 - 10 % [facility] S Result canceled LLC by the ancillary Monocytes 8.1 % [facility] LLC Eosinophils 1.7 % [facility] LLC Basophils 1.2 % [facility] LLC Blasts CANCELEDComment: % [facility] Result canceled LLC by the ancillary Nucleated RBC CANCELEDComment: 0 /100 WBC [facility] Result canceled LLC by the ancillary Comment(s) CANCELEDComment: [facility] Result canceled LLC by the ancillary Specimen Resulting Agency Comment Performing Organization Information: ?Site ID: [id number] ?Name: [facility] ?Address: [address] [place] [address], [place] [address] ?Director: Colin Belcher MD Performing Organization Address City/State/ZIP Code Phon e Number [facility] LIPID PANEL WITH REFLEX TO DIRECT LDL (09/13/2016 9:14 AM EST) Cholesterol, Total 172 125 - 200 [facility] mg/dL LLC HDL Cholesterol 70 > OR = 46 [facility] mg/dL LLC Triglycerides 66 <150 mg/dL [facility] LDL-Cholesterol 89 <130 mg/dL [facility] Comment: (calc) LLC Desirable range <100 mg/dL for patients with CHD or diabetes and <70 mg/dL for diabetic patients with known heart disease. Chol/HDLC Ratio 2.5 < OR = 5.0 [facility] (calc) LLC Non HDL Cholesterol 102 mg/dL (calc) [facility] Comment: LLC Target for non-HDL cholesterol is 30 mg/dL higher than LDL cholesterol target. Specimen Resulting Agency Comment Performing Organization Information: ?Site ID: [id number] ?Name: [facility] ?Address: [address] [place] [address], [place] [address] ?Director: Colin Belcher MD Performing Organization Address City/State/ZIP Code Phon e Number [facility] COMPREHENSIVE METABOLIC PANEL RANDOM/FASTING (09/13/2016 9:14 AM EST) Glucose 92 65 - 99 [facility] Comment: mg/dL LLC ? Fasting reference interval Urea Nitrogen 25 7 - 25 mg/dL [facility] (BUN) [facility] Creatinine, Serum 0.83 0.60 - 0.93 [facility] Comment: mg/dL LLC For patients >49 years of age, the reference limit for Creatinine is approximately 13% higher for people identified as -Salvadorean. eGFR Non-Afr. 70 > OR = 60 [facility] Salvadorean mL/min/1.73m LLC 2 eGFR 82 > OR = 60 [facility] Salvadorean mL/min/1.73m LLC 2 BUN/Creatinine NOT APPLICABLE 6 - 22 [facility] Ratio (calc) LLC Sodium 140 135 - 146 [facility] mmol/L LLC POTASSIUM 4.3 3.5 - 5.3 [facility] mmol/L LLC Chloride 105 98 - 110 [facility] mmol/L LLC Carbon Dioxide 25 20 - 31 [facility] mmol/L LLC Calcium 10.0 8.6 - 10.4 [facility] mg/dL LLC PROTEIN, TOTAL 7.2 6.1 - 8.1 [facility] g/dL LLC ALBUMIN 4.7 3.6 - 5.1 [facility] g/dL LLC GLOBULIN 2.5 1.9 - 3.7 [facility] g/dL (calc) LLC Albumin/Globulin 1.9 1.0 - 2.5 [facility] Ratio (calc) LLC Bilirubin, Total 0.6 0.2 - 1.2 [facility] mg/dL LLC ALKALINE 51 33 - 130 U/L [facility] PHOSPHATASE [facility] AST 22 10 - 35 U/L [facility] LLC ALT 22 6 - 29 U/L [facility] Specimen Resulting Agency Comment Performing Organization Information: ?Site ID: [id number] ?Name: [employer] ?Address: [address] [place] [address], [facility] [place] [address] ?Director: Colin Belcher MD Performing Organization Address City/State/ZIP Code Phon e Number [place] (ABNORMAL) POCT Urinalysis (09/13/2016) POCT Color, Urine Other (comment)Comment : yellow POCT Clarity, Urine Clear POCT Glucose, Urine Negative Negative POCT Urine Bilirubin Negative POCT Ketones, Urine Negative Negative POCT Specfic Boron, >= 1.030 (A) 1.005 - 1.030 Urine POCT Blood, Urine Negative Negative POCT Urine pH 6.0 4.5 - 8.0 POCT Protein, Urine Negative Negative, Trace, 15 mg/dL, 30 mg/dL, 100 mg/dL, >=300 mg/dL, >=2000 mg/dL POCT Urine Normal Urobilinogen POCT Nitrite, Urine Negative Negative POCT Leukocytes, Trace (A) Negative Urine QC IN LAST 24H? MULTISTIX 8 SG LOT# MULTISTIX 8 SG EXP DATE Specimen documented in this encounter Visit Diagnoses Diagnosis Metabolic syndrome X - Primary Dysmetabolic Syndrome X Vitamin D deficiency High cholesterol Pure hypercholesterolemia Hyperglycemia Other abnormal glucose documented in this encounter Care Teams Geometry Professor Relationship Specialty Start Date End Date Chino Hargrove MD PCP - General Internal Medicine 05/04/16 11/18/21 2 Monica Felipe [address] [address] documented as of this encounter
--- OUTSIDE RECORDS SUMMARY | 2022-01-04 15:09 | XMS_ITS | Encounter Summary ---
:1945 Author Organization [facility] Address [address] [place] [address] Care Team Providers Name Role Phone Chino Hargrove MD Primary Care Provider Reason for Referral Preauthorization (Routine) - Closed Specialty Diagnoses / Procedures Referred By Contact Refer red To Contact Diagnoses Visit for screening mammogram Claudette Read MD [facility] Procedures Mammogram Screening Digital with CAD [address] [address] Referral ID Status Reason Start Date Expiration Date Visits Requ ested Visits Authorized [id number] Closed 05/03/2016 10/30/2016 1 1 Reason for Visit Preauthorization (Routine) - Closed Specialty Diagnoses / Procedures Referred By Contact Refer red To Contact Diagnoses Visit for screening mammogram Claudette Read MD [facility] Procedures Mammogram Screening Digital with CAD [address] [address] Referral ID Status Reason Start Date Expiration Date Visits Requ ested Visits Authorized [id number] Closed 05/03/2016 10/30/2016 1 1 Encounter Details Date Type Department Care Team Description 05/05/2016 Hospital Encounter [facility] Mammogram EN Visit for screening [address] [place] [address] Social History Tobacco Use Types Packs/Day Years [...] Associated Diagnosis Comme nts MAMMOGRAM SCREENING Routine 05/05/2016 9:33 AM Visit for mayuri ramirez Results for this DIGITAL WITH CAD - EDT mammogram procedure are in BILATERAL the results section. documented in this encounter Results Mammogram Screening Digital with CAD (05/05/2016 9:33 AM EDT) Anatomical Region Laterality Modality Breast Bilateral Mammography Specimen Narrative ORTIZ ROD - 05/05/2016 10:09 AM EDT MAMMOGRAM SCREENING DIGITAL WITH CAD COMPARISON: 2012, 2014. HISTORY: Annual screening. FINDINGS: CC and MLO views of bilateral breasts de monstrate scattered fibroglandular densities within the breast parenchyma (25-50% fibroglandular tissue). ?? No dominant masses, lesions, areas of ar chitectural distortion or suspicious calcifications were identified. Typically benign calcifications noted bilaterally. There are no secondary signs for malignancy. CAD was utilized. IMPRESSION: 1. No mammographic evidence of malignanc y. 2. Recommend routine mammographic screen ing in one year. BI-RADS 2: Benign findings. 3342 F The patient has been informed about her breast density by a letter containing a plain language report, as required by [place] bill 485. Session: Separate session. Report reviewed and signed by : Dr. Maxwell Collins MD on 05/05/2016 10:09 AM. Workstation Name - [id number] Performing Organization Address City/State/ZIP Code Phon e Number ORTIZ ROD documented in this encounter Visit Diagnoses Diagnosis Visit for screening mammogram documented in this encounter Care Teams Datacap Developer Relationship Specialty Start Date End Date Chino Hargrove MD PCP - General Internal Medicine 05/04/16 11/18/21 2 Monica Felipe [facility] 2 [place] [address] documented as of this encounter
--- OUTSIDE RECORDS SUMMARY | 2022-01-04 15:09 | XMS_ITS | Encounter Summary ---
:1945 Author Organization [facility] Address [address] [place] [address] Care Team Providers Name Role Phone Unavailable Primary Care Provider Unavailable Encounter Details Date Type Department Care Team Description 06/19/2007 Hospital Encounter [facility] Bora Ervin, [address] [place] [id number] [facility] [phone] [place], [place] [address] (Wo rk) Social History [...]
== END 2022-01-04 15:07 | disposition home or self-care (01) ==
LOC: DIORS 15:06
PROVIDERS: PCP Nurse Practitioner; Referring Provider Nurse Practitioner; Visit Provider Student in an Organized Health Care Education/Training Program
DX: Z96.642 Presence of left artificial hip joint (principal); Z47.1 Aftercare following joint replacement surgery
CPT/HCPCS: 73502

== ENCOUNTER → 2022-02-01 13:46 | Outpatient (BNVA) | payer MEDICARE, SELFPAY | PROVIDERS: PCP Nurse Practitioner; Referring Provider Nurse Practitioner; Visit Provider Student in an Organized Health Care Education/Training Program | DX: Z47.1 Aftercare following joint replacement surgery (principal); Z96.642 Presence of left artificial hip joint ==

== ENCOUNTER → 2022-03-18 11:10 | Outpatient (BNVA) | payer MEDICARE, SELFPAY | PROVIDERS: PCP Nurse Practitioner; Referring Provider Nurse Practitioner; Visit Provider Student in an Organized Health Care Education/Training Program | DX: Z47.1 Aftercare following joint replacement surgery (principal); Z96.642 Presence of left artificial hip joint; R22.42 Localized swelling, mass and lump, left lower limb ==

== ENCOUNTER → 2022-03-25 01:33 | Outpatient (CLI) | payer MEDICARE, SELFPAY ==
--- NOTE | 2022-03-25 08:00 | DI.MRI_ITS ---
Exam(s) MR LOWER EXTREMITY LT WO EXAM: MR LOWER EXTREMITY LT WO CLINICAL HISTORY: HEMATOMA LT THIGH,H/O TOTAL LT HIP REPLACEMENT, PAIN TECHNIQUE: Multiplanar multisequence MRI was performed without intravenous contrast. COMPARISON: CR XR HIP LT COMPLETE AP PELVIS from 01/04/2022 FINDINGS: BONES/JOINTS: No fracture or contusion pattern. The distal aspect of the femoral component of the pat ient's recently placed hip arthroplasty are noted. There is edema seen in the soft tissues lateral t o the thigh consistent with the patient's recent surgery. This area is incompletely imaged. MUSCULOTENDINOUS STRUCTURES: The muscles show normal signal and size. No muscular fatty atrophy. SOFT TISSUES: There is a complex fluid collection situated between the semi tendinosis muscle and the long head of the biceps femoris muscle. It measures 3.7 cm AP x 3.9 cm transverse by 5.8 cm cranioc audad. It is hyperintense on the T2 weighted images with areas of intermediate intensity in the depe ndent portion. On the T1 weighted images it is hypointense. The gradient images show areas of signa l dropout in the dependent portion suggesting hemorrhage. There is edema in the soft tissues around the fluid collection. OTHER FINDINGS: None. IMPRESSION: 1. 3.7 x 3.9 x 5.8 cm fluid collection situated between the semi tendinosis muscle and the long head of the biceps femoris muscle. Its findings are suggestive of a hematoma. 2. Postsurgical changes of recent placement of a left total hip arthroplasty. DATA REPOSITORY:
== END ==
PROVIDERS: PCP Nurse Practitioner; Visit Provider Student in an Organized Health Care Education/Training Program
DX: S70.12XA Contusion of left thigh, initial encounter (principal); Z96.642 Presence of left artificial hip joint
CPT/HCPCS: 73718

== ENCOUNTER 2022-04-08 14:49 | Outpatient (REF) | payer MEDICARE, SELFPAY ==
[2022-04-08 20:51] LABS: Bilirubin Negative (Negative); Blood Large (Negative); Clarity Turbid (Clear); Glucose Negative (Negative); Ketones Negative (Negative); Leukocyte Esterase Large (Negative); Nitrite Negative (Negative); Specific Gravity >= 1.030 (1.005-1.025); Urobilinogen 0.2 EU/dL (Up TO 0.2); pH 5.5 (5-8)
[2022-04-08 21:20] LABS: RBC >50 HPF (0-2); WBC >50 HPF (0-5)
[2022-04-08 21:23] LABS: C & S Indicated? Yes; Crystals Many Amorphous HPF (Negative); Mucus Negative (Negative)
== END 2022-04-08 14:50 | disposition home or self-care (01) ==
LOC: LBN 14:49
PROVIDERS: PCP Nurse Practitioner; Visit Provider Physician Assistant
DX: R39.9 Unspecified symptoms and signs involving the genitourinary system (principal)
CPT/HCPCS: 81003; 81015; 87086

== ENCOUNTER 2022-07-19 10:00 | Outpatient (CLI) | payer MEDICARE, SELFPAY ==
--- NOTE | 2022-07-19 10:30 | DI.RAD_ITS ---
Exam(s) XR FEMUR LT EXAM: XR FEMUR LT CLINICAL HISTORY: L THIGH HEMATOMA. TECHNIQUE: 2D digital imaging was performed. Three views. COMPARISON: 04 January 2022 plain films. MRI 25 March 2022. FINDINGS: BONES: No acute fracture is present. No bony destructive lesion is seen. Left hip prosthesis is unch anged. JOINTS: No dislocation present. SOFT TISSUE: Focal rounded area of swelling in the posterior upper thigh. This is in the area seen c orresponding to the hematoma on prior MRI. IMPRESSION: Persistent area of visible soft tissue swelling corresponding to the location of the prior thigh gunnar kristie DATA REPOSITORY: RADIATION DOSE DELIVERED:
== END 2022-07-19 10:01 | disposition home or self-care (01) ==
LOC: DIORS 07-20 08:33
PROVIDERS: PCP Nurse Practitioner Family; Visit Provider Physician Assistant
DX: R22.42 Localized swelling, mass and lump, left lower limb (principal); Z96.642 Presence of left artificial hip joint
CPT/HCPCS: 73552; 99213

== ENCOUNTER 2022-07-26 01:26 | Outpatient (CLI) | payer MEDICARE, SELFPAY ==
--- NOTE | 2022-07-26 08:00 | DI.CT_ITS ---
Exam(s) CT LOWER EXTREMITY LT W EXAM: CT LOWER EXTREMITY LT W CLINICAL HISTORY: HEMATOMA POSTERIOR L THIGH,mass lt thigh,h/o total replacement. TECHNIQUE: Imaging Protocol: Axial computed tomography images with coronal and sagittal reformatted images were created and reviewed. CONTRAST MATERIAL: Intravenous: Omnipaque 350. Contrast Volume: 100 ML COMPARISON: MR MR LOWER EXTREMITY LT WO from 03/25/2022 FINDINGS: Bones: The osseous structures and articular surfaces are intact. The patient has a left total hip r eplacement. Bony alignment is satisfactory. No cellulitic or osteomyelitic changes are identified. There is no evidence of joint space narrowing or cystic degeneration seen. No lytic or sclerotic les ions are identified. Soft Tissues: There has been interval increase in size of the fluid collection in the posterior thigh . It appears to lie between the semi tendinosis and long head of the biceps femoris muscles. It wander sures 9 x 6.5 x 9.4 cm. There is an enhancing wall present. The muscles are otherwise unremarkable. Enhancement: There is peripheral enhancement of the fluid collection as described above. IMPRESSION: 1. Interval increase in size of the posterior thigh fluid collection. The fluid collection has a enh ancing wall and measures 9 x 6.5 x 9.4 cm. Primary concern is for an abscess. Neoplasm cannot be en tirely excluded but may be considered less likely. 2. Findings were discussed with Dr. Lo at 2:30 p.m. on 07/26/2022. RADIATION DOSE DELIVERED: 406.53mGy.cm Total DLP 406.53mGy.cm Total DLP DATA REPOSITORY: All CT scans at this facility are submitted to the National Radiology Data Registry (NRDR) Dose Index Registry (DIR) with the [employer] (A[employer]). RADIATION OPTIMIZATION: All CT scans at this facility use at least one of these dose optimization te chniques: automated exposure control; mA and/or kV adjustment per patient size (includes targeted exa ms where dose is matched to clinical indication); or iterative reconstruction.
[2022-07-26 12:59] LABS: Estimated GFR 57.66 (mL/min/1.73m2)
[2022-07-26] MEDS: Omnipaque 350 MG/ML 100 ML BTL IJ (13:52)
[2022-07-26] MEDS: Normal Saline - Diluent 50 ML VIAL IJ (13:53)
== END 2022-07-26 01:46 ==
LOC: DI 01:26
PROVIDERS: PCP Nurse Practitioner Family; Visit Provider Student in an Organized Health Care Education/Training Program
DX: R22.42 Localized swelling, mass and lump, left lower limb (principal); Z96.642 Presence of left artificial hip joint
CPT/HCPCS: 73701; 82565; J3490

== ENCOUNTER 2022-08-04 09:51 | Day surgery (SDC) | payer MEDICARE, SELFPAY ==
[2022-08-04] VITALS (10 sets, daily range): BP systolic 76–164; BP diastolic 39–75; PULSE 49–74; RESP 13–19; TEMP 35.9–36.5; O2SAT 93–98; BMI 29.5
--- NOTE | 2022-08-04 10:39 | W.PREOPHP ---
Assessment and Plan Assessment and plan (1) Abscess of left thigh: Status: Acute Assessment and plan: Fidelina is a 77-year-old with a suspected infected hematoma/abscess, of the left thigh. Continues to get larger and cause her pain. Therefore, recommend we proceed with irrigation debridement. I would perform an ultrasound-guided aspiration to begin. I reviewed the technical aspects of the surgery. I discussed the rehabilitation. I also reviewed the risks to include bleeding, continued infection, pain, stiffness, damage nerves and vessels, damage to muscle and tendons, recurrence, wound healing difficulties, need for repeat procedures. Despite these risk, she elects to proceed. History of Present Illness History of Present Illness Chief Complaint: Left Thigh Mass Narrative: Fidelina is a 77 year old who has had a recently enlarging posterior thigh mass of the left leg following a hip replacement surgery. This area was presumed to be a hematoma based on the MRI. It started to go down in size but recently enlarged. CT scan showed a rim-enhancing lesion which appears to be an abscess. Therefore, I recommended that we proceed to the operating room. I would perform an aspiration to confirm the likely diagnosis of secondarily infected hematoma and then proceed with irrigation debridement. To see the previous office note for this history. She has had no recent sick contacts. She denies any chest pain or shortness of breath. Review of Systems All systems reviewed & are unremarkable except as noted in HPI and below PFSH All Active Problems Vitamin D deficiency (Acute) Osteopenia (Acute) Low back pain (Acute) Pre-diabetes (Acute) Hyperlipidemia (Acute) Restless leg (Acute) Left groin pain (Acute) Osteoarthritis (Chronic) Nocturia (Acute) Snoring (Acute) Osteoarthritis of right hip (Acute) History of total left hip replacement (Acute 12/22/21) Mass of left thigh (Acute) Abscess of left thigh (Acute) Medical History COVID-19 11/11/21 Knee fracture, left Left anterior fascicular block Reactive depression 2016 Uterine polyp Surgical History H/O dilation and curettage uterus History of carpal tunnel repair (~1996) B/L History of hammertoe correction (~2010) left foot History of hip replacement History of phacoemulsification of cataract of right eye with intraocular lens implantation S/P breast biopsy, right (~1972) BENIGN S/P lumpectomy, right breast (~1972) Status post bilateral cataract extraction Status post tonsillectomy and adenoidectomy (~1946) Status post trigger finger release right 3rd Family History Mother , 103 No problems noted. Father , 93 No problems noted. Sister No problems noted. Son , 15 No problems noted. Daughter No problems noted. Paternal Grandfather , 79 Diabetes Paternal Grandmother , 86 Diabetes Social History Smoking/Tobacco Use Status: Never Second Hand Exposure: Yes Smoking risk assessment performed?: Yes Alcohol Intake: current Alcohol Intake frequency: holidays/special occasions only Alcohol type: wine Drug use: Never Substance use type: does not use Details: alcohol: edin Caregiver/Support person: No Household members: spouse Housing: house Communication Needs: None Pets and animals: Yes Pets and animals: cat(s) and dog(s) Do you think of yourself as: straight/heterosexual Current gender identity: female What is your relationship status?: How often do you talk on the phone with friends or family?: three or more times per week How often do you get together with friends or relatives?: twice per week How often do you attend christianity or zoroastrian services?: 1-3 times per year Do you belong to any clubs or organized social groups?: no Panel score (0-1 are the most socially isolated patients): 2 What type of physical activity do you participate in: walking Duration: < 15 minutes/day Frequency: daily Mary Kay/Roman Catholic: Yarsani Special mary kay needs: No Seatbelt use: always Helmet use: No Drive intox or ride w/intox 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 Do you feel safe at home: Yes Do you feel safe in your relationship?: Yes Meds Allergies and Home Medications Allergies Allergy/AdvReac Type Severity Reaction Status Date / Time meperidine [From Demerol] AdvReac Unknown Nausea, Verified 08/04/22 10:34 vomiting Home Medications Medication Instructions Recorded Confirmed Type cholecalciferol (vitamin D3) 25 25 mcg PO DAILY 12/29/20 08/04/22 History mcg (1,000 unit) tablet melatonin 3 mg tablet 3 mg PO HS PRN 12/29/20 08/04/22 History rosuvastatin 20 mg tablet 20 mg PO DAILY 12/29/20 08/04/22 History wwvsuxgfpqpw-nwyeabzi-eehjmzl-folic 1 tab PO DAILY 01/20/21 08/04/22 History acid 400 mcg-vit K1 20 mcg tablet (One-A-Day Women's 50 Plus) pramipexole 0.125 mg tablet 0.125 mg PO QHS 01/20/21 08/04/22 History calcium carbonate 600 mg-vitamin 1 tab PO DAILY 08/03/22 08/04/22 History D3 5 mcg (200 unit) tablet acetaminophen 500 mg tablet 1,000 mg PO TID #90 tabs 08/04/22 Rx hydrocodone 5 mg-acetaminophen 325 1 tab PO Q6H PRN pain #10 tabs 08/04/22 Rx mg tablet ibuprofen 600 mg tablet 600 mg PO TID PRN pain #90 tabs 08/04/22 Rx Exam Const General: cooperative, healthy appearing, comfortable and no acute distress Resp Effort & Inspection: normal respiratory effort Auscultation: clear to auscultation bilaterally Cardio Rate: regular rate Rhythm: regular rhythm Results Last Vital Signs Temp 36.5 C 08/04/22 10:28 Pulse 74 08/04/22 10:28 Resp 16 08/04/22 10:28 BP 164/75 H 08/04/22 10:28 Pulse Ox 98 08/04/22 10:28
[2022-08-04] MEDS: Celecoxib 200 MG CAP 400 MG PO (11:00)
[2022-08-04] MEDS: Acetaminophen 500 MG TAB 1000 MG PO (11:00)
[2022-08-04] MEDS: Lactated Ringers 1,000 ML 80 ML IV (11:10)
--- NOTE | 2022-08-04 11:56 | W.ANESPRE ---
General Info Date of Service Date Performed: 08/04/22 Height: 5 ft 3 in Weight: 75.5 kg Body Mass Index (BMI): 29.5 Surgical Procedure: Operation Date: 08/04/22 13:25 Proposed Procedure Side Surgeon p Ultrasound Aspiration of Thigh Abscess, I&D Thigh Abscess Left Reyes Lo MD Meds Allergies and Home Medications Allergies Allergy/AdvReac Type Severity Reaction Status Date / Time meperidine [From Demerol] AdvReac Unknown Nausea, Verified 08/04/22 10:34 vomiting Home Medication Medication Instructions Recorded cholecalciferol (vitamin D3) 25 25 mcg PO DAILY 12/29/20 mcg (1,000 unit) tablet melatonin 3 mg tablet 3 mg PO HS PRN 12/29/20 rosuvastatin 20 mg tablet 20 mg PO DAILY 12/29/20 wtzevkljhwnm-bexxgkly-hxklpsg-folic 1 tab PO DAILY 01/20/21 acid 400 mcg-vit K1 20 mcg tablet (One-A-Day Women's 50 Plus) pramipexole 0.125 mg tablet 0.125 mg PO QHS 01/20/21 calcium carbonate 600 mg-vitamin 1 tab PO DAILY 08/03/22 D3 5 mcg (200 unit) tablet acetaminophen 500 mg tablet 1,000 mg PO TID #90 tabs 08/04/22 hydrocodone 5 mg-acetaminophen 325 1 tab PO Q6H PRN pain #10 tabs 08/04/22 mg tablet ibuprofen 600 mg tablet 600 mg PO TID PRN pain #90 tabs 08/04/22 Current Visit Medications: Current Medications Generic Name Dose Route Start Last Admin Trade Name Freq PRN Reason Stop Dose Admin Acetaminophen 1,000 mg 08/04/22 09:57 08/04/22 11:00 Acetaminophen 500 Mg Tab PO 08/04/22 16:00 1,000 mg PREOP LUISA Administration Celecoxib 400 mg 08/04/22 09:57 08/04/22 11:00 Celecoxib 200 Mg Cap PO 08/04/22 16:00 400 mg PREOP LUISA Administration Ringer's Solution 1,000 mls @ 80 mls/hr 08/04/22 06:00 08/04/22 11:10 IV 09/02/22 23:59 80 mls/hr INFUSION LUISA Administration IV Miscellaneous Supplies 1 each 08/04/22 06:00 Iv Access IV 09/02/22 23:59 DIRECTED LUISA Sodium Chloride 0 ml 08/04/22 06:00 Normal Saline Flush 10 Ml Syr IV 09/02/22 23:59 PRN PRN Sodium Chloride 0 ml 08/04/22 06:00 Normal Saline 10 Ml Vial IJ 09/02/22 23:59 DIRECTED PRN Sterile Water 0 ml 08/04/22 06:00 Water,Injection,Sterile 10 Ml Vial IJ 09/02/22 23:59 DIRECTED PRN PFSH Active Problems Active Problems: Problem Status Onset Code Vitamin D deficiency E55.9 Osteopenia M85.80 Low back pain M54.5 Pre-diabetes R73.03 Hyperlipidemia E78.5 Restless leg G25.81 Left groin pain R10.32 Osteoarthritis M19.90 Nocturia R35.1 Snoring R06.83 Osteoarthritis of right hip M16.11 History of total left hip replacement 12/22/21 Z96.642 Mass of left thigh R22.42 Abscess of left thigh L02.416 Medical History Medical History COVID-19 11/11/21 Knee fracture, left Left anterior fascicular block Reactive depression 2017 Uterine polyp Medical History Comments:: Pt. states she is a light weight with anesthesia, pt. reports she is sensitive to anesthesia and take awhile to wake Surgical History Surgical History H/O dilation and curettage uterus History of carpal tunnel repair (~1996) B/L History of hammertoe correction (~2010) left foot History of hip replacement History of phacoemulsification of cataract of right eye with intraocular lens implantation S/P breast biopsy, right (~1972) BENIGN S/P lumpectomy, right breast (~1972) Status post bilateral cataract extraction Status post tonsillectomy and adenoidectomy (~1947) Status post trigger finger release right 3rd Tobacco Smoking/Tobacco Use Status: Never Passive smoking exposure: Yes Second hand exposure: Yes Alcohol Alcohol Intake: current Alcohol intake frequency: holidays/special occasions only Alcohol type: wine Substance Use Substance use: Never Substance use type: does not use Details: alcohol: edin Vital Signs and Lab Results Vital Signs Most Recent Vital Signs in EMR: Most Recent Vital Signs Temp Pulse Resp BP Pulse Ox 36.5 C 74 16 164/75 H 98 08/04/22 10:28 08/04/22 10:28 08/04/22 10:28 08/04/22 10:28 08/04/22 10:28 Lab Results Blood Type / Crossmatch: No Data to Display Complete Blood Count: No Data to Display Complete Metabolic Panel: Creatinine 1.0 mg/dL (0.55-1.02) 07/26/22 12:45 Est GFR (CKD-EPI 2020) 57.66 (mL/min/1.73m2) 07/26/22 12:45 Liver Function Panel: No Data to Display Coagulation Panel: No Data to Display Cardiac Panel: No Data to Display Arterial Blood Gas: No Data to Display Venous Blood Gas: No Data to Display Pancreas Panel: No Data to Display Thyroid Panel: No Data to Display Infectious Disease: No Data to Display Blood Cultures: No Data to Display Toxicology Panel: No Data to Display Anesthesia Assessment and Plan Anesthesia History Personal History: No History of Anesthesia Complications Family History: No Family History of Anesthesia Complications Exercise Tolerance Exercise Tolerance: Metabolic Equivalents>4 Pertinent Negatives Pertinent Negatives: No Symptoms of GERD, No Major Cardiovascular Symptoms or Complaints, No Major Pulmonary Symptoms or Complaints and No History of CVA/TIA Cardiac & Pulmonary Exam Cardiac Exam: Normal S1/S2 Heart Sounds Pulmonary Exam: Clear Bilateral Breath Sounds Implantable Cardiac Device Does patient have a Pacemaker or an ICD?: No Airway Exam Known Difficult Airway: No Mallampati Class: 3 Mouth Opening: Normal (> 3cm) Thyromental Distance: Greater than 3 cm Neck Range of Motion: Full ROM Neck Circumference: Normal Teeth Condition: Normal Dentition ASA Classification ASA Score: ASA 2 Emergency Case?: No NPO Status NPO Status: NPO Clears >2 hours, Solids >8 hours Anesthesia Plan Resuscitation Status: Full Code Anesthesia Technique: General Anesthesia Airway Planned: Endotracheal Tube Monitors Used: Standard Monitors Preoperative Comments:: Plan Prone, General ETT
--- NOTE | 2022-08-04 12:10 | W.PM.DSUDISC ---
Date of service: 08/04/22 Time of Service: 12:10 Discharge Plan Disposition Patient Disposition: Home Condition: Good Discharge Details Reason For Visit: I&D L thigh Attending Provider: Reyes Lo Primary Care Provider: Mónica Fong Home Meds and New Rx's Prescriptions: New hydrocodone-acetaminophen 5-325 mg tablet 1 tab PO Q6H PRN (Reason: pain) Qty: 10 0RF acetaminophen 500 mg tablet 1,000 mg PO TID Qty: 90 0RF ibuprofen 600 mg tablet 600 mg PO TID PRN (Reason: pain) Qty: 90 0RF Continued pramipexole 0.125 mg tablet 0.125 mg PO QHS One-A-Day Women's 50 Plus 400-20 mcg tablet 1 tab PO DAILY cholecalciferol (vitamin D3) 25 mcg (1,000 unit) tablet 25 mcg PO DAILY rosuvastatin 20 mg tablet 20 mg PO DAILY melatonin 3 mg tablet 3 mg PO HS PRN calcium carbonate-vitamin D3 600 mg-5 mcg (200 unit) Tablet 1 tab PO DAILY Discontinued acetaminophen 500 mg tablet 1,000 mg PO Q8H PRN (Reason: pain) Qty: 90 3RF Discharge Instructions Additional Instructions: I&D Thigh Discharge Instructions Activity: You may weight-bear as tolerated, however you may use crutches or a walker that you have at home for comfort. Dressing: Keep the surgical dressing in place until your next visit in one week. Avoid getting the dressing wet. This dressing has a small pump attached to it. If any of the buttons blink red or orange, please contact the office. Keep the SYDNEY wrap on the thigh until your follow-up. If you need to reposition or rewrap you may do so without concern. Medications: - You should take Tylenol and an anti-inflammatory ibuprofen as your primary pain control medications - You have been prescribed a stronger pain medication Hydrocodone for breakthrough pain, take as needed as prescribed. - If you have constipation you should take Colace or Miralax (both [id number]). It takes most people 3-4 days to have a bowel movement. Follow-up: 1 week Referrals: Reyes Lo MD [ [facility] STAFF PHYSICIAN] - Activity:: Activity as Tolerated Remove Dressings/Wound Care:: Do Not Remove Shower/Bathe:: Cover Diet:: As Tolerated Discharge Orders Discharge Orders: Discharge Order (Routine); Ordered 08/04/22 Ordered By: Joaquim Grant
[2022-08-04] MEDS: Bupivacaine 0.25% Pres-Free 30 ML VIAL (14:11)
[2022-08-04] MEDS: HYDROmorphone 2 MG/ML SYR IVP (15:26)
[2022-08-04] MEDS: Normal Saline 10 ML VIAL IJ (15:26)
--- NOTE | 2022-08-04 15:58 | W.ANESPOSTOP ---
Postoperative Evaluation Date, Time and Location Date Performed: 08/04/22 Time Performed: 15:58 Patient Location: PACU Vital Signs Most Recent Imported Vital Signs: Most Recent Vital Signs Temp Pulse Resp BP Pulse Ox 36.4 C L 49 L 14 146/68 H 93 08/04/22 15:35 08/04/22 15:35 08/04/22 15:35 08/04/22 15:35 08/04/22 15:35 Pain Score Most Recent Pain Score: Most Recent Pain Score Pain Level 6 08/04/22 15:35 Assessment Mental Status: Awake (Alert & Oriented to Patient Baseline) Airway and Respiratory Function: Patent airway with normal (patient baseline) respiratory exam Cardiovascular Function: Hemodynamically Stable Hydration Status: Adequately Hydrated Nausea & Vomiting: No Nausea or Vomiting Pain: Pain is tolerable per patient Peripheral Nerve Block: Patient did not receive a nerve block
--- NOTE | 2022-08-04 20:15 | ROE_ITS ---
Date of service: 08/04/22 Time of Service: 14:30 Operative Note Operative Note DATE OF PROCEDURE: 08/04/22 PRE-OP DIAGNOSIS: Left Thigh Hematoma POST-OP DIAGNOSIS: same PROCEDURE: Irrigation and Debridement of Left Thigh Hematoma Hanh dressing application SURGEON: Reyes Lo OFFICE SUPERVISOR: Joaquim Grant ANESTHESIA TYPE: General LMA/ETT Refer to Anesthesia Record ESTIMATED BLOOD LOSS: 200 PATHOLOGY: other (Cultures were taken of the fluid) TOURNIQUET TIME: 0 COMPLICATIONS: Other (More bleeding than expected without identifiable source) Patient was transported to: PACU Patient's condition: stable Indications: Fidelina is a 77-year-old who underwent a left hip replacement from an anterior approach in December. She noticed a swelling to the back of her left mid thigh. This was presumed to be some hematoma of unclear etiology. It did seem to get better on its own. However, over the last few months is gotten larger and more painful, especially with any direct pressure such as sitting. Therefore, CT scan and MRI were obtained which showed what appeared to be a hematoma or fluid collection with peripheral rim enhancement without any significant soft tissue component or enhancement within the cyst itself. Given the persistence, I offered debridement of the cyst after confirmation of it being cystic in nature with ultrasound-guided aspiration. I reviewed the technical details of the case. I discussed the risk to include bleeding, infection, pain, stiffness, damage nerves and vessels, continued swelling or bleeding, blood clot. Despite these risks, she elected to proceed. Findings: Ultrasound guidance was utilized to aspirate the cyst which revealed copious amounts of blood-tinged fluid. I then proceeded with irrigation debridement. This cystic structure was located within the hamstring musculature. It was debrided and evacuated. Some of the cyst wall was removed. However, there is significant oozing from the deep aspects of the cyst without 1 clear identifiable source. Hemostatic agents for later in the wound which helped control the bleeding but once again no source was identified and therefore I did not debride the deep portion of the cyst due to concerns of adjacent vascularity. Procedure Description: Fidelina was greeted in the preoperative holding area. Identity was confirmed the correct side was identified and marked. The consent was reviewed the patient and signed. The history and physical was updated. She was taken back to the operating room and a general anesthetic was administered. A timeout was performed for safe surgery. Prophylactic antibiotics were held until after cultures were obtained. Fidelina was then positioned into the prone position. Her arms placed in the 99 knee. All bony problems well-padded. Her head was well supported in neutral position and her chest and belly was free for expansion. The cystic structure over the posterior aspect left thigh was easily identifiable. This area was prepped ChloraPrep. Using sterile technique I used ultrasound to identify the cyst and with an 18-gauge needle under ultrasound guidance aspirated cystic contents which was thin blood-tinged, brown appearing, fluid. 120 cc were removed. Some of this was sent to the lab for aerobic cultures. At this point, irrigation debridement was performed. A longitudinal incision was made overlying the cyst. This was taken down sharply the skin. All bleeding and the skin structures was cauterized. The posterior thigh fascia was encountered. This was incised. The hamstring musculature was also then identified. In line with the fibers, the muscle was penetrated which immediately resulted in copious amounts of fluid extraction. 2 other culture sets were obtained from within the cyst itself 1 from superior and 1 from distal. These were sent to the lab for culture. Prophylactic antibiotics were then administered. Some of the cyst wall seen superficially was then debrided. There was no to be a persistent ooze of the wound. Using various techniques of packing I was unable to identify 1 clear source. There is dense clotted material seen within the depths of this wound. The overall appearance was of a hematoma/seroma. There is no changes to the surrounding tissue all other tissue appeared healthy. There is no significant soft tissue component except for clot and the rind of the inner portion of the cyst. However, the bleeding was quite brisk from no identifiable source. After trying multiple packing techniques and finding no one tissue to attack and no 1 area of bleeding such as an arterial or venous vessel, I packed the wound with hemostatic gauze. No debridement was performed of this region. Decompression of the cyst was the only etiology for the increase in blood. Blood pressure was well controlled by anesthesia. After allowing this time to set the gauze was removed and the wound was once again inspected. While there was some oozing there was no significant blood flow of any pressure. The wound was inspected gently and I once again was unable to identify any persistent 1 source of bleeding. Without making a much larger incision and diving deeper into the wound, adjacent to the known branching blood vessels of the deep femoral artery, I decided to abort at this point. The bleeding was very minimal. The wound was thoroughly irrigated with 2 L normal saline. There is a ooze from the wound bed but no vigorous bleeding. The posterior fascia was lightly reapproximated to provide some compression force against the cystic structure. The deep tissues were closed with 2-0 Vicryl. The skin was closed with a running 4-0 Monocryl. A hahn dressing was applied to assist with wound healing but also evaluation of any excess bleeding. Compression wrap was placed onto the thigh with. Fidelina was then transition back into the supine position and extubated. She tolerated procedure well and is transferred back to the PACU in stable condition. I did communicate the findings of the surgery with her in the waiting room as well as with Fidelina. I will see her back in 1 week for a wound check. I will also make referral to vascular surgery for further evaluation and management. I am unclear as to the exact etiology of this but likely expect it will need further work-up and potential intervention. Hopefully, by decompressing the bulk of the cyst, this will symptomatically feel better.
== END 2022-08-04 17:40 | disposition home or self-care (01) ==
PROVIDERS: PCP Nurse Practitioner Family; Visit Provider Student in an Organized Health Care Education/Training Program
PROC: (CPT 27301; principal; 2022-08-04 13:15)
DX: L76.32 Postprocedural hematoma of skin and subcutaneous tissue following other procedure (principal)
CPT/HCPCS: 27301; 87070; 87075; 87205; J0690; J1100; J1170; J2405; J2704

== ENCOUNTER → 2022-08-09 15:00 | Outpatient (BNVA) | payer MEDICARE, SELFPAY | PROVIDERS: PCP Nurse Practitioner Family; Referring Provider Nurse Practitioner Family; Visit Provider Student in an Organized Health Care Education/Training Program | DX: R22.42 Localized swelling, mass and lump, left lower limb (principal); Z96.642 Presence of left artificial hip joint ==

== ENCOUNTER 2022-09-09 12:50 | Emergency (ER) | payer MEDICARE, SELFPAY ==
[2022-09-09 13:03] VITALS: BP 128/62; PULSE 102; RESP 18; TEMP 37.6; O2SAT 97
--- NOTE | 2022-09-09 15:20 | ED.GENADUL_ITS ---
Discharge Plan Disposition Patient Disposition: Transfer-Acute Inpatient Care Specific Acute Inpt Facility: [facility] Condition: Stable Discharge Details Clinical Impression: Abscess of left thigh Primary Care Provider: Mónica Fong ED Provider: Isela Bautista Home Meds and New Rx's Prescriptions: No Action pramipexole 0.125 mg tablet 0.125 mg PO QHS One-A-Day Women's 50 Plus 400-20 mcg tablet 1 tab PO DAILY cholecalciferol (vitamin D3) 25 mcg (1,000 unit) tablet 25 mcg PO DAILY rosuvastatin 20 mg tablet 20 mg PO DAILY melatonin 3 mg tablet 3 mg PO HS PRN calcium carbonate-vitamin D3 600 mg-5 mcg (200 unit) Tablet 1 tab PO DAILY hydrocodone-acetaminophen 5-325 mg tablet 1 tab PO Q6H PRN (Reason: pain) Qty: 10 0RF acetaminophen 500 mg tablet 1,000 mg PO TID Qty: 90 0RF ibuprofen 600 mg tablet 600 mg PO TID PRN (Reason: pain) Qty: 90 0RF vancomycin 125 mg capsule 125 mg PO QID Medical Decision Making 1430 -- 77-year-old female who is status post left hip replacement in December [address] Lo and later developed a left posterior thigh hematoma which subsequently became infected last month and was drained and cultured and treated with wound VAC and currently followed by wound care for dressing changes presents for worsening pain and fever at home today. She is now currently on p.o. vancomycin 4 times daily after developing C. difficile colitis after taking amoxicillin for her left thigh infection. Patient appears comfortable and nontoxic. Her oral temp is 99.7. She has a 15 x 15 cm area of tender erythema and induration to the left posterior mid thigh. There is a 6 x 4 cm open wound in center with gauze saturated with green discha rge. We will obtain screening labs and CT of thigh to rule out abscess or worsening fluid collection. We will consult Dr. Giordano at [facility] for any recommendations. 1800 -- Labs and imaging reviewed. White blood cell count 11.63. Lactate normal at 1. CT reviewed and notes: IMPRESSION: Enlarging complex fluid collection with free air and irregular rim enhancement consistent with a chronic enlarging abscess. There is extension of the abscess to the subcutaneous tissues of the posterior thigh with skin defect. There is interval enlargement of the abscess with a new 13 x 5 x 2 cm abscess extending toward the knee containing fluid and free air.? This large complex abscess is amenable to percutaneous aspiration and drainage. Images pushed to [facility] and will consult plastic surgery at [facility] as they sent her here for evaluation. 1899 --Case discussed with Dr. Escobedo with [facility] plastic surgery --we reviewed images and feels that patient needs to come to [facility] ED for evaluation with them and potentially involve acute care surgery. Case discussed with [facility] ED attending Dr. Gallo accepts patient for transfer. Dr. Escobedo would like a dose of IV vancomycin and IV Zosyn now. These have been ordered and discussed that if the administration of these medications will potentially cause a delay in transfer, will hold on the antibiotics as patient is hemodynamically stable and nontoxic-appearing. We will likely be able to give her the dose of IV Zosyn but may have to hold on the dose of IV vancomycin if this is causing a delay in transport or if we cannot secure a medic for transport. Patient is agreeable with plan. 1939 --[facility] able to transport patient but cannot secure a medic. She was given IV Zosyn but will hold on IV vancomycin dose so as not to delay transport. Medical Records Medical records reviewed: Yes I reviewed the patient's medical records. Imaging Data Radiologic Study: Radiologist's impression: CT Left Lower Extremity With Contrast; Thigh Exam date and time: 09/09/2022 5:00 PM Age: 77 years old Clinical indication: Prior surgery; Surgery date: 6+ months; Surgery type: Hip replacement in December 2021; Patient HX: Left thigh cellulitis, R/O abscess. H/o infected hematoma w/ wound vac. PT. Had abscess drain for two weeks on aug 04, 2022 TECHNIQUE: Imaging protocol: CT of the left lower extremity with intravenous contrast was performed. Exam focused on the thigh. Contrast material: OMNIPAQUE 350; Contrast volume: 100 ml; Contrast route: INTRAVENOUS (IV);? COMPARISON: CT LOWER EXTREMITY LT W 26/07/2022 13:26 FINDINGS: Bones/joints: Total left hip arthroplasty. No evidence for acute bony injury. 12.6 x 8.2 x 14.4 cm complex loculated fluid collection with air and thick irregular rim enhancement posterior thigh similar to prior study. Soft tissues: The large loculated fluid collection contains air in the inferior aspect and there is air in the subcutaneous tissues leading directly to the skin surface. Extending distal to the the original mass is a 2nd loculated fluid and air collection measuring 13 cm in length and 2 cm in AP diameter and 5 cm in width, consistent with extension of the posterior thigh abscess. IMPRESSION: Enlarging complex fluid collection with free air and irregular rim enhancement consistent with a chronic enlarging abscess. There is extension of the abscess to the subcutaneous tissues of the posterior thigh with skin defect. There is interval enlargement of the abscess with a new 13 x 5 x 2 cm abscess extending toward the knee containing fluid and free air.? This large complex abscess is amenable to percutaneous aspiration and drainage. Lab Data Lab results reviewed: Yes I reviewed the patient's lab results. Labs: Laboratory Tests Range/Units 09/09/22 09/09/22 09/09/22 16:12 16:12 16:12 WBC (4.4-10.8) 10^3/uL 11.63 H RBC (3.93-5.22) 10^6/uL 3.67 L Hgb (11.2-15.7) g/dL 11.0 L Hct (36.0-46.0) % 33.5 L MCV (80-95) fL 91 MCH (27.0-33.0) pg 30.0 MCHC (32.0-36.0) % 32.8 RDW (11.7-14.6) % 12.9 Plt Count (130-400) 10^3/uL 320 MPV (8.0-11.0) fL 8.5 Immature Gran % 0.8 Neutrophils % 70.7 Lymphocytes % 16.3 Monocytes % 11.4 Eosinophils % 0.4 Basophils % 0.4 Nucleated RBC % (0.0-0.3) % 0.0 Absolute Neutrophils (1.2-6.7) 10^3/uL 8.22 H Absolute Lymphocytes (1.2-3.4) 10^3/uL 1.90 Absolute Monocytes (0.1-0.8) 10^3/uL 1.33 H Absolute Eosinophils (0.0-0.7) 10^3/uL 0.05 Absolute Basophils (0.0-0.2) 10^3/uL 0.05 VBG Lactate (0.6-1.4) mmol/L 1.0 Sodium (136-145) mmol/L 143 Potassium (3.5-5.1) mmol/L 3.3 L Chloride (98-107) mmol/L 104 Carbon Dioxide (21.0-32.0) mmol/L 28.4 Anion Gap (3-11) mmol/L 10.6 BUN (7-18) mg/dL 23 H Creatinine (0.55-1.02) mg/dL 1.0 Est GFR (CKD-EPI 2020) (mL/min/1.73m2) 57.66 Glucose (74-106) mg/dL 110 H Calcium (8.5-10.1) mg/dL 9.4 Total Bilirubin (0.2-1.0) mg/dL 0.3 AST (15-37) U/L 42 H ALT (14-59) U/L 62 H Alkaline Phosphatase (46-116) U/L 81 Total Protein (6.4-8.2) g/dL 7.4 Albumin (3.4-5.0) g/dL 2.8 L COVID-19 Source SARS-CoV-2 (PCR) (Negative) Influenza Type A (PCR) (Negative) Influenza Type B (PCR) (Negative) RSV (PCR) (Negative) Range/Units 09/09/22 16:24 WBC (4.4-10.8) 10^3/uL RBC (3.93-5.22) 10^6/uL Hgb (11.2-15.7) g/dL Hct (36.0-46.0) % MCV (80-95) fL MCH (27.0-33.0) pg MCHC (32.0-36.0) % RDW (11.7-14.6) % Plt Count (130-400) 10^3/uL MPV (8.0-11.0) fL Immature Gran % Neutrophils % Lymphocytes % Monocytes % Eosinophils % Basophils % Nucleated RBC % (0.0-0.3) % Absolute Neutrophils (1.2-6.7) 10^3/uL Absolute Lymphocytes (1.2-3.4) 10^3/uL Absolute Monocytes (0.1-0.8) 10^3/uL Absolute Eosinophils (0.0-0.7) 10^3/uL Absolute Basophils (0.0-0.2) 10^3/uL VBG Lactate (0.6-1.4) mmol/L Sodium (136-145) mmol/L Potassium (3.5-5.1) mmol/L Chloride (98-107) mmol/L Carbon Dioxide (21.0-32.0) mmol/L Anion Gap (3-11) mmol/L BUN (7-18) mg/dL Creatinine (0.55-1.02) mg/dL Est GFR (CKD-EPI 2020) (mL/min/1.73m2) Glucose (74-106) mg/dL Calcium (8.5-10.1) mg/dL Total Bilirubin (0.2-1.0) mg/dL AST (15-37) U/L ALT (14-59) U/L Alkaline Phosphatase (46-116) U/L Total Protein (6.4-8.2) g/dL Albumin (3.4-5.0) g/dL COVID-19 Source Nasopharynx SARS-CoV-2 (PCR) (Negative) Negative Influenza Type A (PCR) (Negative) Negative Influenza Type B (PCR) (Negative) Negative RSV (PCR) (Negative) Negative HPI General Mode of arrival: wheelchair . Date/Time Provider Initiated Documentation: 09/09/22 13:00 . Limitations to Documentation: no limitations . Information obtained by: patient . HPI Narrative: Patient is a 77-year-old female who is status post left hip replacement in December [address] Lo and later developed a left posterior thigh hematoma which subsequently became infected last month and was drained and cultured and treated with wound VAC and currently followed by wound care for dressing changes presents for worsening pain and fever at home today. Patient had been evaluated by Dr. Ho vascular surgery in August 2022 at [facility] and there was not suspected to be any significant vascular involvement in her hematoma. She had then been referred to plastic surgery Dr. Giordano at [facility] to suspected an infected seroma which was drained and cultured and packed with Aquacel with a compression dressing. Patient states the wound VAC was recently removed and she has been having dressing changes with wound care notes at home. She states that wound care nurse was supposed to replace the wound VAC dressing yesterday but did not feel comfortable as she thought the wound appeared more red and painful. Patient states today she developed a fever of 100.[address] Giordano's office who directed her to the ER for further evaluation. Patient took 200 mg of ibuprofen earlier today and Vicodin but no additional acetaminophen. She denies any headache, ear pain, sore throat, runny nose, nasal congestion, chest pain, difficulty breathing, abdominal pain or vomiting. She has since been diagnosed also with C. difficile colitis and is taking p.o. vancomycin 4 times daily after taking amoxicillin for 2 weeks for her left thigh infection. She states she is still having ongoing diarrhea. Related Data Home Medications Medication Instructions Recorded Confirmed cholecalciferol (vitamin D3) 25 25 mcg PO DAILY 12/29/20 09/09/22 mcg (1,000 unit) tablet melatonin 3 mg tablet 3 mg PO HS PRN 12/29/20 09/09/22 rosuvastatin 20 mg tablet 20 mg PO DAILY 12/29/20 09/09/22 hydiqxnyepvi-jedqnmwk-oppxeql-folic 1 tab PO DAILY 01/20/21 09/09/22 acid 400 mcg-vit K1 20 mcg tablet (One-A-Day Women's 50 Plus) pramipexole 0.125 mg tablet 0.125 mg PO QHS 01/20/21 09/09/22 calcium carbonate 600 mg-vitamin 1 tab PO DAILY 08/03/22 09/09/22 D3 5 mcg (200 unit) tablet acetaminophen 500 mg tablet 1,000 mg PO TID #90 tabs 08/04/22 09/09/22 hydrocodone 5 mg-acetaminophen 325 1 tab PO Q6H PRN pain #10 tabs 08/04/22 09/09/22 mg tablet ibuprofen 600 mg tablet 600 mg PO TID PRN pain #90 tabs 08/04/22 09/09/22 vancomycin 125 mg capsule 125 mg PO QID 09/09/22 09/09/22 Previous Rx's Medication Instructions Recorded acetaminophen 500 mg tablet 1,000 mg PO TID #90 tabs 08/04/22 hydrocodone 5 mg-acetaminophen 325 1 tab PO Q6H PRN pain #10 tabs 08/04/22 mg tablet ibuprofen 600 mg tablet 600 mg PO TID PRN pain #90 tabs 08/04/22 Allergies Allergy/AdvReac Type Severity Reaction Status Date / Time meperidine [From Demerol] AdvReac Unknown Nausea, Verified 09/09/22 13:08 vomiting General Stated Complaint: Cellulitis ALFRED: 3 Review of Systems All systems reviewed & are unremarkable except as noted in HPI and below Constitutional Constitutional: Reports as per HPI, Denies chills and Denies fever(s) Eyes Eyes: Denies blurry vision ENT Ears, Nose, Mouth, and Throat: Denies dizziness, Denies sore throat and Denies throat swelling Cardiovascular Cardiovascular: Denies chest pain and Denies dyspnea Respiratory Respiratory: Denies cough and Denies dyspnea Gastrointestinal Gastrointestinal: Denies abdominal pain, Denies diarrhea and Denies vomiting Genitourinary Genitourinary: Denies hematuria and Denies dysuria Musculoskeletal Musculoskeletal: Denies back pain and Denies numbness Comments: L thigh infection Integumentary/Breasts Skin/Breast: Denies lesions and Denies rash Neurologic Neurologic: Denies dizziness, Denies localized weakness and Denies numbness Allergic/Immunologic Allergic/Immunologic: Denies throat swelling PFSH All Active Problems (Updated 09/09/22 @ 19:25 by Isela Bautista DO) Abscess of left thigh (Acute) Vitamin D deficiency (Acute) Osteopenia (Acute) Low back pain (Acute) Pre-diabetes (Acute) Hyperlipidemia (Acute) Restless leg (Acute) Left groin pain (Acute) Osteoarthritis (Chronic) Nocturia (Acute) Snoring (Acute) Osteoarthritis of right hip (Acute) History of total left hip replacement (Acute 12/22/21) Status post irrigation and debridement of left thigh hematoma DOS: 08/04/2022 Mass of left thigh (Acute) Abscess of left thigh (Acute) Medical History COVID-19 11/11/21 Knee fracture, left Left anterior fascicular block Reactive depression 2017 Uterine polyp Surgical History H/O dilation and curettage uterus History of carpal tunnel repair (~1996) B/L History of hammertoe correction (~2010) left foot History of hip replacement History of phacoemulsification of cataract of right eye with intraocular lens implantation S/P breast biopsy, right (~1972) BENIGN S/P lumpectomy, right breast (~1972) Status post bilateral cataract extraction Status post tonsillectomy and adenoidectomy (~1946) Status post trigger finger release right 3rd Family History Mother , 103 No problems noted. Father , 93 No problems noted. Sister No problems noted. Son , 15 No problems noted. Daughter No problems noted. Paternal Grandfather , 79 Diabetes Paternal Grandmother , 86 Diabetes Social History Smoking/Tobacco Use Status: Never Second Hand Exposure: Yes Smoking risk assessment performed?: Yes Alcohol Intake: current Alcohol Intake frequency: holidays/special occasions only Alcohol type: wine Drug use: Never Substance use type: does not use Details: alcohol: edin Caregiver/Support person: No Household members: spouse Housing: house Communication Needs: None Pets and animals: Yes Pets and animals: cat(s) and dog(s) Do you think of yourself as: straight/heterosexual Current gender identity: female What is your relationship status?: How often do you talk on the phone with friends or family?: three or more times per week How often do you get together with friends or relatives?: twice per week How often do you attend synagogue or rastafari services?: 1-3 times per year Do you belong to any clubs or organized social groups?: no Panel score (0-1 are the most socially isolated patients): 2 What type of physical activity do you participate in: walking Duration: < 15 minutes/day Frequency: daily [employer]/Ad[employer]ism: Worship Special mary kay needs: No Seatbelt use: always Helmet use: No Drive intox or ride w/intox customer service driver: No Do you feel safe at home: Yes Do you feel safe in your relationship?: Yes Exam Const General: cooperative and no acute distress Orientation: alert, awake and oriented x3 HENMT Head: normal to inspection Face and sinus: normal facial exam Eyes General: appearance normal, both eyes and all related structures Pupils: PERRL EOM: EOM intact bilaterally Neck Neck: normal visual inspection and No submandibular swelling Lymphatic: no lymphadenopathy noted Chest Chest: normal inspection of the chest and no tenderness Resp Effort & Inspection: normal respiratory effort and able to speak in complete sentences Auscultation: clear to auscultation bilaterally Cardio Rate: tachycardic Rhythm: regular rhythm GI Inspection: normal to inspection Palpation: soft, not firm, not rigid and nontender Auscultation: hypoactive bowel sounds Skin General skin exam: no rashes or lesions noted Neuro General: patient alert, patient awake and patient oriented x3 Cognition: normal cognition Speech: speech normal Motor: muscle tone normal throughout Sensory Exam: no sensory deficits noted Extrem Upper/lower leg/hip images: 1. An approximate 12x12 cm area of erythema and induration in the left posterior mid thigh. There is a 6 x 4 cm open wound in center with gauze in place which is saturated with green discharge. There is no oozing of discharge or bleeding. Other: Left DP/PT pulses intact Psych Appearance: grossly normal Mental Status: mental status grossly normal Speech and Movement: speech and movement normal Affect: normal affect Course Vital Signs Vital signs: Vital Signs Temperature 99.7 F H 09/09/22 13:03 Pulse 102 H 09/09/22 13:03 Respiratory Rate 18 09/09/22 13:03 Blood Pressure 128/62 09/09/22 13:03 Pulse Oximetry 97 09/09/22 13:03 Temperature 99.7 F H 09/09/22 13:03 Temperature Source Oral 09/09/22 13:03 Pulse 102 H 09/09/22 13:03 Respiratory Rate 18 09/09/22 13:03 Respiratory Effort Normal, Non-Labored 09/09/22 13:07 Blood Pressure 128/62 09/09/22 13:03 Pulse Oximetry 97 09/09/22 13:03 Oxygen Delivery Method Room Air 09/09/22 13:03 Oxygen Flow Rate 0 09/09/22 13:03
--- NOTE | 2022-09-09 15:30 | DI.CT_ITS ---
Exam(s) CT LOWER EXTREMITY LT W EXAM: CT LOWER EXTREMITY LT W CLINICAL HISTORY: left thigh cellulitis, r/o abscess. TECHNIQUE: Imaging Protocol: Axial computed tomography images with coronal and sagittal reformatted images were created and reviewed. CONTRAST MATERIAL: Intravenous: Omnipaque 350 Contrast volume:structured data in ml Contrast route:I V - Oral: yes / no COMPARISON: CT CT LOWER EXTREMITY LT W from 07/26/2022 FINDINGS: The previously described posterior thigh-abscess exhibits further increase in size and there is prese ntly additional extension of the abscess caudally medially adjacent to the the biceps femoris extendi ng down to almost the knee level. This additional fluid and air containing extension measures 12 cm craniocaudal length by 1.8 cm AP by 4 cm wide. It is intimately related to the lateral aspect of the biceps femora S. more superiorly it joins the original large abscess and this abscess now exhibits d rainage the subcutaneous level. The main abscess measures approximately 11 cm wide by 8 cm AP by 12 cm cephalocaudal. IMPRESSION: Further enlargement of the posterior thigh muscular abscess as described above with new additional ex tension down towards the knee intimately associated with the outer aspect of the biceps femoris. At the junction of this new component and the previously described major component there is extension of the abscess to the subcutaneous tissues of the posterior thigh. This large complex abscess is amenable to percutaneous drainage. RADIATION DOSE DELIVERED: 437.3mGy.cm Total DLP DATA REPOSITORY: All CT scans at this facility are submitted to the National Radiology Data Registry (NRDR) Dose Index Registry (DIR) with the [employer] (ACR). RADIATION OPTIMIZATION: All CT scans at this facility use at least one of these dose optimization te chniques: automated exposure control; mA and/or kV adjustment per patient size (includes targeted exa ms where dose is matched to clinical indication); or iterative reconstruction.
[2022-09-09 16:16] LABS: Abs Immature Grans 0.09 10^3/uL (0.0-0.06); Absolute Basophil Count 0.05 10^3/uL (0.0-0.2); Absolute Eosinophil Count 0.05 10^3/uL (0.0-0.7); Absolute Monocyte Count 1.33 10^3/uL (0.1-0.8); Absolute Neutrophil Count 8.22 10^3/uL (1.2-6.7); Basophils % 0.4; Eosinophils % 0.4; HCT 33.5 % (36.0-46.0); Immature Grans % 0.8; Lymphocytes % 16.3; MCHC 32.8 % (32.0-36.0); MCV 91 fL (80-95); MPV 8.5 fL (8.0-11.0); Monocytes % 11.4; Neutrophils % 70.7; Platelet Count 320 10^3/uL (130-400); RBC 3.67 10^6/uL (3.93-5.22); RDW 12.9 % (11.7-14.6); RDW-SD 42.7 fL; WBC 11.63 10^3/uL (4.4-10.8)
[2022-09-09] MEDS: Normal Saline 1,000 ML 1000 ML IV (16:28)
[2022-09-09] MEDS: ACETAMINOPHEN 1,000 MG/100 ML BTL 400 MG IVPB (16:28)
[2022-09-09 16:38] LABS: ALT 62 U/L (14-59); AST 42 U/L (15-37); Albumin 2.8 g/dL (3.4-5.0); Alkaline Phosphatase 81 U/L (46-116); Anion Gap 10.6 mmol/L (3-11); BUN 23 mg/dL (7-18); Bilirubin, Total 0.3 mg/dL (0.2-1.0); CO2 28.4 mmol/L (21.0-32.0); Calcium 9.4 mg/dL (8.5-10.1); Chloride 104 mmol/L (98-107); Estimated GFR 57.66 (mL/min/1.73m2); Glucose 110 mg/dL (74-106); Potassium 3.3 mmol/L (3.5-5.1); Sodium 143 mmol/L (136-145); Total Protein 7.4 g/dL (6.4-8.2)
[2022-09-09] MEDS: Omnipaque 350 MG/ML 100 ML BTL IJ (16:59)
[2022-09-09] MEDS: Normal Saline - Diluent 50 ML VIAL IJ (17:00)
[2022-09-09 17:13] LABS: COVID-19 PCR Negative (Negative); Influenza A PCR Negative (Negative); Influenza B PCR Negative (Negative); RSV PCR Negative (Negative)
[2022-09-09 17:15] LABS: Source Nasopharynx
--- NOTE | 2022-09-09 18:03 | DI.VRAD_ITS ---
PROCEDURE INFORMATION: Exam: CT Left Lower Extremity With Contrast; Thigh Exam date and time: 09/09/2022 5:00 PM Age: 77 years old Clinical indication: Prior surgery; Surgery date: 6+ months; Surgery type: Hip replacement in December 2021; Patient HX: Left thigh cellulitis, R/O abscess. H/o infected hematoma w/ wound vac. PT. Had abscess drain for two weeks on aug 04, 2022 TECHNIQUE: Imaging protocol: CT of the left lower extremity with intravenous contrast was performed. Exam focused on the thigh. Contrast material: OMNIPAQUE 350; Contrast volume: 100 ml; Contrast route: INTRAVENOUS (IV); COMPARISON: CT LOWER EXTREMITY LT W 26/07/2022 13:26 FINDINGS: Bones/joints: Total left hip arthroplasty. No evidence for acute bony injury. 12.6 x 8.2 x 14.4 cm complex loculated fluid collection with air and thick irregular rim enhancement posterior thigh similar to prior study. Soft tissues: The large loculated fluid collection contains air in the inferior aspect and there is air in the subcutaneous tissues leading directly to the skin surface. Extending distal to the the original mass is a 2nd loculated fluid and air collection measuring 13 cm in length and 2 cm in AP diameter and 5 cm in width, consistent with extension of the posterior thigh abscess. IMPRESSION: Enlarging complex fluid collection with free air and irregular rim enhancement consistent with a chronic enlarging abscess. There is extension of the abscess to the subcutaneous tissues of the posterior thigh with skin defect. There is interval enlargement of the abscess with a new 13 x 5 x 2 cm abscess extending toward the knee containing fluid and free air. This large complex abscess is amenable to percutaneous aspiration and drainage. Dictated and Authenticated by: Katerina Lagunas MD. Ordering:MADINA Weiss MD
[2022-09-09 18:12] LABS: C-Reactive Protein 5.14 mg/dL (0.0-0.3)
[2022-09-09] MEDS: PIPERACILLIN/TAZO 3.375 GM in Normal Saline 50 ML IVPB (19:20)
[2022-09-09 20:13] VITALS: BP 139/46; PULSE 80; RESP 20; TEMP 37.4; O2SAT 96
== END 2022-09-09 20:21 | disposition short-term general hospital (02) ==
PROVIDERS: Emergency Provider Physician Assistant; PCP Nurse Practitioner Family
DX: L02.416 Cutaneous abscess of left lower limb (principal); R00.0 Tachycardia, unspecified; Z86.16 Personal history of COVID-19; Z20.822 Contact with and (suspected) exposure to COVID-19
CPT/HCPCS: 36415; 80053; 87637; 96361; 96365; 96368; 96375; 99285; 73701; 83605; 85025; 86140; J0131; J2543; J3490

== ENCOUNTER 2022-10-23 15:13 | Outpatient (REF) | payer MEDICARE, SELFPAY ==
[2022-10-25 11:41] LABS: Campylobacter PCR Negative (Negative); Salmonella PCR Negative (Negative); Shiga Toxin PCR Negative (Negative); Shigella/Enteroinvasive Ecoli Negative (Negative)
== END 2022-10-23 15:14 | disposition home or self-care (01) ==
LOC: LBN 15:13
PROVIDERS: PCP Nurse Practitioner Family; Visit Provider Plastic Surgery
DX: R19.7 Diarrhea, unspecified (principal)
CPT/HCPCS: 87505

== ENCOUNTER 2022-10-26 17:34 | Outpatient (REF) | payer MEDICARE, SELFPAY ==
[2022-10-26 18:26] LABS: Abs Immature Grans 0.05 10^3/uL (0.0-0.06); Absolute Basophil Count 0.06 10^3/uL (0.0-0.2); Absolute Eosinophil Count 0.27 10^3/uL (0.0-0.7); Absolute Lymphocyte Count 2.06 10^3/uL (1.2-3.4); Absolute Monocyte Count 1.17 10^3/uL (0.1-0.8); Absolute Neutrophil Count 7.18 10^3/uL (1.2-6.7); Basophils % 0.6; Eosinophils % 2.5; HCT 36.8 % (36.0-46.0); Immature Grans % 0.5; Lymphocytes % 19.1; MCH 29.6 pg (27.0-33.0); MCHC 32.6 % (32.0-36.0); MCV 91 fL (80-95); MPV 9.1 fL (8.0-11.0); Monocytes % 10.8; Neutrophils % 66.5; Platelet Count 361 10^3/uL (130-400); RBC 4.06 10^6/uL (3.93-5.22); RDW 13.5 % (11.7-14.6); RDW-SD 45.3 fL; WBC 10.79 10^3/uL (4.4-10.8)
[2022-10-26 18:38] LABS: ALT 45 U/L (14-59); AST 27 U/L (15-37); Albumin 3.5 g/dL (3.4-5.0); Alkaline Phosphatase 62 U/L (46-116); Anion Gap 7.3 mmol/L (3-11); BUN 27 mg/dL (7-18); Bilirubin, Total 0.2 mg/dL (0.2-1.0); CO2 28.7 mmol/L (21.0-32.0); CREATININE 0.9 mg/dL (0.55-1.02); Calcium 9.2 mg/dL (8.5-10.1); Chloride 103 mmol/L (98-107); Estimated GFR 65.44 (mL/min/1.73m2); Glucose 105 mg/dL (74-106); Potassium 3.5 mmol/L (3.5-5.1); Sodium 139 mmol/L (136-145); Total Protein 6.9 g/dL (6.4-8.2)
== END 2022-10-26 17:35 | disposition home or self-care (01) ==
LOC: LBN 17:34
PROVIDERS: PCP Nurse Practitioner Family; Visit Provider Family Medicine
DX: D64.9 Anemia, unspecified (principal); R10.9 Unspecified abdominal pain
CPT/HCPCS: 80053; 85025

== ENCOUNTER 2022-11-03 12:28 | Observation (INO) | payer MEDICARE, SELFPAY ==
[2022-11-03] VITALS (43 sets, daily range): BP systolic 115–150; BP diastolic 49–78; PULSE 83–111; RESP 16–17; TEMP 36.4–37; O2SAT 95–100
--- NOTE | 2022-11-03 13:00 | DI.CT_ITS ---
Exam(s) CT ABDOMEN PELVIS W EXAM: CT ABDOMEN PELVIS W CLINICAL HISTORY: abdominal pain, vomiting. TECHNIQUE: Imaging Protocol: Axial computed tomography images with coronal and sagittal reformatted images were created and reviewed CONTRAST MATERIAL: Intravenous: Omnipaque 350 Contrast volume:100 ml Oral: no COMPARISON: No exams were available for comparison FINDINGS: ABDOMEN: Lung Bases: Mild dependent changes.. Liver: Mild hepatic steatosis. No measurable mass. Gallbladder and biliary tract: No radiodense calculus or dilation. Pancreas: Severely atrophic. Spleen: Normal. Kidneys: Normal size, contour and axis. No radiodense stones or obstructive uropathy. Parapelvic cys ts. No suspicious masses seen. Adrenal glands: No masses seen. Abdominal Aorta: Abdominal portion non-dilated. Soft tissues: Small fatty containing umbilical hernia. PELVIS: Bladder: No gross wall thickening. No calculi.No focal mass. Bowel: No obstruction. Severe diffuse wall thickening of the colon consistent with severe colitis. Peritoneal cavity: Small amount of ascites seen around liver and spleen. Small amount of free fluid in paracolic gutters and in pelvis. No evidence of perforation or abscess. Bones: Left hip prosthesis creates artifact in pelvis. Reproductive organs: Within normal limits. Lymph nodes: Unremarkable. Impression: Severe ray colitis. Findings called to Mick in the emergency department. RADIATION DOSE DELIVERED: 772.53mGy.cm Total DLP DATA REPOSITORY: All CT scans at this facility are submitted to the National Radiology Data Registry (NRDR) Dose Index Registry (DIR) with the [employer] (ACR). RADIATION OPTIMIZATION: All CT scans at this facility use at least one of these dose optimization te chniques: automated exposure control; mA and/or kV adjustment per patient size (includes targeted exa ms where dose is matched to clinical indication); or iterative reconstruction.
--- NOTE | 2022-11-03 13:00 | ED.GENADUL_ITS ---
Discharge Plan Discharge Details Chief Complaint: GenMedical Primary Care Provider: Mónica Bruner ED Provider: Hemant Han Home Meds and New Rx's Prescriptions: No Action pramipexole 0.125 mg tablet 0.125 mg PO QHS One-A-Day Women's 50 Plus 400-20 mcg tablet 1 tab PO DAILY enoxaparin 40 mg/0.4 mL syringe 40 mg subcut HS Patient Comments: INJECT 0.4 MLS SUBCUTANEOUSLY EVERY NIGHT FOR 27 DAYS cholecalciferol (vitamin D3) 25 mcg (1,000 unit) tablet 25 mcg PO DAILY rosuvastatin 20 mg tablet 20 mg PO DAILY melatonin 3 mg tablet 3 mg PO HS PRN nystatin 100,000 unit/gram powder 1 applic topical BID Qty: 15 0RF calcium carbonate-vitamin D3 600 mg-5 mcg (200 unit) Tablet 1 tab PO DAILY acetaminophen 500 mg tablet 1,000 mg PO TID Qty: 90 0RF ibuprofen 600 mg tablet 600 mg PO TID PRN (Reason: pain) Qty: 90 0RF vancomycin 125 mg capsule 125 mg PO QID Patient Comments: TAKE ONE CAPSULE BY MOUTH FOUR TIMES A DAY FOR 4 DAYS Medical Decision Making Lab Data Lab results reviewed: Yes I reviewed the patient's lab results. Labs: RUN DATE: 11/03/22 [facility] PAGE 1 RUN TIME: [id number] RUN USER: [place] [address] Aneta Eagle MD PATIENT REPORT PATIENT: Fidelina Hanson LOC: ER U #: [id number] /SX: 1945 F ROOM: RE11/03/[address]: Hemant Han M.D. STATUS: REG ER BED: DIS: SPEC #: [id number] ANTONELLA: 11/03/22-1325 STATUS: COMP REQ #: [id number] RECD: 11/03/22-[address]: Hemant Han M.D. ENTERED: 11/03/22-1314 [facility] DR: MÓNICA BRUNER NP FAX #: ORDERED: CBC/Diff Test Result Flag Reference Verified WBC 26.03 *H 4.4-10.8 10^3/uL 11/03/22 Critical value reported to and readback from [facility] at 1339 11/03/22 by LAB.[facility]GD RBC 4.75 3.93-5.22 10^6/uL 11/03/22 HGB 14.0 11.2-15.7 g/dL 11/03/22 HCT 41.6 36.0-46.0 % 11/03/22 MCV 88 80-95 fL 11/03/22 MCH 29.5 27.0-33.0 pg 11/03/22 MCHC 33.7 32.0-36.0 % 11/03/22 RDW 13.5 11.7-14.6 % 11/03/22 Platelet Count 492 H 130-400 10^3/uL 11/03/22 MPV 8.6 8.0-11.0 fL 11/03/22 Neutrophils % 89.8 11/03/22 Lymphocytes % 3.9 11/03/22 Monocytes % 5.0 11/03/22 Eosinophils % 0.0 11/03/22 Basophils % 0.7 11/03/22 Immature Grans % 0.6 11/03/22 Nucleated RBC 0.0 0.0-0.3 % 11/03/22 Absolute Neutrophil Count 23.37 H 1.2-6.7 10^3/uL 11/03/22 Absolute Lymphocyte Count 1.02 L 1.2-3.4 10^3/uL 11/03/22 Absolute Monocyte Count 1.30 H 0.1-0.8 10^3/uL 11/03/22 Absolute Eosinophil Count 0.00 0.0-0.7 10^3/uL 11/03/22 Absolute Basophil Count 0.18 0.0-0.2 10^3/uL 11/03/22 Diff Comment Diff Reviewed 11/03/22 RBC Morphology Normal 11/03/22 Patient: JeradFidelina mckay Harjit LABORATORY Acct#[id number] Unit#[id number] RUN DATE: 11/03/22 [facility] PAGE 1 RUN TIME: [address] RUN USER: [place] [address] Aneta Eagle MD PATIENT REPORT PATIENT: Fidelina Hanson LOC: ER U #: [id number] /SX: 1945 F ROOM: RE11/03/[address]: Hemant Han M.D. STATUS: REG ER BED: DIS: SPEC #: [id number] ANTONELLA: 11/03/22 STATUS: COMP REQ #: [id number] RECD: 11/03/[address]: Hemant Han M.D. ENTERED: 11/03/22 [facility] DR: FRANC VALENTINEMÓNICA FAX #: ORDERED: CMP, Lipase Test Result Flag Reference Verified Calcium 8.9 8.5-10.1 mg/dL 11/03/22 Glucose 188 H 74-106 mg/dL 11/03/22 BUN 35 H 7-18 mg/dL 11/03/22 Creatinine 1.1 H 0.55-1.02 mg/dL 11/03/22 Estimated GFR 51.43 mL/min/1.73m2 11/03/22 The eGFR is calculated from a serum creatinine using the CKD-EPI 2020 equation. Other variables required for the equation are gender and age; this equation does not include a race coefficient. This equation has similar overall performance to previous equations except values may differ, in particular, in patients with higher values of eGFR and younger-aged adults. Total Protein 6.8 6.4-8.2 g/dL 11/03/22 Albumin 2.4 L 3.4-5.0 g/dL 11/03/22 Bilirubin, Total 0.3 0.2-1.0 mg/dL 11/03/22 Alk Phos 104 46-116 U/L 11/03/22 Sodium 132 L 136-145 mmol/L 11/03/22 Potassium 3.3 L 3.5-5.1 mmol/L 11/03/22 Chloride 97 L 98-107 mmol/L 11/03/22 CO2 27.5 21.0-32.0 mmol/L 11/03/22 Anion Gap 7.5 3-11 mmol/L 11/03/22 AST 34 15-37 U/L 11/03/22 ALT 45 14-59 U/L 11/03/22 Lipase 11 L 16-77 U/L 11/03/22 Patient: Fidelina Hanson LABORATORY Acct#[id number] Unit#[id number] RUN DATE: 11/03/22 [facility] PAGE 1 RUN TIME: [id number] RUN USER: [place] [address] Aneta Eagle MD PATIENT REPORT PATIENT: Fidelina Hanson LOC: ER U #: [id number] /SX: 1945 F ROOM: RE11/03/[address]: Hemant Han M.D. STATUS: REG ER BED: DIS: SPEC #: [id number] ANTONELLA: 11/03/22 STATUS: COMP REQ #: [id number] RECD: 11/03/[address]: Hemant Han M.D. ENTERED: 11/03/22 [facility] DR: CLAUDIA BRUNER NPNAH FAX #: ORDERED: Lactate Test Result Flag Reference Verified Lactate 2.0 H 0.6-1.4 mmol/L 11/03/22 Patient: Fidelina Hanson LABORATORY Acct#[id number] Unit#[id number] ECG Data Attestation: I personally reviewed and interpreted this ECG (s) as follows: Prior ECG tracings: available for review Interpretation: Normal sinus rhythm heart rate 84 left ventricular hypertrophy fourth left axis deviation no acute ST-T changes HPI General Date/Time Provider Initiated Documentation: 11/03/22 12:35 . HPI Narrative: Patient presents emergency department complaining of profuse watery diarrhea for the last 15 days. Patient has had episodes of C. difficile colitis and they presume this was C. difficile and they started her on vancomycin by mouth but today arrives because yesterday she started having nausea not able to tolerate p.o. fluids. Patient reports being very thirsty and reports 4/10 crampy abdominal pain. Denies any fever denies any chills denies any melena. Related Data Home Medications Medication Instructions Recorded Confirmed cholecalciferol (vitamin D3) 25 25 mcg PO DAILY 12/29/20 11/03/22 mcg (1,000 unit) tablet melatonin 3 mg tablet 3 mg PO HS PRN 12/29/20 11/03/22 rosuvastatin 20 mg tablet 20 mg PO DAILY 12/29/20 11/03/22 xwhbslfsijqq-omxuwqxm-zazulvl-folic 1 tab PO DAILY 01/20/21 11/03/22 acid 400 mcg-vit K1 20 mcg tablet (One-A-Day Women's 50 Plus) pramipexole 0.125 mg tablet 0.125 mg PO QHS 01/20/21 11/03/22 calcium carbonate 600 mg-vitamin 1 tab PO DAILY 08/03/22 11/03/22 D3 5 mcg (200 unit) tablet acetaminophen 500 mg tablet 1,000 mg PO TID #90 tabs 08/04/22 11/03/22 ibuprofen 600 mg tablet 600 mg PO TID PRN pain #90 tabs 08/04/22 11/03/22 enoxaparin 40 mg/0.4 mL 40 mg subcut HS 10/07/22 11/03/22 subcutaneous syringe nystatin 100,000 unit/gram topical 1 applic topical BID #15 grams 10/15/22 11/03/22 powder vancomycin 125 mg capsule 125 mg PO QID 11/03/22 11/03/22 Previous Rx's Medication Instructions Recorded acetaminophen 500 mg tablet 1,000 mg PO TID #90 tabs 08/04/22 ibuprofen 600 mg tablet 600 mg PO TID PRN pain #90 tabs 08/04/22 nystatin 100,000 unit/gram topical 1 applic topical BID #15 grams 10/15/22 powder Allergies Allergy/AdvReac Type Severity Reaction Status Date / Time meperidine [From Demerol] AdvReac Unknown Nausea, Verified 11/03/22 12:51 vomiting amoxicillin AdvReac c-diff Verified 11/03/22 12:51 General Stated Complaint: GenMedical ALFRED: 3 Review of Systems All systems reviewed & are unremarkable except as noted in HPI and below Constitutional Constitutional: Reports chills, Reports lethargy and Reports weakness Eyes Eyes: Reports as per HPI and Reports system reviewed and no additional complaints, except as documented ENT Ears, Nose, Mouth, and Throat: Reports system reviewed and no additional complaints, except as documented Cardiovascular Cardiovascular: Reports as per HPI and Reports system reviewed and no additional complaints, except as documented Respiratory Respiratory: Reports as per HPI and Reports system reviewed and no additional complaints, except as documented Gastrointestinal Gastrointestinal: Reports as per HPI, Reports system reviewed and no additional complaints, except as documented, Reports bloating and Reports cramping Musculoskeletal Musculoskeletal: Reports system reviewed and no additional complaints, except as documented Neurologic Neurologic: Reports system reviewed and no additional complaints, except as documented and Reports weakness Endocrine Endocrine: Reports polydipsia PFSH All Active Problems 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 Nickerson Orthopedic oncology Vitamin D deficiency (Acute) Osteopenia (Acute) Low back pain (Acute) Pre-diabetes (Acute) Hyperlipidemia (Acute) Restless leg (Acute) Left groin pain (Acute) Osteoarthritis (Chronic) Nocturia (Acute) Snoring (Acute) Osteoarthritis of right hip (Acute) History of total left hip replacement (Acute 12/22/21) Status post irrigation and debridement of left thigh hematoma DOS: 08/04/2022 Mass of left thigh (Acute) Abscess of left thigh (Acute) Medical History COVID-19 11/11/21 Knee fracture, left Left anterior fascicular block Reactive depression 2017 Uterine polyp Surgical History H/O dilation and curettage uterus History of carpal tunnel repair (~1996) B/L History of hammertoe correction (~2010) left foot History of hip replacement History of phacoemulsification of cataract of right eye with intraocular lens implantation S/P breast biopsy, right (~1972) BENIGN S/P lumpectomy, right breast (~1972) Status post bilateral cataract extraction Status post tonsillectomy and adenoidectomy (~1947) Status post trigger finger release right 3rd Family History Mother , 103 No problems noted. Father , 93 No problems noted. Sister No problems noted. Son , 15 No problems noted. Daughter No problems noted. Paternal Grandfather , 79 Diabetes Paternal Grandmother , 86 Diabetes Social History Smoking/Tobacco Use Status: Never Second Hand Exposure: Yes Smoking risk assessment performed?: Yes Alcohol Intake: current Alcohol Intake frequency: holidays/special occasions only Alcohol type: wine Drug use: Never Substance use type: does not use Details: alcohol: edin Caregiver/Support person: No Household members: spouse Housing: house Communication Needs: None Pets and animals: Yes Pets and animals: cat(s) and dog(s) Do you think of yourself as: straight/heterosexual Current gender identity: female What is your relationship status?: How often do you talk on the phone with friends or family?: three or more times per week How often do you get together with friends or relatives?: twice per week How often do you attend mosque or anglican services?: 1-3 times per year Do you belong to any clubs or organized social groups?: no Panel score (0-1 are the most socially isolated patients): 2 What type of physical activity do you participate in: walking Duration: < 15 minutes/day Frequency: daily Mary Kay/Mandaen: Confucianism Special mary kay needs: No Seatbelt use: always Helmet use: No Drive intox or ride w/intox 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 Do you feel safe at home: Yes Do you feel safe in your relationship?: Yes Exam Const General: cooperative, healthy appearing, no acute distress, frail appearing and No well hydrated HENMT Head: normal to inspection, normocephalic and atraumatic Mouth: moist mucous membranes abnormal Eyes General: appearance normal, both eyes and all related structures Visual Tee: normal visual tee by confrontation Conjunctivae: conjunctivae normal Pupils: PERRL Neck Neck: normal visual inspection Chest Chest: normal inspection of the chest Resp Effort & Inspection: normal respiratory effort and able to speak in complete sentences Auscultation: clear to auscultation bilaterally Cardio Rate: tachycardic Rhythm: regular rhythm, abnormal rhythm and other GI Inspection: normal to inspection Palpation: soft, no hepatosplenomegaly and tender Auscultation: abnormal bowel sounds and hyperactive bowel sounds Skin General skin exam: no rashes or lesions noted and elasticity normal Lesions: no lesions Neuro General: patient alert, patient awake and patient oriented x3 Course Vital Signs Vital signs: Vital Signs Temperature 36.4 C 11/03/22 12:45 Pulse 111 H 11/03/22 12:45 Respiratory Rate 16 11/03/22 12:45 Blood Pressure 140/65 11/03/22 12:45 Pulse Oximetry 98 11/03/22 12:45 Temperature 36.4 C 11/03/22 12:45 Temperature Source Oral 11/03/22 12:45 Pulse 111 H 11/03/22 12:45 Respiratory Rate 16 11/03/22 12:45 Respiratory Effort Normal 11/03/22 12:52 Blood Pressure 140/65 11/03/22 12:45 Blood Pressure Position Sitting 11/03/22 12:45 Pulse Oximetry 98 11/03/22 12:45 Oxygen Delivery Method Room Air 11/03/22 12:45 Oxygen Flow Rate 0 11/03/22 12:45 Pain Level 4 11/03/22 12:45 Sign Out Sign Out Data: Sign Out Comment: Patient presents the emergency department with diarrhea for 12 days and now with vomiting was white of 26,000 elevated lactic acid. Patient with abdominal pain who has a CT scan pending who probably has C. difficile colitis. Patient has been treated with vancomycin and was signed out to Dr. Ryland Watson pending CT abdomen and pelvis Last updated by Hemant Han MD at 11/03/22 14:59
[2022-11-03 13:36] LABS: Abs Immature Grans 0.15 10^3/uL (0.0-0.06); Absolute Basophil Count 0.18 10^3/uL (0.0-0.2); Basophils % 0.7; HCT 41.6 % (36.0-46.0); Immature Grans % 0.6; Lymphocytes % 3.9; MCH 29.5 pg (27.0-33.0); MCHC 33.7 % (32.0-36.0); MCV 88 fL (80-95); MPV 8.6 fL (8.0-11.0); Neutrophils % 89.8; Platelet Count 492 10^3/uL (130-400); RBC 4.75 10^6/uL (3.93-5.22); RDW 13.5 % (11.7-14.6); RDW-SD 43.6 fL
[2022-11-03 13:40] LABS: Absolute Lymphocyte Count 1.02 10^3/uL (1.2-3.4); Absolute Neutrophil Count 23.37 10^3/uL (1.2-6.7); WBC 26.03 10^3/uL (4.4-10.8)
[2022-11-03] MEDS: Normal Saline 1,000 ML 1000 ML IV ×2 (13:40→14:44)
[2022-11-03] MEDS: Ondansetron 4 MG/2 ML VIAL IVP ×2 (13:40→19:06)
[2022-11-03 13:46] LABS: Diff Comment Diff Reviewed; RBC Morphology Normal
[2022-11-03 13:49] LABS: Magnesium 2.6 mg/dL (1.8-2.4)
[2022-11-03 13:55] LABS: ALT 45 U/L (14-59); AST 34 U/L (15-37); Albumin 2.4 g/dL (3.4-5.0); Alkaline Phosphatase 104 U/L (46-116); Anion Gap 7.5 mmol/L (3-11); BUN 35 mg/dL (7-18); Bilirubin, Total 0.3 mg/dL (0.2-1.0); CO2 27.5 mmol/L (21.0-32.0); CREATININE 1.1 mg/dL (0.55-1.02); Calcium 8.9 mg/dL (8.5-10.1); Chloride 97 mmol/L (98-107); Estimated GFR 51.43 (mL/min/1.73m2); Glucose 188 mg/dL (74-106); Lipase 11 U/L (16-77); Potassium 3.3 mmol/L (3.5-5.1); Sodium 132 mmol/L (136-145); Total Protein 6.8 g/dL (6.4-8.2)
--- NOTE | 2022-11-03 14:00 | RT.EKG_ITS ---
APPROVED REPORT Exam: Resting ECG Reason for Exam: tachycardia Patient Location: E HR:84 bpm ECG Measurements Heart Rate 84 AXIS IL 151 P -14 QRSd 98 QRS -29 QT 374 T 46 QTc 442 Conclusion Sinus rhythm...normal P axis, V-rate 60- 99 Left ventricular hypertrophy...multiple voltage criteria
[2022-11-03] MEDS: MORPHine 4 MG/ML SYR IVP (14:08)
[2022-11-03] MEDS: Normal Saline - Diluent 50 ML VIAL IJ (14:59)
[2022-11-03] MEDS: Omnipaque 350 MG/ML 100 ML BTL IJ (14:59)
[2022-11-03 15:54] LABS: Lactate 1.5 mmol/L (0.6-1.4)
[2022-11-03 15:59] LABS: Bilirubin Negative (Negative); Blood Negative (Negative); Clarity Clear (Clear); Glucose Negative (Negative); Ketones Negative (Negative); Leukocyte Esterase Negative (Negative); Nitrite Negative (Negative); Urobilinogen 0.2 mg/dL (Up to 0.2)
[2022-11-03 16:08] LABS: Bacteria Negative HPF (Negative); C & S Indicated? No; Casts 0-2 Hyaline LPF (Negative); Crystals Negative HPF (Negative); Epithelial Cells Rare HPF (Negative); Mucus Trace (Negative); RBC 0-2 HPF (0-2); WBC 0-2 HPF (0-5)
--- NOTE | 2022-11-03 16:56 | ED.PROG_ITS ---
Date of service: 11/03/22 Time of Service: 16:56 Medical Decision Making Evidence of pancolitis. Mild distention without peritoneal signs. Hemodynamically stable. Vomiting and nausea controlled. Still mildly uncomfortable. Lactic acidosis resolving. Mild bump in creatinine. Will admit for continued antibiotics hydration and pain medication. Patient is full code. Sign Out Sign Out Data: Sign Out Comment: Patient presents the emergency department with diarrhea for 12 days and now with vomiting was white of 26,000 elevated lactic acid. Patient with abdominal pain who has a CT scan pending who probably has C. difficile colitis. Patient has been treated with vancomycin and was signed out to Dr. Ryland Watson pending CT abdomen and pelvis Last updated by Hemant Han MD at 11/03/22 14:59 Discharge Plan Disposition Patient Disposition: Admit to [facility] Condition: Stable Discharge Details Chief Complaint: GenMedical Clinical Impression: Pancolitis, C. difficile colitis Primary Care Provider: Mónica Fong ED Provider: Ozzy Mcgrath Home Meds and New Rx's Prescriptions: No Action pramipexole 0.125 mg tablet 0.125 mg PO QHS One-A-Day Women's 50 Plus 400-20 mcg tablet 1 tab PO DAILY enoxaparin 40 mg/0.4 mL syringe 40 mg subcut HS Patient Comments: INJECT 0.4 MLS SUBCUTANEOUSLY EVERY NIGHT FOR 27 DAYS cholecalciferol (vitamin D3) 25 mcg (1,000 unit) tablet 25 mcg PO DAILY rosuvastatin 20 mg tablet 20 mg PO DAILY melatonin 3 mg tablet 3 mg PO HS PRN nystatin 100,000 unit/gram powder 1 applic topical BID Qty: 15 0RF calcium carbonate-vitamin D3 600 mg-5 mcg (200 unit) Tablet 1 tab PO DAILY acetaminophen 500 mg tablet 1,000 mg PO TID Qty: 90 0RF ibuprofen 600 mg tablet 600 mg PO TID PRN (Reason: pain) Qty: 90 0RF vancomycin 125 mg capsule 125 mg PO QID Patient Comments: TAKE ONE CAPSULE BY MOUTH FOUR TIMES A DAY FOR 4 DAYS
--- NOTE | 2022-11-03 17:13 | HPE_ITS ---
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 Treat w/ iv flagyl and oral vancomycin. I made the patient and her daughter aware that she is high risk of requiring colectomy if she developes megacolon or perforation. I will try her on liquid diet and advance as tolerated. I have added lactobacillus and cholestyramine. Professional time spent interviewing and examining patient, discussion of goals of care with hospital team (care management, nursing and consulting professionals) was 60 minutes. (2) C. difficile colitis: Status: Acute (3) Soft tissue sarcoma of left thigh: Status: Acute Assessment and plan: patient s/p wide excision of her extraosseous osteosarcoma and she has elected not to receive radiation therapy or chemotherapy at this point. 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 This was found after she had left total left hip arthroplasty December 2021 and found to have subsequent nonhealing wound that was initially thought to be a hematoma but after plastic surgery debridement and biopsy was found to be a sarcoma. She underwent wide excision of the left thigh in September 2022. Patient has hx of C difficile infection dating back to August related to multiple rounds of antibiotics. She was on oral [place]com[place] [facility] [place] days after her [place] in [place] but developed recurrent watery diarrhea on October 18 and was found to have recurrent C difficile infection and was put on oral vancomycin 3 days ago. She presented to the ED w/ nausea, chills, abdominal bloating and diarrhea and was found to be dehydrated w/ mild azotemia. CT scan of her abdomen/pelvis demonstrates severe pancolitis and CBC demonstrated leukocytosis of 23,000 w/ left shift. Patient is being admitted for treatment of dehydration and severe C difficile colitis, recurent. Patient will be put on iv flagyl and oral vancomycin. Review of Systems Constitutional Constitutional: Reports as per HPI, Reports body ache(s), Reports chills and Reports fever(s) Cardiovascular Cardiovascular: Reports system reviewed and no additional complaints, except as documented Respiratory Respiratory: Reports system reviewed and no additional complaints, except as documented Gastrointestinal Gastrointestinal: Reports as per HPI Genitourinary Genitourinary: Reports system reviewed and no additional complaints, except as documented Musculoskeletal Musculoskeletal: Reports system reviewed and no additional complaints, except as documented Integumentary/Breasts Skin/Breast: Reports system reviewed and no additional complaints, except as documented Neurologic Neurologic: Reports system reviewed and no additional complaints, except as documented Endocrine Endocrine: Reports system reviewed and no additional complaints, except as documented Hematologic/Lymphatic Hematologic/Lymphatic: Reports system reviewed and no additional complaints, except as documented PFSH All Active Problems Pancolitis (Acute) C. difficile colitis (Acute) Soft tissue sarcoma of left thigh (Acute ~09/23/22) [place] [facility] [place] Orthopedic oncology Vitamin D deficiency (Acute) Osteopenia (Acute) Low back pain (Acute) Pre-diabetes (Acute) Hyperlipidemia (Acute) Restless leg (Acute) Left groin pain (Acute) Osteoarthritis (Chronic) Nocturia (Acute) Snoring (Acute) Osteoarthritis of right hip (Acute) History of total left hip replacement (Acute 12/22/21) Status post irrigation and debridement of left thigh hematoma DOS: 08/04/2022 Mass of left thigh (Acute) Abscess of left thigh (Acute) Medical History COVID-19 11/11/21 Knee fracture, left Left anterior fascicular block Reactive depression 2017 Uterine polyp Surgical History H/O dilation and curettage uterus History of carpal tunnel repair (~1996) B/L History of hammertoe correction (~2010) left foot History of hip replacement History of phacoemulsification of cataract of right eye with intraocular lens implantation S/P breast biopsy, right (~1972) BENIGN S/P lumpectomy, right breast (~1972) Status post bilateral cataract extraction Status post tonsillectomy and adenoidectomy (~194) Status post trigger finger release right 3rd Family History Mother , 103 No problems noted. Father , 93 No problems noted. Sister No problems noted. Son , 15 No problems noted. Daughter No problems noted. Paternal Grandfather , 79 Diabetes Paternal Grandmother , 86 Diabetes Social History Smoking/Tobacco Use Status: Never Second Hand Exposure: Yes Smoking risk assessment performed?: Yes Alcohol Intake: current Alcohol Intake frequency: holidays/special occasions only Alcohol type: wine Drug use: Never Substance use type: does not use Details: alcohol: edin Caregiver/Support person: No Household members: spouse Housing: house Communication Needs: None Pets and animals: Yes Pets and animals: cat(s) and dog(s) Do you think of yourself as: straight/heterosexual Current gender identity: female What is your relationship status?: How often do you talk on the phone with friends or family?: three or more times per week How often do you get together with friends or relatives?: twice per week How often do you attend spiritism or buddhism services?: 1-3 times per year Do you belong to any clubs or organized social groups?: no Panel score (0-1 are the most socially isolated patients): 2 What type of physical activity do you participate in: walking Duration: < 15 minutes/day Frequency: daily Mary Kay/Buddhist: Cheondoism Special mary kay needs: No Seatbelt use: always Helmet use: No Drive intox or ride w/intox 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 Do you feel safe at home: Yes Do you feel safe in your relationship?: Yes Meds Allergies and Home Medications Allergies Allergy/AdvReac Type Severity Reaction Status Date / Time meperidine [From Demerol] AdvReac Unknown Nausea, Verified 11/03/22 12:51 vomiting amoxicillin AdvReac c-diff Verified 11/03/22 12:51 Home Medications Medication Instructions Recorded Confirmed Type cholecalciferol (vitamin D3) 25 25 mcg PO DAILY 12/29/20 11/03/22 History mcg (1,000 unit) tablet melatonin 3 mg tablet 3 mg PO HS PRN 12/29/20 11/03/22 History rosuvastatin 20 mg tablet 20 mg PO DAILY 12/29/20 11/03/22 History ffpojijrykmw-rdfthjgx-dzisyjv-folic 1 tab PO DAILY 01/20/21 11/03/22 History acid 400 mcg-vit K1 20 mcg tablet (One-A-Day Women's 50 Plus) pramipexole 0.125 mg tablet 0.125 mg PO QHS 01/20/21 11/03/22 History calcium carbonate 600 mg-vitamin 1 tab PO DAILY 08/03/22 11/03/22 History D3 5 mcg (200 unit) tablet acetaminophen 500 mg tablet 1,000 mg PO TID #90 tabs 08/04/22 11/03/22 Rx ibuprofen 600 mg tablet 600 mg PO TID PRN pain #90 tabs 08/04/22 11/03/22 Rx enoxaparin 40 mg/0.4 mL 40 mg subcut HS 10/07/22 11/03/22 History subcutaneous syringe nystatin 100,000 unit/gram topical 1 applic topical BID #15 grams 10/15/22 11/03/22 Rx powder vancomycin 125 mg capsule 125 mg PO QID 11/03/22 11/03/22 History Exam Narrative Exam Narrative: Fidelina was seen in the ED, she is lying on the guerney in the ED room 5, she is alert and oriented x 3, talking w/ her daughter, she states she feels better now that she has had something for nausea and had a liter of iv fluids HEENT: moist oral mucosa, normal dentition; no exudates; PERRLA/EOMI, no jaundice Neck: supple, no adenopathy, normal ROM and strength, flat neck veins, normal carotid pulses Lungs: clear Heart: RRR, no murmur, rub or gallop Abdomen: distended, firm but not hard, diffuse scattered bowel sounds, diffusely tender but no rebound tenderness Extremities: no edema or cyanosis. normal ROM and strength Neuro: grossly normal; no focal CN abnormalities, normal motor strength. Results Labs 11/03/22 13:25 11/03/22 13:12 Labs: Laboratory Results - last 24 hr 11/03/22 11/03/22 11/03/22 13:12 13:15 13:17 WBC RBC Hgb Hct MCV MCH MCHC RDW Plt Count MPV Immature Gran % Neutrophils % Lymphocytes % Monocytes % Eosinophils % Basophils % Nucleated RBC % Absolute Neutrophils Absolute Lymphocytes Absolute Monocytes Absolute Eosinophils Absolute Basophils RBC Morphology VBG Lactate 2.0 H Sodium 132 L Potassium 3.3 L Chloride 97 L Carbon Dioxide 27.5 Anion Gap 7.5 BUN 35 H Creatinine 1.1 H Est GFR (CKD-EPI 2020) 51.43 Glucose 188 H Calcium 8.9 Magnesium 2.6 H Total Bilirubin 0.3 AST 34 ALT 45 Alkaline Phosphatase 104 Total Protein 6.8 Albumin 2.4 L Lipase 11 L Urine Color Urine Clarity Urine pH Ur Specific [place] Urine Protein Urine Ketones Urine Blood Urine Nitrite Urine Bilirubin Urine Urobilinogen Ur Leukocyte Esterase Urine RBC Urine WBC Ur Epithelial Cells Urine Crystals Urine Bacteria Urine Casts Urine Mucus Ur Culture Indicated? Urine Glucose 11/03/22 11/03/22 11/03/22 13:25 15:47 15:49 WBC 26.03 H* RBC 4.75 Hgb 14.0 Hct 41.6 MCV 88 MCH 29.5 MCHC 33.7 RDW 13.5 Plt Count 492 H MPV 8.6 Immature Gran % 0.6 Neutrophils % 89.8 Lymphocytes % 3.9 Monocytes % 5.0 Eosinophils % 0.0 Basophils % 0.7 Nucleated RBC % 0.0 Absolute Neutrophils 23.37 H Absolute Lymphocytes 1.02 L Absolute Monocytes 1.30 H Absolute Eosinophils 0.00 Absolute Basophils 0.18 RBC Morphology Normal VBG Lactate 1.5 H Sodium Potassium Chloride Carbon Dioxide Anion Gap BUN Creatinine Est GFR (CKD-EPI 2020) Glucose Calcium Magnesium Total Bilirubin AST ALT Alkaline Phosphatase Total Protein Albumin Lipase Urine Color Yellow Urine Clarity Clear Urine pH 6.0 Ur Specific [place] 1.010 Urine Protein 30 H Urine Ketones Negative Urine Blood Negative Urine Nitrite Negative Urine Bilirubin Negative Urine Urobilinogen 0.2 Ur Leukocyte Esterase Negative Urine RBC 0-2 Urine WBC 0-2 Ur Epithelial Cells Rare Urine Crystals Negative Urine Bacteria Negative Urine Casts 0-2 Hyaline Urine Mucus Trace Ur Culture Indicated? No Urine Glucose Negative Last Vital Signs Temp 36.4 C 11/03/22 12:45 Pulse 85 11/03/22 16:16 Resp 16 11/03/22 12:45 BP 125/56 L 11/03/22 16:16 Pulse Ox 99 11/03/22 16:20 Time Spent Time spent with Patient: 55-74 minutes Time was spent: preparing to see the patient(eg.review tests), obtaining and/or reviewing separately otained hiistory, ordering medications,tests, procedures, referring, communicating with other health patient care secretary (Discussion with the ED, Dr. Ryland Watson), indepentently interpreting results, counseling the patient and care coordination
[2022-11-03 17:41] LABS: Lab Add On Test DONE
[2022-11-03 18:35] LABS: Procalcitonin 0.4 ng/mL
[2022-11-03] MEDS: Pramipexole 0.25 MG TAB 0.125 MG PO ×2 (19:07→23:06)
[2022-11-03] MEDS: Normal Saline Flush 10 ML SYR IVP (19:10)
[2022-11-03] MEDS: metroNIDAZOLE 500 MG/100 ML BAG 100 MG IVPB (19:12)
[2022-11-03] MEDS: Cholestyramine/Aspartame PKT 1 EACH PO (19:29)
[2022-11-03 20:17] LABS: Lactate 1.2 mmol/L (0.6-1.4)
[2022-11-03 20:35] LABS: Anion Gap 8.5 mmol/L (3-11); BUN 29 mg/dL (7-18); CO2 25.5 mmol/L (21.0-32.0); CREATININE 0.8 mg/dL (0.55-1.02); Calcium 7.7 mg/dL (8.5-10.1); Chloride 101 mmol/L (98-107); Estimated GFR 75.37 (mL/min/1.73m2); Glucose 140 mg/dL (74-106); Potassium 3.6 mmol/L (3.5-5.1); Sodium 135 mmol/L (136-145)
[2022-11-03 20:51] LABS: C Diff PCR Positive (Negative)
[2022-11-03] MEDS: Rosuvastatin 10 MG TAB 20 MG PO (20:52)
[2022-11-03] MEDS: Lactobacillus Acidophilus CAP 1 CAP PO (20:52)
[2022-11-03] MEDS: Acetaminophen 500 MG TAB 1000 MG PO (21:02)
[2022-11-03] MEDS: Enoxaparin 40 MG/0.4 ML SYR SC (23:06)
--- NOTE | 2022-11-04 | DI.RAD_ITS ---
Exam(s) XR ABDOMEN FLAT PLATE EXAM: 2D digital imaging was performed. CLINICAL HISTORY: colitis. COMPARISON: CT CT ABDOMEN PELVIS W from 11/03/2022 TECHNIQUE: Supine views of the abdomen was performed. Two images were obtained. FINDINGS: LUNG BASES: Clear. BOWEL GAS PATTERN: Nondistended. FREE AIR: None. CALCIFICATIONS: No radiopaque calcifications. OSSEOUS STRUCTURES: Within normal limits for the patient's age. There are moderate degenerative coley ges of the right hip characterized by joint space narrowing and periarticular spurring. A left total hip replacement is incompletely imaged. OTHER FINDINGS: None. IMPRESSION: No evidence of bowel obstruction. DATA REPOSITORY: RADIATION DOSE DELIVERED:
[2022-11-04] MEDS: metroNIDAZOLE 500 MG/100 ML BAG 100 MG IVPB ×5 (00:26→23:18)
[2022-11-04 03:01] VITALS: BP 127/62; PULSE 81; RESP 16; TEMP 36.8; O2SAT 97
[2022-11-04] MEDS: Ondansetron 4 MG/2 ML VIAL IVP ×3 (03:06→20:11)
[2022-11-04] MEDS: Acetaminophen 500 MG TAB 1000 MG PO ×2 (05:56→20:11)
[2022-11-04 06:00] VITALS: BP 131/70; PULSE 84; RESP 16; TEMP 37; O2SAT 96
[2022-11-04 06:57] LABS: Lactate 0.9 mmol/L (0.6-1.4)
[2022-11-04 07:00] LABS: Absolute Lymphocyte Count 1.24 10^3/uL (1.2-3.4); Basophils % 0.4; Eosinophils % 0.2; HCT 33.6 % (36.0-46.0); HGB 11.1 g/dL (11.2-15.7); Immature Grans % 0.5; Lymphocytes % 6.6; MCH 29.1 pg (27.0-33.0); MCV 88 fL (80-95); MPV 8.6 fL (8.0-11.0); Monocytes % 6.9; Neutrophils % 85.4; Platelet Count 421 10^3/uL (130-400); RBC 3.81 10^6/uL (3.93-5.22); RDW 13.8 % (11.7-14.6); RDW-SD 44.9 fL; WBC 18.72 10^3/uL (4.4-10.8)
[2022-11-04 07:08] LABS: Absolute Basophil Count 0.07 10^3/uL (0.0-0.2); Absolute Eosinophil Count 0.04 10^3/uL (0.0-0.7); Absolute Monocyte Count 1.29 10^3/uL (0.1-0.8); Absolute Neutrophil Count 15.99 10^3/uL (1.2-6.7)
[2022-11-04 07:09] LABS: Anion Gap 5.8 mmol/L (3-11); BUN 26 mg/dL (7-18); CO2 26.2 mmol/L (21.0-32.0); CREATININE 0.9 mg/dL (0.55-1.02); Calcium 7.9 mg/dL (8.5-10.1); Chloride 103 mmol/L (98-107); Estimated GFR 65.44 (mL/min/1.73m2); Glucose 137 mg/dL (74-106); Magnesium 2.2 mg/dL (1.8-2.4); Potassium 3.1 mmol/L (3.5-5.1); Sodium 135 mmol/L (136-145)
[2022-11-04] MEDS: Calcium 600mg/Vit D 200U TAB 1 TAB PO (08:39)
[2022-11-04] MEDS: Multivitamin TAB 1 TAB PO (08:39)
[2022-11-04] MEDS: Lactobacillus Acidophilus CAP 1 CAP PO ×2 (08:40→19:35)
[2022-11-04] MEDS: Cholecalciferol (Vitamin D3) 1,000 UNIT TAB 2000 UNITS PO (08:40)
[2022-11-04] MEDS: Normal Saline Flush 10 ML SYR IVP (08:43)
[2022-11-04] MEDS: Potassium Chloride 10 MEQ CAPCR 40 MEQ PO (09:16)
--- NOTE | 2022-11-04 10:22 | PDOC.CMIN ---
- If Service Date Differs Date of service: 11/04/22 Time of Service: 10:22 Care Management Initial Assess REASON FOR HOSPITALIZATION:: Pancolitis, C. difficile colitis, Soft tissue sarcoma of left thigh PAST MEDICAL HISTORY/PAST SURGICAL HISTORY:: All Active Problems . Pancolitis (Acute). C. difficile colitis (Acute). Soft tissue sarcoma of left thigh (Acute ~09/23/22). S/P 09/23/22 @ [facility] [place]. Nickerson Orthopedic oncology. Vitamin D deficiency (Acute). Osteopenia (Acute). Low back pain (Acute). Pre-diabetes (Acute). Hyperlipidemia (Acute). Restless leg (Acute). Left groin pain (Acute). Osteoarthritis (Chronic). Nocturia (Acute). Snoring (Acute). Osteoarthritis of right hip (Acute). History of total left hip replacement (Acute 12/22/21). Status post irrigation and debridement of left thigh hematoma. DOS: 08/04/2022. Mass of left thigh (Acute). Abscess of left thigh (Acute). Medical History . COVID-19. 11/11/21. Knee fracture, left. Left anterior fascicular block. Reactive depression. 2017. Uterine polyp. Surgical History . H/O dilation and curettage. uterus. History of carpal tunnel repair (~1996). B/L. History of hammertoe correction (~2010). left foot. History of hip replacement. History of phacoemulsification of cataract of right eye with intraocular lens implantation. S/P breast biopsy, right (~1972). BENIGN. S/P lumpectomy, right breast (~1972). Status post bilateral cataract extraction. Status post tonsillectomy and adenoidectomy (~1947). Status post trigger finger release. right 3rd PREVIOUS FUNCTIONAL STATUS/SOCIAL/FAMILY SUPPORTS:: Fidelina lives in [place] with her Chay. Her Daughter Paris lives in [place] and is very supportive. Fidelina is independent with her ADL's at baseline. Her provides her transportation, since she has been unable to drive since she had surgery on her left leg. Fidelina was recently diagnosed with osteosarcoma of her left thigh and per pt, is planning to start treatment locally at [facility]. CURRENT FUNCTIONAL STATUS:: Fidelina was lying in bed when CM met with her. She is awake and engages in conversation and is accompanied by her Chay. Fidelina shares that she was recently discharged from [facility] [place]. She reports difficulty eating for the last 2 weeks and eventually became to weak to work with [facility] PT. Fidelina reports that she is currently having nausea and difficulty swallowing pills. CM reported to nursing. Fidelina shares that she was recently diagnosed with cancer and is concidering having oncology treatment locally. ADVANCE DIRECTIVES:: On file, dated 08/26/14: [facility] is Chay Hanson, alt is Paris Wallis Has patient been provided with info about the portal/API?: Yes Did the patient sign up for the portal?: Yes (Prior to admission) CODE STATUS:: Full Code INSURANCE COVERAGE / FINANCIAL ISSUES:: BC/BS [place] [employer] CURRENT HOME/COMMUNITY SERVICES/EQUIPMENT:: [facility] RN/PT PRIMARY CARE PHYSICIAN:: Mónica Fong POTENTIAL DISCHARGE NEEDS:: Discharge Plan, Follow up appointments, Resumption of [facility] RN/PT PATIENT/FAMILY EDUCATION NEEDS:: Review discharge instructions, limitations and plan to follow up with community providers. Discuss ask me three. TRANSPORTATION:: Via private vehicle with family PLAN:: Fidelina continues to require hospitalization and is being closely monitored and treated. Anticipate, Fidelina will discharge home with resumption of [facility] RN/PT services. She will follow up with community providers and her discharge plan of care. CM will follow.
--- NOTE | 2022-11-04 10:28 | PT.INIE ---
Date of service: 11/04/22 Time of Service: 09:46 PT Notes Visit Reasons: C Diff Colitis Physical Therapy Inpatient Initial Evaluation Date: 11/04/2022 Referring Doctor: Duncan Saldaña MD PT Orders: PT CONSULT: Extended stay weakness Precautions: Fall. Standard. Activity as tolerated. Patient Profile/Admitting Diagnosis: Fidelina is a 77-year-old female who presented to the ED on 11/03/2022 due to vomiting, abdominal pain, and almost 2 weeks worth of diarrhea. Patient is admitted to [facility] for management of pancolitis, C. difficile colitis, and soft tissue sarcoma of left thigh status post wide excision of extraosseous osteosarcoma in September 2022. Patient is also status post left MAIRA in December 2021 PMHX: All Active Problems? Pancolitis (Acute) C. difficile colitis (Acute) Soft tissue sarcoma of left thigh (Acute ~09/23/22) S/P 09/23/22 @ [facility] [place] with [place]. Nickerson Orthopedic oncology Vitamin D deficiency (Acute) Osteopenia (Acute) Low back pain (Acute) Pre-diabetes (Acute) Hyperlipidemia (Acute) Restless leg (Acute) Left groin pain (Acute) Osteoarthritis (Chronic) Nocturia (Acute) Snoring (Acute) Osteoarthritis of right hip (Acute) History of total left hip replacement (Acute 12/22/21) Status post irrigation and debridement of left thigh hematoma DOS: 08/04/2022Mass of left thigh (Acute) Abscess of left thigh (Acute) Medical History? COVID-19 11/11/21 Knee fracture, left Left anterior fascicular block Reactive depression 2017 Uterine polyp Surgical History? H/O dilation and curettage uterus History of carpal tunnel repair (~1996) B/L History of hammertoe correction (~2010) left foot History of hip replacement History of phacoemulsification of cataract of right eye with intraocular lens implantation S/P breast biopsy, right (~1972) BENIGN S/P lumpectomy, right breast (~1972) Status post bilateral cataract extraction Status post tonsillectomy and adenoidectomy (~1947) Status post trigger finger release right 3rd Social History/Home Situation: Lives with in a private home with 4 steps to enter. Independent with all aspects of ADLs prior to surgery. Equipment Owned/DME: None Subjective: Reported having had 3 bowel movements since earlier this morning. Ports pain and discomfort on the back of left thigh while sitting at edge of bed. Throughout session. Continues to report of fatigue and generalized weakness. Objective: General Observation: Supine in bed. IV through the right UE. Mental Status: Alert and oriented as to person, place, time, and purpose. Able to pay attention, focus, and respond appropriately. Pain: 2/10 in the L hamstring area where incision is from when it rubs against the edge of mattres Vital Signs: Closley moniored by nrsing staff ROM: Right Upper Extremity: Shoulder Flexion WFL. Shoulder abduction WFL. Elbow flexion WFL. Wrist flexion WFL. Functional opening and closing of hand WFL. Left Upper Extremity: Shoulder Flexion WFL. Shoulder abduction WFL. Elbow flexion WFL. Wrist flexion WFL. Functional opening and closing of hand WFL. Right Lower Extremity: Hip flexion WFL. Hip abduction WFL. Knee flexion WFL. Ankle dorsiflexion WFL. Ankle plantarflexion WFL. Left Lower Extremity: Hip flexion WFL. Hip abduction WFL. Knee flexion WFL. Ankle dorsiflexion WFL. Ankle plantarflexion WFL. Strength: Right Upper Extremity: Shoulder flexors 4-/5. Shoulder abductors 4-/5. Elbow flexors 4/5. Elbow extensors 4-/5. Allergy And Immunology Chief strong. Left Upper Extremity: Shoulder flexors 4-/5. Shoulder abductors 4-/5. Elbow flexors 4/5. Elbow extensors 4-/5. Allergy And Immunology Chief strong. Right Lower Extremity: Hip flexors 3+/5. Hip abductors 3+/5. Knee flexors 4/5. Knee extensors 4-/5. Ankle dorsiflexors 4-/5. Ankle plantarflexors 4-/5. Left Lower Extremity: Hip flexors 3+/5. Hip abductors 3+/5. Knee flexors 4/5. Knee extensors 4-/5. Ankle dorsiflexors 4-/5. Ankle plantarflexors 4-/5. Bed Mobility/Transfers: Supine to sit independent Sit to supine independent Sit to stand independent Stand to sit independent Bed to reclining chair independent Reclining chair to bed independent Bed/chair to toilet seat supervision Gait: Instructed patient with level surface ambulation of 20 feet + 10 feet requiring supervision for IV pole management, no AD. Flory decreased. Balance: Static Sitting: Normal Dynamic Sitting: Normal Static Standing: Fair Dynamic Standing: Fair Special Tests: Mobility Limitations Standardized Measure [facility] AM-PAC 6 clicks Basic Mobility Inpatient Short Form: Raw Score: 23 CMS Score: 11% deficit Informed Consent/Education: Patient was instructed in purpose of PT consult and plan of care. Agreeable to proceed with established PT POC to achieve personal goals. THERA EX: Instructed patient with room exercises to be done every 2-3 hours while seated on chair: Seated marches x 10 Leg raises x 10 Adductor squeeze using pillow with 5 sh Assessment: Patient presents with clinical signs and symptoms consistent with current/admitting diagnoses that have resulted to mobility limitations, gait instability, generalized weakness, and overall ADL decline as demonstrated by the following impairment level findings: 1. Decreased strength to B hip major muscle groups 2. Impaired activity tolerance Impairments are contributing to the following functional limitations: 1. Difficulty with ambulation due to fatigue and weakness 2. Increased completion time for mobility ADL performance 3. Increased risk for falls Patient is assessed as a 95716 moderate complexity based on the following: History: 77-year-old female with past medical history as indicated above Examination: Demonstrable impairment in strength, balance, and mobility level with underlying impairments and functional limitations as exhibited above as well as deficit score of 23% utilizing the [facility] Mobility Inpatient Short Form Presentation: Evolving Decision Makin moderate complexity Goals: Goals X1 week 1. Independent gait on level surface with use of no AD for at least 300 feet without report of pain nor dyspnea 2. Independent stair negotiation while holding onto B rails for at least 5 steps without report of pain nor dyspnea 3. Independent with home exercise program 4. Good static and dynamic standing balance/tolerance Plan of Care/Treatment Plan: 1-2x/day, 7 days/week x 1 week. Plan of care has been reviewed with the HANDLE MAKER providing the service under Physical Therapy direction. Initiate Physical Therapy intervention for pain management as needed, strengthening, bed mobility, transfers, gait, stairs, balance training, and use of assistive device. DISCHARGE RECOMMENDATIONS: [] Home with no services [] [] Home with services [specify] [] Home with outpatient PT [] [] SNF for continued rehabilitation [] [] [facility] [] [] SNF versus LTC based on ability to participate and progress [] [X] HH PT vs. no services depending on progress towards goals TREATMENT CODE/TIME: 45124 x 20 minutes, 70597 x 12 minutes beginning at 9:46 PM. Thank you for the opportunity to participate in the care of this patient. Nanci Azul PT, DPT, CLT [facility] [place], [place]
[2022-11-04 11:22] VITALS: BP 121/65; PULSE 79; RESP 16; TEMP 36.6; O2SAT 98
--- NOTE | 2022-11-04 12:34 | NUR.NOTE ---
Nursing Note: notified charge nurse macy of pt having difficulty swallowing.
--- NOTE | 2022-11-04 14:06 | W.PM.PROGNOT ---
Date of Service Date of service: 11/04/22 Time of Service: 14:06 Assessment and Plan Assessment and plan (1) Pancolitis: Status: Acute Assessment and plan: cont. iv Flagyl and oral vancomycin; will recheck KUB and consult surgery to follow along in the event she requires colectomy however, her decline in her leukocytosis and lack of vomiting or fevers portends that she is responding to antibiotics. I have explained to the family that her C difficile colitis is probably a continuation of her prior infection rather than a new infection. She probably never cleared her infection when she was released from [facility] [place]. I told the patient and family that she will need to go home on a long taper of her vancomycin and if still not clearing then may need a fecal transplant. I also told them that I will be consulting surgery to follow along in the event that her condition worsens and she requires colectomy. I am not expecting this to occur but would like surgery on board in the event she does worsen. (2) C. 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 (4) Hypokalemia: Status: Acute Assessment and plan: recurrent hypokalemia secondary to GI losses. patient has been ordered oral and iv potassium. I spoke w/ Lars from pharmacy to see if this can be diluted further or given w/ some lidocaine as patient has refused iv potassium in the past d/t burning of her veins. (5) DVT prophylaxis: Status: Acute Assessment and plan: patient on enoxaparin SC (6) Discharge planning issues: Status: Acute Assessment and plan: I anticipate her dc home w/ family once diarrhea is controlled and electrolytes have been corrected and she is taking adequate oral intake. patient is full code Subjective Subjective Interval history since last seen: Patient still w/ nausea, no vomiting, still w/ loose stools, had 3 BM so far today. She is afebrile. Still w/ abdominal distension and diffuse pain. Taking poor oral intake. Nursing reports patient having trouble swallowing medications. Patient and her spouse and patient's daughter deny any chronic difficulty w/ swallowing. However patient thinks that she had problems d/t using a straw while trying to take meds this morning. Patient complains that the potassium pills make her nauseated and the zofran does not last long enough. As for her potassium, her level dropped from 3.4 to 3.1 overnight. I explained to the patient and her daughter that because she refused the iv potassium yesterday, we did not give adequate replacement yesterday and with her ongoing losses from her diarrhea, she remains hypokalemic. Exam Narrative Exam Narrative: Fidelina is lying in bed w/ her eyes closed and covered w/ wet wash cloth. When I asked her if she had a headache, she denies the same. Lungs: clear Heart: RRR Abdomen: very distended, firm but not hard, active bowel sounds are present, not tympanitic, but she has involuntary guarding and questionable rebound tenderness. Extremities: no edema Objective Last Vital Signs Temp 36.6 C 11/04/22 11:22 Pulse 79 11/04/22 11:22 Resp 16 11/04/22 11:22 BP 121/65 11/04/22 11:22 Pulse Ox 98 11/04/22 11:22 Laboratory Results - last 24 hr 11/03/22 11/03/22 11/03/22 15:47 15:49 15:49 WBC RBC Hgb Hct MCV MCH MCHC RDW Plt Count MPV Immature Gran % Neutrophils % Lymphocytes % Monocytes % Eosinophils % Basophils % Nucleated RBC % Absolute Neutrophils Absolute Lymphocytes Absolute Monocytes Absolute Eosinophils Absolute Basophils VBG Lactate 1.5 H Sodium Potassium Chloride Carbon Dioxide Anion Gap BUN Creatinine Est GFR (CKD-EPI 2020) Glucose Calcium Magnesium Procalcitonin 0.4 Urine Color Yellow Urine Clarity Clear Urine pH 6.0 Ur Specific [place] 1.010 Urine Protein 30 H Urine Ketones Negative Urine Blood Negative Urine Nitrite Negative Urine Bilirubin Negative Urine Urobilinogen 0.2 Ur Leukocyte Esterase Negative Urine RBC 0-2 Urine WBC 0-2 Ur Epithelial Cells Rare Urine Crystals Negative Urine Bacteria Negative Urine Casts 0-2 Hyaline Urine Mucus Trace Ur Culture Indicated? No Urine Glucose Negative Stl C.difficile Tox PCR Add-On Test Request 11/03/22 11/03/22 11/03/22 17:12 19:20 20:10 WBC RBC Hgb Hct MCV MCH MCHC RDW Plt Count MPV Immature Gran % Neutrophils % Lymphocytes % Monocytes % Eosinophils % Basophils % Nucleated RBC % Absolute Neutrophils Absolute Lymphocytes Absolute Monocytes Absolute Eosinophils Absolute Basophils VBG Lactate Sodium 135 L Potassium 3.6 Chloride 101 Carbon Dioxide 25.5 Anion Gap 8.5 BUN 29 H Creatinine 0.8 Est GFR (CKD-EPI 2020) 75.37 Glucose 140 H Calcium 7.7 L Magnesium Procalcitonin Urine Color Urine Clarity Urine pH Ur Specific [place] Urine Protein Urine Ketones Urine Blood Urine Nitrite Urine Bilirubin Urine Urobilinogen Ur Leukocyte Esterase Urine RBC Urine WBC Ur Epithelial Cells Urine Crystals Urine Bacteria Urine Casts Urine Mucus Ur Culture Indicated? Urine Glucose Stl C.difficile Tox PCR Positive A Add-On Test Request DONE 11/03/22 11/04/22 11/04/22 20:10 06:45 06:45 WBC 18.72 H RBC 3.81 L Hgb 11.1 L D Hct 33.6 L MCV 88 MCH 29.1 MCHC 33.0 RDW 13.8 Plt Count 421 H MPV 8.6 Immature Gran % 0.5 Neutrophils % 85.4 Lymphocytes % 6.6 Monocytes % 6.9 Eosinophils % 0.2 Basophils % 0.4 Nucleated RBC % 0.0 Absolute Neutrophils 15.99 H Absolute Lymphocytes 1.24 Absolute Monocytes 1.29 H Absolute Eosinophils 0.04 Absolute Basophils 0.07 VBG Lactate 1.2 Sodium 135 L Potassium 3.1 L Chloride 103 Carbon Dioxide 26.2 Anion Gap 5.8 BUN 26 H Creatinine 0.9 Est GFR (CKD-EPI 2020) 65.44 Glucose 137 H Calcium 7.9 L Magnesium 2.2 Procalcitonin Urine Color Urine Clarity Urine pH Ur Specific [place] Urine Protein Urine Ketones Urine Blood Urine Nitrite Urine Bilirubin Urine Urobilinogen Ur Leukocyte Esterase Urine RBC Urine WBC Ur Epithelial Cells Urine Crystals Urine Bacteria Urine Casts Urine Mucus Ur Culture Indicated? Urine Glucose Stl C.difficile Tox PCR Add-On Test Request 11/04/22 06:45 WBC RBC Hgb Hct MCV MCH MCHC RDW Plt Count MPV Immature Gran % Neutrophils % Lymphocytes % Monocytes % Eosinophils % Basophils % Nucleated RBC % Absolute Neutrophils Absolute Lymphocytes Absolute Monocytes Absolute Eosinophils Absolute Basophils VBG Lactate 0.9 Sodium Potassium Chloride Carbon Dioxide Anion Gap BUN Creatinine Est GFR (CKD-EPI 2020) Glucose Calcium Magnesium Procalcitonin Urine Color Urine Clarity Urine pH Ur Specific [place] Urine Protein Urine Ketones Urine Blood Urine Nitrite Urine Bilirubin Urine Urobilinogen Ur Leukocyte Esterase Urine RBC Urine WBC Ur Epithelial Cells Urine Crystals Urine Bacteria Urine Casts Urine Mucus Ur Culture Indicated? Urine Glucose Stl C.difficile Tox PCR Add-On Test Request Time Spent with Patient Time Spent with Patient: 25-34 minutes Time was spent: preparing to see the patient(eg.review tests), ordering medications,tests, procedures, indepentently interpreting results, counseling the patient and care coordination
[2022-11-04] MEDS: POTASSIUM CHLORIDE 10 MEQ/100 ML BAG 100 MEQ IVPB ×4 (14:29→19:39)
[2022-11-04 15:48] VITALS: BP 149/71; PULSE 88; RESP 16; TEMP 37.2; O2SAT 97
[2022-11-04 16:18] LABS: Potassium 3.4 mmol/L (3.5-5.1)
--- NOTE | 2022-11-04 16:28 | W.SURGCON ---
Date of service: 11/04/22 Time of Service: 16:00 Assessment and Plan Assessment and plan (1) Recurrent colitis due to Clostridioides difficile: Status: Acute Assessment and plan: treatment plan per hospitalist will follow peripherally. (2) Hypokalemia: Status: Acute (3) Soft tissue sarcoma of left thigh: Status: Acute History of Present Illness Narrative: Pt is in hospital w/ recurrent C diff colitis. She is tolerating po vanco. She is having some mild abdominal cramping. No peritonitis at this time. PFSH All Active Problems Recurrent colitis due to Clostridioides difficile (Acute) Discharge planning issues (Acute) DVT prophylaxis (Acute) Hypokalemia (Acute) Pancolitis (Acute) C. difficile colitis (Acute) Soft tissue sarcoma of left thigh (Acute ~09/23/22) S/P 09/23/22 @ [facility] [place] with [place]. Nickerson Orthopedic oncology Vitamin D deficiency (Acute) Osteopenia (Acute) Low back pain (Acute) Pre-diabetes (Acute) Hyperlipidemia (Acute) Restless leg (Acute) Left groin pain (Acute) Osteoarthritis (Chronic) Nocturia (Acute) Snoring (Acute) Osteoarthritis of right hip (Acute) History of total left hip replacement (Acute 12/22/21) Status post irrigation and debridement of left thigh hematoma DOS: 08/04/2022 Medical History COVID-19 11/11/21 Knee fracture, left Left anterior fascicular block Reactive depression 2016 Uterine polyp Surgical History H/O dilation and curettage uterus History of carpal tunnel repair (~1996) B/L History of hammertoe correction (~2010) left foot History of hip replacement History of phacoemulsification of cataract of right eye with intraocular lens implantation S/P breast biopsy, right (~1972) BENIGN S/P lumpectomy, right breast (~1972) Status post bilateral cataract extraction Status post tonsillectomy and adenoidectomy (~194) Status post trigger finger release right 3rd Family History Mother , 103 No problems noted. Father , 93 No problems noted. Sister No problems noted. Son , 15 No problems noted. Daughter No problems noted. Paternal Grandfather , 79 Diabetes Paternal Grandmother , 86 Diabetes Social History Smoking/Tobacco Use Status: Never Second Hand Exposure: Yes Smoking risk assessment performed?: Yes Alcohol Intake: current Alcohol Intake frequency: holidays/special occasions only Alcohol type: wine Drug use: Never Substance use type: does not use Details: alcohol: edin Caregiver/Support person: No Household members: spouse Housing: house Communication Needs: None Pets and animals: Yes Pets and animals: cat(s) and dog(s) Do you think of yourself as: straight/heterosexual Current gender identity: female What is your relationship status?: How often do you talk on the phone with friends or family?: three or more times per week How often do you get together with friends or relatives?: twice per week How often do you attend jew or taoism services?: 1-3 times per year Do you belong to any clubs or organized social groups?: no Panel score (0-1 are the most socially isolated patients): 2 What type of physical activity do you participate in: walking Duration: < 15 minutes/day Frequency: daily Mary Kay/Denominational: Restoration Special mary kay needs: No Seatbelt use: always Helmet use: No Drive intox or ride w/intox corrugated fastener driver: No Do you feel safe at home: Yes Do you feel safe in your relationship?: Yes Exam GI Other: mild distention + BS + BM no peritontis. Results Last Vital Signs Temp 37.2 C 11/04/22 15:48 Pulse 88 11/04/22 15:48 Resp 16 11/04/22 15:48 BP 149/71 H 11/04/22 15:48 Pulse Ox 97 11/04/22 15:48 Labs 11/04/22 06:45 11/04/22 16:00 Labs: Laboratory Results - last 24 hr 11/03/22 11/03/22 11/03/22 15:49 17:12 19:20 WBC RBC Hgb Hct MCV MCH MCHC RDW Plt Count MPV Immature Gran % Neutrophils % Lymphocytes % Monocytes % Eosinophils % Basophils % Nucleated RBC % Absolute Neutrophils Absolute Lymphocytes Absolute Monocytes Absolute Eosinophils Absolute Basophils VBG Lactate Sodium Potassium Chloride Carbon Dioxide Anion Gap BUN Creatinine Est GFR (CKD-EPI 2020) Glucose Calcium Magnesium Procalcitonin 0.4 Stl C.difficile Tox PCR Positive A Add-On Test Request DONE 11/03/22 11/03/22 11/04/22 20:10 20:10 06:45 WBC RBC Hgb Hct MCV MCH MCHC RDW Plt Count MPV Immature Gran % Neutrophils % Lymphocytes % Monocytes % Eosinophils % Basophils % Nucleated RBC % Absolute Neutrophils Absolute Lymphocytes Absolute Monocytes Absolute Eosinophils Absolute Basophils VBG Lactate 1.2 Sodium 135 L 135 L Potassium 3.6 3.1 L Chloride 101 103 Carbon Dioxide 25.5 26.2 Anion Gap 8.5 5.8 BUN 29 H 26 H Creatinine 0.8 0.9 Est GFR (CKD-EPI 2020) 75.37 65.44 Glucose 140 H 137 H Calcium 7.7 L 7.9 L Magnesium 2.2 Procalcitonin Stl C.difficile Tox PCR Add-On Test Request 11/04/22 11/04/22 11/04/22 06:45 06:45 16:00 WBC 18.72 H RBC 3.81 L Hgb 11.1 L D Hct 33.6 L MCV 88 MCH 29.1 MCHC 33.0 RDW 13.8 Plt Count 421 H MPV 8.6 Immature Gran % 0.5 Neutrophils % 85.4 Lymphocytes % 6.6 Monocytes % 6.9 Eosinophils % 0.2 Basophils % 0.4 Nucleated RBC % 0.0 Absolute Neutrophils 15.99 H Absolute Lymphocytes 1.24 Absolute Monocytes 1.29 H Absolute Eosinophils 0.04 Absolute Basophils 0.07 VBG Lactate 0.9 Sodium Potassium 3.4 L Chloride Carbon Dioxide Anion Gap BUN Creatinine Est GFR (CKD-EPI 2020) Glucose Calcium Magnesium Procalcitonin Stl C.difficile Tox PCR Add-On Test Request
[2022-11-04] MEDS: Rosuvastatin 10 MG TAB 20 MG PO (19:35)
[2022-11-04] MEDS: Potassium Chloride 10 MEQ CAPCR 20 MEQ PO (19:35)
[2022-11-04] MEDS: Pramipexole 0.25 MG TAB 0.125 MG PO (19:35)
[2022-11-04] MEDS: Enoxaparin 40 MG/0.4 ML SYR SC (19:37)
[2022-11-04] MEDS: Nystatin POWDER 15 GM JAR TP (21:33)
[2022-11-04 23:19] VITALS: BP 155/85; PULSE 88; RESP 18; TEMP 36.8; O2SAT 98
[2022-11-05] MEDS: Ondansetron 4 MG/2 ML VIAL IVP ×2 (02:36→12:06)
[2022-11-05 04:18] VITALS: BP 137/72; PULSE 85; RESP 16; TEMP 37.2; O2SAT 96
[2022-11-05] MEDS: metroNIDAZOLE 500 MG/100 ML BAG 100 MG IVPB ×4 (06:06→23:36)
[2022-11-05 07:02] LABS: Anion Gap 6.6 mmol/L (3-11); BUN 16 mg/dL (7-18); CO2 25.4 mmol/L (21.0-32.0); CREATININE 0.7 mg/dL (0.55-1.02); Calcium 7.7 mg/dL (8.5-10.1); Chloride 106 mmol/L (98-107); Estimated GFR 88.47 (mL/min/1.73m2); Glucose 151 mg/dL (74-106); Potassium 3.8 mmol/L (3.5-5.1); Sodium 138 mmol/L (136-145)
[2022-11-05 08:00] VITALS: BP 134/73; PULSE 83; RESP 19; TEMP 36.2; O2SAT 97
[2022-11-05] MEDS: Cholecalciferol (Vitamin D3) 1,000 UNIT TAB 2000 UNITS PO (08:43)
[2022-11-05] MEDS: Potassium Chloride 10 MEQ CAPCR 20 MEQ PO ×3 (08:43→20:17)
[2022-11-05] MEDS: Multivitamin TAB 1 TAB PO (08:43)
[2022-11-05] MEDS: Lactobacillus Acidophilus CAP 1 CAP PO ×2 (08:43→20:16)
[2022-11-05] MEDS: Calcium 600mg/Vit D 200U TAB 1 TAB PO (08:43)
[2022-11-05] MEDS: Normal Saline Flush 10 ML SYR IVP ×3 (08:44→17:47)
[2022-11-05] MEDS: Prochlorperazine 10 MG/2 ML VIAL 5 MG IVP ×2 (08:44→20:20)
--- NOTE | 2022-11-05 09:16 | CMPROGNOTE_ITS ---
- If Service Date Differs Date of service: 11/05/22 Time of Service: 09:16 Care Management Progress Note S/O: Fidelina is lying in bed visiting with her Chay when CM met with her. She is awake and engages in conversation, minimally. Chay reiterates again today that Fidelina historically has a difficult time with food choices and has a distaste for anything salty or sweet or chocolate and has been living off ice cream and nutritional shakes since she's been admitted. Chay notes that she is being offered vanilla and strawberry flavors, which she likes. CM discussed the possibility of a nutrition consult and Fidelina declines. Per Chay, Fidelina would like to pursue oncology treatment and they are trying to get a second opinion through [facility]. Chay also mentions that they have been trying to schedule her at [facility] but she doesn't want to go there. CM shared info with hospitalist. CM will continue to follow. A: 77 year old female admitted to [facility] on 11/03/22 for Pancolitis, C. difficile colitis, Soft tissue sarcoma of left thigh P: Fidelina continues to require hospitalization and is being closely monitored and treated. Anticipate, she will discharge home with resumption of [facility] RN/PT/OT services and close community follow up. She will likely need follow up appointments with her PCP, Surgical and Oncology. CM will follow.
[2022-11-05 11:23] VITALS: BP 133/73; PULSE 92; RESP 17; TEMP 36.4; O2SAT 96
[2022-11-05] MEDS: Protein Nutritional Supplement 16 GM 1 OUNCE PACKET PO (13:52)
[2022-11-05] MEDS: Acetaminophen 500 MG TAB 1000 MG PO (13:53)
[2022-11-05 14:42] VITALS: BP 113/65; PULSE 87; RESP 18; TEMP 36.9; O2SAT 97
--- NOTE | 2022-11-05 15:41 | PT.INTREAT ---
Date of service: 11/05/22 Time of Service: 13:13 PT Notes Visit Reasons: C Diff Colitis Inpatient Physical Therapy Treatment Note [facility] Date: 11/05/22 PRECAUTIONS: contact precautions, standard SUBJECTIVE: Patient reports feeling ok, still having loose stools, agreeable to walk in the room. OBJECTIVE: PAIN: None reported BED MOBILITY/TRANSFERS Rolling L/R: independent Supine-sit: independent Sit-supine: independent Sit-stand: independent Stand-sit: independent Bed-Chair: independent Chair-bed: independent GAIT Assistive Device: none Weight bearing: full Assist: standby Distance: 50 feet in room Deviation: reduced stride length, reduced walking speed, reduced arm swing. Symmetrical stride length, good foot clearance. THEREX: Reports she has been doing exercises as assigned. ASSESSMENT: patient tolerated session well, next visit progress HEP PLAN: continue treatment per plan of care to maintain strength. TREATMENT CODE/TIME: 21642 Gait 11 minutes
--- NOTE | 2022-11-05 16:11 | W.PM.PROGNOT ---
Date of Service Date of service: 11/05/22 Time of Service: 16:11 Assessment and Plan Assessment and plan (1) Pancolitis: Status: Acute Assessment and plan: Slowly improving. Unfortunately no inflammatory markers were ordered for today. I will repeat her CBC and CRP for tomorrow along with her BMP. Potassium is improved today. We will keep her on potassium supplementation in light of her diarrhea. Continue to monitor daily lab. Continue treatment with both IV Flagyl and oral vancomycin continue with lactobacillus supplements. Patient now has thrush I will add nystatin swish and swallow. Professional time spent interviewing and examining patient, discussion of goals of care with hospital team (care management, nursing and consulting professionals) was 30 minutes. (2) C. 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 (4) Hypokalemia: Status: Acute Assessment and plan: Potassium is better today at 3.8. BUN and creatinine are normal now at 16 and 0.7. Patient remains off IV fluids. Patient is encouraged to take p.o. intake she is requesting some solid foods. I did advance her diet to a regular diet with soft bite-size food along with thin liquids. Nutritional consult is been requested per family's request. Patient remains on potassium supplementation at 20 mill equivalents TID. We will continue and repeat her BMP in the morning.. (5) DVT prophylaxis: Status: Acute Assessment and plan: patient on enoxaparin SC (6) Discharge planning issues: Status: Acute Assessment and plan: I anticipate her dc home w/ family once diarrhea is controlled and electrolytes have been corrected and she is taking adequate oral intake. patient is full code Subjective Subjective Interval history since last seen: Patient states that she feels somewhat better. Abdominal pain is better although still feels bloated. Stools are less liquid, had 3 BM today. No vomiting. She actually would like some solid foods. Exam Narrative Exam Narrative: Alert and oriented lying in bed talking with her . Lungs are clear to auscultation Heart is regular rate and rhythm Abdomen distended but soft without rebound tenderness or guarding. She is tender to palpation. Objective Last Vital Signs Temp 36.9 C 11/05/22 14:42 Pulse 87 04/28/23 14:42 Resp 18 11/05/22 14:42 BP 113/65 11/05/22 14:42 Pulse Ox 97 11/05/22 14:42 Laboratory Results - last 24 hr 11/04/22 11/05/22 16:00 06:10 Sodium 138 Potassium 3.4 L 3.8 Chloride 106 Carbon Dioxide 25.4 Anion Gap 6.6 BUN 16 Creatinine 0.7 Est GFR (CKD-EPI 2020) 88.47 Glucose 151 H Calcium 7.7 L Time Spent with Patient Time Spent with Patient: 25-34 minutes Time was spent: preparing to see the patient(eg.review tests), ordering medications,tests, procedures, referring, communicating with other health patient centered care specialist, indepentently interpreting results, counseling the patient and care coordination
[2022-11-05] MEDS: Nystatin 500000 UNITS/5 ML SUSP 5ML CUP PO ×2 (17:47→20:16)
[2022-11-05] MEDS: Pramipexole 0.25 MG TAB 0.125 MG PO (20:17)
[2022-11-05] MEDS: Enoxaparin 40 MG/0.4 ML SYR SC (20:17)
[2022-11-05] MEDS: Rosuvastatin 10 MG TAB 20 MG PO (20:17)
[2022-11-05] MEDS: Nystatin POWDER 15 GM JAR TP (20:18)
[2022-11-05 22:51] VITALS: BP 107/62; PULSE 93; RESP 18; TEMP 37; O2SAT 95
[2022-11-05] MEDS: Melatonin 3 MG TAB PO (23:39)
[2022-11-06 03:17] VITALS: BP 127/69; PULSE 90; RESP 22; TEMP 37; O2SAT 97
[2022-11-06] MEDS: metroNIDAZOLE 500 MG/100 ML BAG 100 MG IVPB ×3 (06:01→18:03)
[2022-11-06] MEDS: Nystatin 500000 UNITS/5 ML SUSP 5ML CUP PO ×5 (06:01→20:17)
[2022-11-06 06:28] LABS: Abs Immature Grans 0.16 10^3/uL (0.0-0.06); Absolute Basophil Count 0.05 10^3/uL (0.0-0.2); Absolute Eosinophil Count 0.23 10^3/uL (0.0-0.7); Absolute Lymphocyte Count 1.76 10^3/uL (1.2-3.4); Absolute Monocyte Count 0.98 10^3/uL (0.1-0.8); Basophils % 0.4; HGB 11.3 g/dL (11.2-15.7); Immature Grans % 1.4; Lymphocytes % 15.2; MCH 29.4 pg (27.0-33.0); MCHC 32.3 % (32.0-36.0); MCV 91 fL (80-95); MPV 8.5 fL (8.0-11.0); Monocytes % 8.5; Neutrophils % 72.5; Platelet Count 487 10^3/uL (130-400); RBC 3.84 10^6/uL (3.93-5.22); RDW 14.1 % (11.7-14.6); RDW-SD 47.6 fL; WBC 11.58 10^3/uL (4.4-10.8)
[2022-11-06 06:48] LABS: Magnesium 1.8 mg/dL (1.8-2.4)
[2022-11-06 06:50] LABS: Anion Gap 4.5 mmol/L (3-11); BUN 13 mg/dL (7-18); C-Reactive Protein 1.13 mg/dL (0.0-0.3); CO2 27.5 mmol/L (21.0-32.0); CREATININE 0.7 mg/dL (0.55-1.02); Calcium 8.1 mg/dL (8.5-10.1); Chloride 109 mmol/L (98-107); Estimated GFR 88.47 (mL/min/1.73m2); Glucose 113 mg/dL (74-106); Potassium 4.2 mmol/L (3.5-5.1); Sodium 141 mmol/L (136-145)
[2022-11-06 08:20] VITALS: BP 136/73; PULSE 94; RESP 18; TEMP 36.7; O2SAT 95
[2022-11-06] MEDS: Cholecalciferol (Vitamin D3) 1,000 UNIT TAB 2000 UNITS PO (09:14)
[2022-11-06] MEDS: Calcium 600mg/Vit D 200U TAB 1 TAB PO (09:15)
[2022-11-06] MEDS: Lactobacillus Acidophilus CAP 1 CAP PO ×2 (09:16→20:14)
[2022-11-06] MEDS: Potassium Chloride 10 MEQ CAPCR 20 MEQ PO ×3 (09:16→20:14)
[2022-11-06] MEDS: Multivitamin TAB 1 TAB PO (09:16)
--- NOTE | 2022-11-06 10:29 | PT.INTREAT ---
PT Notes Visit Reasons: C Diff Colitis PRECAUTIONS: contact precautions, standard SUBJECTIVE: Pt in recliner when approached for therapy this morning, pt agreed to participating with therapy. OBJECTIVE: ? PAIN:? None reported ? BED MOBILITY/TRANSFERS? Rolling L/R: independent Supine-sit: independent? Sit-supine: independent ? Sit-stand: independent ? Stand-sit: independent? Bed-Chair: independent? Chair-bed: independent ? GAIT? Assistive Device: none ? Weight bearing: full Assist: standby? Distance:? 100 feet in room? Deviation: reduced stride length, reduced walking speed, reduced arm swing. Symmetrical stride length, good foot clearance.? Therapeutic Activities 68231 mins: instruction in dynamic activities with one on one patient contact by the provider to improve functional performance?as follows: Standing march 20xeach LE Standing heel raise [id number] Standing toe raise [id number] Sit to stand with UE support [id number] Shoulder flexion with red theraband for resistance [id number] Resisted shoulder scaption with red theraband [id number] Resisted scapular retraction with red theraband [id number]? ASSESSMENT:? pt very pleasant, completed all activity without complaint of pain. PLAN: Continue with global strengthening and general conditioning for improved safety, mobility and activity tolerance. TREATMENT CODE/TIME: 54438 Gait 10 minutes, 18222 therapeutic activity 15mins (9:40-10:05 am)
[2022-11-06 10:54] VITALS: BP 133/76; PULSE 87; RESP 18; TEMP 37; O2SAT 95
[2022-11-06] MEDS: Normal Saline Flush 10 ML SYR IVP ×2 (12:26→18:02)
--- NOTE | 2022-11-06 13:57 | W.PM.PROGNOT ---
Date of Service Date of service: 11/06/22 Time of Service: 13:57 Assessment and Plan Assessment and plan (1) Pancolitis: Status: Acute Assessment and plan: slowly improving, continue flagyl iv and oral vancomycin; clintiue edmarran to help solidfy her stools, continue lactobacillus. I explained to her and her that she will go home on a prolonged taper of oral vancomycin. I have not restarted her on iv fluids as long as she is able to take adequate oral liquids. Professional time spent interviewing and examining patient, discussion of goals of care with hospital team (care management, nursing and consulting professionals) was 30 minutes. (2) C. difficile colitis: Status: Acute Assessment and plan: as above (3) Thrush, oral: Status: Acute Assessment and plan: patient w/ coating of her tongue but I did not see any white exudate on her palate. She denies any odynophagia and denies any dysphagia. I started her on nystatin swish and swallow yesterday but will add diflucan. 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 (5) Hypokalemia: Status: Acute Assessment and plan: Potassium is better today at 3.8. BUN and creatinine are normal now at 16 and 0.7. Patient remains off IV fluids. Patient is encouraged to take p.o. intake she is requesting some solid foods. I did advance her diet to a regular diet with soft bite-size food along with thin liquids. Nutritional consult is been requested per family's request. Patient remains on potassium supplementation at 20 mill equivalents TID. We will continue and repeat her BMP in the morning.. (6) DVT prophylaxis: Status: Acute Assessment and plan: patient on enoxaparin SC (7) Discharge planning issues: Status: Acute Assessment and plan: I anticipate her dc home w/ family once diarrhea is controlled and electrolytes have been corrected and she is taking adequate oral intake. patient is full code Subjective Subjective Interval history since last seen: Patient still not eating well but she is trying. She says that when she tries to eat any solids, she gags. She is tolerating cream of wheat, ice cream and she is drinking liquids. Exam Narrative Exam Narrative: alert and oriented HEENT: tongue coated w/ thrush Abdomen: slight distension but soft, mild tenderness but w/out guarding or rebound tendernss, normal bowel sounds Objective Last Vital Signs Temp 37 C 11/06/22 10:54 Pulse 87 11/06/22 10:54 Resp 18 11/06/22 10:54 BP 133/76 11/06/22 10:54 Pulse Ox 95 11/06/22 10:54 Laboratory Results - last 24 hr 11/06/22 11/06/22 11/06/22 06:00 06:00 06:00 WBC 11.58 H RBC 3.84 L Hgb 11.3 Hct 35.0 L MCV 91 MCH 29.4 MCHC 32.3 RDW 14.1 Plt Count 487 H MPV 8.5 Immature Gran % 1.4 Neutrophils % 72.5 Lymphocytes % 15.2 Monocytes % 8.5 Eosinophils % 2.0 Basophils % 0.4 Nucleated RBC % 0.0 Absolute Neutrophils 8.40 H Absolute Lymphocytes 1.76 Absolute Monocytes 0.98 H Absolute Eosinophils 0.23 Absolute Basophils 0.05 Sodium 141 Potassium 4.2 Chloride 109 H Carbon Dioxide 27.5 Anion Gap 4.5 BUN 13 Creatinine 0.7 Est GFR (CKD-EPI 2020) 88.47 Glucose 113 H Calcium 8.1 L Magnesium 1.8 C-Reactive Protein 1.13 H Time Spent with Patient Time Spent with Patient: 25-34 minutes Time was spent: preparing to see the patient(eg.review tests), obtaining and/or reviewing separately otained hiistory, ordering medications,tests, procedures, indepentently interpreting results, counseling the patient and care coordination
[2022-11-06 15:04] VITALS: BP 129/74; PULSE 96; RESP 18; TEMP 37.1; O2SAT 96
[2022-11-06] MEDS: Fluconazole 100 MG TAB 200 MG PO (15:30)
[2022-11-06] MEDS: Pramipexole 0.25 MG TAB 0.125 MG PO (20:13)
[2022-11-06] MEDS: Rosuvastatin 10 MG TAB 20 MG PO (20:13)
[2022-11-06] MEDS: Melatonin 3 MG TAB PO (20:14)
[2022-11-06] MEDS: Nystatin POWDER 15 GM JAR TP (20:14)
[2022-11-06] MEDS: Enoxaparin 40 MG/0.4 ML SYR SC (20:15)
[2022-11-06] MEDS: Ondansetron 4 MG/2 ML VIAL IVP (21:11)
[2022-11-07] MEDS: metroNIDAZOLE 500 MG/100 ML BAG 100 MG IVPB ×3 (00:13→12:51)
[2022-11-07 00:15] VITALS: BP 132/70; PULSE 95; RESP 18; TEMP 37.2; O2SAT 94
[2022-11-07] MEDS: Nystatin 500000 UNITS/5 ML SUSP 5ML CUP PO ×5 (06:16→21:04)
[2022-11-07 06:24] LABS: Abs Immature Grans 0.19 10^3/uL (0.0-0.06); Absolute Eosinophil Count 0.19 10^3/uL (0.0-0.7); Absolute Monocyte Count 1.06 10^3/uL (0.1-0.8); Basophils % 0.6; Eosinophils % 1.5; HGB 11.5 g/dL (11.2-15.7); Immature Grans % 1.5; Lymphocytes % 16.1; MCH 29.8 pg (27.0-33.0); MCHC 32.9 % (32.0-36.0); MCV 91 fL (80-95); MPV 8.5 fL (8.0-11.0); Monocytes % 8.5; Neutrophils % 71.8; Platelet Count 489 10^3/uL (130-400); RBC 3.86 10^6/uL (3.93-5.22); RDW 13.9 % (11.7-14.6); RDW-SD 46.6 fL; WBC 12.52 10^3/uL (4.4-10.8)
[2022-11-07 06:25] LABS: Absolute Basophil Count 0.08 10^3/uL (0.0-0.2); Absolute Lymphocyte Count 2.02 10^3/uL (1.2-3.4); Absolute Neutrophil Count 8.99 10^3/uL (1.2-6.7)
[2022-11-07 06:40] LABS: Anion Gap 3.8 mmol/L (3-11); BUN 13 mg/dL (7-18); C-Reactive Protein 0.55 mg/dL (0.0-0.3); CO2 27.2 mmol/L (21.0-32.0); CREATININE 0.8 mg/dL (0.55-1.02); Calcium 8.1 mg/dL (8.5-10.1); Chloride 108 mmol/L (98-107); Estimated GFR 75.37 (mL/min/1.73m2); Glucose 123 mg/dL (74-106); Magnesium 1.7 mg/dL (1.8-2.4); Potassium 4.6 mmol/L (3.5-5.1); Sodium 139 mmol/L (136-145)
[2022-11-07 06:47] VITALS: BP 149/76; PULSE 94; RESP 18; TEMP 37; O2SAT 95
[2022-11-07] MEDS: Calcium 600mg/Vit D 200U TAB 1 TAB PO (08:05)
[2022-11-07] MEDS: Fluconazole 100 MG TAB 200 MG PO (08:06)
[2022-11-07] MEDS: Lactobacillus Acidophilus CAP 1 CAP PO ×2 (08:06→21:03)
[2022-11-07] MEDS: Cholecalciferol (Vitamin D3) 1,000 UNIT TAB 2000 UNITS PO (08:06)
[2022-11-07] MEDS: Multivitamin TAB 1 TAB PO (08:06)
[2022-11-07] MEDS: Potassium Chloride 10 MEQ CAPCR 20 MEQ PO (08:06)
[2022-11-07] MEDS: Normal Saline Flush 10 ML SYR IVP (08:08)
--- NOTE | 2022-11-07 08:52 | W.PM.PROGNOT ---
Date of Service Date of service: 11/07/22 Time of Service: 08:53 Assessment and Plan Assessment and plan (1) Pancolitis: Status: Acute Assessment and plan: Patient is slowly but steadily improving, she presented w/ severe pancolitis w/ fulminant C difficile colitis; she has been responding to the combo iv flagyl and oral vancomycin. I think one more day of iv flagyl is needed. She will go home on a prolonged tapered course of oral vancomycin. Appetite according to her and daughter was not good even prior to her C difficile infection Professional time spent interviewing and examining patient, discussion of goals of care with hospital team (care management, nursing and consulting professionals) was 20 minutes. (2) C. difficile colitis: Status: Acute Assessment and plan: as above (3) Thrush, oral: Status: Acute Assessment and plan: Patient has no odynophagia, there has been some question of dysphagia w/ pills but if she takes her pills one at a time she had no trouble swallowing. She denies any choking spells w/ swallowing foods, liquids. I have place nutritional consult but have not ordered an DENSITY CONTROL PUNCHER consult yet. As for the thrush, she is on nystatin swish and swallow and I added Diflucan yesterday. 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 (apparently she is wanting second opinion of radiation and chemotherapy) (5) Hypokalemia: Status: Acute Assessment and plan: resolved. K+ today is 4.6. I have stopped her potassium supplements. Her Mg is a little low so I have put her on Slo-Mag. I will repeat her electrolytes in the morning prior to discharge. (6) DVT prophylaxis: Status: Acute Assessment and plan: patient on enoxaparin SC (7) Discharge planning issues: Status: Acute Assessment and plan: I anticipate dc in the next day. patient is full code Subjective Subjective Interval history since last seen: Patient is improving. She is eating a little more although her appetite is not great. Abdominal pain is improved. Still w/ loose BM but not as frequent. Exam Narrative Exam Narrative: Fidelina is alert/oriented, lying in bed, no acute distress Oropharynx/tongue, some gibbs/brown appearance to the villi of her tongue but no white plaques Lungs: clear Heart: RRR Abdomen: soft, slight distension, but not firm; slight tenderness w/ palpation but no rebound tenderness Objective Last Vital Signs Temp 37 C 11/07/22 06:47 Pulse 94 H 11/07/22 06:47 Resp 18 11/07/22 06:47 BP 149/76 H 11/07/22 06:47 Pulse Ox 95 11/07/22 06:47 Laboratory Results - last 24 hr 11/07/22 11/07/22 05:45 05:45 WBC 12.52 H RBC 3.86 L Hgb 11.5 Hct 35.0 L MCV 91 MCH 29.8 MCHC 32.9 RDW 13.9 Plt Count 489 H MPV 8.5 Immature Gran % 1.5 Neutrophils % 71.8 Lymphocytes % 16.1 Monocytes % 8.5 Eosinophils % 1.5 Basophils % 0.6 Nucleated RBC % 0.0 Absolute Neutrophils 8.99 H Absolute Lymphocytes 2.02 Absolute Monocytes 1.06 H Absolute Eosinophils 0.19 Absolute Basophils 0.08 Sodium 139 Potassium 4.6 Chloride 108 H Carbon Dioxide 27.2 Anion Gap 3.8 BUN 13 Creatinine 0.8 Est GFR (CKD-EPI 2020) 75.37 Glucose 123 H Calcium 8.1 L Magnesium 1.7 L C-Reactive Protein 0.55 H Time Spent with Patient Time Spent with Patient: <25 minutes Time was spent: preparing to see the patient(eg.review tests), ordering medications,tests, procedures, indepentently interpreting results, counseling the patient and care coordination
[2022-11-07] MEDS: Magnesium Chloride 64 MG TABCR PO (10:13)
--- NOTE | 2022-11-07 10:38 | PT.INTREAT ---
PT Notes Visit Reasons: C Diff Colitis PRECAUTIONS: contact precautions, standard SUBJECTIVE: Pt in bed when approached for therapy this morning, pt agreed to participating with therapy. OBJECTIVE: ? PAIN:? None reported ? BED MOBILITY/TRANSFERS? Rolling L/R: independent Supine-sit: independent? Sit-supine: independent ? Sit-stand: independent ? Stand-sit: independent? Bed-Chair: independent? Chair-bed: independent ? GAIT? Assistive Device: none ? Weight bearing: full Assist: standby? Distance:? 100 feet in room? Deviation: reduced stride length, reduced walking speed, reduced arm swing. Symmetrical stride length, good foot clearance.? Therapeutic Activities 18724 15mins: instruction in dynamic activities with one on one patient contact by the provider to improve functional performance?as follows: Standing march 20xeach LE Standing heel raise [id number] Standing toe raise [id number] Walking forward 100' walking sideways 50' Walking backwards 50' Turning CW/CCW 5x each? ASSESSMENT:? pt able to complete activity without complaint of Pain, SOB or LOB, pt reports that told her she might go home tomorrow and will just continue with antibiotics P.O. PLAN: Continue with global strengthening and general conditioning for improved safety, mobility and activity tolerance. TREATMENT CODE/TIME: 56796 Gait 10minutes, 94938 therapeutic activity 15mins (9:15-9:40 am)
[2022-11-07 11:32] VITALS: BP 129/75; PULSE 92; RESP 18; TEMP 36.8; O2SAT 97
[2022-11-07 14:54] VITALS: BP 139/71; PULSE 88; RESP 18; TEMP 37.2; O2SAT 97
[2022-11-07 19:15] VITALS: BP 160/52; PULSE 101; RESP 18; TEMP 37.7; O2SAT 96
[2022-11-07] MEDS: Enoxaparin 40 MG/0.4 ML SYR SC (21:03)
[2022-11-07] MEDS: metroNIDAZOLE 500 MG TAB PO (21:04)
[2022-11-07] MEDS: Melatonin 3 MG TAB PO (21:04)
[2022-11-07] MEDS: Nystatin POWDER 15 GM JAR TP (21:05)
[2022-11-07] MEDS: Pramipexole 0.25 MG TAB 0.125 MG PO (21:05)
[2022-11-07] MEDS: Rosuvastatin 10 MG TAB 20 MG PO (21:06)
[2022-11-07 23:41] VITALS: BP 145/78; PULSE 79; RESP 18; TEMP 37.3; O2SAT 96
[2022-11-08] MEDS: metroNIDAZOLE 500 MG TAB PO ×2 (05:01→12:29)
[2022-11-08] MEDS: Nystatin 500000 UNITS/5 ML SUSP 5ML CUP PO ×3 (05:01→15:08)
[2022-11-08 05:44] VITALS: BP 118/67; PULSE 89; RESP 18; TEMP 36.1; O2SAT 95
[2022-11-08 06:49] LABS: Abs Immature Grans 0.12 10^3/uL (0.0-0.06); Absolute Eosinophil Count 0.18 10^3/uL (0.0-0.7); Absolute Lymphocyte Count 1.78 10^3/uL (1.2-3.4); Absolute Monocyte Count 0.94 10^3/uL (0.1-0.8); Basophils % 0.4; Eosinophils % 1.6; HCT 34.1 % (36.0-46.0); Immature Grans % 1.1; Lymphocytes % 15.6; MCH 29.3 pg (27.0-33.0); MCHC 32.3 % (32.0-36.0); MCV 91 fL (80-95); MPV 8.3 fL (8.0-11.0); Monocytes % 8.2; Neutrophils % 73.1; Platelet Count 449 10^3/uL (130-400); RBC 3.76 10^6/uL (3.93-5.22); RDW 14.4 % (11.7-14.6); RDW-SD 47.8 fL; WBC 11.41 10^3/uL (4.4-10.8)
[2022-11-08 06:51] LABS: Absolute Basophil Count 0.05 10^3/uL (0.0-0.2); Absolute Neutrophil Count 8.34 10^3/uL (1.2-6.7)
[2022-11-08 07:06] LABS: Magnesium 1.8 mg/dL (1.8-2.4)
[2022-11-08 07:08] LABS: Anion Gap 5.9 mmol/L (3-11); BUN 11 mg/dL (7-18); CO2 27.1 mmol/L (21.0-32.0); CREATININE 0.8 mg/dL (0.55-1.02); Calcium 8.2 mg/dL (8.5-10.1); Chloride 105 mmol/L (98-107); Estimated GFR 75.37 (mL/min/1.73m2); Glucose 136 mg/dL (74-106); Potassium 4.2 mmol/L (3.5-5.1); Sodium 138 mmol/L (136-145)
[2022-11-08 07:41] LABS: C-Reactive Protein 0.37 mg/dL (0.0-0.3)
[2022-11-08 07:44] VITALS: BP 136/67; PULSE 96; RESP 17; TEMP 37.3; O2SAT 97
[2022-11-08] MEDS: Lactobacillus Acidophilus CAP 1 CAP PO (08:17)
[2022-11-08] MEDS: Multivitamin TAB 1 TAB PO (08:17)
[2022-11-08] MEDS: Calcium 600mg/Vit D 200U TAB 1 TAB PO (08:17)
[2022-11-08] MEDS: Fluconazole 100 MG TAB 200 MG PO (08:17)
[2022-11-08] MEDS: Cholecalciferol (Vitamin D3) 1,000 UNIT TAB 2000 UNITS PO (08:17)
[2022-11-08] MEDS: Magnesium Chloride 64 MG TABCR PO (09:41)
[2022-11-08 11:10] VITALS: BP 130/76; PULSE 89; RESP 16; TEMP 36.8; O2SAT 96
--- NOTE | 2022-11-08 14:57 | W.PM.DS.N ---
Date of service: 11/08/22 Time of Service: 14:57 DS: Diagnosis Discharge Diagnosis (1) Pancolitis: Status: Acute (2) C. difficile colitis: Status: Acute (3) Thrush, oral: Status: Acute (4) Soft tissue sarcoma of left thigh: Status: Chronic (5) Hypokalemia: Status: Resolved Discharge Plan Disposition Patient Disposition: Home Condition: Improving Discharge Details Reason For Visit: C Diff Colitis Admit Date/Time: 11/03/22 16:54 Admit Provider: Duncan Ng Attending Provider: Duncan Ng Primary Care Provider: [facility] Hospital Course: 77 yr old female w/ hx of left thigh sarcoma which was initially diagnosed as abscess and she had been on repeat antibiotics. She developed C. difficile earlier this year while hospitalized for the wide resection of the sarcoma in September. She was treated w/ oral vancomycin and had gotten better but developed recurrent diarrhea within couple weeks of coming off the vancomycin. She presented w/ abdominal pain and bloating and leukocytosis of 23,000. She had just started on oral vancomycin 3 days prior to her admission but ws having trouble keeping down foods and liquids and came in dehydrated and hypokalemia and mild azottemia. She was rehydrated w/ iv fluids, put on iv flagyl, oral vancomycin, questran to thicken her stools and lactobacillus and given pain medications and antiemetics. CT scan of her colon showed diffuse pancolitis w/ diffuse bowel wall thickening. She progressed slowly but improved to the point she was tolerating soft foods and with minimal diarrhea. Surgica consult was obtained on standby in the event she developed megacolon. However she did well enough to be discharged. She was put on fidaxomicin 200 mg bid x 10 day at discharge but her insurance did not cover the prohibitive costs. She called back when she could not get the fidaxomicin filled. I had her go on a taper schedule of vancomycin 125 mg po qid x 10 days, followed by 125 mg tid x 7days, then 125 mg bid x 7 days, then 125 mg daily x 7 days, then 125 mg q48 hr x 7 days, then 125 mg q3day x 7 days. I did indicate to her that if this does not irradicate her C difficile infection then she may need to be referred for fecal transplant or to see if she can get coverage for monoclonal antibody, bezlotoxumab. Patient left the hospital in improved condition. Her azotemia and electrolyte abnormalities had resolved. Home Meds and New Rx's Prescriptions: New fidaxomicin 200 mg tablet 200 mg PO Q12H 10 Days Qty: 20 0RF fluconazole 100 mg Tablet 200 mg PO DAILY Qty: 10 0RF Continued pramipexole 0.125 mg tablet 0.125 mg PO QHS One-A-Day Women's 50 Plus 400-20 mcg tablet 1 tab PO DAILY enoxaparin 40 mg/0.4 mL syringe 40 mg subcut HS Patient Comments: INJECT 0.4 MLS SUBCUTANEOUSLY EVERY NIGHT FOR 27 DAYS cholecalciferol (vitamin D3) 25 mcg (1,000 unit) tablet 25 mcg PO DAILY rosuvastatin 20 mg tablet 20 mg PO DAILY melatonin 3 mg tablet 3 mg PO HS PRN nystatin 100,000 unit/gram powder 1 applic topical BID Qty: 15 0RF calcium carbonate-vitamin D3 600 mg-5 mcg (200 unit) Tablet 1 tab PO DAILY acetaminophen 500 mg tablet 1,000 mg PO TID Qty: 90 0RF ibuprofen 600 mg tablet 600 mg PO TID PRN (Reason: pain) Qty: 90 0RF Discontinued vancomycin 125 mg capsule 125 mg PO QID Patient Comments: TAKE ONE CAPSULE BY MOUTH FOUR TIMES A DAY FOR 4 DAYS Discharge Instructions Instructions: Fidaxomicin (By mouth), C. Diff (Clostridioides Difficile) Infection (DC) Stand Alone Forms: Nursing Discharge Form Referrals: Mónica Fong NP [Primary Care Provider] - 11/23/22 10:40 am Activity:: Activity as Tolerated Equipment/Supplies:: No Equipment Needed Diet:: Normal Diet Discharge Orders Discharge Orders: Discharge Order (Routine); Ordered 11/08/22 Ordered By: Duncan Ng Discharge Data Discharge Date/Time-TO BE ENTERED AT DEPARTURE: 11/08/22 15:19 DS: Summary Time Spent with Patient providing and/or coordinating discharge services: Less than 30 minutes Specific discharge activities: Interview/exam of patient; review of discharge instructions, completion of prescriptions/discharge instructions; discussion w/ nursing and CM; documentation of hospital visit Status at Discharge Functional status at discharge: independent ambulation Overall status at discharge: patient is progressing back to baseline Mental Status: mental status grossly normal Speech and Movement: speech and movement normal Mood: congruent mood Affect: normal affect Exam Narrative Exam Narrative: Fidelina is sitting up in her bed she is fully dressed rated be discharged. She has been awaiting discharge since this morning. Abdomen is soft nontender mildly distended. She feels like she has to have a bowel movement. She has active bowel sounds. No guarding or rebound tenderness. Psych Mental Status: mental status grossly normal Speech and Movement: speech and movement normal Mood: congruent mood Affect: normal affect DS: Data Vitals/I&O Vitals and I&O: Vital Signs Temperature 36.8 C 11/08/22 11:10 Temperature Source Tympanic 11/08/22 11:10 Pulse 89 11/08/22 11:10 Pulse Rhythm Regular 11/08/22 08:20 Respiratory Rate 16 11/08/22 11:10 Respiratory Effort Normal, Non-Labored 11/08/22 08:20 Respiratory Depth Normal 11/08/22 08:20 Respiratory Pattern Normal 11/08/22 08:20 Blood Pressure 130/76 11/08/22 11:10 Blood Pressure Mean 69 11/03/22 17:30 Blood Pressure Position Sitting 11/03/22 12:45 Pulse Oximetry 96 11/08/22 11:10 Oxygen Delivery Method Room Air 11/08/22 11:10 Oxygen Flow Rate 0 11/08/22 11:10 Pain Level 0 11/08/22 11:10 Comment RN Notified 11/07/22 19:15 Intake & Output 11/07/22 11/08/22 11/08/22 23:59 11:59 23:59 Intake Total 360 / 680 Balance 360 / 680 Weight 70.6 kg Intake: Oral 360 / 480 Other: Urine Color Yellow Stool Size Small Voiding Methods Toilet Toilet Data Completed and Pending Labs on day of discharge: Labs from last 24 hours 11/08/22 11/08/22 11/08/22 06:40 06:40 06:40 WBC 11.41 H RBC 3.76 L Hgb 11.0 L Hct 34.1 L MCV 91 MCH 29.3 MCHC 32.3 RDW 14.4 Plt Count 449 H MPV 8.3 Immature Gran % 1.1 Neutrophils % 73.1 Lymphocytes % 15.6 Monocytes % 8.2 Eosinophils % 1.6 Basophils % 0.4 Nucleated RBC % 0.0 Absolute Neutrophils 8.34 H Absolute Lymphocytes 1.78 Absolute Monocytes 0.94 H Absolute Eosinophils 0.18 Absolute Basophils 0.05 Sodium 138 Potassium 4.2 Chloride 105 Carbon Dioxide 27.1 Anion Gap 5.9 BUN 11 Creatinine 0.8 Est GFR (CKD-EPI 2020) 75.37 Glucose 136 H Calcium 8.2 L Magnesium 1.8 C-Reactive Protein 0.37 H Preliminary micro results at discharge 11/03/22 13:12 Blood Culture - Preliminary Blood NO GROWTH 96 HOURS 11/03/22 13:55 Blood Culture - Preliminary Blood NO GROWTH 96 HOURS PFSH All Active Problems Thrush, oral (Acute) Recurrent colitis due to Clostridioides difficile (Acute) Pancolitis (Acute) C. difficile colitis (Acute) Soft tissue sarcoma of left thigh (Chronic ~09/23/22) S/P 09/23/22 @ [facility] [place]. Nickerson Orthopedic oncology Vitamin D deficiency (Acute) Osteopenia (Acute) Low back pain (Acute) Pre-diabetes (Acute) Hyperlipidemia (Acute) Restless leg (Acute) Left groin pain (Acute) Osteoarthritis (Chronic) Nocturia (Acute) Snoring (Acute) Osteoarthritis of right hip (Acute) History of total left hip replacement (Acute 12/22/21) Status post irrigation and debridement of left thigh hematoma DOS: 08/04/2022 Medical History COVID-19 11/11/21 Knee fracture, left Left anterior fascicular block Reactive depression 2016 Uterine polyp Surgical History H/O dilation and curettage uterus History of carpal tunnel repair (~1996) B/L History of hammertoe correction (~2010) left foot History of hip replacement History of phacoemulsification of cataract of right eye with intraocular lens implantation S/P breast biopsy, right (~1972) BENIGN S/P lumpectomy, right breast (~1972) Status post bilateral cataract extraction Status post tonsillectomy and adenoidectomy (~194) Status post trigger finger release right 3rd Family History Mother , 103 No problems noted. Father , 93 No problems noted. Sister No problems noted. Son , 15 No problems noted. Daughter No problems noted. Paternal Grandfather , 79 Diabetes Paternal Grandmother , 86 Diabetes Social History Smoking/Tobacco Use Status: Never Second Hand Exposure: Yes Smoking risk assessment performed?: Yes Alcohol Intake: current Alcohol Intake frequency: holidays/special occasions only Alcohol type: wine Drug use: Never Substance use type: does not use Details: alcohol: edin Caregiver/Support person: No Household members: spouse Housing: house Communication Needs: None Pets and animals: Yes Pets and animals: cat(s) and dog(s) Do you think of yourself as: straight/heterosexual Current gender identity: female What is your relationship status?: How often do you talk on the phone with friends or family?: three or more times per week How often do you get together with friends or relatives?: twice per week How often do you attend pentecostalism or oriental orthodox services?: 1-3 times per year Do you belong to any clubs or organized social groups?: no Panel score (0-1 are the most socially isolated patients): 2 What type of physical activity do you participate in: walking Duration: < 15 minutes/day Frequency: daily [employer]oration: Episcopalian Special mary kay needs: No Seatbelt use: always Helmet use: No Drive intox or ride w/intox moving van driver: No Do you feel safe at home: Yes Do you feel safe in your relationship?: Yes Time Spent with Patient Time Spent with Patient: <45 minutes Time was spent: preparing to see the patient(eg.review tests), obtaining and/or reviewing separately otained hiistory, ordering medications,tests, procedures, referring, communicating with other health health care / medical job titles, indepentently interpreting results, counseling the patient and care coordination
--- NOTE | 2022-11-08 15:18 | CMDISCH_ITS ---
- If Service Date Differs Date of service: 11/08/22 Time of Service: 15:18 LACE Index Scoring Tool - Questions: Length of Stay (in days): 4 - 6 Acuity (Admit via E.D.?): Yes E.D. Visits: 2 - Answers: Total Score: 9 Risk of Readmission: Low Risk Care Management Discharge Reason for Hospitalization: Pancolitis, C. difficile colitis, Soft tissue sarcoma of left thigh Discharge Plan: Fidelina is discharged home with resumption of [facility] RN/PT/OT Services. She will follow up with community providers and her discharge plan of care as prescribed. New RX's are transmitted to [facility]. Patient/Family Education Needs: Review discharge instructions, limitations, medications and plan to follow up with community providers. Discuss ask me three. Services Needed at Discharge: Home Health Care Services ([facility] RN/PT/OT, CM notified HH)
--- NOTE | 2022-11-11 08:38 | INDS_ITS ---
Date of service: 11/11/22 PT Notes Visit Reasons: C Diff Colitis Physical Therapy Discharge Summary Date: 11/07/2022 Dates of Service:11/04/2022-11/07/2026 This is a clinical summary of care provided for the duration of dates listed above. No charge was made in the completion of this documentation. Referring Doctor: Duncan Saldaña MD PT Orders: PT CONSULT: Extended stay weakness Precautions: Fall. Standard. Activity as tolerated. Patient Profile/Admitting Diagnosis:Adriana Kitchen is a 77-year-old female who presented to the ED on 11/03/2022 due to vomiting, abdominal pain, and almost 2 weeks worth of diarrhea.? Patient is admitted to [facility] for management of pancolitis, C. difficile colitis, and soft tissue sarcoma of left thigh status post wide excision of extraosseous osteosarcoma in September 2022.? Patient is also status post left MAIRA in December 2021 PMHX: All Active Problems? Pancolitis (Acute) C. difficile colitis (Acute) Soft tissue sarcoma of left thigh (Acute ~09/23/22) [place] [facility] [place] Orth[place] Vitamin D deficiency (Acute) Osteopenia (Acute) Low back pain (Acute) Pre-diabetes (Acute) Hyperlipidemia (Acute) Restless leg (Acute) Left groin pain (Acute) Osteoarthritis (Chronic) Nocturia (Acute) Snoring (Acute) Osteoarthritis of right hip (Acute) History of total left hip replacement (Acute 12/22/21) Status post irrigation and debridement of left thigh hematoma DOS: 08/04/2022Mass of left thigh (Acute) Abscess of left thigh (Acute) Medical History? COVID-19 11/11/21 Knee fracture, left Left anterior fascicular block Reactive depression 2017 Uterine polyp Surgical History? H/O dilation and curettage uterus History of carpal tunnel repair (~1996) B/L History of hammertoe correction (~2010) left foot History of hip replacement History of phacoemulsification of cataract of right eye with intraocular lens implantation S/P breast biopsy, right (~1972) BENIGN S/P lumpectomy, right breast (~1972) Status post bilateral cataract extraction Status post tonsillectomy and adenoidectomy (~1946) Status post trigger finger release right 3rd Social History/Home Situation: Lives with in a private home with 4 steps to enter. ? Independent with all aspects of ADLs prior to surgery. Equipment Owned/DME: None Subjective: NT. See most recent LABOR RELATIONS CONSULTANT notes. Objective: General Observation: NT. See most recent LABOR RELATIONS CONSULTANT notes. Mental Status: NT. See most recent LABOR RELATIONS CONSULTANT notes. Pain: NT. See most recent LABOR RELATIONS CONSULTANT notes. Vital Signs: NT. See most recent LABOR RELATIONS CONSULTANT notes. ROM: Right Upper Extremity: ? Shoulder Flexion WFL. Shoulder abduction WFL. Elbow flexion WFL. Wrist flexion WFL. Functional opening and closing of hand WFL. Left Upper Extremity:? Shoulder Flexion WFL. Shoulder abduction WFL. Elbow flexion WFL. Wrist flexion WFL. Functional opening and closing of hand WFL. Right Lower Extremity: Hip flexion WFL. Hip abduction WFL. Knee flexion WFL. Ankle dorsiflexion WFL. Ankle plantarflexion WFL. Left Lower Extremity: Hip flexion WFL. Hip abduction WFL. Knee flexion WFL. Ankle dorsiflexion WFL. Ankle plantarflexion WFL. Strength: Right Upper Extremity: Shoulder flexors 4-/5. Shoulder abductors 4-/5. Elbow fle xors 4/5. Elbow extensors 4-/5. Bilingual Interpreter strong. Left Upper Extremity: Shoulder flexors 4-/5. Shoulder abductors 4-/5. Elbow flexors 4/5. Elbow extensors 4-/5. Bilingual Interpreter strong. Right Lower Extremity: Hip flexors 3+/5. Hip abductors 3+/5. Knee flexors 4/5. Knee extensors 4-/5. Ankle dorsiflexors 4-/5. Ankle plantarflexors 4-/5. Left Lower Extremity: Hip flexors 3+/5. Hip abductors 3+/5. Knee flexors 4/5. K nee extensors 4-/5. Ankle dorsiflexors 4-/5. Ankle plantarflexors 4-/5. BED MOBILITY/TRANSFERS? Rolling L/R: independent Supine-sit: independent? Sit-supine: independent ? Sit-stand: independent ? Stand-sit: independent? Bed-Chair: independent? Chair-bed: independent ? GAIT? Assistive Device: none ? Weight bearing: full Assist: standby? Distance:? 100 feet in room? Deviation: reduced stride length, reduced walking speed, reduced arm swing. Symmetrical stride length, good foot clearance.? Balance: Static Sitting: Normal Dynamic Sitting: Normal Static Standing: Fair Dynamic Standing: Fair Assessment: Patient presents with clinical signs and symptoms consistent with current/admitting diagnoses that have resulted to mobility limitations, gait instability, generalized weakness, and overall ADL decline as demonstrated by the following impairment level findings: 1.? Decreased strength to B hip major muscle groups 2.? Impaired activity tolerance Impairments are contributing to the following functional limitations: 1.? Difficulty with ambulation due to fatigue and weakness 2.? Increased completion time for mobility ADL performance 3.? Increased risk for falls Goals: Goals X1 week 1. Independent gait on level surface with use of no AD for at least 300 feet without report of pain nor dyspnea NOT MET 2. Independent stair negotiation while holding onto B rails for at least 5 steps without report of pain nor dyspnea NOT MET 3. Independent with home exercise program MET 4. Good static and dynamic standing balance/tolerance NOT MET DISCHARGE RECOMMENDATIONS: [] ? Home with no services [] [] ? Home with services [specify] [] ? Home with outpatient PT [] [] ? SNF for continued rehabilitation [] [] ? [facility] [] [] ? SNF versus LTC based on ability to participate and progress [] [X]? HH PT vs. no services depending on progress towards goals TREATMENT CODE/TIME: CT Thank you for the opportunity to participate in the care of this patient. Nanci Azul PT, DPT, CLT [facility] [place], [place]
== END 2022-11-08 15:19 | disposition home or self-care (01) | DRG 372 ==
LOC: ER 17:17 → MS 18:47
PROVIDERS: Emergency Medicine Emergency Medical Services; Admitting Provider Internal Medicine; Emergency Provider Emergency Medicine; PCP Nurse Practitioner Family; Visit Provider Internal Medicine
DX: A04.71 Enterocolitis due to Clostridium difficile, recurrent; B37.0 Candidal stomatitis; Z85.830 Personal history of malignant neoplasm of bone; E86.0 Dehydration; E55.9 Vitamin D deficiency, unspecified; M85.80 Other specified disorders of bone density and structure, unspecified site; M54.50 Low back pain, unspecified; R73.03 Prediabetes; E78.5 Hyperlipidemia, unspecified; G25.81 Restless legs syndrome; R35.1 Nocturia; Z96.642 Presence of left artificial hip joint; M16.11 Unilateral primary osteoarthritis, right hip; I44.4 Left anterior fascicular block; E87.6 Hypokalemia
CPT/HCPCS: 36415; 80048; 80053; 83690; 84145; 87040; 87493; 93005; 96361; 96365; 96366; 96372; 96374; 96375; 97116; 97162; 97530; 99221; 99285; J1650; 74018; 74177; 81003; 81015; 83605; 83735; 84132; 85025; 86140; 93010; 99222; 99231; 99232; 99238; J0780; J2270; J2405; J3480; J3490

== ENCOUNTER 2023-01-06 11:34 | Outpatient (CLI) | payer MEDICARE, SELFPAY ==
--- NOTE | 2023-01-06 11:15 | DI.RAD_ITS ---
Exam(s) XR HIP LT AP LAT ONLY EXAM: XR HIP LT AP LAT ONLY INDICATION: ANNUAL F/U L MAIRA. COMPARISON: CR XR HIP LT COMPLETE AP PELVIS from 01/04/2022 MR MR LOWER EXTREMITY LT WO from 03/25/2022 TECHNIQUE: 2D digital imaging was performed. Two views. FINDINGS: There has been no change in the alignment of the left hip prosthesis. There are no abnormal bony puma encies. DATA REPOSITORY: RADIATION DOSE DELIVERED:
== END 2023-01-06 11:35 | disposition home or self-care (01) ==
LOC: DIORS 11:34
PROVIDERS: PCP Nurse Practitioner Family; Visit Provider Student in an Organized Health Care Education/Training Program
DX: Z47.1 Aftercare following joint replacement surgery; Z96.642 Presence of left artificial hip joint; C49.22 Malignant neoplasm of connective and soft tissue of left lower limb, including hip
CPT/HCPCS: 99213; 73502

== ENCOUNTER → 2023-03-10 11:13 | Outpatient (BNVA) | payer MEDICARE, SELFPAY | PROVIDERS: PCP Nurse Practitioner Family; Referring Provider Nurse Practitioner Family; Visit Provider Physical Therapy Assistant | DX: Z12.11 Encounter for screening for malignant neoplasm of colon (principal); Z86.010 Personal history of colon polyps ==

== ENCOUNTER 2023-03-21 09:08 | Day surgery (SDC) | payer MEDICARE, SELFPAY ==
--- NOTE | 2023-03-20 18:37 | W.ANESPRE ---
General Info Date of Service Date Performed: 03/21/23 Height: 5 ft 3 in Weight: 69.853 kg Body Mass Index (BMI): 27.3 Surgical Procedure: Operation Date: 03/21/23 10:35 Proposed Procedure Side Surgeon p Gatito Thornton MD Meds Allergies and Home Medications Allergies Allergy/AdvReac Type Severity Reaction Status Date / Time meperidine [From Demerol] AdvReac Unknown Nausea, Verified 03/21/23 09:32 vomiting amoxicillin AdvReac c-diff Verified 03/21/23 09:32 Home Medication Medication Instructions Recorded cholecalciferol (vitamin D3) 25 25 mcg PO DAILY 12/29/20 mcg (1,000 unit) tablet melatonin 3 mg tablet 3 mg PO HS PRN 12/29/20 qfkontdbvteb-bczumjul-ertxwmw-folic 1 tab PO DAILY 01/20/21 acid 400 mcg-vit K1 20 mcg tablet (One-A-Day Women's 50 Plus) calcium carbonate 600 mg-vitamin 1 tab PO DAILY 08/03/22 D3 5 mcg (200 unit) tablet rosuvastatin 20 mg tablet 20 mg PO DAILY #90 tabs 03/07/23 Bacillus coagulans 800 million 800 cell PO DAILY 03/10/23 cell tablet (Digestive Advantage Probiotics-Prebiotic) Current Visit Medications: Current Medications Generic Name Dose Route Start Last Admin Trade Name Jamesq PRN Reason Stop Dose Admin Ringer's Solution 1,000 mls @ 80 mls/hr 03/21/23 06:00 IV 04/17/23 23:59 INFUSION LUISA IV Miscellaneous Supplies 1 each 03/21/23 06:00 Iv Access IV 04/17/23 23:59 DIRECTED LUISA Sodium Chloride 0 ml 03/21/23 06:00 Normal Saline Flush 10 Ml Syr IV 04/17/23 23:59 PRN PRN Sodium Chloride 0 ml 03/21/23 06:00 Normal Saline 10 Ml Vial IJ 04/17/23 23:59 DIRECTED PRN Sterile Water 0 ml 03/21/23 06:00 Water,Injection,Sterile 10 Ml Vial IJ 04/17/23 23:59 DIRECTED PRN PFSH Active Problems Active Problems: Problem Status Onset Code Thrush, oral B37.0 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 states she is a light weight with anesthesia, pt. reports she is sensitive to anesthesia and take awhile to wake Surgical History Surgical History H/O dilation and curettage uterus History of carpal tunnel repair (~1996) B/L History of hammertoe correction (~2010) left foot History of hip replacement History of phacoemulsification of cataract of right eye with intraocular lens implantation S/P breast biopsy, right (~1972) BENIGN S/P lumpectomy, right breast (~1972) Status post bilateral cataract extraction Status post tonsillectomy and adenoidectomy (~1946) Status post trigger finger release right 3rd Tobacco Smoking/Tobacco Use Status: Never Passive smoking exposure: Yes Second hand exposure: Yes Alcohol Alcohol Intake: current Alcohol intake frequency: holidays/special occasions only Alcohol type: wine Substance Use Substance use: Never Substance use type: does not use Vital Signs and Lab Results Lab Results Blood Type / Crossmatch: No Data to Display Complete Blood Count: No Data to Display Complete Metabolic Panel: No Data to Display Liver Function Panel: No Data to Display Coagulation Panel: No Data to Display Cardiac Panel: No Data to Display Arterial Blood Gas: No Data to Display Venous Blood Gas: No Data to Display Pancreas Panel: No Data to Display Thyroid Panel: No Data to Display Infectious Disease: No Data to Display Blood Cultures: No Data to Display Toxicology Panel: No Data to Display Imaging and Studies Imaging and Studies Study information below may be from another EMR and interpreted by another provider. Please see original notes in EMR for more complete details. EKG Summary: 10/31: sinus. Anesthesia Assessment and Plan Anesthesia History Personal History: No History of Anesthesia Complications Family History: No Family History of Anesthesia Complications Exercise Tolerance Exercise Tolerance: Metabolic Equivalents>4 Cardiac & Pulmonary Exam Cardiac Exam: Normal S1/S2 Heart Sounds Pulmonary Exam: Clear Bilateral Breath Sounds Implantable Cardiac Device Does patient have a Pacemaker or an ICD?: No Airway Exam Known Difficult Airway: No Mallampati Class: 3 Mouth Opening: Normal (> 3cm) Thyromental Distance: Greater than 3 cm Neck Range of Motion: Full ROM Neck Circumference: Normal Teeth Condition: Normal Dentition ASA Classification ASA Score: ASA 2 Emergency Case?: No NPO Status NPO Status: NPO Clears >2 hours, Solids >8 hours Anesthesia Plan Resuscitation Status: Full Code Anesthesia Technique: General Anesthesia Airway Planned: Natural Airway Monitors Used: Standard Monitors and SedLine Preoperative Comments:: 77 yo female for colo. Sig PMHx: RLS, preDM, LBP, never smoker, occ EtOH. Previous Anes: - MAIRA, mac 3 grade 3. requested GA. - debridement, mac 3 grade 2b
--- NOTE | 2023-03-20 21:11 | W.PM.DSUDISC ---
Date of service: 03/21/23 Time of Service: 11:08 Discharge Plan Disposition Patient Disposition: Home Condition: Good Discharge Details Reason For Visit: Screening colonoscopy Attending Provider: Sal Thornton Primary Care Provider: Mónica Fong Home Meds and New Rx's Prescriptions: Continued One-A-Day Women's 50 Plus 400-20 mcg tablet 1 tab PO DAILY Digestive Advantage Probio-Pre 800 million cell tablet 800 cell PO DAILY cholecalciferol (vitamin D3) 25 mcg (1,000 unit) tablet 25 mcg PO DAILY melatonin 3 mg tablet 3 mg PO HS PRN rosuvastatin 20 mg tablet 20 mg PO DAILY Qty: 90 3RF calcium carbonate-vitamin D3 600 mg-5 mcg (200 unit) Tablet 1 tab PO DAILY Discontinued polyethylene glycol 3350 17 gram/dose powder 17 g PO ONCE Qty: 238 0RF Rx Instructions: Take per colonoscopy instructions provided by ordering providers office bisacodyl [Dulcolax (bisacodyl)] 5 mg tablet,delayed release (DR/EC) 5 mg PO ONCE Qty: 4 0RF Rx Instructions: Take per colonoscopy instructions provided by ordering providers office Discharge Instructions Additional Instructions: Fidelina, we were able to do your colonoscopy today without any difficulty. The quality of your prep was excellent. I did not see any signs of tumors or polyps anywhere in your large intestine. Based on your history, and a negative colonoscopy today, I recommend another one in 5 years. 1. If tolerated, consume a soft, low fiber diet for 1-2 days. 2[address] Do not drive, drink alcohol, operate machinery, make critical decisions, or do activities that require coordination or balance for 24 hours. 3. Because air was put into your colon during the procedure, expelling air from your rectum (passing gas or farting) is normal. 4. You may not have a bowel movement for 1-3 days because of the colonoscopy prep. This is normal. 5. Go directly to the emergency room if you notice any of the following: Develop chills (warm to touch), or if you have a thermometer and your temperature is above 101 Difficulty breathing or difficultly swallowing Persistent vomiting Severe abdominal pain, other than gas cramps Severe chest pain Black, tarry stools Any bleeding ? exceeding one tablespoon 6. Call your physician if the site where your intravenous was started becomes red, swollen, painful, and warm to touch. 7. Your physician has reviewed your pre-procedure medications. Please continue to take those medications as previously ordered. You will be given specific information/education regarding any changes to your medications before leaving. Activity:: Activity as Tolerated Diet:: As Tolerated Discharge Orders Discharge Orders: Discharge Order (Routine); Ordered 03/20/23 Ordered By: Sal Thornton DS: Diagnosis Discharge Diagnosis (1) Screen for colon cancer: Status: Acute Asessment and Plan: Negative screening colonoscopy
--- NOTE | 2023-03-20 21:13 | W.COLOREPORT ---
Date of service: 03/21/23 Time of Service: 11:09 Colonoscopy Report Date of procedure: 03/21/23 Pre-op diagnosis general: Screening colonoscopy Post-op diagnosis procedure note: other (Negative screening colonoscopy) Procedure: Colonoscopy Surgeon: Sal Thornton Anesthesia Type: General:No Airway Estimated blood loss (mL): 0 Pathology: none sent Complications: None Disposition: same day Indications: Fidelina is 77 years old and she needs another screening colonoscopy Prep: Miralax/Dulcolax Procedure Start Time: 10:39 Procedure End Time: 10:52 Retraction Time: 6 Findings: Negative screening colonoscopy Procedure Description: After the induction of monitored anesthetic care, and with the patient in left lateral decubitus position, I began by performing an external anorectal exam.? Perineum and skin were normal, as was the anal verge.? There were some older skin tags consistent with fibrosed external hemorrhoids.? Next, I performed a digital rectal exam.? I did not appreciate any abnormal findings.? Next, I advanced a colonoscope into the rectal vault.? I performed retroflexion.? This appeared normal.? Using insufflation, I then advanced the colonoscope beyond the rectal folds and into the sigmoid colon before advancing towards the cecum.? The quality of the prep was excellent.? The scope was noted to be in the cecum by identification of the ileocecal valve and appendiceal orifice.? I then began withdrawing the colonoscope using repeated irrigation as necessary for full evaluation of the colonic mucosa. ?Once the scope was withdrawn to the level of the rectum, great care was taken to examine portions of the rectal folds.? I did not see any signs of tumors or polyps anywhere in the large intestine. Finally, the scope was withdrawn and the patient was brought to the same-day surgery recovery unit as the anesthetic wore off. ?The findings and instructions were shared with the patient prior to discharge.
[2023-03-21 09:10] VITALS: BP 144/73; PULSE 89; RESP 20; TEMP 36.6; O2SAT 98
[2023-03-21 09:29] VITALS: BMI 27.3
[2023-03-21] MEDS: Lactated Ringers 1,000 ML 80 ML IV (09:45)
[2023-03-21 10:55] VITALS: BP 127/65; PULSE 69; RESP 16; TEMP 36; O2SAT 96
--- NOTE | 2023-03-21 11:01 | W.ANESPOSTOP ---
Postoperative Evaluation Date, Time and Location Date Performed: 03/21/23 Time Performed: 11:01 Patient Location: Day Surgery Unit Vital Signs Most Recent Imported Vital Signs: Most Recent Vital Signs Temp Pulse Resp BP Pulse Ox 36 C L 69 16 127/65 96 03/21/23 10:55 03/21/23 10:55 03/21/23 10:55 03/21/23 10:55 03/21/23 10:55 Pain Score Most Recent Pain Score: Most Recent Pain Score Pain Level 0 03/21/23 10:55 Assessment Mental Status: Awake (Alert & Oriented to Patient Baseline) Airway and Respiratory Function: Patent airway with normal (patient baseline) respiratory exam Cardiovascular Function: Hemodynamically Stable Hydration Status: Adequately Hydrated Nausea & Vomiting: No Nausea or Vomiting Pain: Pt. Denies Any Pain Peripheral Nerve Block: Patient did not receive a nerve block
[2023-03-21 11:23] VITALS: BP 147/64; PULSE 72; RESP 16; TEMP 36.4; O2SAT 98
== END 2023-03-21 11:28 | disposition home or self-care (01) ==
PROVIDERS: PCP Nurse Practitioner Family; Visit Provider Surgery
PROC: 0DJD8ZZ Inspection of Lower Intestinal Tract, Via Natural or Artificial Opening Endoscopic (ICD-10-PCS; CPT 45378; principal; 2023-03-21 10:30)
DX: Z12.11 Encounter for screening for malignant neoplasm of colon (principal); Z86.010 Personal history of colon polyps
CPT/HCPCS: G0105

== ENCOUNTER → 2023-03-29 02:31 | Outpatient (CLI) | payer MEDICARE, SELFPAY ==
--- NOTE | 2023-03-29 07:45 | DI.MAMMO_ITS ---
Exam(s) MAMMO SCREENING EXAM: MAMMO SCREENING CLINICAL HISTORY: screening,z12.39 TECHNIQUE: Bilateral full field digital CC and MLO mammographic images were obtained with 3D tomosyn thesis and utilizing computer aided detection (CAD). COMPARISON: Available for comparison. FINDINGS: Masses/Architectural Distortion: No suspicious nodules or areas of architectural distortion are seen. Microcalcifications: No suspicious pleomorphic-type are seen. Skin Thickening/Nipple Retraction: None. IMPRESSION: 1. No significant interval change with no specific features of malignancy noted. 2. Unless there is more urgent need, screening mammography is recommended, as per [employer] guidelines. BI-RADS Category 1 - Negative Breast Density - Category B - Scattered areas of fibroglandular density Breast density category C or D implies that the patient has dense breast tissue. Dense breast tissue is very common and is not abnormal but dense breast tissue can make it harder to find cancer on a ma mmogram. Also, dense breast tissue may increase their breast cancer risk. This information about the result of the mammogram report was provided to the patient to raise their awareness. Use this report when you speak with the patient about their risks for breast cancer, which includes their family hist ory. At that time, you may recommend for more screening tests (Ultrasound or MRI) as they might be us eful based on their risk. A negative radiographic report should not delay biopsy if a dominant or clinically suspicious mass is present. Up to ten percent of cancers are not identified on mammography. A negative report may reinforce clinical impression. Adenosis and dense breasts may obscure an underlying neoplasm. False positive reports average 6 to 10%. Patient will receive a letter notifying them of these results.
== END ==
PROVIDERS: PCP Nurse Practitioner Family; Visit Provider Nurse Practitioner Family
DX: Z12.31 Encounter for screening mammogram for malignant neoplasm of breast (principal)
CPT/HCPCS: 77063; 77067

== ENCOUNTER → 2023-04-07 02:24 | Outpatient (CLI) | payer MEDICARE, SELFPAY ==
--- NOTE | 2023-04-07 | DI.CT_ITS ---
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 TECHNIQUE: Imaging Protocol: Axial computed tomography images with coronal and sagittal reformatted images were created and reviewed CONTRAST MATERIAL: Intravenous: Omnipaque 350 Contrast volume:100 ml Oral: Yes. Oral contrast was also administered for bowel opacification. COMPARISON: CT CT ABDOMEN PELVIS W from 11/03/2022 FINDINGS: CHEST: LUNGS: There are no ominous lung nodules nor pleural effusions. No infiltrates.. MEDIASTINUM: There is no hilar nor mediastinal adenopathy. CARDIAC: Heart size is normal. Mild thickening of the anterior right pericardium is again noted cons istent with small pericardial effusion. This does not extend around the heart. Maximum thickness an teriorly is 7 mm.Caliber of the thoracic aorta is within normal limits. OSSEOUS: No significant osseous lesions.. ABDOMEN: Previously present ascites has resolved and the appearance of the colon has significantly improved. When compared to 11/03/2022 the pancolitis pattern appears to have resolved. The oral contrast has r eached and filled the entire colon and the wall the colon is no longer significantly thickened-edemat ous. Small bowel loops also exhibit normal appearance.. LIVER: There are no focal hepatic lesions nor dilatation of intrahepatic ducts. Mild hepatic steatos is again noted. GALLBLADDER/BILIARY: No obvious gallbladder pathology. CBD is not dilated. PANCREAS: Pancreas is again noted be severely atrophic. There is a mildly dilated tubular structure in left side of the retroperitoneum with diameter 8 mm which is most probably remnant pancreatic duct and which appears unchanged from the prior CT study. This is in the region the pancreatic tail. Th e pancreatic duct in the region of the head and neck and majority of the pancreatic body is not dilat ed. There are no calcifications in the pancreatic bed. SPLEEN: Spleen is not enlarged. There are no intrasplenic lesions. Splenic and portal veins are mckeon nt. ADRENALS: There are no significant adrenal masses. KIDNEYS: No calculi nor hydronephrosis. No solid renal masses. Parapelvic cysts are again noted in brandy th kidneys. ABDOMINAL AORTA: Abdominal aorta is not enlarged. LYMPH NODES: There is no retroperitoneal nor paraaortic adenopathy. ABDOMINAL WALL: No evidence of significant anterior abdominal wall nor inguinal hernia. GI: There is no evidence of bowel obstruction. PELVIS: LYMPH NODES: There is no intrapelvic nor inguinal adenopathy. GI: No evidence of appendicitis.No significant sigmoid diverticular disease. URINARY BLADDER: No calculi nor masses evident REPRODUCTIVE: Uterus appearance age-appropriate. No abnormal adnexal masses. No free fluid. OSSEOUS: No significant osseous lesions. No fractures. Left hip prosthesis noted. IMPRESSION: 1. Compared to the prior CT scan of 11/03/2022 the previously present severe ray colitis pattern has resolved. The wall of the colon is no longer thickened. The small amount of ascites which was previ ously present also has resolved. This was related to the colitis. 2. There are no metastatic nodules nor other findings in the lung velarde and no intrathoracic adenopa thy nor pleural effusions. 3. Small pericardial effusion confined to the right side of the anterior pericardium is unchanged fro m 11/03/2022. Maximum thickness is 6-7 mm. 4. The pancreas is again noted to be severely atrophic. There is again noted a tubular structure in the region of the absent tail the pancreas which measures up to 8 mm and is most probably remnant ray creatic duct. The duct in the head, neck, and body of the pancreas is not dilated. This may imply t hat there was a stricture in the pancreatic duct. There is, however, no mass nor adenopathy in this region. Also no peripancreatic fluid collections. 5. Left hip prosthesis again noted. RADIATION DOSE DELIVERED: 1,376.05mGy.cm Total DLP DATA REPOSITORY: All CT scans at this facility are submitted to the National Radiology Data Registry (NRDR) Dose Index Registry (DIR) with the [employer] (A[employer]). RADIATION OPTIMIZATION: All CT scans at this facility use at least one of these dose optimization te chniques: automated exposure control; mA and/or kV adjustment per patient size (includes targeted exa ms where dose is matched to clinical indication); or iterative reconstruction.
[2023-04-07] MEDS: Omnipaque 350 MG/ML 50 ML BTL PO (09:02)
[2023-04-07 09:03] LABS: Abs Immature Grans 0.01 10^3/uL (0.0-0.06); Absolute Basophil Count 0.03 10^3/uL (0.0-0.2); Absolute Eosinophil Count 0.09 10^3/uL (0.0-0.7); Absolute Lymphocyte Count 1.54 10^3/uL (1.2-3.4); Absolute Neutrophil Count 2.42 10^3/uL (1.2-6.7); Basophils % 0.7; HCT 43.2 % (36.0-46.0); HGB 14.6 g/dL (11.2-15.7); Immature Grans % 0.2; Lymphocytes % 34.3; MCH 30.8 pg (27.0-33.0); MCHC 33.8 % (32.0-36.0); MCV 91 fL (80-95); MPV 8.8 fL (8.0-11.0); Monocytes % 8.9; Neutrophils % 53.9; Platelet Count 234 10^3/uL (130-400); RBC 4.74 10^6/uL (3.93-5.22); RDW-SD 43.9 fL; WBC 4.49 10^3/uL (4.4-10.8)
[2023-04-07] MEDS: Breeza Beverage 473 ML BTL 900 ML PO (09:03)
[2023-04-07 09:20] LABS: ALT 29 U/L (14-59); AST 22 U/L (15-37); Albumin 3.9 g/dL (3.4-5.0); Alkaline Phosphatase 66 U/L (46-116); BUN 31 mg/dL (7-18); Bilirubin, Total 0.4 mg/dL (0.2-1.0); Calcium 9.8 mg/dL (8.5-10.1); Chloride 106 mmol/L (98-107); Estimated GFR 57.66 (mL/min/1.73m2); Glucose 115 mg/dL (74-106); Magnesium 2.1 mg/dL (1.8-2.4); Potassium 4.8 mmol/L (3.5-5.1); Sodium 142 mmol/L (136-145); Total Protein 7.9 g/dL (6.4-8.2)
[2023-04-07] MEDS: Omnipaque 350 MG/ML 500 ML BTL-Imaging package 100 ML IJ (10:27)
[2023-04-07] MEDS: Normal Saline - Diluent 50 ML VIAL IJ (10:29)
== END ==
PROVIDERS: PCP Nurse Practitioner Family; Visit Provider Internal Medicine Hematology & Oncology
DX: C49.22 Malignant neoplasm of connective and soft tissue of left lower limb, including hip (principal); K86.89 Other specified diseases of pancreas; Z96.642 Presence of left artificial hip joint
CPT/HCPCS: 74177; 80053; 71260; 83735; 85025; Q9967

== ENCOUNTER → 2023-04-11 02:08 | Outpatient (CLI) | payer MEDICARE, SELFPAY ==
[2023-04-11] MEDS: Gadoterate meglumine 20 ML VIAL IVP (14:38)
[2023-04-11] MEDS: Normal Saline Flush 10 ML SYR IVP (14:39)
--- NOTE | 2023-04-11 15:15 | DI.MRI_ITS ---
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 Contrast injected was 14 mL Dotarem. COMPARISON: CT CT LOWER EXTREMITY LT W from 09/09/2022 FINDINGS: MARROW: Left hip prosthesis appears stable. No fracture and no intraosseous bone edema to suggest lo osening of the femoral stem component nor other intraosseous process. There is no evidence of fractu re, bone contusion, nor avascular necrosis. There are no significant osseous lesions. MUSCLES/SOFT TISSUES: Compared to the prior CT scan of 09/09/2022 there has been interval resection o f the previously present collection an ominous mass. Much of the semimembranosus muscle has been res ected. There is presently no evidence of abnormal fluid collection nor mass density. No abnormal en hancing lesion evident. No abscess. OTHER: None. IMPRESSION: 1. There has been interval resection of the previously present large mass and fluid collection in the posterior soft tissues of the thigh, including removal of much of the muscle belly of the semimembra nosus component of the hamstrings. 2. There is presently no evidence of mass nor abnormal enhancement in the soft tissues and no abnorma l fluid collection. 3. The partially visualized femoral stem of the ipsilateral hip prosthesis appears intact. There is no marrow edema. DATA REPOSITORY:
--- NOTE | 2023-04-11 16:11 | DI.VRAD_ITS ---
PROCEDURE INFORMATION: Exam: MR Left Lower Extremity Without and With Contrast, Femur. 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 Exam focused on the femur. Contrast material: DOTAREM; Contrast volume: 15 ml; Contrast route: INTRAVENOUS (IV); COMPARISON: CT LOWER EXTREMITY LT W 09/09/2022 5:00 PM FINDINGS: Limitations: The levels of the proximal and distal femur are not fully included. Bones/joints: A hip prosthesis is again present. It is partially included and creates some artifact, degrading evaluation. Beyond its level, the bone marrow is normal in signal, and the cortices are preserved. The partially included knee joint is with an effusion. There is mild scarring of the subcutaneous soft tissues posteriorly. Soft tissues: In the soft tissues posteriorly, there was previously a collection and possibly mass, including large component within the semimembranosus muscle. This appears to have been resected. Much of the semimembranosus muscle belly is now absent, with thinning in the region of the proximal musculotendinous junction. More distally, the muscle is with fatty atrophy but without mass or abnormal enhancement evident within it or elsewhere in the soft tissues. Nerves: The visualized course of the sciatic nerve appears unremarkable. IMPRESSION: 1. Postoperative thigh with apparent interval resection of collection and possibly mass in the soft tissues posteriorly, including much of the muscle belly of the semimembranosus since 09/09/2022. No mass or abnormal enhancement evident within the muscle or elsewhere in the soft tissues. 2. Total hip prosthesis with the bone beyond this apparent unremarkable. 3. Partially visualized knee joint effusion. Dictated and Authenticated by: Jalen Castro MD. Ordering:MARÍA ELENA Mcdermott MD
== END ==
PROVIDERS: PCP Nurse Practitioner Family; Visit Provider Internal Medicine Hematology & Oncology
DX: C49.22 Malignant neoplasm of connective and soft tissue of left lower limb, including hip (principal)
CPT/HCPCS: 73720

== ENCOUNTER → 2023-07-29 00:11 | Outpatient (CLI) | payer MEDICARE, SELFPAY ==
[2023-07-29 11:05] LABS: Abs Immature Grans 0.01 10^3/uL (0.0-0.06); Absolute Basophil Count 0.04 10^3/uL (0.0-0.2); Absolute Eosinophil Count 0.08 10^3/uL (0.0-0.7); Absolute Lymphocyte Count 1.63 10^3/uL (1.2-3.4); Absolute Monocyte Count 0.46 10^3/uL (0.1-0.8); Absolute Neutrophil Count 2.92 10^3/uL (1.2-6.7); Basophils % 0.8; Eosinophils % 1.6; HCT 42.4 % (36.0-46.0); HGB 14.1 g/dL (11.2-15.7); Immature Grans % 0.2; Lymphocytes % 31.7; MCH 30.5 pg (27.0-33.0); MCHC 33.3 % (32.0-36.0); MCV 92 fL (80-95); Monocytes % 8.9; Neutrophils % 56.8; Platelet Count 231 10^3/uL (130-400); RBC 4.63 10^6/uL (3.93-5.22); RDW-SD 40.9 fL; WBC 5.14 10^3/uL (4.4-10.8)
[2023-07-29] MEDS: Barium Sulfate 2% W/V-Creamy Vanilla Smoothie 450 ML BTL PO (11:08)
[2023-07-29 11:19] LABS: ALT 29 U/L (14-59); AST 22 U/L (15-37); Alkaline Phosphatase 57 U/L (46-116); Anion Gap 8.4 mmol/L (3-11); BUN 28 mg/dL (7-18); Bilirubin, Total 0.5 mg/dL (0.2-1.0); CO2 27.6 mmol/L (21.0-32.0); CREATININE 1.1 mg/dL (0.55-1.02); Calcium 9.8 mg/dL (8.5-10.1); Chloride 106 mmol/L (98-107); Estimated GFR 51.11 (mL/min/1.73m2); Glucose 110 mg/dL (74-106); Magnesium 2.3 mg/dL (1.8-2.4); Potassium 4.3 mmol/L (3.5-5.1); Sodium 142 mmol/L (136-145); Total Protein 7.7 g/dL (6.4-8.2)
[2023-07-29] MEDS: Normal Saline - Diluent 50 ML VIAL IJ (13:26)
[2023-07-29] MEDS: Omnipaque 350 MG/ML 500 ML BTL-Imaging package 100 ML IJ (13:27)
[2023-07-29] MEDS: Normal Saline Flush 10 ML SYR IVP (13:28)
--- NOTE | 2023-07-29 13:33 | DI.CT_ITS ---
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 TECHNIQUE: Imaging Protocol: Axial computed tomography images with coronal and sagittal reformatted images were created and reviewed CONTRAST MATERIAL: Intravenous: Omnipaque 350 Contrast volume:100 ml Oral: Yes. Oral contrast was also administered for bowel opacification. COMPARISON: CT CT CHEST/ABD/PEL W from 04/07/2023 FINDINGS: CHEST: LUNGS: There are no pulmonary infiltrates nor pleural effusions and there are no metastatic appearing lung nodules. No significant findings in the trachea and mainstem bronchi and no bronchiectasis.. MEDIASTINUM: There is no hilar nor mediastinal adenopathy. No supraclavicular nor axillary adenopathy .Thyroid gland appears unremarkable. CARDIAC: Heart size remains normal. The previously described mild thickening of the right-side of th e pericardium is unchanged.Caliber of the thoracic aorta is within normal limits. OSSEOUS: No significant osseous lesions.No fractures.. ABDOMEN: There is no ascites. LIVER: There are no focal hepatic lesions nor dilatation of intrahepatic ducts. Liver size is normal . Steatosis again evident. GALLBLADDER/BILIARY: No obvious gallbladder pathology. CBD is not dilated. PANCREAS: The pancreas is again noted to be severely atrophic. The tubular structure in the region o f the pancreatic tail previously described is again noted a, most probably representing the pancreati c duct and exhibiting 8 millimeter diameter, unchanged. The appearance is of a stricture the pancrea tic duct at the mid level of the gland with resulting glandular atrophy. There are no parenchymal ca lcifications in the pancreas. No obvious mass. SPLEEN: Spleen is not enlarged. There are no intrasplenic lesions. Splenic and portal veins are mckeon nt. ADRENALS: There are no significant adrenal masses. KIDNEYS: Prominent parapelvic cysts are again noted in the kidneys, unchanged. There is no thinning of the cortical mantle of the kidneys. No solid renal masses. No calculi. ABDOMINAL AORTA: Abdominal aorta is not enlarged. LYMPH NODES: There is no retroperitoneal nor paraaortic adenopathy. ABDOMINAL WALL: Small fat only containing umbilical hernia is noted. No other hernias. GI: There is no evidence of bowel obstruction. PELVIS: LYMPH NODES: There is no intrapelvic nor inguinal adenopathy. GI: No evidence of appendicitis.No evidence of sigmoid diverticulitis. URINARY BLADDER: Partially obscured by beam hardening artifact from left hip prosthesis but no obviou s abnormality. REPRODUCTIVE: Uterus size is age-appropriate. There are no adnexal masses but there are again noted symmetrical dilated veins on both sides of the uterus which drain into symmetrically prominent and no nthrombosed bilateral gonadal veins, this consistent with pelvic congestion syndrome. These veins ar e not thrombosed. OSSEOUS: No fractures nor significant osseous lesions. A left hip prosthesis is again noted. IMPRESSION: 1. Stable appearance with no evidence of metastatic disease in the chest nor other lung pathology. T here is also no intrathoracic adenopathy. No pleural effusions. 2. No ascites, new mesenteric masses, nor other evidence of metastatic disease in the abdomen and pel vis. 3. 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 There is, however, no mass nor fluid collection in this region. 4. Pelvic congestion syndrome findings again noted. These veins are not thrombosed. 5. Left hip prosthesis again evident. No fractures and no osseous lesions evident. RADIATION DOSE DELIVERED: 1,676.18mGy.cm Total DLP DATA REPOSITORY: All CT scans at this facility are submitted to the National Radiology Data Registry (NRDR) Dose Index Registry (DIR) with the [employer] (ACR). RADIATION OPTIMIZATION: All CT scans at this facility use at least one of these dose optimization te chniques: automated exposure control; mA and/or kV adjustment per patient size (includes targeted exa ms where dose is matched to clinical indication); or iterative reconstruction.
== END ==
PROVIDERS: PCP Nurse Practitioner Family; Visit Provider Internal Medicine Hematology & Oncology
DX: C49.22 Malignant neoplasm of connective and soft tissue of left lower limb, including hip (principal); Z85.831 Personal history of malignant neoplasm of soft tissue
CPT/HCPCS: 74177; 80053; 71260; 83735; 85025

== ENCOUNTER → 2023-08-01 01:10 | Outpatient (CLI) | payer MEDICARE, SELFPAY ==
[2023-08-01] MEDS: Normal Saline Flush 10 ML SYR IVP (14:43)
[2023-08-01] MEDS: Gadoterate meglumine 20 ML SYRINGE 14 ML IVP (14:44)
--- NOTE | 2023-08-01 15:30 | DI.MRI_ITS ---
Exam(s) MR LOWER EXTREMITY LT WO/W CLINICAL HISTORY: HX SARCOMA SOFT TISSUE Z85.831 LEFT THIGH ABOVE KNEE REPLACEMENT. TECHNIQUE: Multiplanar multisequence MRI was performed. CONTRAST MATERIAL: IV Contrast: 14 mL of Dotarem contrast administered. COMPARISON: 25 March 2022 11 April 2023 FINDINGS: BONES/JOINTS: Tip of the hip prosthesis in the proximal femur in the is present within the field of v iew. Marrow signal is normal. No abnormal enhancement within the marrow. SOFT TISSUES: Mild edema noted within hamstring muscles and. Mild scarring and mild edema posterior subcutaneous fat. No recurrent mass. ENHANCEMENT: No suspicious enhancement identified. IMPRESSION: Postsurgical changes in soft tissues of the posterior lower thigh head and hamstring region. Evidenc e of recurrence mass. No abnormal marrow signal. DATA REPOSITORY:
== END ==
PROVIDERS: PCP Nurse Practitioner Family; Visit Provider Internal Medicine Hematology & Oncology
DX: Z98.890 Other specified postprocedural states (principal); Z85.831 Personal history of malignant neoplasm of soft tissue
CPT/HCPCS: 73720

== ENCOUNTER → 2023-11-29 02:19 | Outpatient (CLI) | payer MEDICARE, SELFPAY ==
--- NOTE | 2023-11-29 | DI.CT_ITS ---
Exam(s) CT CHEST W EXAM: CT CHEST W CLINICAL HISTORY: Z85.831 HX of Sarcoma of soft tissue TECHNIQUE: Imaging Protocol: Axial computed tomography images with coronal and sagittal reformatted images were created and reviewed CONTRAST MATERIAL: Intravenous: Omnipaque 350 Contrast volume:70 ml. COMPARISON: CT CT CHEST/ABD/PEL W from 07/29/2023 FINDINGS: Pulmonary parenchyma: No consolidation. 2.3 x 1.1 by 2.5 centimeter irregular nodule in the right upp er lobe. Abnormal nodule more posterior-inferior measuring 1.2 x 1.4 x 1.9 cm. New 5 millimeter nod ule medial right lower lobe. Calcified granuloma right middle lobe. Tracheobronchial tree: No bronchiectasis or mucous plugging. Mediastinum and Radha: No dominant adenopathy or fluid collection. Pleura: No effusion. No pneumothorax. Heart: The heart is not dilated. Mild coronary artery calcifications are seen. Trace pericardial effu nishi anteriorly. Aorta: Thoracic aorta non-dilated. Mild atherosclerotic changes. Upper abdomen: Fatty infiltration of the liver. Atrophic pancreas. Bones: Degenerative changes in the spine. No destructive lesions. Soft tissues: Unremarkable. IMPRESSION: New masses in the right upper lobe. New nodule in the right lower lobe. Findings suspicious for met astatic disease. RADIATION DOSE DELIVERED: 563.7mGy.cm Total DLP DATA REPOSITORY: All CT scans at this facility are submitted to the National Radiology Data Registry (NRDR) Dose Index Registry (DIR) with the [employer] (ACR). RADIATION OPTIMIZATION: All CT scans at this facility use at least one of these dose optimization te chniques: automated exposure control; mA and/or kV adjustment per patient size (includes targeted exa ms where dose is matched to clinical indication); or iterative reconstruction.
--- NOTE | 2023-11-29 | DI.MRI_ITS ---
Exam(s) MR LOWER EXTREMITY LT WO/W CLINICAL HISTORY: Z85.831 HX sarcoma soft tissue. TECHNIQUE: Multiplanar multisequence MRI was performed. CONTRAST MATERIAL: IV Contrast: 15 mL of Dotarem contrast administered. COMPARISON: 01 August 2023 FINDINGS: BONES: No fracture or contusion pattern. No bone lesions identified. Knee partially included in field of view. Small joint effusion. SOFT TISSUES: Mild postsurgical artifact in the posterior thigh. No evidence of a recurrent mass, ab scess or fluid collection. Again noted is severe atrophy of the semimembranosus muscle. ENHANCEMENT: No suspicious enhancement identified. IMPRESSION: No evidence of recurrent mass. Normal marrow signal. DATA REPOSITORY:
[2023-11-29 10:08] LABS: Anion Gap 8.6 mmol/L (3-11); BUN 34 mg/dL (7-18); CO2 27.4 mmol/L (21.0-32.0); Calcium 9.6 mg/dL (8.5-10.1); Chloride 106 mmol/L (98-107); Estimated GFR 57.31 (mL/min/1.73m2); Glucose 116 mg/dL (74-106); Potassium 3.8 mmol/L (3.5-5.1); Sodium 142 mmol/L (136-145)
[2023-11-29] MEDS: Gadoterate meglumine 20 ML SYRINGE 15 ML IVP (10:16)
[2023-11-29] MEDS: Normal Saline Flush 10 ML SYR IVP (10:17)
[2023-11-29] MEDS: Omnipaque 350 MG/ML 100 ML BTL IJ (11:04)
[2023-11-29] MEDS: Normal Saline - Diluent 50 ML VIAL IJ (11:06)
== END ==
PROVIDERS: PCP Nurse Practitioner Family; Visit Provider Internal Medicine Hematology & Oncology
DX: Z85.831 Personal history of malignant neoplasm of soft tissue (principal)
CPT/HCPCS: 80048; 71260; 73720; J3490

== ENCOUNTER → 2024-02-10 00:51 | Outpatient (CLI) | payer MEDICARE, SELFPAY ==
[2024-02-10] MEDS: Barium Sulfate 2% W/V-Berry Smoothie 450 ML BTL PO ×2 (08:48→08:49)
[2024-02-10 09:58] LABS: Anion Gap 8.9 mmol/L (3-11); BUN 33 mg/dL (7-18); CO2 28.1 mmol/L (21.0-32.0); Calcium 9.6 mg/dL (8.5-10.1); Chloride 106 mmol/L (98-107); Estimated GFR 57.31 (mL/min/1.73m2); Glucose 112 mg/dL (74-106); Potassium 4.5 mmol/L (3.5-5.1); Sodium 143 mmol/L (136-145)
[2024-02-10] MEDS: Omnipaque 350 MG/ML 100 ML BTL IJ (11:12)
[2024-02-10] MEDS: Normal Saline - Diluent 50 ML VIAL IJ (11:16)
--- NOTE | 2024-02-10 11:20 | DI.CT_ITS ---
Exam(s) CT CHEST/ABD/PEL W EXAM: CT CHEST/ABD/PEL W CLINICAL HISTORY: OSTEOSARCOMA WITH METS,RESTAGING EXAM,c41.9. TECHNIQUE: Imaging Protocol: Axial computed tomography images with coronal and sagittal reformatted images were created and reviewed CONTRAST MATERIAL: Intravenous: Omnipaque 350 Contrast volume:100 ml Oral: yes / COMPARISON: CT CT CHEST/ABD/PEL W from 07/29/[address] CHEST W from 11/29/2023 FINDINGS: CHEST: Tracheobronchial tree: Patent. Pulmonary parenchyma: Increase in size of anterior left upper lobe mass, measuring 1.8 x 2.9 by 4.0 c m. Also significant increase in size of the 2nd left upper lobe mass and measuring 2.4 by a 1.9 by 3 .5 cm. Increase in size and medial right lower lobe mass now measuring 12 millimeters in diameter co mpared to 5 millimeters previously. Four millimeter nodule posterior right lower lobe not previously seen. Pleura: No effusion or pneumothorax. Mediastinum: Within normal limits. Aorta: Thoracic portion non-dilated. Pulmonary arteries: No visible emboli. Heart: Normal size. Decreased size of anterior pericardial effusion versus pericardial thickening. Bones: Unremarkable for age. No lytic or blastic lesions.No compression fractures. Soft tissues: Unremarkable. ABDOMEN and PELVIS: Liver: Normal density. No measurable mass. Gallbladder and biliary tract: No evidence of stones or wall thickening. No biliary dilatation. Pancreas: Extremely atrophic. No inflammatory process. Spleen: Normal. Kidneys: Normal size, contour and axis. No radiodense stones. No obstructive uropathy. No suspicious masses seen. Parapelvic renal cysts again noted. Adrenal glands: No masses seen. Aorta: Abdominal portion non-dilated. Lymph nodes: Within normal limits. Soft tissues: Unremarkable. Bladder: Unremarkable. Bowel: No obstruction or bowel wall thickening. Peritoneal cavity: No ascites. No focal collection. No mesenteric inflammatory response. No free ai r. Bones: Left hip prosthesis creates artifact. Reproductive organs: Unremarkable. IMPRESSION: Interval increase in size of previously noted on masses in the left upper lobe and medial right lower lobe. New 4 millimeter nodule posterior right lower lobe. No evidence of metastatic disease in the abdomen or pelvis. RADIATION DOSE DELIVERED: Total DLP DATA REPOSITORY: All CT scans at this facility are submitted to the National Radiology Data Registry (NRDR) Dose Index Registry (DIR) with the [employer] (ACR). RADIATION OPTIMIZATION: All CT scans at this facility use at least one of these dose optimization te chniques: automated exposure control; mA and/or kV adjustment per patient size (includes targeted exa ms where dose is matched to clinical indication); or iterative reconstruction.
== END ==
PROVIDERS: PCP Nurse Practitioner Family; Visit Provider Radiology Radiation Oncology
DX: C41.9 Malignant neoplasm of bone and articular cartilage, unspecified (principal); C34.12 Malignant neoplasm of upper lobe, left bronchus or lung; C34.31 Malignant neoplasm of lower lobe, right bronchus or lung
CPT/HCPCS: 74177; 80048; 71260; J3490

== ENCOUNTER 2024-06-13 01:13 | Outpatient (CLI) | payer MEDICARE, SELFPAY ==
[2024-06-13] MEDS: Barium Sulfate 2% W/V-Berry Smoothie 450 ML BTL PO (12:50)
[2024-06-13] MEDS: Barium Sulfate 2% W/V-Creamy Vanilla Smoothie 450 ML BTL PO (12:52)
[2024-06-13 13:28] LABS: Hemoglobin A1C 6.4 % (<5.7)
[2024-06-13 13:30] LABS: Anion Gap 10.6 mmol/L (3-11); BUN 25 mg/dL (7-18); CO2 26.4 mmol/L (21.0-32.0); Calcium 9.1 mg/dL (8.5-10.1); Chloride 105 mmol/L (98-107); Estimated GFR 57.31 (mL/min/1.73m2); Glucose 90 mg/dL (74-106); Sodium 142 mmol/L (136-145)
[2024-06-13 13:37] LABS: Calculated LDL 86 mg/dL (<100); Cholesterol 161 mg/dL (<200); HDL Cholesterol 63 mg/dL (40-60); Triglyceride 63 mg/dL (<150)
[2024-06-13] MEDS: Normal Saline - Diluent 50 ML VIAL IJ (15:37)
[2024-06-13] MEDS: Omnipaque 350 MG/ML 100 ML BTL IJ (15:38)
--- NOTE | 2024-06-13 15:41 | DI.CT_ITS ---
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 Lung Computer Aided Detection (CAD) was utilized. CONTRAST MATERIAL: Intravenous: Omnipaque 350 contrast volume:100 mL Oral: Yes COMPARISON: CT CT CHEST/ABD/PEL W from 02/10/2024 FINDINGS: There is artifact in the pelvis secondary to the patient's left total hip arthroplasty. CHEST: Tracheobronchial tree: Patent where visualized. No evidence of bronchiectasis. Pulmonary parenchyma: There has been interval decrease in size of the left upper lobe masses. Using similar techniques the more superior and anterior lesion measures 2.1 cm x 0.9 cm (series 10, image 2 7) compared to 3.0 cm x 1.7 cm on the prior examination. The more posterior and inferior lesion matthieu ures 1.3 x 0.9 cm (series 10, image 41 compared to 2.2 x 1.9 cm on the prior examination. No new les ions are seen. No focal infiltrates are present. Visualized thyroid gland: Unremarkable. Mediastinum and Radha: No dominant adenopathy or fluid collection. The esophagus is unremarkable. The re is a tiny hiatal hernia. Pleura: No effusion or pneumothorax. Heart: The heart is not dilated. Single-vessel coronary artery calcification is present. There is a stable small pericardial effusion. Pulmonary arteries: No pulmonary emboli are identified. Aorta: Thoracic aorta non-dilated. No evidence of dissection. Atherosclerotic calcification is prese nt. Lymph nodes: Within normal limits. Soft tissues: Unremarkable. Bones:Within normal limits for the patient's age. No aggressive osseous lesions are present. ABDOMEN: Liver: There is diffuse decreased attenuation of the liver consistent with fatty infiltration. No me asurable mass. Portal, Superior Mesenteric, and Splenic Veins: Unremarkable. Gallbladder and Biliary Tract: No radiodense calculus or dilation. Pancreas: There is diffuse fatty replacement/atrophy of the pancreas. Spleen: Normal. Adrenals: No masses seen. Kidneys: Normal size, contour and axis. No radiodense stones or obstructive uropathy. Multiple parape lvic cysts bilaterally. No follow-up is recommended. Abdominal Aorta: Abdominal portion non-dilated. Atherosclerotic calcification is present. Bowel: There are diverticula seen in the colon but no evidence of acute diverticulitis. No evidence of bowel wall thickening or obstruction. The stomach is poorly distended limiting evaluation. No ev idence of appendicitis. Peritoneal Cavity: No ascites, collection or mesenteric inflammatory response. No free air. Lymph Nodes: Within normal limits. Bones: Within normal limits for the patient's age. There are degenerative changes seen in the right hip. The patient has a left total hip arthroplasty. Soft Tissues: There is a small fat containing umbilical hernia. PELVIS: Bladder: Portions of the urinary bladder are not well seen secondary to artifact from the orthopedic hardware. The visualized urinary bladder appears unremarkable. Reproductive Organs: Portions of the uterus are not well seen secondary to metallic hardware. The vi sualized portion are unremarkable. Lymph Nodes: Within normal limits. Bones: Within normal limits. IMPRESSION: 1. Interval decrease in size of the left upper lobe pulmonary masses since 02/10/2024. No new pulmonar y nodules. 2. No evidence of abdominal or pelvic metastatic disease. RADIATION DOSE DELIVERED: 413.98mGy.cm Total DLP DATA REPOSITORY: All CT scans at this facility are submitted to the National Radiology Data Registry (NRDR) Dose Index Registry (DIR) with the [employer] (ACR). RADIATION OPTIMIZATION: All CT scans at this facility use at least one of these dose optimization te chniques: automated exposure control; mA and/or kV adjustment per patient size (includes targeted exa ms where dose is matched to clinical indication); or iterative reconstruction.
== END 2024-06-13 01:33 ==
LOC: DI 01:13
PROVIDERS: PCP Nurse Practitioner Family; Visit Provider Internal Medicine Hematology & Oncology
DX: E78.5 Hyperlipidemia, unspecified (principal); R73.03 Prediabetes; C78.01 Secondary malignant neoplasm of right lung; C78.02 Secondary malignant neoplasm of left lung; C49.22 Malignant neoplasm of connective and soft tissue of left lower limb, including hip
CPT/HCPCS: 74177; 80048; 80061; 71260; 83036; J3490

== ENCOUNTER 2024-08-21 13:30 | Outpatient (REF) | payer MEDICARE, SELFPAY | END 2024-08-21 13:31 | disposition home or self-care (01) | LOC: LBN 13:30 | PROVIDERS: PCP Nurse Practitioner Family; Visit Provider Nurse Practitioner Family | DX: L98.9 Disorder of the skin and subcutaneous tissue, unspecified (principal) | CPT/HCPCS: 87070; 87205 ==

== ENCOUNTER 2024-09-24 00:50 | Outpatient (CLI) | payer MEDICARE, SELFPAY ==
[2024-09-24 09:09] LABS: Anion Gap 6.3 mmol/L (3-11); BUN 28 mg/dL (7-18); CO2 27.7 mmol/L (21.0-32.0); Calcium 9.8 mg/dL (8.5-10.1); Chloride 108 mmol/L (98-107); Estimated GFR 56.95 (mL/min/1.73m2); Glucose 113 mg/dL (74-106); Potassium 4.6 mmol/L (3.5-5.1); Sodium 142 mmol/L (136-145)
[2024-09-24] MEDS: Normal Saline - Diluent 50 ML VIAL IJ (09:26)
[2024-09-24] MEDS: Omnipaque 350 MG/ML 100 ML BTL IJ (09:27)
--- NOTE | 2024-09-24 09:34 | DI.CT_ITS ---
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 TECHNIQUE: Imaging Protocol: Axial computed tomography images with coronal and sagittal reformatted images were created and reviewed. Computer aided detection (CAD) was utilized. CONTRAST MATERIAL: Intravenous: Omnipaque 350 Contrast volume:100 ml Oral: no COMPARISON: CT CT CHEST/ABD/PEL W from 06/13/2024 FINDINGS: CHEST: Pulmonary parenchyma: There is a new infiltrate seen in the posterior inferior aspect of the left upp er lobe and adjacent superior segment of the left lower lobe. There is bronchiectasis associated with this area. There is also a new area of infiltration in the posterior right lower lobe, also associat ed with bronchiectasis. Mild interval decrease in size of previously noted partially calcified mass i n the left upper lobe measuring 1.9 by 1.0 x 2.8 cm compared with 2.1 x 0.9 by 3.2 cm. Previously not ed partially calcified lesion seen more inferiorly is partially obscured by an infiltrate. Tracheobronchial tree: Bronchiectasis noted in the posterior right lower lobe with associated infiltr ate. Bronchiectasis also seen in the left upper and lower lobes, near the major fissure. No mucous pl ugging.No bronchial wall thickening. Pleura: No effusion or pneumothorax. Mediastinum: Within normal limits. Pulmonary arteries: No visible emboli. Cardiovascular: Heart size is normal. Mild coronary artery calcifications. Thoracic aorta non-dilate d. Bones: Unremarkable for age. No lytic or blastic lesions.No compression fractures. Soft tissues: Unremarkable. ABDOMEN and PELVIS: Liver: Severe hepatic steatosis. No suspicious mass. Gallbladder and biliary tract: No evidence of stones or wall thickening. No biliary dilatation. Pancreas: Normal extremely atrophic. No abnormal calcifications or inflammatory process. Spleen: Normal. Kidneys: Normal size, contour and axis. No radiodense stones. No obstructive uropathy. Bilateral par apelvic cysts again noted. No suspicious masses seen. Adrenal glands: No masses seen. Aorta: Abdominal portion non-dilated. Lymph nodes: Within normal limits. Soft tissues: Small fat containing umbilical hernia. Bladder: Nearly empty. Unremarkable. Bowel: No obstruction or bowel wall thickening. Mild sigmoid diverticulosis. Peritoneal cavity: No ascites. No focal collection. No mesenteric inflammatory response. No free ai r. Bones: Left hip prosthesis. Degenerative changes in the right hip and lumbar spine. No suspicious les ions. Reproductive organs: Unremarkable for age. IMPRESSION: New infiltrates in the right lower lobe and left lower lobe near the major fissure. Associated bronch iectasis. Mild decrease in size of previously noted left lateral partially calcified mass. No evidence of metastatic disease or other acute abnormality in the abdomen or pelvis. RADIATION DOSE DELIVERED: 852.15mGy.cm Total DLP DATA REPOSITORY: All CT scans at this facility are submitted to the National Radiology Data Registry (NRDR) Dose Index Registry (DIR) with the [employer] (ACR). RADIATION OPTIMIZATION: All CT scans at this facility use at least one of these dose optimization te chniques: automated exposure control; mA and/or kV adjustment per patient size (includes targeted exa ms where dose is matched to clinical indication); or iterative reconstruction.
== END 2024-09-24 01:10 ==
LOC: DI 00:50
PROVIDERS: PCP Nurse Practitioner Family; Visit Provider Internal Medicine Hematology & Oncology
DX: C41.9 Malignant neoplasm of bone and articular cartilage, unspecified (principal); R91.8 Other nonspecific abnormal finding of lung field
CPT/HCPCS: 74177; 80048; 71260; J3490

== ENCOUNTER 2024-12-19 01:43 | Outpatient (CLI) | payer MEDICARE, SELFPAY ==
--- NOTE | 2024-12-19 | DI.CT_ITS ---
Exam(s) CT CHEST/ABD/PEL W EXAM: CT CHEST/ABD/PEL W CLINICAL HISTORY: C41.9 Surveillance for extraskeletal osteosarcoma TECHNIQUE: Imaging Protocol: Axial computed tomography images with coronal and sagittal reformatted images were created and reviewed. Lung Computer Aided Detection (CAD) was utilized. CONTRAST MATERIAL: Intravenous: Omnipaque 350 contrast volume:80 mL Oral: No COMPARISON: CT CT CHEST/ABD/PEL W from 09/24/2024 FINDINGS: CHEST: Tracheobronchial tree: Patent where visualized. No evidence of bronchiectasis. Pulmonary parenchyma: There has been improvement in the infiltrate in the right lower lobe. In the l eft upper lobe, the area has shown further consolidation compared to 09/24/2024. Particularly in the medial aspect of the left upper lobe. There has been some improvement in the infiltrate seen in the superior aspect of the left lower lobe. The lungs are otherwise clear. No architectural distortion. Visualized thyroid gland: Unremarkable. Mediastinum and Radha: No dominant adenopathy or fluid collection. The esophagus is unremarkable. Pleura: No effusion or pneumothorax. Heart: The heart is not dilated. No coronary artery calcifications are seen. There is a persistent sm all pericardial effusion. Pulmonary arteries: No pulmonary emboli are identified. Aorta: Thoracic aorta non-dilated. No evidence of dissection. Atherosclerotic calcification is prese nt. Lymph nodes: Within normal limits. Soft tissues: Unremarkable. Bones:Within normal limits for the patient's age. No aggressive osseous lesions are present. ABDOMEN: Liver: There is diffuse decreased attenuation of the liver consistent with fatty infiltration. No me asurable mass. Portal, Superior Mesenteric, and Splenic Veins: Unremarkable. Gallbladder and Biliary Tract: No radiodense calculus or dilation. Pancreas: There is fatty replacement of the pancreas. Spleen: Normal. Adrenals: No masses seen. Kidneys: Normal size, contour and axis. No radiodense stones or obstructive uropathy. There are bilat eral parapelvic cysts. No follow-up is recommended. Abdominal Aorta: Abdominal portion non-dilated. Atherosclerotic calcification is present. Bowel: The stomach is incompletely distended limiting evaluation. There is diverticulosis of the col on without evidence of acute diverticulitis. There is no evidence of bowel obstruction or bowel wall thickening. No evidence of appendicitis. Peritoneal Cavity: No ascites, collection or mesenteric inflammatory response. No free air. Lymph Nodes: Within normal limits. Bones: Within normal limits for the patient's age. The patient has a left total hip arthroplasty. N o aggressive osseous lesions are seen. Soft Tissues: Unremarkable. PELVIS: Bladder: Symmetric distention, no gross wall thickening. Reproductive Organs: Unremarkable as visualized. Lymph Nodes: Within normal limits. Bones: Within normal limits. IMPRESSION: 1. No evidence of abdominal or pelvic metastatic disease. 2. No acute abdominal or pelvic process. 3. Interval improvement in the infiltrate seen in the left lower lobe and the right lower lobe. 4. Increased consolidation is seen in the left upper lobe particularly medially. This may be seconda ry to atelectasis or progressive metastatic disease. Infection cannot be excluded. 5. Persistent pericardial effusion. RADIATION DOSE DELIVERED: 746.73mGy.cm Total DLP DATA REPOSITORY: All CT scans at this facility are submitted to the National Radiology Data Registry (NRDR) Dose Index Registry (DIR) with the [employer] (ACR). RADIATION OPTIMIZATION: All CT scans at this facility use at least one of these dose optimization te chniques: automated exposure control; mA and/or kV adjustment per patient size (includes targeted exa ms where dose is matched to clinical indication); or iterative reconstruction.
[2024-12-19 14:11] LABS: Abs Immature Grans 0.01 10^3/uL (0.0-0.06); Absolute Basophil Count 0.03 10^3/uL (0.0-0.2); Absolute Eosinophil Count 0.06 10^3/uL (0.0-0.7); Absolute Lymphocyte Count 1.21 10^3/uL (1.2-3.4); Absolute Monocyte Count 0.53 10^3/uL (0.1-0.8); Absolute Neutrophil Count 2.64 10^3/uL (1.2-6.7); Basophils % 0.7 %; Eosinophils % 1.3 %; HCT 41.6 % (36.0-46.0); HGB 13.8 g/dL (11.2-15.7); Immature Grans % 0.2 %; MCH 30.7 pg (27.0-33.0); MCHC 33.2 % (32.0-36.0); MCV 93 fL (80-95); MPV 8.6 fL (8.0-11.0); Monocytes % 11.8 %; Platelet Count 224 10^3/uL (130-400); RBC 4.49 10^6/uL (3.93-5.22); RDW 13.2 % (11.7-14.6); RDW-SD 44.8 fL; WBC 4.48 10^3/uL (4.4-10.8)
[2024-12-19 14:34] LABS: ALT 59 U/L (14-59); AST 38 U/L (15-37); Albumin 4.1 g/dL (3.4-5.0); Alkaline Phosphatase 70 U/L (46-116); Anion Gap 8.2 mmol/L (3-11); BUN 28 mg/dL (7-18); Bilirubin, Total 0.4 mg/dL (0.2-1.0); CO2 27.8 mmol/L (21.0-32.0); CREATININE 0.9 mg/dL (0.55-1.02); Calcium 9.8 mg/dL (8.5-10.1); Chloride 105 mmol/L (98-107); Estimated GFR 64.63 (mL/min/1.73m2); Glucose 99 mg/dL (74-106); Potassium 4.1 mmol/L (3.5-5.1); Sodium 141 mmol/L (136-145); Total Protein 7.9 g/dL (6.4-8.2)
[2024-12-19] MEDS: Normal Saline - Diluent 50 ML VIAL IJ (14:40)
[2024-12-19] MEDS: Omnipaque 350 MG/ML 100 ML BTL IJ (14:42)
== END 2024-12-19 02:03 ==
LOC: DI 01:43
PROVIDERS: Nurse Practitioner Gerontology; PCP Nurse Practitioner Family; Visit Provider Internal Medicine Hematology & Oncology
DX: C41.9 Malignant neoplasm of bone and articular cartilage, unspecified (principal)
CPT/HCPCS: 74177; 80053; 71260; 85025; J3490

== ENCOUNTER 2025-04-23 02:20 | Outpatient (CLI) | payer MEDICARE, SELFPAY ==
--- NOTE | 2025-04-23 | DI.CT_ITS ---
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 TECHNIQUE: Imaging Protocol: Axial computed tomography images with coronal and sagittal reformatted images were created and reviewed. Computer aided detection (CAD) was utilized. CONTRAST MATERIAL: Intravenous: Omnipaque 350 Contrast volume:100 ml Oral: yes / COMPARISON: CT CT CHEST/ABD/PEL W from 06/13/[address] CHEST/ABD/PEL W from 12/19/2024 FINDINGS: CHEST: Pulmonary parenchyma: Left lung: Stable appearance of left upper lobe scarring and volume loss. There are calcifications and some low-density the persist within this area. Associated bronchiectasis. Right lung: Mild scarring is present in the medial right lower lobe as well as posterior right lower lobe with associated bronchiectasis. Pleura: No effusion or pneumothorax. Mediastinum: Within normal limits. Pulmonary arteries: No visible emboli. Cardiovascular: Normal heart size. Coronary artery calcifications are present. Trace pericardial effusion. Thoracic aorta non-dilated. Bones: There are flowing osteophytes in the thoracic spine. No lytic or blastic lesions. No compression fractures. Soft tissues: Unremarkable. ABDOMEN and PELVIS: Liver: Severe fatty infiltration again noted. No suspicious mass. Gallbladder and biliary tract: No evidence of stones or wall thickening. No biliary dilatation. Pancreas: Severely atrophic. No abnormal calcifications or inflammatory process. Spleen: Normal. Kidneys: Normal size, contour and axis. No radiodense stones. No obstructive uropathy. Bilateral multiple parapelvic cysts are again noted. No follow-up recommended. No suspicious masses seen. Adrenal glands: No masses seen. Aorta: Abdominal portion non-dilated. Atherosclerotic changes. Lymph nodes: Within normal limits. Soft tissues: Small fat containing umbilical hernia. Bladder: Unremarkable. Bowel: No obstruction or bowel wall thickening. Diverticulosis noted. Peritoneal cavity: No ascites. No focal collection. No mesenteric inflammatory response. No free air. Bones: Left hip prosthesis. Degenerative changes of the right hip and lumbar spine. Postsurgical changes also noted in the lumbar spine. No lytic or blastic lesions. Reproductive organs: Unremarkable for age. IMPRESSION: Chest: Stable appearance of left upper lobe scarring and volume loss. Mild scarring noted in the right lower lobe. No evidence of metastatic disease in the abdomen or pelvis. RADIATION DOSE DELIVERED: 920.5mGy.cm Total DLP DATA REPOSITORY: All CT scans at this facility are submitted to the National Radiology Data Registry (NRDR) Dose Index Registry (DIR) with the [employer] (A[employer]). RADIATION OPTIMIZATION: All CT scans at this facility use at least one of these dose optimization techniques: automated exposure control; mA and/or kV adjustment per patient size (includes targeted exams where dose is matched to clinical indication); or iterative reconstruction.
[2025-04-23 13:41] LABS: Abs Immature Grans 0.01 10^3/uL (0.0-0.06); HCT 40.5 % (36.0-46.0); HGB 13.4 g/dL (11.2-15.7); Immature Grans % 0.2 %; MCH 30.7 pg (27.0-33.0); MCHC 33.1 % (32.0-36.0); MCV 93 fL (80-95); MPV 8.5 fL (8.0-11.0); Platelet Count 204 10^3/uL (130-400); RBC 4.36 10^6/uL (3.93-5.22); RDW 12.7 % (11.7-14.6); RDW-SD 43.5 fL; WBC 4.64 10^3/uL (4.4-10.8)
[2025-04-23 14:13] LABS: ALT 43 U/L (14-59); AST 31 U/L (15-37); Albumin 3.9 g/dL (3.4-5.0); Alkaline Phosphatase 65 U/L (46-116); Anion Gap 9.3 mmol/L (3-11); BUN 29 mg/dL (7-18); Bilirubin, Total 0.3 mg/dL (0.2-1.0); CO2 26.7 mmol/L (21.0-32.0); Calcium 9.6 mg/dL (8.5-10.1); Chloride 105 mmol/L (98-107); Estimated GFR 56.95 (mL/min/1.73m2); Glucose 90 mg/dL (74-106); Potassium 4.3 mmol/L (3.5-5.1); Sodium 141 mmol/L (136-145); Total Protein 7.4 g/dL (6.4-8.2)
[2025-04-23] MEDS: Omnipaque 350 MG/ML 100 ML BTL IJ (14:45)
[2025-04-23] MEDS: Normal Saline - Diluent 50 ML VIAL IJ (14:46)
== END 2025-04-23 02:40 ==
LOC: DI 02:20
PROVIDERS: PCP Nurse Practitioner Family; Visit Provider Internal Medicine Hematology & Oncology
DX: C41.9 Malignant neoplasm of bone and articular cartilage, unspecified (principal)
CPT/HCPCS: 74177; 80053; 71260; 85025; J3490

== ENCOUNTER 2025-05-28 03:24 | Outpatient (CLI) | payer MEDICARE, SELFPAY ==
[2025-05-28 15:36] LABS: Vitamin D 25 Total 69 ng/mL (30-100)
[2025-05-28 15:40] LABS: Anion Gap 9 mmol/L (3-11); BUN 23 mg/dL (9-23); CO2 24.0 mmol/L (20.0-31.0); Calcium 9.4 mg/dL (8.3-10.6); Chloride 109 mmol/L (98-107); Cholesterol 145 mg/dL (<200); Glucose 114 mg/dL (74-106); HDL Cholesterol 55 mg/dL (>40); Potassium 3.9 mmol/L (3.5-5.1); Sodium 142 mmol/L (136-145)
[2025-05-28 16:12] LABS: Hemoglobin A1C 6.4 % (<5.7)
== END 2025-05-28 03:25 | disposition home or self-care (01) ==
LOC: LOS 03:24
PROVIDERS: PCP Nurse Practitioner Family; Visit Provider Nurse Practitioner Family
DX: R73.03 Prediabetes (principal); Z00.00 Encounter for general adult medical examination without abnormal findings; E55.9 Vitamin D deficiency, unspecified; E78.5 Hyperlipidemia, unspecified
CPT/HCPCS: 36415; 80048; 80061; 82306; 83036